=== PATIENT | male | born 1975 | race Two or more races ===

== ENCOUNTER 2021-02-23 17:00 | Inpatient (IN) | payer OTHER ==
[~2021-02-23] VITALS: Ht 342.9 cm; Wt 92.1 kg
[2021-02-23] MEDS ORDERED: SODIUM CHLORIDE 0.9% 1,000 ML IV ONE ×2 (17:30)
[2021-02-23] MEDS ORDERED: levoFLOXacin 500MG 100 ML IV ONE (17:45)
[2021-02-23] MEDS ORDERED: CLINDAMYCIN 600MG IV 50 ML IV ONE (17:45)
[2021-02-23 18:20] LABS: Basophils # (auto) 0.1 10 ^3/uL (0-0.2); Basophils % (auto) 0.6 % (0.0-2.0); Eosinophils # (auto) 0.1 10 ^3/uL (0-0.8); Eosinophils % (auto) 1.5 % (0.0-7.0); Hematocrit 38.4 % (41.0-53.0); Hemoglobin 13.9 g/dL (13.5-17.5); Lymphocytes # (auto) 1.9 10 ^3/uL (0.4-5.4); Lymphocytes % (auto) 19.3 % (10.0-50.0); Mean Corpuscular Hgb Conc. 36.1 g/dL (32.0-36.0); Monocytes # (auto) 0.7 10 ^3/uL (0-1.3); Monocytes % (auto) 7.4 % (0.0-12.0); Neutrophils % (auto) 71.2 % (37.0-80.0); Nucleated Red Blood Cells % 0.1 %; Red Blood Cells 4.47 10^6/uL (4.5-5.90); Red Cell Distribution Width 12.9 % (11.8-14.3); White Blood Cell 9.8 10^3/uL (4.4-10.8)
[2021-02-23 18:32] LABS: Albumin 3.5 g/dL (3.4-5.0); BUN/Creatinine Ratio 18.8; Calcium 8.7 mg/dL (8.5-10.1); Potassium 4.4 mmol/L (3.5-5.1)
[2021-02-23 18:35] LABS: Bilirubin, Total 0.6 mg/dL (0.2-1.0); Total Protein 7.5 g/dL (6.4-8.2)
[2021-02-23] MEDS ORDERED: ONDANSETRON HCL 4 MG/2 ML VIAL IV PRN (21:00)
[2021-02-23] MEDS ORDERED: ACETAMINOPHEN 325 MG TAB PO PRN (21:00)
[2021-02-23] MEDS ORDERED: DEXTROSE (50%) 50ML SYRG IV PRN (21:00)
[2021-02-23] MEDS ORDERED: TEMAZEPAM 15 MG CAP PO PRN (21:00)
[2021-02-23] MEDS: CLINDAMYCIN 600MG IV 50 ML IV SCH (22:00)
[2021-02-23] MEDS: ACCU-CHEK COMFORT CURVE STRIP VI SCH (23:26)
[2021-02-23] MEDS: InsuLIN REG 1unit/0.01ml Soln (100units/ml) SC SCH (23:36)
[2021-02-24] VITALS (8 sets, daily range): BP systolic 117–137; BP diastolic 74–88
[2021-02-24] MEDS: HYDROcodone-ACET 5/325MG TAB PO PRN ×3 (02:09→22:40)
[2021-02-24] MEDS ORDERED: ACET-1156 PO (05:15)
[2021-02-24] MEDS ORDERED: IBUP200C3 PO (05:15)
[2021-02-24] MEDS: CLINDAMYCIN 600MG IV 50 ML IV SCH ×3 (05:45→22:11)
[2021-02-24 06:37] LABS: Basophils # (auto) 0 10 ^3/uL (0-0.2); Hemoglobin 12.5 g/dL (13.5-17.5); Monocytes # (auto) 0.8 10 ^3/uL (0-1.3); Neutrophils # (auto) 6.5 10 ^3/uL (1.6-8.6)
[2021-02-24 06:40] LABS: Basophils % (auto) 0.5 % (0.0-2.0); Eosinophils # (auto) 0.1 10 ^3/uL (0-0.8); Eosinophils % (auto) 1.4 % (0.0-7.0); Hematocrit 33.9 % (41.0-53.0); Lymphocytes # (auto) 2.2 10 ^3/uL (0.4-5.4); Lymphocytes % (auto) 22.8 % (10.0-50.0); Mean Corpuscular Hemoglobin 31.2 pg (28.0-32.0); Mean Corpuscular Volume 84.8 fL (80.0-100.0); Monocytes % (auto) 8.4 % (0.0-12.0); Neutrophils % (auto) 66.9 % (37.0-80.0); Red Cell Distribution Width 12.7 % (11.8-14.3); White Blood Cell 9.7 10^3/uL (4.4-10.8)
[2021-02-24 07:06] LABS: Potassium 4.1 mmol/L (3.5-5.1)
[2021-02-24 07:09] LABS: BUN/Creatinine Ratio 22.6
[2021-02-24 07:13] LABS: Mean Corpuscular Hgb Conc. 36.8 g/dL (32.0-36.0)
[2021-02-24] MEDS: ACCU-CHEK COMFORT CURVE STRIP VI SCH ×4 (07:16→22:11)
[2021-02-24] MEDS: InsuLIN REG 1unit/0.01ml Soln (100units/ml) SC SCH ×4 (07:16→22:39)
[2021-02-24] MEDS: cefTRIAXone 1GM/50ML D5W 50 ML IV SCH (08:41)
[2021-02-24] MEDS ORDERED: PANTOPRAZOLE 40 MG TAB PO SCH (10:00)
[2021-02-25 05:00] VITALS: BP 115/77
[2021-02-25] MEDS: CLINDAMYCIN 600MG IV 50 ML IV SCH ×2 (06:00→13:52)
[2021-02-25] MEDS: ACCU-CHEK COMFORT CURVE STRIP VI SCH ×2 (06:00→12:35)
[2021-02-25] MEDS: InsuLIN REG 1unit/0.01ml Soln (100units/ml) SC SCH ×2 (06:03→12:36)
[2021-02-25] MEDS: cefTRIAXone 1GM/50ML D5W 50 ML IV SCH (08:27)
[2021-02-25] MEDS: HYDROcodone-ACET 5/325MG TAB PO PRN ×2 (08:27→15:26)
[2021-02-25 09:00] VITALS: BP 117/78
[2021-02-25 12:34] VITALS: BP 122/82
[2021-02-25] MEDS ORDERED: CLIN300C8 PO (12:36)
[2021-02-25] MEDS ORDERED: AMOX500T86 PO (12:38)
[2021-02-25] MEDS ORDERED: METF-372 PO (12:40)
[2021-02-25] MEDS ORDERED: GLIP10TA16 PO (12:40)
[2021-02-25 15:35] VITALS: BP 122/82
[2021-02-25 16:57] VITALS: BP 137/83
== END 2021-02-25 16:45 | disposition home or self-care (01) | DRG 603 ==
LOC: ER 17:00 → OVERFLOW 20:50 → WEST WING 02-24 01:25
PROVIDERS: ADMIT Nurse Practitioner; ATTEND Internal Medicine Nephrology
DX: L03.116 Cellulitis of left lower limb (principal); R65.10 Systemic inflammatory response syndrome (SIRS) of non-infectious origin without acute organ dysfunction; E11.65 Type 2 diabetes mellitus with hyperglycemia; Z20.822 Contact with and (suspected) exposure to COVID-19; Z91.19 Patient's noncompliance with other medical treatment and regimen
CPT/HCPCS: 36415; 71045; 73700; 80048; 80053; 82962; 83036; 85025; 87040; 87426; 96361; 96365; 96367; G0378; J0696; J1815; J1956; J3490

== ENCOUNTER 2022-01-25 14:36 | Emergency (ER) | payer MEDICAID, OTHER ==
[~2022-01-25] VITALS: Ht 177.8 cm; Wt 77.1 kg
[~2022-01-25 14:36] MED LIST: ACET-1156 PO; AMOX500T86 PO; CLIN300C8 PO; GLIP10TA16 PO; IBUP200C3 PO; METF-372 PO
[2022-01-25] MEDS ORDERED: LORazepam 2MG/ML-1ML VIAL IV ONE ×3 (16:15→18:45)
[2022-01-25] MEDS ORDERED: fentaNYL CITRATE 100 MCG/2 ML VL IV ONE ×2 (17:00→18:45)
[2022-01-25] MEDS ORDERED: PROPOFOL 10 MG/ML 20 ML IV ONE (19:00)
[2022-01-25] MEDS ORDERED: KETAMINE 50mg/ML 10ml Vial (500mg/10ml) IV ONE (19:00)
[2022-01-25 22:00] VITALS: BP 130/80
== END 2022-01-25 22:00 | disposition home or self-care (01) ==
LOC: ER 14:36
DX: S03.01XA Dislocation of jaw, right side, initial encounter (principal); E11.9 Type 2 diabetes mellitus without complications; X58.XXXA Exposure to other specified factors, initial encounter; Y93.89 Activity, other specified; Y92.89 Other specified places as the place of occurrence of the external cause; Y99.8 Other external cause status
CPT/HCPCS: 21480; 70486; 96374; 96375; 96376; 99152; 99153; 99285; J2060; J2704; J3010; J7030

== ENCOUNTER 2022-05-23 15:12 | Emergency (ER) | payer MEDICAID ==
[~2022-05-23] VITALS: Ht 175.3 cm; Wt 99.5 kg
[2022-05-23 15:35] VITALS: BP 127/80
[2022-05-23 16:39] LABS: Albumin 3.3 g/dL (3.4-5.0); Calcium 8.7 mg/dL (8.5-10.1); Potassium 4.8 mmol/L (3.5-5.1)
[2022-05-23 16:44] LABS: BUN/Creatinine Ratio 16.4; Bilirubin, Total 0.4 mg/dL (0.2-1.0); Total Protein 7.5 g/dL (6.4-8.2)
[2022-05-23 17:11] LABS: Basophils # (auto) 0.1 10 ^3/uL (0-0.2); Basophils % (auto) 0.9 % (0.0-2.0); Eosinophils # (auto) 0.2 10 ^3/uL (0-0.8); Eosinophils % (auto) 3.6 % (0.0-7.0); Hematocrit 39.4 % (41.0-53.0); Lymphocytes # (auto) 1.9 10 ^3/uL (0.4-5.4); Lymphocytes % (auto) 31.2 % (10.0-50.0); Mean Corpuscular Hgb Conc. 35.5 g/dL (32.0-36.0); Mean Corpuscular Volume 87.3 fL (80.0-100.0); Monocytes # (auto) 0.4 10 ^3/uL (0-1.3); Monocytes % (auto) 6.8 % (0.0-12.0); Neutrophils # (auto) 3.5 10 ^3/uL (1.6-8.6); Neutrophils % (auto) 57.5 % (37.0-80.0); Nucleated Red Blood Cells % 0.1 %; Red Blood Cells 4.52 10^6/uL (4.5-5.90); Red Cell Distribution Width 12.7 % (11.8-14.3); White Blood Cell 6.1 10^3/uL (4.4-10.8)
[2022-05-23] MEDS ORDERED: CEPH-322 PO (19:11)
== END 2022-05-23 19:39 | disposition home or self-care (01) ==
LOC: ER 15:12
DX: L03.115 Cellulitis of right lower limb (principal); E11.65 Type 2 diabetes mellitus with hyperglycemia; Z79.1 Long term (current) use of non-steroidal anti-inflammatories (NSAID); Z79.899 Other long term (current) drug therapy
CPT/HCPCS: 36415; 73700; 80053; 85025; 85652

== ENCOUNTER 2022-07-25 21:50 | Inpatient (IN) | payer MEDICAID ==
[~2022-07-25] VITALS: Ht 175.3 cm; Wt 97.0 kg
[~2022-07-25 21:50] MED LIST changes: +CEPH-322 PO
[2022-07-26] MEDS ORDERED: PIPERACILLIN-TAZOB 3.375GM 100 ML IV ONE (01:00)
[2022-07-26] MEDS ORDERED: VANCOMYCIN 1GM/250ML 250 ML IV ONE ×2 (01:00→04:45)
[2022-07-26 01:46] LABS: Albumin 2.9 g/dL (3.4-5.0); Calcium 8.9 mg/dL (8.5-10.1)
[2022-07-26 01:50] LABS: Bilirubin, Total 0.6 mg/dL (0.2-1.0); Total Protein 7.3 g/dL (6.4-8.2)
[2022-07-26 01:57] LABS: Partial Thromboplastin Time 27.6 sec (24.6-33.4)
[2022-07-26 02:02] LABS: Basophils # (auto) 0 10 ^3/uL (0-0.2); Basophils % (auto) 0.6 % (0.0-2.0); Eosinophils # (auto) 0.2 10 ^3/uL (0-0.8); Hematocrit 38.5 % (41.0-53.0); Hemoglobin 13.6 g/dL (13.5-17.5); Lymphocytes # (auto) 1.8 10 ^3/uL (0.4-5.4); Lymphocytes % (auto) 23.9 % (10.0-50.0); Mean Corpuscular Hgb Conc. 35.3 g/dL (32.0-36.0); Mean Corpuscular Volume 87.7 fL (80.0-100.0); Monocytes # (auto) 0.5 10 ^3/uL (0-1.3); Monocytes % (auto) 6.7 % (0.0-12.0); Neutrophils # (auto) 5.1 10 ^3/uL (1.6-8.6); Neutrophils % (auto) 65.8 % (37.0-80.0); Red Blood Cells 4.39 10^6/uL (4.5-5.90); Red Cell Distribution Width 12.4 % (11.8-14.3); White Blood Cell 7.7 10^3/uL (4.4-10.8)
[2022-07-26] MEDS ORDERED: SODIUM CHLORIDE 0.9% 1,000 ML IV ONE (04:00)
[2022-07-26] MEDS ORDERED: InsuLIN REG 1unit/0.01ml Soln (100units/ml) IV ONE (04:00)
[2022-07-26] MEDS ORDERED: VANCOMYCIN PER PHARMACY 0 MG IV SCH (04:30)
[2022-07-26] MEDS ORDERED: DEXTROSE (50%) 50ML SYRG IV PRN (04:30)
[2022-07-26] MEDS ORDERED: LORazepam 0.5 MG TAB PO PRN (04:30)
[2022-07-26] MEDS ORDERED: ACETAMINOPHEN 325 MG TAB PO PRN (04:30)
[2022-07-26] MEDS ORDERED: TEMAZEPAM 15 MG CAP PO PRN (04:30)
[2022-07-26] MEDS ORDERED: DOCUSATE SOD 100 MG CAP PO PRN (04:30)
[2022-07-26] MEDS: SODIUM CHLORIDE 0.9% 1,000 ML IV SCH ×2 (04:30→21:10)
[2022-07-26] MEDS ORDERED: HYDROcodone-ACET 5/325MG TAB PO PRN (04:30)
[2022-07-26] MEDS ORDERED: MAALOX PLUS or MAALOX 30 ML PO PRN (04:30)
[2022-07-26] MEDS ORDERED: ONDANSETRON HCL 4 MG/2 ML VIAL IV PRN (04:30)
[2022-07-26] MEDS ORDERED: MORPHINE SULFATE INJ 2 MG/ml SYRG IV PRN (04:30)
[2022-07-26 06:33] LABS: BUN/Creatinine Ratio 19.5; Calcium 9.1 mg/dL (8.5-10.1); Potassium 4.3 mmol/L (3.5-5.1)
[2022-07-26 06:38] LABS: Basophils # (auto) 0.1 10 ^3/uL (0-0.2); Basophils % (auto) 0.7 % (0.0-2.0); Eosinophils # (auto) 0.2 10 ^3/uL (0-0.8); Eosinophils % (auto) 2.8 % (0.0-7.0); Hematocrit 38.6 % (41.0-53.0); Hemoglobin 13.8 g/dL (13.5-17.5); Lymphocytes # (auto) 1.8 10 ^3/uL (0.4-5.4); Lymphocytes % (auto) 23.3 % (10.0-50.0); Mean Corpuscular Hemoglobin 31.4 pg (28.0-32.0); Mean Corpuscular Hgb Conc. 35.6 g/dL (32.0-36.0); Mean Corpuscular Volume 88.2 fL (80.0-100.0); Monocytes # (auto) 0.5 10 ^3/uL (0-1.3); Monocytes % (auto) 6.7 % (0.0-12.0); Neutrophils % (auto) 66.5 % (37.0-80.0); Red Blood Cells 4.38 10^6/uL (4.5-5.90); Red Cell Distribution Width 12.3 % (11.8-14.3); White Blood Cell 7.6 10^3/uL (4.4-10.8)
[2022-07-26] MEDS: PIPERACILLIN-TAZOB 3.375GM 100 ML IV SCH ×3 (09:30→16:39)
[2022-07-26] MEDS: ACCU-CHEK COMFORT CURVE STRIP VI SCH ×4 (09:40→23:04)
[2022-07-26] MEDS: InsuLIN REG 1unit/0.01ml Soln (100units/ml) SC SCH ×4 (09:43→23:09)
[2022-07-26] MEDS: VANCOMYCIN 1GM/250ML 250 ML IV SCH ×2 (10:39→18:15)
[2022-07-26 11:33] LABS: BUN/Creatinine Ratio 18.4
[2022-07-26 12:12] LABS: Urine Bacteria NONE SEEN /hpf (None Seen); Urine Blood 1+ /uL (Negative); Urine WBC <1 /hpf (0 - 3)
[2022-07-26 12:41] LABS: Alcohol, Urine < 3.0 mg/dL (0-10); Amphetamine Screen, Urine NEGATIVE (NEGATIVE); Barbiturate Scree,Urine NEGATIVE (NEGATIVE); Benzodiazephine Screen, Urine NEGATIVE (NEGATIVE); Cannabinoid Screen, Urine NEGATIVE (NEGATIVE); Cocaine Screen, Urine NEGATIVE (NEGATIVE); Opiate Scree,Urine NEGATIVE (NEGATIVE); Phencyclidine Screen, Urine NEGATIVE (NEGATIVE)
[2022-07-26] MEDS ORDERED: LOSARTAN POTASSIUM 25 MG TAB PO ONE (13:15)
[2022-07-26] MEDS: metFORMIN HYDROCHLORIDE 500 MG TAB PO SCH (18:18)
[2022-07-26] MEDS ORDERED: INSULIN LANTUS (GLARGINE) 1 /0.01ml (100units/ml) SC SCH (22:00)
[2022-07-26 22:20] VITALS: BP 144/92
[2022-07-26 22:56] LABS: CRP High Sensitivity 4.54 mg/dL (< 0.3)
[2022-07-27 00:41] VITALS: BP_SYST 144; BP_DIAS 92; BP_DIAS 93
[2022-07-27] MEDS ORDERED: METF-370 PO (01:22)
[2022-07-27] MEDS ORDERED: AMOX500T86 PO (01:22)
[2022-07-27] MEDS: VANCOMYCIN 1GM/250ML 250 ML IV SCH ×3 (03:10→23:53)
[2022-07-27 05:00] VITALS: BP 121/68
[2022-07-27] MEDS: ACCU-CHEK COMFORT CURVE STRIP VI SCH ×4 (06:16→22:31)
[2022-07-27] MEDS: PIPERACILLIN-TAZOB 3.375GM 100 ML IV SCH ×3 (06:16→21:38)
[2022-07-27] MEDS: InsuLIN REG 1unit/0.01ml Soln (100units/ml) SC SCH ×4 (06:18→23:26)
[2022-07-27 06:34] LABS: Basophils # (auto) 0 10 ^3/uL (0-0.2); Basophils % (auto) 0.6 % (0.0-2.0); Eosinophils # (auto) 0.2 10 ^3/uL (0-0.8); Eosinophils % (auto) 2.7 % (0.0-7.0); Hematocrit 35.2 % (41.0-53.0); Hemoglobin 12.5 g/dL (13.5-17.5); Lymphocytes # (auto) 1.8 10 ^3/uL (0.4-5.4); Mean Corpuscular Hgb Conc. 35.4 g/dL (32.0-36.0); Mean Corpuscular Volume 87.5 fL (80.0-100.0); Monocytes # (auto) 0.5 10 ^3/uL (0-1.3); Monocytes % (auto) 7.7 % (0.0-12.0); Neutrophils # (auto) 4.5 10 ^3/uL (1.6-8.6); Red Blood Cells 4.02 10^6/uL (4.5-5.90); Red Cell Distribution Width 12.4 % (11.8-14.3); White Blood Cell 7.1 10^3/uL (4.4-10.8)
[2022-07-27 06:52] LABS: Albumin 2.3 g/dL (3.4-5.0); Calcium 8.5 mg/dL (8.5-10.1); Potassium 4.7 mmol/L (3.5-5.1)
[2022-07-27 06:54] LABS: BUN/Creatinine Ratio 17.2
[2022-07-27 06:56] LABS: Bilirubin, Total 0.6 mg/dL (0.2-1.0); Total Protein 5.5 g/dL (6.4-8.2)
[2022-07-27] MEDS: metFORMIN HYDROCHLORIDE 500 MG TAB PO SCH ×2 (08:12→17:20)
[2022-07-27] MEDS: LOSARTAN POTASSIUM 25 MG TAB PO SCH (08:13)
[2022-07-27 09:00] VITALS: BP 146/89
[2022-07-27] MEDS: INSULIN LANTUS (GLARGINE) 1 /0.01ml (100units/ml) SC SCH ×2 (11:27→23:23)
[2022-07-27 13:00] VITALS: BP 151/78
[2022-07-27] MEDS: SODIUM CHLORIDE 0.9% 1,000 ML IV SCH (13:50)
[2022-07-27 17:00] VITALS: BP 145/91
[2022-07-27 22:00] VITALS: BP 155/83
[2022-07-28 05:00] VITALS: BP 123/73
[2022-07-28] MEDS: PIPERACILLIN-TAZOB 3.375GM 100 ML IV SCH ×3 (05:45→21:46)
[2022-07-28 06:02] LABS: Basophils # (auto) 0.1 10 ^3/uL (0-0.2); Basophils % (auto) 1.1 % (0.0-2.0); Eosinophils # (auto) 0.2 10 ^3/uL (0-0.8); Eosinophils % (auto) 3.7 % (0.0-7.0); Hematocrit 34.8 % (41.0-53.0); Hemoglobin 12.6 g/dL (13.5-17.5); Lymphocytes # (auto) 1.8 10 ^3/uL (0.4-5.4); Lymphocytes % (auto) 29.6 % (10.0-50.0); Mean Corpuscular Hemoglobin 31.6 pg (28.0-32.0); Mean Corpuscular Hgb Conc. 36.3 g/dL (32.0-36.0); Monocytes # (auto) 0.5 10 ^3/uL (0-1.3); Monocytes % (auto) 8.4 % (0.0-12.0); Neutrophils # (auto) 3.5 10 ^3/uL (1.6-8.6); Neutrophils % (auto) 57.2 % (37.0-80.0); Red Cell Distribution Width 12.4 % (11.8-14.3); White Blood Cell 6.1 10^3/uL (4.4-10.8)
[2022-07-28] MEDS: ACCU-CHEK COMFORT CURVE STRIP VI SCH ×4 (06:06→21:41)
[2022-07-28] MEDS: InsuLIN REG 1unit/0.01ml Soln (100units/ml) SC SCH ×4 (06:10→21:39)
[2022-07-28 06:19] LABS: Albumin 2.4 g/dL (3.4-5.0); Calcium 8.2 mg/dL (8.5-10.1); Potassium 4.3 mmol/L (3.5-5.1)
[2022-07-28 06:25] LABS: BUN/Creatinine Ratio 13.5; Bilirubin, Total 0.5 mg/dL (0.2-1.0); Total Protein 5.6 g/dL (6.4-8.2)
[2022-07-28 09:00] VITALS: BP 111/68
[2022-07-28] MEDS: LOSARTAN POTASSIUM 25 MG TAB PO SCH (09:29)
[2022-07-28] MEDS: metFORMIN HYDROCHLORIDE 500 MG TAB PO SCH ×2 (09:29→17:23)
[2022-07-28] MEDS: VANCOMYCIN 1GM/250ML 250 ML IV SCH ×2 (09:30→09:33)
[2022-07-28] MEDS: SODIUM CHLORIDE 0.9% 1,000 ML IV SCH ×2 (09:33→23:10)
[2022-07-28 12:59] VITALS: BP 136/80
[2022-07-28 15:12] LABS: Hepatitis C Antibody Negative (Negative)
[2022-07-28 17:00] VITALS: BP 124/71
[2022-07-28] MEDS: INSULIN LANTUS (GLARGINE) 1 /0.01ml (100units/ml) SC SCH (21:40)
[2022-07-28 22:00] VITALS: BP 145/88
[2022-07-29 05:00] VITALS: BP 130/88
[2022-07-29] MEDS: VANCOMYCIN 1GM/250ML 250 ML IV SCH ×2 (05:04→15:00)
[2022-07-29 06:18] LABS: Basophils # (auto) 0.1 10 ^3/uL (0-0.2); Basophils % (auto) 0.7 % (0.0-2.0); Eosinophils # (auto) 0.2 10 ^3/uL (0-0.8); Eosinophils % (auto) 3.4 % (0.0-7.0); Hematocrit 36.6 % (41.0-53.0); Lymphocytes # (auto) 1.8 10 ^3/uL (0.4-5.4); Lymphocytes % (auto) 25.5 % (10.0-50.0); Mean Corpuscular Hgb Conc. 35.4 g/dL (32.0-36.0); Mean Corpuscular Volume 87.6 fL (80.0-100.0); Monocytes # (auto) 0.5 10 ^3/uL (0-1.3); Monocytes % (auto) 7.1 % (0.0-12.0); Neutrophils # (auto) 4.5 10 ^3/uL (1.6-8.6); Neutrophils % (auto) 63.3 % (37.0-80.0); Red Blood Cells 4.18 10^6/uL (4.5-5.90); Red Cell Distribution Width 12.5 % (11.8-14.3); White Blood Cell 7.1 10^3/uL (4.4-10.8)
[2022-07-29] MEDS: InsuLIN REG 1unit/0.01ml Soln (100units/ml) SC SCH ×4 (06:37→21:36)
[2022-07-29] MEDS: ACCU-CHEK COMFORT CURVE STRIP VI SCH ×4 (06:38→21:37)
[2022-07-29 06:45] LABS: Albumin 2.5 g/dL (3.4-5.0); Calcium 8.7 mg/dL (8.5-10.1)
[2022-07-29 06:51] LABS: Bilirubin, Total 0.4 mg/dL (0.2-1.0)
[2022-07-29] MEDS: PIPERACILLIN-TAZOB 3.375GM 100 ML IV SCH ×3 (07:21→21:14)
[2022-07-29] MEDS: metFORMIN HYDROCHLORIDE 500 MG TAB PO SCH ×2 (08:58→17:51)
[2022-07-29] MEDS: LOSARTAN POTASSIUM 25 MG TAB PO SCH (08:59)
[2022-07-29 09:00] VITALS: BP 144/78
[2022-07-29] MEDS ORDERED: fentaNYL CITRATE 100 MCG/2 ML VL ONE (11:25)
[2022-07-29] MEDS ORDERED: PROPOFOL 10 MG/ML 20 ML IV ONE (11:26)
[2022-07-29] MEDS ORDERED: MIDAZOLAM HCL 2MG/2ML 2ml VIAL (1mg/ml) ONE (11:26)
[2022-07-29] MEDS ORDERED: METOCLOPRAMIDE HCL 5MG/ml INJ 2ml VIAL IV PRN (11:45)
[2022-07-29] MEDS ORDERED: ONDANSETRON HCL 4 MG/2 ML VIAL IV PRN (11:45)
[2022-07-29] MEDS ORDERED: ePHEDrine SULFATE 50 MG/ML AMP IV PRN (11:45)
[2022-07-29] MEDS ORDERED: LABETALOL HCL 5 MG/ML 4ML SYRINGE IV PRN (11:45)
[2022-07-29] MEDS ORDERED: DAKINS HALF STR 0.25% (NaHypochlorite) 473 ML TOPICAL SOL TOP ONE (11:45)
[2022-07-29] MEDS ORDERED: BUPIVACAINE 0.5% P/F INJ 10 ML VIAL ONE (11:45)
[2022-07-29] MEDS ORDERED: LIDOCAINE 1%HCL (LOCAL ANESTH) 10 ML MDV ONE (11:45)
[2022-07-29] MEDS ORDERED: MIDAZOLAM HCL 2MG/2ML 2ml VIAL (1mg/ml) IV PRN (11:45)
[2022-07-29] MEDS ORDERED: HYDROmorphone HCL 2 MG/ML VL/or syr IV PRN (11:45)
[2022-07-29] MEDS ORDERED: MORPHINE SULFATE 4 MG/ML SYR/VIAL IV PRN (11:45)
[2022-07-29] MEDS ORDERED: ACCU-CHEK COMFORT CURVE STRIP VI ONE (11:45)
[2022-07-29] MEDS: SODIUM CHLORIDE 0.9% 1,000 ML IV SCH (16:14)
[2022-07-29 17:41] VITALS: BP 139/79
[2022-07-29] MEDS: INSULIN LANTUS (GLARGINE) 1 /0.01ml (100units/ml) SC SCH (21:37)
[2022-07-29 22:00] VITALS: BP 151/93
[2022-07-30] MEDS: VANCOMYCIN 1GM/250ML 250 ML IV SCH ×3 (00:54→22:01)
[2022-07-30 05:00] VITALS: BP 138/96
[2022-07-30] MEDS: PIPERACILLIN-TAZOB 3.375GM 100 ML IV SCH ×3 (05:16→22:00)
[2022-07-30 06:03] LABS: Basophils # (auto) 0.1 10 ^3/uL (0-0.2); Basophils % (auto) 0.9 % (0.0-2.0); Eosinophils # (auto) 0.1 10 ^3/uL (0-0.8); Eosinophils % (auto) 2.2 % (0.0-7.0); Hematocrit 34.7 % (41.0-53.0); Hemoglobin 12.2 g/dL (13.5-17.5); Lymphocytes # (auto) 0.9 10 ^3/uL (0.4-5.4); Lymphocytes % (auto) 14.9 % (10.0-50.0); Mean Corpuscular Hemoglobin 30.9 pg (28.0-32.0); Mean Corpuscular Hgb Conc. 35.3 g/dL (32.0-36.0); Mean Corpuscular Volume 87.4 fL (80.0-100.0); Monocytes # (auto) 0.4 10 ^3/uL (0-1.3); Neutrophils # (auto) 4.5 10 ^3/uL (1.6-8.6); Red Blood Cells 3.97 10^6/uL (4.5-5.90); Red Cell Distribution Width 12.6 % (11.8-14.3)
[2022-07-30 06:36] LABS: Albumin 2.3 g/dL (3.4-5.0); Calcium 8.5 mg/dL (8.5-10.1); Potassium 4.3 mmol/L (3.5-5.1)
[2022-07-30 06:39] LABS: Bilirubin, Total 0.4 mg/dL (0.2-1.0); Total Protein 6.3 g/dL (6.4-8.2)
[2022-07-30] MEDS: ACCU-CHEK COMFORT CURVE STRIP VI SCH ×4 (06:40→22:01)
[2022-07-30] MEDS: InsuLIN REG 1unit/0.01ml Soln (100units/ml) SC SCH ×4 (06:42→22:00)
[2022-07-30] MEDS: SODIUM CHLORIDE 0.9% 1,000 ML IV SCH (08:30)
[2022-07-30] MEDS: metFORMIN HYDROCHLORIDE 500 MG TAB PO SCH ×2 (08:45→17:58)
[2022-07-30 09:00] VITALS: BP 150/89
[2022-07-30] MEDS: LOSARTAN POTASSIUM 25 MG TAB PO SCH (11:06)
[2022-07-30 13:00] VITALS: BP 149/86
[2022-07-30] MEDS ORDERED: glipiZIDE 5 MG TAB PO ONE (14:15)
[2022-07-30 17:00] VITALS: BP 149/83
[2022-07-30 22:00] VITALS: BP 137/89
[2022-07-31] MEDS: SODIUM CHLORIDE 0.9% 1,000 ML IV SCH ×3 (01:10→17:57)
[2022-07-31 05:00] VITALS: BP 116/71
[2022-07-31] MEDS: PIPERACILLIN-TAZOB 3.375GM 100 ML IV SCH ×3 (05:37→22:38)
[2022-07-31 06:06] LABS: Basophils # (auto) 0 10 ^3/uL (0-0.2); Basophils % (auto) 0.9 % (0.0-2.0); Eosinophils # (auto) 0.2 10 ^3/uL (0-0.8); Eosinophils % (auto) 3.5 % (0.0-7.0); Hematocrit 36.9 % (41.0-53.0); Hemoglobin 13.1 g/dL (13.5-17.5); Lymphocytes # (auto) 1.8 10 ^3/uL (0.4-5.4); Lymphocytes % (auto) 34.4 % (10.0-50.0); Mean Corpuscular Hemoglobin 31.2 pg (28.0-32.0); Mean Corpuscular Hgb Conc. 35.5 g/dL (32.0-36.0); Mean Corpuscular Volume 87.8 fL (80.0-100.0); Monocytes # (auto) 0.6 10 ^3/uL (0-1.3); Monocytes % (auto) 10.3 % (0.0-12.0); Neutrophils # (auto) 2.7 10 ^3/uL (1.6-8.6); Neutrophils % (auto) 50.9 % (37.0-80.0); Red Cell Distribution Width 12.5 % (11.8-14.3); White Blood Cell 5.4 10^3/uL (4.4-10.8)
[2022-07-31 06:23] LABS: Albumin 2.4 g/dL (3.4-5.0); BUN/Creatinine Ratio 16.4; Calcium 8.8 mg/dL (8.5-10.1); Potassium 3.9 mmol/L (3.5-5.1)
[2022-07-31 06:25] LABS: Bilirubin, Total 0.4 mg/dL (0.2-1.0)
[2022-07-31] MEDS: InsuLIN REG 1unit/0.01ml Soln (100units/ml) SC SCH ×4 (07:00→22:38)
[2022-07-31] MEDS: ACCU-CHEK COMFORT CURVE STRIP VI SCH ×4 (07:03→22:38)
[2022-07-31] MEDS: VANCOMYCIN 1GM/250ML 250 ML IV SCH ×2 (07:08→18:54)
[2022-07-31] MEDS: glipiZIDE 5 MG TAB PO SCH (07:58)
[2022-07-31] MEDS: metFORMIN HYDROCHLORIDE 500 MG TAB PO SCH ×2 (08:20→17:39)
[2022-07-31 09:00] VITALS: BP 128/78
[2022-07-31] MEDS: LOSARTAN POTASSIUM 25 MG TAB PO SCH (09:25)
[2022-07-31] MEDS: DAKINS QUARTER STR 0.125% (NaHypochlorite) 473 ML TOPICAL SOL TOP SCH ×2 (10:44→10:45)
[2022-07-31 13:00] VITALS: BP 160/86
[2022-07-31 17:00] VITALS: BP 138/90
[2022-07-31 21:53] VITALS: BP 156/95
[2022-08-01 05:00] VITALS: BP 139/83
[2022-08-01] MEDS: PIPERACILLIN-TAZOB 3.375GM 100 ML IV SCH ×2 (06:31→13:15)
[2022-08-01] MEDS: VANCOMYCIN 1GM/250ML 250 ML IV SCH (06:31)
[2022-08-01] MEDS: ACCU-CHEK COMFORT CURVE STRIP VI SCH ×2 (06:31→11:19)
[2022-08-01 06:45] LABS: Basophils # (auto) 0.1 10 ^3/uL (0-0.2); Basophils % (auto) 0.9 % (0.0-2.0); Eosinophils # (auto) 0.2 10 ^3/uL (0-0.8); Eosinophils % (auto) 3.3 % (0.0-7.0); Hematocrit 35.9 % (41.0-53.0); Hemoglobin 12.7 g/dL (13.5-17.5); Lymphocytes # (auto) 1.6 10 ^3/uL (0.4-5.4); Lymphocytes % (auto) 22.5 % (10.0-50.0); Mean Corpuscular Hemoglobin 31.5 pg (28.0-32.0); Mean Corpuscular Hgb Conc. 35.5 g/dL (32.0-36.0); Mean Corpuscular Volume 88.6 fL (80.0-100.0); Monocytes # (auto) 0.7 10 ^3/uL (0-1.3); Monocytes % (auto) 8.9 % (0.0-12.0); Neutrophils # (auto) 4.7 10 ^3/uL (1.6-8.6); Neutrophils % (auto) 64.4 % (37.0-80.0); Nucleated Red Blood Cells % 0.1 %; Red Blood Cells 4.05 10^6/uL (4.5-5.90); Red Cell Distribution Width 12.4 % (11.8-14.3); White Blood Cell 7.3 10^3/uL (4.4-10.8)
[2022-08-01] MEDS: glipiZIDE 5 MG TAB PO SCH (06:48)
[2022-08-01] MEDS: InsuLIN REG 1unit/0.01ml Soln (100units/ml) SC SCH ×2 (06:48→11:19)
[2022-08-01 07:04] LABS: Albumin 2.4 g/dL (3.4-5.0); Calcium 8.7 mg/dL (8.5-10.1); Potassium 4.4 mmol/L (3.5-5.1)
[2022-08-01 07:08] LABS: BUN/Creatinine Ratio 18.6; Bilirubin, Total 0.3 mg/dL (0.2-1.0); Total Protein 6.6 g/dL (6.4-8.2)
[2022-08-01 08:00] VITALS: BP 144/102
[2022-08-01] MEDS: LOSARTAN POTASSIUM 25 MG TAB PO SCH (08:59)
[2022-08-01] MEDS: metFORMIN HYDROCHLORIDE 500 MG TAB PO SCH (08:59)
[2022-08-01] MEDS: DAKINS QUARTER STR 0.125% (NaHypochlorite) 473 ML TOPICAL SOL TOP SCH (10:00)
[2022-08-01 12:00] VITALS: BP 158/94
[2022-08-01] MEDS ORDERED: GLIP5TAB12 PO (14:57)
[2022-08-01] MEDS ORDERED: LOS25T PO (14:57)
[2022-08-01] MEDS ORDERED: METF-370 PO (14:57)
[2022-08-01] MEDS ORDERED: SITA50TA PO (14:57)
[2022-08-01] MEDS ORDERED: CEPH500C PO (14:57)
[2022-08-01 16:00] VITALS: BP 151/92
== END 2022-08-01 17:33 | disposition home or self-care (01) | DRG 344 ==
LOC: ER 21:51 → OVERFLOW 07-26 04:22 → CENTRAL 07-26 21:38
PROVIDERS: ADMIT Hospitalist; ATTEND Student in an Organized Health Care Education/Training Program
PROC: 0JBQ0ZZ Excision of Right Foot Subcutaneous Tissue and Fascia, Open Approach (ICD-10-PCS; principal; 2022-07-29 11:48)
DX: E11.621 Type 2 diabetes mellitus with foot ulcer (principal); M86.8X7 Other osteomyelitis, ankle and foot; E87.1 Hypo-osmolality and hyponatremia; E11.40 Type 2 diabetes mellitus with diabetic neuropathy, unspecified; E11.21 Type 2 diabetes mellitus with diabetic nephropathy; L97.415 Non-pressure chronic ulcer of right heel and midfoot with muscle involvement without evidence of necrosis; E11.65 Type 2 diabetes mellitus with hyperglycemia; Z20.822 Contact with and (suspected) exposure to COVID-19; E86.0 Dehydration; R79.89 Other specified abnormal findings of blood chemistry; E66.9 Obesity, unspecified; E11.628 Type 2 diabetes mellitus with other skin complications; E11.69 Type 2 diabetes mellitus with other specified complication; L08.9 Local infection of the skin and subcutaneous tissue, unspecified; L97.519 Non-pressure chronic ulcer of other part of right foot with unspecified severity; Z79.84 Long term (current) use of oral hypoglycemic drugs; Z68.32 Body mass index [BMI] 32.0-32.9, adult; Z83.3 Family history of diabetes mellitus
CPT/HCPCS: 36415; 73630; 78315; 80048; 80053; 80202; 80307; 81001; 82010; 82553; 82962; 83036; 83605; 83690; 83930; 84484; 85025; 85610; 85652; 85730; 86141; 86803; 87040; 87070; 87075; 87077; 87205; 87340; 87426; 93971; 96361; 96372; 96374; 99291; G0378; J1815; J2001; J2250; J2543; J2704; J3490

== ENCOUNTER 2023-01-16 13:30 | Inpatient (IN) | payer MEDICAID ==
[~2023-01-16] VITALS: Ht 175.3 cm; Wt 98.9 kg
[~2023-01-16 13:30] MED LIST changes: -ACET-1156 PO; +ACET-1881 PO; -CEPH-322 PO; +CEPH250C PO; +CEPH500C PO; +CLIN300C70 PO; -CLIN300C8 PO; -GLIP10TA16 PO; +GLIP10TA21 PO; +GLIP5TAB12 PO; +LOS25T PO; +METF-370 PO; +SITA50TA PO
[2023-01-16 15:02] LABS: Basophils # (auto) 0.1 10 ^3/uL (0-0.2); Basophils % (auto) 1.2 % (0.0-2.0); Eosinophils # (auto) 0.1 10 ^3/uL (0-0.8); Eosinophils % (auto) 2.6 % (0.0-7.0); Hematocrit 41.4 % (41.0-53.0); Hemoglobin 14.4 g/dL (13.5-17.5); Lymphocytes # (auto) 1.5 10 ^3/uL (0.4-5.4); Lymphocytes % (auto) 28.1 % (10.0-50.0); Mean Corpuscular Hemoglobin 30.7 pg (28.0-32.0); Mean Corpuscular Hgb Conc. 34.8 g/dL (32.0-36.0); Mean Corpuscular Volume 88.1 fL (80.0-100.0); Monocytes # (auto) 0.6 10 ^3/uL (0-1.3); Monocytes % (auto) 10.8 % (0.0-12.0); Neutrophils # (auto) 3.1 10 ^3/uL (1.6-8.6); Neutrophils % (auto) 57.3 % (37.0-80.0); Nucleated Red Blood Cells % 0.1 %; Red Cell Distribution Width 12.4 % (11.8-14.3); White Blood Cell 5.5 10^3/uL (4.4-10.8)
[2023-01-16 15:47] LABS: Albumin 2.6 g/dL (3.4-5.0); Anion Gap 7 (5-15); BUN/Creatinine Ratio 10.9 (10.0-20.0); Blood Urea Nitrogen 19 mg/dL (7-18); Calcium 8.4 mg/dL (8.5-10.1); Carbon Dioxide 24 mmol/L (21-32); Chloride 100 mmol/L (98-107); GFR African American 55 mL/min; GFR Non-African American 45 mL/min; Potassium 4.5 mmol/L (3.5-5.1); Sodium 131 mmol/L (136-145)
[2023-01-16 15:58] LABS: Alanine Aminotransferase 20 U/L (16-61); Alkaline Phosphatase 97 U/L (45-117); Aspartate Aminotransferase 17 U/L (15-37); Bilirubin, Total 0.4 mg/dL (0.2-1.0)
[2023-01-16 16:05] LABS: Glucose 427 mg/dL (74-106)
[2023-01-16] MEDS ORDERED: CLINDAMYCIN 600MG IV 50 ML IV ONE (16:15)
[2023-01-16] MEDS ORDERED: DEXTROSE (50%) 50ML SYRG IV PRN (16:15)
[2023-01-16] MEDS ORDERED: SODIUM CHLORIDE 0.9% 1,000 ML IV ONE (16:30)
[2023-01-16 17:22] LABS: INR 1.03 (0.9-1.15); Partial Thromboplastin Time 29.1 sec (24.6-33.4)
[2023-01-16] MEDS: ACCU-CHEK COMFORT CURVE STRIP VI SCH ×2 (21:26→21:27)
[2023-01-16] MEDS: InsuLIN REG 1unit/0.01ml Soln (100units/ml) SC SCH ×2 (21:26→21:49)
[2023-01-17] MEDS: CLINDAMYCIN 600MG IV 50 ML IV SCH ×2 (01:00→09:00)
[2023-01-17] MEDS: ACCU-CHEK COMFORT CURVE STRIP VI SCH ×4 (06:17→22:21)
[2023-01-17] MEDS: InsuLIN REG 1unit/0.01ml Soln (100units/ml) SC SCH ×4 (06:20→22:20)
[2023-01-17 06:56] LABS: Basophils # (auto) 0.1 10 ^3/uL (0-0.2); Basophils % (auto) 1.3 % (0.0-2.0); Eosinophils # (auto) 0.3 10 ^3/uL (0-0.8); Eosinophils % (auto) 5.1 % (0.0-7.0); Hematocrit 40.3 % (41.0-53.0); Hemoglobin 14.2 g/dL (13.5-17.5); Lymphocytes # (auto) 2.3 10 ^3/uL (0.4-5.4); Lymphocytes % (auto) 42.8 % (10.0-50.0); Mean Corpuscular Hemoglobin 30.7 pg (28.0-32.0); Mean Corpuscular Hgb Conc. 35.1 g/dL (32.0-36.0); Mean Corpuscular Volume 87.3 fL (80.0-100.0); Monocytes # (auto) 0.5 10 ^3/uL (0-1.3); Monocytes % (auto) 9.8 % (0.0-12.0); Neutrophils # (auto) 2.2 10 ^3/uL (1.6-8.6); Red Blood Cells 4.62 10^6/uL (4.5-5.90); Red Cell Distribution Width 12.4 % (11.8-14.3); White Blood Cell 5.4 10^3/uL (4.4-10.8)
[2023-01-17 07:10] LABS: Albumin 2.9 g/dL (3.4-5.0); Calcium 8.9 mg/dL (8.5-10.1); Potassium 4.2 mmol/L (3.5-5.1)
[2023-01-17 07:17] LABS: BUN/Creatinine Ratio 20.3 (10.0-20.0); Bilirubin, Total 0.5 mg/dL (0.2-1.0); Total Protein 7.3 g/dL (6.4-8.2)
[2023-01-17] MEDS ORDERED: CEFEPIME 1GM/ 50ML 50 ML IV SCH ×3 (08:00→21:00)
[2023-01-17] MEDS ORDERED: GADOTERATE MEG 10 MMOL/20ml INJ (0.5MMOL/ml) IV ONE (12:55)
[2023-01-17] MEDS ORDERED: INSULIN LANTUS (GLARGINE) 1 /0.01ml (100units/ml) SC ONE ×2 (14:30→20:00)
[2023-01-17 14:48] VITALS: BP 144/93
[2023-01-17 17:41] VITALS: BP 145/94
[2023-01-17 20:00] VITALS: BP 115/59
[2023-01-17] MEDS ORDERED: LINEZOLID 600MG/300ML 300 ML IV SCH (20:00)
[2023-01-17] MEDS ORDERED: CEFEPIME 1GM/ 50ML 50 ML IV ONE (20:00)
[2023-01-17] MEDS: DAKINS HALF STR 0.25% (NaHypochlorite) 473 ML TOPICAL SOL TOP SCH (21:18)
[2023-01-17] MEDS ORDERED: INSULIN LANTUS (GLARGINE) 1 /0.01ml (100units/ml) SC SCH (22:00)
[2023-01-17] MEDS ORDERED: DAKINS QUARTER STR 0.125% (NaHypochlorite) 473 ML TOPICAL SOL TOP SCH (22:00)
[2023-01-17] MEDS: LINEZOLID 600MG/300ML 300 ML IV SCH (22:08)
[2023-01-17 23:25] VITALS: BP 136/89
[2023-01-18 05:10] VITALS: BP 122/82
[2023-01-18 06:04] LABS: Basophils # (auto) 0.1 10 ^3/uL (0-0.2); Eosinophils # (auto) 0.3 10 ^3/uL (0-0.8); Eosinophils % (auto) 5.1 % (0.0-7.0); Hematocrit 37.1 % (41.0-53.0); Hemoglobin 13.3 g/dL (13.5-17.5); Lymphocytes # (auto) 2.2 10 ^3/uL (0.4-5.4); Lymphocytes % (auto) 38.4 % (10.0-50.0); Mean Corpuscular Hgb Conc. 35.7 g/dL (32.0-36.0); Mean Corpuscular Volume 86.7 fL (80.0-100.0); Monocytes # (auto) 0.5 10 ^3/uL (0-1.3); Monocytes % (auto) 8.6 % (0.0-12.0); Neutrophils # (auto) 2.7 10 ^3/uL (1.6-8.6); Neutrophils % (auto) 46.9 % (37.0-80.0); Nucleated Red Blood Cells % 0.2 %; Red Blood Cells 4.28 10^6/uL (4.5-5.90); Red Cell Distribution Width 12.2 % (11.8-14.3); White Blood Cell 5.7 10^3/uL (4.4-10.8)
[2023-01-18 06:16] LABS: Calcium 8.3 mg/dL (8.5-10.1)
[2023-01-18 06:18] LABS: BUN/Creatinine Ratio 20.8 (10.0-20.0)
[2023-01-18] MEDS: CEFEPIME 1GM/ 50ML 50 ML IV SCH ×2 (06:23→14:22)
[2023-01-18] MEDS: InsuLIN REG 1unit/0.01ml Soln (100units/ml) SC SCH ×2 (06:25→14:23)
[2023-01-18] MEDS: ACCU-CHEK COMFORT CURVE STRIP VI SCH ×2 (06:25→14:23)
[2023-01-18] MEDS ORDERED: INSULIN LANTUS (GLARGINE) 1 /0.01ml (100units/ml) SC SCH (07:00)
[2023-01-18 08:00] VITALS: BP 115/59
[2023-01-18 08:59] VITALS: BP 134/89
[2023-01-18] MEDS ORDERED: GLIP10TA21 PO (10:00)
[2023-01-18] MEDS ORDERED: METF-929 PO (10:00)
[2023-01-18] MEDS ORDERED: LOSA25TA15 PO (10:00)
[2023-01-18] MEDS ORDERED: DOXY1CAP57 PO (10:00)
[2023-01-18] MEDS ORDERED: SITA50TA PO (10:00)
[2023-01-18] MEDS ORDERED: DAKINS QUARTER STR 0.125% (NaHypochlorite) 473 ML TOPICAL SOL TOP ONE (10:15)
[2023-01-18] MEDS: LINEZOLID 600MG/300ML 300 ML IV SCH (10:42)
[2023-01-18] MEDS: DAKINS HALF STR 0.25% (NaHypochlorite) 473 ML TOPICAL SOL TOP SCH ×2 (11:26→11:27)
[2023-01-18 13:00] VITALS: BP 158/94
[2023-01-18 16:58] VITALS: BP 155/90
== END 2023-01-18 17:00 | disposition home or self-care (01) | DRG 380 ==
LOC: ER 13:30 → OVERFLOW 16:06 → CENTRAL 01-17 14:44
PROVIDERS: ADMIT Nurse Practitioner Family; ATTEND Internal Medicine Geriatric Medicine
DX: E11.69 Type 2 diabetes mellitus with other specified complication (principal); L97.519 Non-pressure chronic ulcer of other part of right foot with unspecified severity; N17.9 Acute kidney failure, unspecified; E44.0 Moderate protein-calorie malnutrition; E11.621 Type 2 diabetes mellitus with foot ulcer; E86.0 Dehydration; N18.9 Chronic kidney disease, unspecified; E11.65 Type 2 diabetes mellitus with hyperglycemia; E66.9 Obesity, unspecified; Z91.199 Patient's noncompliance with other medical treatment and regimen due to unspecified reason; Z68.32 Body mass index [BMI] 32.0-32.9, adult
CPT/HCPCS: 36415; 73700; 73720; 80048; 80053; 80061; 82962; 83036; 85025; 85610; 85652; 85730; 87077; 87186; 87205; G0378; J1815; J3490

== ENCOUNTER 2023-05-01 21:02 | Emergency (ER) | payer MEDICAID ==
[~2023-05-01] VITALS: Ht 175.3 cm; Wt 95.0 kg
[~2023-05-01 21:02] MED LIST changes: -AMOX500T86 PO; -CEPH250C PO; -CEPH500C PO; -CLIN300C70 PO; +DOXY1CAP57 PO; -GLIP5TAB12 PO; -IBUP200C3 PO; +LOSA25TA15 PO; -METF-370 PO; +METF-929 PO
[2023-05-01 22:47] LABS: Basophils # (auto) 0.1 10 ^3/uL (0-0.2); Eosinophils # (auto) 0.3 10 ^3/uL (0-0.8); Eosinophils % (auto) 3.4 % (0.0-7.0); Hematocrit 39.9 % (41.0-53.0); Lymphocytes # (auto) 2.2 10 ^3/uL (0.4-5.4); Lymphocytes % (auto) 28.9 % (10.0-50.0); Mean Corpuscular Hemoglobin 30.5 pg (28.0-32.0); Mean Corpuscular Hgb Conc. 35.1 g/dL (32.0-36.0); Mean Corpuscular Volume 86.8 fL (80.0-100.0); Monocytes # (auto) 0.4 10 ^3/uL (0-1.3); Monocytes % (auto) 5.6 % (0.0-12.0); Neutrophils # (auto) 4.7 10 ^3/uL (1.6-8.6); Neutrophils % (auto) 61.1 % (37.0-80.0); Red Cell Distribution Width 12.7 % (11.8-14.3); White Blood Cell 7.6 10^3/uL (4.4-10.8)
[2023-05-01 23:00] LABS: Alanine Aminotransferase 16 U/L (7-40); Albumin 3.6 g/dL (3.2-4.8); Alkaline Phosphatase 96 U/L (46-116); Anion Gap 5 (5-15); Aspartate Aminotransferase 14 U/L (13-40); BUN/Creatinine Ratio 14.5 (10.0-20.0); Bilirubin, Total 0.5 mg/dL (0.2-1.0); Blood Urea Nitrogen 22 mg/dL (9-23); CRP High Sensitivity 0.54 mg/dL (<1.0); Calcium 9.2 mg/dL (8.5-10.1); Carbon Dioxide 27 mmol/L (20-30); Chloride 99 mmol/L (98-107); Potassium 4.5 mmol/L (3.5-5.1); Sodium 131 mmol/L (136-145); Total Protein 6.8 g/dL (5.7-8.2)
[2023-05-01 23:18] LABS: Erythrocyte Sedimentation Rate 49 mm/hr (0-20); Glucose 442 mg/dL (74-106)
[2023-05-01] MEDS ORDERED: DOXY1CAP57 PO (23:43)
[2023-05-02] MEDS ORDERED: METF-929 PO ×2 (00:02→00:04)
[2023-05-02] MEDS ORDERED: LOS25T PO (00:02)
[2023-05-02 00:59] VITALS: BP 111/75; PULSE 81; RESP 16; TEMP 98.9; O2SAT 99
== END 2023-05-02 01:09 | disposition home or self-care (01) ==
LOC: ER 21:02
DX: E08.621 Diabetes mellitus due to underlying condition with foot ulcer (principal); I10 Essential (primary) hypertension; Z79.1 Long term (current) use of non-steroidal anti-inflammatories (NSAID); Z79.84 Long term (current) use of oral hypoglycemic drugs; Z79.899 Other long term (current) drug therapy
CPT/HCPCS: 36415; 73700; 80053; 82962; 85025; 85652; 86141

== ENCOUNTER 2025-06-01 00:16 | Inpatient (IN) | payer MEDICAID, OTHER ==
[~2025-06-01] VITALS: Ht 175.3 cm; Wt 120.7 kg
[~2025-06-01 00:16] MED LIST changes: +LOSA-533 PO; -LOSA25TA15 PO
[2025-06-01 00:40] VITALS: RESP 14; O2SAT 96
--- NOTE | 2025-06-01 00:42 | ED.PDOC ---
SOB-HPI HPI Comments 49-year-old male who came to ER for shortness of breath. Patient has history of hypertension and diabetes. States he has been off his hydrochlorothiazide for the past 2 weeks. Denies ever being diagnosed with congestive heart failure. In the past few days, patient has been having shortness of breath progressive w orsening, with orthopnea, worsening bipedal edema. Patient is saturating 98% on room air, but in respiratory distress, a pressure 213/139 mm Hg Chief Complaint: Shortness of Breath Time Seen by MD: 00:41 Primary Care Provider: XUAN Reviewed notes: Nurses Notes Information Source: Patient Mode of Arrival: Ambulatory Severity: Moderate Timing: Days Past Medical History PAST MEDICAL HISTORY: DM, HTN Surgical History: Denies all surgeries Family History Family History: Family hx of DM Social History Smoker: Non-Smoker Alcohol: Rarely Drugs: Denies Drug Use Lives In: Home Constitutional: denies: chills, diaphoresis, fatigue, fever, malaise, sweats, weakness, others EENTM: denies: blurred vision, double vision, ear bleeding, ear discharge, ear drainage, ear pain, ear ringing, eye pain, eye redness, hearing loss, mouth pain, mouth swelling, nasal discharge, nose bleeding, nose congestion, nose pain, photophobia, tearing, throat pain, throat swelling, voice changes, others Respiratory: reports: SOB at rest, shortness of breath, SOB with excertion; denies: cough, hemoptysis, orthopnea, stridor, wheezing, others Cardiovascular: reports: edema; denies: chest pain, dizzy spells, diaphoresis, Dyspnea on exertion, irregular heart beat, left arm pain, lightheadedness, palpitations, PND, syncope, others Gastrointestinal: denies: abdomen distended, abdominal pain, blood streaked bowels, constipated, diarrhea, dysphagia, difficulty swallowing, hematemesis, melena, nausea, poor appetite, poor fluid intake, rectal bleeding, rectal pain, vomiting, others Genitourinary: denies: burning, dysuria, flank pain, frequency, hematuria, incontinence, penile discharge, penile sore, pain, testicle pain, testicle swelling, urgency, others Neurological: denies: dizziness, fainting, headache, left sided numbness, left sided weakness, numbness, paresthesia, pre-existing deficit, right sided numbness, right sided weakness, seizure, speech problems, tingling, tremors, weakness, others Musculoskeletal: denies: back pain, gout, joint pain, joint swelling, muscle pain, muscle stiffness, neck pain, others Integumetry: denies: bruises, change in color, change in hair/nails, dryness, laceration, lesions, lumps, rash, wounds, others Allergic/Immunocompromised: denies: Difficulty Healing, Frequent Infections, Hives, Itching, others Hematologic/Lymphatic: denies: anemia, blood clots, easy bleeding, easy bruising, swollen glands, others Endocrine: denies: excessive hunger, excessive sweating, excessive thirst, excessive urination, flushing, intolerance to cold, intolerance to heat, unexplained weight gain, unexplained weight loss, others Psychiatric: denies: anxiety, bipolar disorder, depression, hopeless, panic di sorder, schizophrenia, sleepless, suicidal, others Physical Exam General Appearance: Moderate Distress, Normal HEENT: Normal ENT Inspection, Pharynx Normal, TMs Normal Neck: Full Range of Motion, Non-Tender, Normal, Normal Inspection Respiratory: Chest Non-Tender, Lungs Clear, No Accessory Muscle Use, No Respiratory Distress, Normal Breath Sounds Cardiovascular: No Edema, No JVD, No Murmur, No Gallop, Normal Peripheral Pulses, Regular Rate/Rhythm Breast Exam: Deferred Gastrointestinal: No Organomegaly, Non Tender, No Pulsatile Mass, Normal Bowel Sounds, Soft Genitalia: Deferred Pelvic: Deferred Rectal: Deferred Extremities: No calf tenderness, Normal capillary refill, Normal inspection, Normal range of motion, Non-tender, No pedal edema Musculoskeletal : Apperance: Normal Neurologic: Alert, thread marker II-XII nml as Tested, No Motor Deficits, Normal Affect, Normal Mood, No Sensory Deficits Cerebellar Function: Normal Reflexes: Normal Skin: Dry, Normal Color, Warm Lymphatic: No Adenopathy Was a procedure done? Was a procedure done?: No Differential Dx Differential Diagnosis: Bronchitis, CHF, COPD, Myocardial infarction, Panic Attack, Pneumonia, Respiratory Distress X-Ray, Labs, Meds, VS Vital Signs Date Time Temp Pulse Resp B/P (MAP) Pulse Ox O2 Delivery O2 Flow Rate FiO2 06/01/25 01:49 202/117 06/01/25 01:07 98.2 112 14 201/120 (147) 96 98.2 06/01/25 00:40 14 96 Room Air* 0 21 06/01/25 00:17 98.4 123 16 213/139 98 98.4 Lab Test 06/01/25 00:53 Range/Units White Blood Count 6.6 4.4-10.8 10^3/uL Red Blood Count 2.90 L 4.5-5.90 10^6/uL Hemoglobin 8.8 L 13.5-17.5 g/dL Hematocrit 26.0 L 41.0-53.0 % Mean Corpuscular Volume 89.9 80.0-100.0 fL Mean Corpuscular Hemoglobin 30.2 28.0-32.0 pg Mean Corpuscular Hemoglobin Concent 33.6 32.0-36.0 g/dL Red Cell Distribution Width 15.0 H 11.8-14.3 % Platelet Count 269 140-450 10^3/uL Mean Platelet Volume 7.1 6.9-10.8 fL Neutrophils (%) (Auto) 70.4 37.0-80.0 % Lymphocytes (%) (Auto) 19.0 10.0-50.0 % Monocytes (%) (Auto) 6.6 0.0-12.0 % Eosinophils (%) (Auto) 3.2 0.0-7.0 % Basophils (%) (Auto) 0.8 0.0-2.0 % Neutrophils # (Auto) 4.6 1.6-8.6 10 ^3/uL Lymphocytes # (Auto) 1.2 0.4-5.4 10 ^3/uL Monocytes # (Auto) 0.4 0-1.3 10 ^3/uL Eosinophils # (Auto) 0.2 0-0.8 10 ^3/uL Basophils # (Auto) 0.1 0-0.2 10 ^3/uL Nucleated Red Blood Cells 0.0 % Prothrombin Time 11.4 9.3-11.8 sec Prothrombin Time INR 1.08 0.9-1.15 Activated Partial Thromboplast Time 28.2 24.5-34.5 SEC Sodium Level 141 136-145 mmol/L Potassium Level 5.5 H 3.5-5.1 mmol/L Chloride Level 110 H 98-107 mmol/L Carbon Dioxide Level 20 20-31 mmol/L Anion Gap 11 5-15 Blood Urea Nitrogen 57 H 9-23 mg/dL Creatinine 8.58 H 0.700-1.30 mg/dL Glomerular Filtration Rate Calc 7 >90 mL/min BUN/Creatinine Ratio 6.6 L 10.0-20.0 Serum Glucose 99 74-106 mg/dL Calcium Level 8.0 L 8.7-10.4 mg/dL Total Bilirubin 0.2 0.2-1.0 mg/dL Aspartate Amino Transferase (AST) 49 H 13-40 U/L Alanine Aminotransferase (ALT) 38 7-40 U/L Alkaline Phosphatase 126 H 46-116 U/L Troponin I High Sensitivity 34 </=54 ng/L B-Type Natriuretic Peptide 894.83 0-100 pg/mL Total Protein 5.5 L 5.7-8.2 g/dL Albumin 2.7 L 3.2-4.8 g/dL Current Medications Medications (Trade) Dose Ordered Sig/Ronel Route Start Time Stop Time Status Last Admin Hydralazine HCl (Apresoline Injection) 10 mg ONCE ONCE IV 06/01/25 01:45 06/01/25 01:46 DC 06/01/25 01:49 CHEST RADIOGRAPH Indication: SOB Technique: Single frontal view of the chest was obtained COMPARISON: None FINDINGS: Lines and Tubes: None Lungs: Mild pulmonary vascular congestion. Bibasilar atelectasis/consolidation. Pleura: No significant pleural effusion. No pneumothorax. Cardiomediastinal contours: Within normal limits. IMPRESSION: Mild pulmonary vascular congestion. Bibasilar atelectasis/consolidation. Time of 1ST Reevaluation: 00:33 Reevaluation 1ST: Unchanged Patient Education/Counseling: Diagnosis, Treatment Family Education/Counseling: No Family Present SEPSIS Sepsis Screen Date sepsis recognized/suspect: Jun 01, 2025 Time Sepsis recognized/suspect: 0021 Recent Procedure: No On Antibiotic Therapy: No Respiratory Rate >20: No Heart Rate >90: No Temp<36 C (96.8 F) or >38.3 C: No SBP <90 or MAP <65 mmHG: No New Acute Mental Status Change: No Is the patient on CPAP, BIPAP,: No Physician Orders Chest Portable (06/01/25 00:30) Electrocardigram (06/01/25 00:30) Troponin-I Hs (06/01/25 01:30) Troponin-I Hs (06/01/25 03:30) Drug Screen (06/01/25 00:31) D-Dimer (06/01/25 00:31) Furosemide Injection (Lasix Injection) (06/01/25 01:15) Vital Signs Date Time Temp Pulse Resp B/P (MAP) Pulse Ox O2 Delivery O2 Flow Rate FiO2 06/01/25 01:49 202/117 06/01/25 01:07 98.2 112 14 201/120 (147) 96 98.2 06/01/25 00:40 14 96 Room Air* 0 21 06/01/25 00:17 98.4 123 16 213/139 98 98.4 Laboratory Tests Test 06/01/25 00:53 White Blood Count 6.6 10^3/uL (4.4-10.8) Medications Medications Dose Ordered Sig/Ronel Route Start Time Stop Time Status Last Admin Dose Admin Hydralazine HCl 10 mg ONCE ONCE IV 06/01/25 01:45 06/01/25 01:46 DC 06/01/25 01:49 Departure 1 Departure Time of Disposition: 01:10 Impression: Primary Impression: Acute renal injury Additional Impressions: Hypertensive urgency CHF (congestive heart failure) Disposition: ADMITTED INPATIENT Admit to: Tele Condition: Guarded Discharged With: Self Comments 49 year old male with h/o poorly controlled HTN and DM now with acute renal injury, anemia and CHF. Patient was given hydralazine and lasix. patient will need admission for supportive care and further workup Critical Care Note Critical Care Time?: Yes (35 min-critical care time only) Critical care comment: Shortness of breath Total critical care time: Approximately 36 minutes Due to a high probability of clinically significant, life threatening deterioration, the patient required my highest level of preparedness to interven e emergently and I personally spent this critical care time directly and personally managing the patient. This critical care time included obtaining a history; examining the patient; pulse oximetry; ordering and review of studies; arranging urgent treatment with development of a management plan; evaluation of patient's response to treatment; frequent reassessment; and, discussions with other providers. This critical care time was performed to assess and manage the high probability of imminent, life-threatening deterioration that could result in multi-organ failure. It was exclusive of separately billable procedures and treating other patients. Stability Stability form required: No Heart Score Heart Score: Heart Score Response (Comments) Value History Moderate Suspicious 1 EKG Repolarization Disturb 1 Age 45-64 1 Risk Factors 1 or 2 risk factors 1 Troponin Normal limit 0 Total 4 I personally scribed for FRANKY JEWELL MD ([email or web address]) on 06/01/25 at 00:42. Electronically submitted by Amrit Trinh ([facility]). I personally scribed for FRANKY JEWELL MD ([email or web address]) on 06/01/25 at 01:40. Electronically submitted by Amrit Trinh ([email or web address]). FRANKY JEWELL MD Jun 01, 2025 00:42
--- NOTE | 2025-06-01 01:09 | DVH ---
CHEST RADIOGRAPH Indication: SOB Technique: Single frontal view of the chest was obtained COMPARISON: None FINDINGS: Lines and Tubes: None Lungs: Mild pulmonary vascular congestion. Bibasilar atelectasis/consolidation. Pleura: No significant pleural effusion. No pneumothorax. Cardiomediastinal contours: Within normal limits. IMPRESSION: Mild pulmonary vascular congestion. Bibasilar atelectasis/consolidation.
[2025-06-01 01:25] LABS: Hematocrit 26.0 % (41.0-53.0); Hemoglobin 8.8 g/dL (13.5-17.5); Mean Corpuscular Hemoglobin 30.2 pg (28.0-32.0); Mean Corpuscular Volume 89.9 fL (80.0-100.0); Nucleated Red Blood Cells % 0.0 %
[2025-06-01 01:37] LABS: Alanine Aminotransferase 38 U/L (7-40); Anion Gap 11 (5-15); BUN/Creatinine Ratio 6.6 (10.0-20.0); Glucose 99 mg/dL (74-106); Sodium 141 mmol/L (136-145)
[2025-06-01] MEDS: FUROSEMIDE 20 MG/2 ML VIAL IV ONE ×2 (01:37→05:56)
[2025-06-01 01:39] LABS: INR 1.08 (0.9-1.15); Partial Thromboplastin Time 28.2 SEC (24.5-34.5); Prothrombin Time 11.4 sec (9.3-11.8)
[2025-06-01 01:42] LABS: Albumin 2.7 g/dL (3.2-4.8); Alkaline Phosphatase 126 U/L (46-116); Bilirubin, Total 0.2 mg/dL (0.2-1.0); Blood Urea Nitrogen 57 mg/dL (9-23); Calcium 8.0 mg/dL (8.7-10.4); Carbon Dioxide 20 mmol/L (20-31); Chloride 110 mmol/L (98-107); Potassium 5.5 mmol/L (3.5-5.1); Total Protein 5.5 g/dL (5.7-8.2)
[2025-06-01] MEDS: hydrALAZINE HCL 20 MG/ML VL IV ONE ×2 (01:49)
[2025-06-01] MEDS ORDERED: NITROGLYCERIN 50MG/250ML 250 ML IV SCH (02:30)
--- NOTE | 2025-06-01 02:38 | DVHHPRES ---
History of Present Illness Resident Creating Document: JOSHUA MANN History of Present Illness Elian Smith is a 49-year-old male patient who presents to the ED with chief complaint of dyspnea in Functional Class IV and lower leg swelling associated with decreased urine output for the past week before his admission. Patient has not been taking his hydrochlorothiazide for the past two weeks, rest of medication he is compliant with. Denies any other associated symptoms including fever, chills, nausea, vomiting, diarrhea, dysuria in any other associated symptoms. Past medical history: Hypertension, dyslipidemia, diabetes, chronic kidney disease 3a (GFR 58), questionable hypothyroidism, diabetic foot status post debridement Surgical history: Bilateral debridement of feet in 2023 Family history: Father had heart disease Social history: Lives in [place] with family (next of kin son). Denies current tobacco, alcohol and other drug abuse Allergies: Denies Home medication: Hydrochlorothiazide 25 mg p.o. daily, off for the past two weeks), valsartan 80 mg p.o. daily, ezetimibe 10 mg p.o. daily, pioglitazone 30 mg p.o. daily, metformin a 1000 mg p.o. b.i.d., Lantus 20 units daily, regular insulin sliding scale. Patient seen and examined at bedside. Currently with abdominal pain and difficulty urinating associated with hypertension. Place Wood catheter with no relief of symptoms. Past Medical History Per HPI Past Surgical History Per HPI Family History Per HPI Past Social History Per HPI Review of Systems Review of Systems Per HPI Allergies: Coded Allergies: NO KNOWN ALLERGIES (Unverified , 02/23/21) Medications Current Medications Medications Dose Ordered Sig/Ronel Route Start Time Stop Time Status Last Admin Dose Admin Acetaminophen 325 mg Q4HP PRN PO 06/01/25 02:30 UNV Ondansetron HCl 4 mg Q4HP PRN IV 06/01/25 02:30 UNV Morphine Sulfate 2 mg Q4HPRN PRN IV 06/01/25 02:30 UNV Nitroglycerin 250 ml @ 1.5 mls/hr Q24H IV 06/01/25 02:30 UNV Furosemide 40 mg BIDD IV 06/01/25 06:00 UNV Exam Vital Signs Vital Signs Date Time Temp Pulse Resp B/P (MAP) Pulse Ox O2 Delivery O2 Flow Rate FiO2 06/01/25 01:49 202/117 06/01/25 01:45 113 20 98 06/01/25 01:07 98.2 98.2 06/01/25 00:40 Room Air* 0 21 Exam Patient lying in bed, in no acute distress General: Lucid, afebrile, mucosae are moist Cardiovascular: Normal S1 and S2. No murmurs, gallops or rubs Respiratory: Normal ventilation mechanics. Bilateral crackles in bases, rest of lung auscultation is clear. Abdomen: Soft, suprapubic tenderness, rest of abdomen nontender, no organomegaly, normal bowel sounds MSK/skin: Mobilizes 4 limbs. Skin is dry and warm. Bilateral suprapatellar pitting edema. Neurological: Oriented in 3 spheres. No motor no sensitive deficits. Pupils are isocoric and reactive Labs/Xrays Labs Test 06/01/25 01:48 06/01/25 00:53 Range/Units D-Dimer, Quantitative 2.93 H 0.0-0.49 mg/L FEU Troponin I High Sensitivity 33 </=54 ng/L White Blood Count 6.6 4.4-10.8 10^3/uL Red Blood Count 2.90 L 4.5-5.90 10^6/uL Hemoglobin 8.8 L 13.5-17.5 g/dL Hematocrit 26.0 L 41.0-53.0 % Mean Corpuscular Volume 89.9 80.0-100.0 fL Mean Corpuscular Hemoglobin 30.2 28.0-32.0 pg Mean Corpuscular Hemoglobin Concent 33.6 32.0-36.0 g/dL Red Cell Distribution Width 15.0 H 11.8-14.3 % Platelet Count 269 140-450 10^3/uL Mean Platelet Volume 7.1 6.9-10.8 fL Neutrophils (%) (Auto) 70.4 37.0-80.0 % Lymphocytes (%) (Auto) 19.0 10.0-50.0 % Monocytes (%) (Auto) 6.6 0.0-12.0 % Eosinophils (%) (Auto) 3.2 0.0-7.0 % Basophils (%) (Auto) 0.8 0.0-2.0 % Neutrophils # (Auto) 4.6 1.6-8.6 10 ^3/uL Lymphocytes # (Auto) 1.2 0.4-5.4 10 ^3/uL Monocytes # (Auto) 0.4 0-1.3 10 ^3/uL Eosinophils # (Auto) 0.2 0-0.8 10 ^3/uL Basophils # (Auto) 0.1 0-0.2 10 ^3/uL Nucleated Red Blood Cells 0.0 % Prothrombin Time 11.4 9.3-11.8 sec Prothrombin Time INR 1.08 0.9-1.15 Activated Partial Thromboplast Time 28.2 24.5-34.5 SEC Sodium Level 141 136-145 mmol/L Potassium Level 5.5 H 3.5-5.1 mmol/L Chloride Level 110 H 98-107 mmol/L Carbon Dioxide Level 20 20-31 mmol/L Anion Gap 11 5-15 Blood Urea Nitrogen 57 H 9-23 mg/dL Creatinine 8.58 H 0.700-1.30 mg/dL Glomerular Filtration Rate Calc 7 >90 mL/min BUN/Creatinine Ratio 6.6 L 10.0-20.0 Serum Glucose 99 74-106 mg/dL Calcium Level 8.0 L 8.7-10.4 mg/dL Total Bilirubin 0.2 0.2-1.0 mg/dL Aspartate Amino Transferase (AST) 49 H 13-40 U/L Alanine Aminotransferase (ALT) 38 7-40 U/L Alkaline Phosphatase 126 H 46-116 U/L B-Type Natriuretic Peptide 894.83 0-100 pg/mL Total Protein 5.5 L 5.7-8.2 g/dL Albumin 2.7 L 3.2-4.8 g/dL SEPSIS Sepsis Screen Date sepsis recognized/suspect: Jun 01, 2025 Time Sepsis recognized/suspect: 39 Recent Procedure: No On Antibiotic Therapy: No Respiratory Rate >20: No Heart Rate >90: Yes Temp<36 C (96.8 F) or >38.3 C: No SBP <90 or MAP <65 mmHG: No New Acute Mental Status Change: No Is the patient on CPAP, BIPAP,: No Physician Orders Chest Portable (06/01/25 00:30) Electrocardigram (06/01/25 00:30) Drug Screen (06/01/25 00:31) Admit (06/01/25 02:30) Code Status (06/01/25 02:30) Acetaminophen Tablet (Tylenol Tablet) (06/01/25 02:30) Ondansetron Hcl (Zofran) (06/01/25 02:30) Complete Blood Count (06/01/25 04:00) Comprehensive Metabolic Panel (06/01/25 04:00) Npo (Nothing By Mouth) Diet (06/01/25 Breakfast) Echo 2d Mode Cardiac Dop (06/01/25 02:30) Morphine Sulfate Injection (06/01/25 02:30) Oxygen By Nasal Cannula (06/01/25 02:30) Stat Ekg For Chest Pain (06/01/25 02:30) Notify Md Of Changes From Base (06/01/25 02:30) Lost Charge Card Clerk For 24 Hours (06/01/25 02:30) Emergency Dysrhythmia Protocol (06/01/25 02:30) Rhythm Strips Once Every Shift (06/01/25 02:30) Nitroglycerin 50mg/250ml (Tridil) (06/01/25 02:30) Nitroglycerin 50mg/250ml (Tridil) (06/01/25 02:30) Furosemide Injection (Lasix Injection) (06/01/25 06:00) Vitamin D, 25-Hydroxy (06/01/25 02:30) Vitamin B12 (06/01/25 02:30) Urinalysis (06/01/25 02:30) Thyroid Stimulating Hormone (06/01/25 02:30) PTPTT (06/01/25 02:30) Phosphorus (06/01/25 02:30) Magnesium (06/01/25 02:30) Lipid Panel (06/01/25 02:30) Lactic Acid W/ Reflex Order (06/01/25 02:30) Hemoglobin A1c (06/01/25 02:30) Drug Screen (06/01/25 02:30) Urine Sodium (06/01/25 02:30) Urine Protein/Creatinine Ratio (06/01/25 ) Urine Protein (06/01/25 02:30) Urine Creatinine (06/01/25 02:30) Osmolality Urine (06/01/25 02:30) Abg W/ Co-Ox (06/01/25 02:35) Nm Vq Scan (06/01/25 02:36) Bilat Lower Dvt (06/01/25 02:36) Kidney (06/01/25 02:36) Vital Signs Date Time Temp Pulse Resp B/P (MAP) Pulse Ox O2 Delivery O2 Flow Rate FiO2 06/01/25 01:49 202/117 06/01/25 01:45 113 20 181/109 (133) 98 06/01/25 01:37 183/108 06/01/25 01:07 98.2 112 14 201/120 (147) 96 98.2 06/01/25 00:40 14 96 Room Air* 0 21 06/01/25 00:17 98.4 123 16 213/139 98 98.4 Laboratory Tests Test 06/01/25 00:53 White Blood Count 6.6 10^3/uL (4.4-10.8) Medications Medications Dose Ordered Sig/Ronel Route Start Time Stop Time Status Last Admin Dose Admin Furosemide 20 mg ONCE ONCE IV 06/01/25 01:15 06/01/25 01:16 DC 06/01/25 01:37 20 MG Hydralazine HCl 10 mg ONCE ONCE IV 06/01/25 01:45 06/01/25 01:46 DC 06/01/25 01:49 10 MG Assessment/Plan Assessment/Plan ASSESSMENT Hypertensive emergency LORE hemodynamically mediated (VMN) on CKD (baseline GFR 58) Oliguria/anuria Rule out glomerular disease (likely secondary to diabetes/hypertension) Cardiorenal syndrome type 3 Acute congestive heart failure (LVEF pending) Hyperkalemia Normocytic anemia Rule out PE Rule out DVT Hypoalbuminemia Morbid obesity Hypertension Dyslipidemia Diabetes insulin dependent-pending hemoglobin A1c PLAN Patient admitted to [facility]/ICU due to requirement of IV nitroglycerin drip Probable cause of LORE on CKD due to hypertensive emergency versus diabetes Indicated IV furosemide, if still refractory and anuric consider IV furosemide drip. Consulted nephrology Place Wood catheter, difficult placement due to penile swelling. Consider urology if Wood can not be placed. Strict I&Os On insulin sliding scale Indicated hyperkalemia protocol Ordered urine workup Consider IV antibiotics if deemed necessary Goals of care discussed with patient for over 18 minutes: Full code status Discussed plan with Dr. Kearns, patient and nurses: Patient upgraded to ICU. Currently requiring IV nitroglycerin drip. Refractory to IV bolus furosemide, consider furosemide drip and eventual hemodialysis session. Nephrology on board. Patient has poor prognosis. Plan discussed with: Patient, Other (Nurses) My Orders Orders - JOSHUA MANN RESIDENT Procedure Category Date Status Time Admit ADMIT 06/01/25 Transmitted 02:30 Code Status CODE 06/01/25 Transmitted 02:30 Acetaminophen Tablet PHA 06/01/25 Logged (Tylenol Tablet) 02:30 Ondansetron Hcl PHA 06/01/25 Logged (Zofran) 02:30 Complete Blood Count LAB 06/01/25 Logged 04:00 Comprehensive LAB 06/01/25 Logged Metabolic Panel 04:00 Npo (Nothing By DIET 06/01/25 Transmitted Mouth) Diet Breakfast Echo 2d Mode Cardiac US 06/01/25 Logged DOP 02:30 Morphine Sulfate PHA 06/01/25 Logged Injection 02:30 Oxygen By Nasal RT 06/01/25 Transmitted Cannula 02:30 Stat Ekg For Chest [facility] 06/01/25 In Process Pain 02:30 Notify Md Of Changes [facility] 06/01/25 In Process From Base 02:30 Lost Charge Card Clerk For [facility] 06/01/25 In Process 24 Hours 02:30 Emergency Dysrhythmia [facility] 06/01/25 In Process Protocol 02:30 Rhythm Strips Once [facility] 06/01/25 In Process Every Shift 02:30 Nitroglycerin PHA 06/01/25 Logged 50mg/250ml (Tridil) 02:30 Nitroglycerin PHA 06/01/25 Logged 50mg/250ml (Tridil) 02:30 Furosemide Injection PHA 06/01/25 Logged (Lasix Injection) 06:00 Vitamin D, 25-Hydroxy LAB 06/01/25 Logged 02:30 Vitamin B12 LAB 06/01/25 Logged 02:30 Urinalysis LAB 06/01/25 Logged 02:30 Thyroid Stimulating LAB 06/01/25 Logged Hormone 02:30 PTPTT LAB 06/01/25 Logged 02:30 Phosphorus LAB 06/01/25 Logged 02:30 Magnesium LAB 06/01/25 Logged 02:30 Lipid Panel LAB 06/01/25 Logged 02:30 Lactic Acid W/ Reflex LAB 06/01/25 Logged Order 02:30 Hemoglobin A1c LAB 06/01/25 Logged 02:30 Drug Screen LAB 06/01/25 Logged 02:30 Urine Sodium LAB 06/01/25 Logged 02:30 Urine LAB 06/01/25 Logged Protein/Creatinine Urine Protein LAB 06/01/25 Logged 02:30 Urine Creatinine LAB 06/01/25 Logged 02:30 Osmolality Urine LAB 06/01/25 Logged 02:30 Abg W/ Co-Ox RT 06/01/25 Logged 02:35 Nm Vq Scan NM 06/01/25 Verified 02:36 Bilat Lower Dvt US 06/01/25 Verified 02:36 Kidney US 06/01/25 Verified 02:36 Date of Service: Jun 01, 2025 Billing Provider: CATA KEARNS MD Common Visit Codes: 02076-AVSCIHD INP/OBS CARE (HIGH) Secondary Visit Codes: 33849-[id number] CARE PLAN 30 MINUTES JOSHUA MANN RESIDENT Jun 01, 2025 02:37
[2025-06-01 03:03] LABS: Base Excess -6.5 mmol/L (-2.0-3.0)
[2025-06-01] MEDS: LIDOCAINE 2% JELLY 11ml (GLYDO) UR ONE (03:30)
[2025-06-01] MEDS: NITROGLYCERIN 50MG/250ML 250 ML IV ONE ×2 (03:45→22:14)
[2025-06-01 04:18] LABS: Magnesium 1.8 mg/dL (1.6-2.6); Triglycerides 113.0 mg/dL (< 150)
[2025-06-01 04:20] LABS: Cholesterol 168.0 mg/dL (< 200)
[2025-06-01 04:29] LABS: HDL Cholesterol 71.0 mg/dL (40-59)
[2025-06-01 04:44] LABS: Hematocrit 25.3 % (41.0-53.0); Hemoglobin 8.6 g/dL (13.5-17.5); Mean Corpuscular Hemoglobin 30.7 pg (28.0-32.0); Mean Corpuscular Volume 90.6 fL (80.0-100.0); Nucleated Red Blood Cells % 0.1 %
[2025-06-01 05:00] LABS: INR 1.08 (0.9-1.15); Partial Thromboplastin Time 24.7 SEC (24.5-34.5); Prothrombin Time 11.4 sec (9.3-11.8)
[2025-06-01 05:09] LABS: Alanine Aminotransferase 37 U/L (7-40); Anion Gap 10 (5-15); BUN/Creatinine Ratio 6.3 (10.0-20.0); Sodium 140 mmol/L (136-145)
[2025-06-01] MEDS: MORPHINE SULFATE INJ 2 MG/ml SYRG IV PRN (05:17)
[2025-06-01] MEDS: ONDANSETRON HCL 4 MG/2 ML VIAL IV PRN (05:17)
[2025-06-01 05:23] LABS: Albumin 2.5 g/dL (3.2-4.8); Alkaline Phosphatase 120 U/L (46-116); Bilirubin, Total < 0.2 mg/dL (0.2-1.0); Blood Urea Nitrogen 54 mg/dL (9-23); Calcium 7.8 mg/dL (8.7-10.4); Carbon Dioxide 19 mmol/L (20-31); Chloride 111 mmol/L (98-107); Glucose 114 mg/dL (74-106); Total Protein 5.1 g/dL (5.7-8.2)
[2025-06-01 05:25] LABS: Potassium 5.7 mmol/L (3.5-5.1)
[2025-06-01] MEDS: FUROSEMIDE 40 MG/4 ML VIAL IV SCH (05:56)
[2025-06-01] MEDS: SODIUM BICARB 8.4% 50Meq/50ml SYR Vial IV ONE ×3 (05:58→11:44)
[2025-06-01] MEDS: CALCIUM GLUC 1,000mg/50ml-NS 50 ML IV SCH (06:00)
[2025-06-01] MEDS: ALBUTEROL SULF 2.5 MG/0.5ML(0.5%) NEB SOLN NEB ONE ×2 (06:10→14:45)
[2025-06-01 07:00] LABS: Amphetamine Screen, Urine Neg (NEGATIVE); Barbiturate Scree,Urine Neg (NEGATIVE); Benzodiazephine Screen, Urine Neg (NEGATIVE); Cannabinoid Screen, Urine Neg (NEGATIVE); Cocaine Screen, Urine Neg (NEGATIVE); Opiate Scree,Urine Neg (NEGATIVE); Phencyclidine Screen, Urine Neg (NEGATIVE); Protein, Urine 911.5 mg/dL (1-14)
[2025-06-01 07:23] LABS: Urine Protein, UAD 2+ (Negative)
--- NOTE | 2025-06-01 07:51 | DVH ---
Bilateral lower extremity venous duplex Clinical History: Bilateral lower limb swelling Comparison: RT LOWER DVT on DOS: 07/27/22, RLDVT on DOS: 07/27/22 Findings: Duplex Doppler evaluation of the deep venous systems of both lower extremities from the common femora l veins to the popliteal veins including color Doppler and spectral/pulsed waveform analysis was perf ormed. RIGHT SIDE: The common femoral vein demonstrates appropriate compressibility and waveform variability. There is compressibility/patency of the great saphenous vein at the proximal thigh. The femoral vein demonstrates appropriate compressibility and waveform variability. The deep femoral vein demonstrates appropriate compressibility and waveform variability. The popliteal vein demonstrates appropriate compressibility and waveform variability. There is normal compressibility at the tibioperoneal trunk. There is interstitial soft tissue edema. LEFT SIDE: The common femoral vein demonstrates appropriate compressibility and waveform variability. There is compressibility/patency of the great saphenous vein at the proximal thigh. The femoral vein demonstrates appropriate compressibility and waveform variability. The deep femoral vein demonstrates appropriate compressibility and waveform variability. The popliteal vein demonstrates appropriate compressibility and waveform variability. There is normal compressibility at the tibioperoneal trunk. There is interstitial soft tissue edema. Impression: 1. No right or left femoropopliteal venous thrombosis. 2. Interstitial soft tissue edema in the lower extremities.
--- NOTE | 2025-06-01 07:56 | DVH ---
INDICATION: LORE on CKD. TECHNIQUE: Multiple real-time sonographic images of the kidneys and bladder were obtained. COMPARISON: None. FINDINGS: The right kidney measures 10.2 cm in length, which is normal in size. There is normal echog enicity of the right kidney. No hydronephrosis. The left kidney measures 9.3 cm in length, which is normal in size. There is normal echogenicity of t he left kidney. No hydronephrosis. There is a Wood catheter in the urinary bladder. Small bilateral pleural effusions. IMPRESSION: 1. Normal sonographic appearance of the kidneys. 2. No hydronephrosis. 3. Small bilateral pleural effusions.
--- NOTE | 2025-06-01 08:34 | DVHINCON2 ---
Date of service: Jun 01, 2025 Referring Physician Hospitalist Reason for Consultation Acute kidney injury History of Present Illness 41-year-old male past medical history of hypertension diabetes and peripheral vascular disease patient does not have routine medical follow up reports that it has been several months since he has last seen a medical doctor he presents to the hospital complaining of weakness. His ER presentation is notable for hypertensive emergency fluid overload and shortness of breath he was placed on a nitro drip. He is noted to be fluid overloaded he has a GFR currently of 8% creatinine greater than six potassium 5.7 Nephrology is consulted for acute management In 2022 his renal function was normal Allergies: Coded Allergies: NO KNOWN ALLERGIES (Unverified , 02/23/21) Home Meds Active Scripts Metformin HCl (Metformin Hydrochloride) 1,000 Mg Tab, 1000 MG PO BID, #60 TAB Prov:BERNICE SORIA MD 05/02/23 Losartan Potassium (Losartan Potassium) 25 Mg Tab, 12.5 MG PO DAILY for 30 Days, #15 TAB Prov:BERNIEC SORIA MD 05/02/23 Doxycycline Monohydrate (Doxycycline Monohydrate) 100 Mg Cap, 1 CAP PO BID, #20 CAP Prov:BERNICE SORIA MD 05/01/23 Losartan Potassium (Losartan Potassium) 25 Mg Tab, 0.5 TAB PO DAILY, #15 TAB 5 Refills Prov:KERMIT MARTINEZ MD 01/18/23 Sitagliptin Phosphate (Januvia) 50 Mg Tab, 1 TAB PO DAILY, #30 TAB 5 Refills Prov:KERMIT MARTINEZ MD 01/18/23 Glipizide (Glipizide Er) 10 Mg Tab, 1 TAB PO DAILY, #30 TAB 5 Refills Prov:KERMIT MARTINEZ MD 01/18/23 Doxycycline Monohydrate (Doxycycline Monohydrate) 100 Mg Cap, 100 MG PO BID for 15 Days, #30 CAP Prov:KERMIT MARTINEZ MD 01/18/23 Sitagliptin Phosphate (Januvia) 50 Mg Tab, 50 MG PO DAILY for 30 Days, #30 TAB Prov:GLENN REED MD 08/01/22 Glipizide (Glipizide Er) 10 Mg Tab, 1 TAB PO DAILY for 30 Days, #30 TAB 1 Refill Prov:GUILLE HERNANDEZ MD 02/25/21 Metformin Hydrochloride (Metformin Hcl) 1,000 Mg Tab, 1 TAB PO BID for 30 Days, #60 TAB 1 Refill Prov:GUILLE HERNANDEZ MD 02/25/21 Reported Medications Acetaminophen (Acetaminophen) 325 Mg Tab, 500 MG PO DAILY PRN for MILD PAIN for 30 Days, MG 0 Refills 02/24/21 Current Medications Current Medications Medications (Trade) Dose Ordered Sig/Ronel Route PRN Reason Start Time Stop Time Status Last Admin Acetaminophen (Tylenol Tablet) 325 mg Q4HP PRN PO MILD PAIN (1-3 PAIN SCALE) 06/01/25 02:30 Ondansetron HCl (Zofran) 4 mg Q4HP PRN IV NAUSEA / VOMITING 06/01/25 02:30 06/01/25 05:17 Morphine Sulfate 2 mg Q4HPRN PRN IV SEVERE PAIN (7-10 PAIN SCALE) 06/01/25 02:30 06/01/25 05:17 Nitroglycerin 250 ml @ 1.5 mls/hr Q24H IV 06/01/25 02:30 UNV Furosemide (Lasix Injection) 40 mg BIDD IV 06/01/25 06:00 06/01/25 08:18 DC 06/01/25 05:56 Calcium Gluconate/ Sodium Chloride 50 ml @ 100 mls/hr Q30M IV 06/01/25 05:45 06/01/25 06:23 DC 06/01/25 06:15 Furosemide 100 mg/ Sodium Chloride 110 ml @ 22 mls/hr Q5H IV 06/01/25 08:15 UNV Epoetin Rico-epbx (Retacrit) 10,000 unit [facility] [place] 06/02/25 10:00 UNV Family History: Diabetes mellitus G8 FATHER Review of Systems Shortness of breath and swelling H&P Exam Vital Signs/I&O Vital Sign Date Time Temp Pulse Resp B/P (MAP) Pulse Ox O2 Delivery O2 Flow Rate FiO2 06/01/25 07:30 97.5 111 30 139/65 (89) 98 97.5 06/01/25 06:10 Nasal Cannula* 4 36 Intake and Output 05/31/25 06/01/25 19:00 07:00 Intake Total 50 ml Balance 50 ml Intake IV Total 50 ml Physical Exam Middle-aged male appears in distress due to shortness of breath patient is jittery and tremulous reports shortness of breath and tachycardia bilateral crackles abdomen is soft insulin one to 2+ bilateral ankle edema Wood catheter Labs/Diagnostic Data Labs/Diagnostic Data Laboratory Tests Test 06/01/25 05:28 06/01/25 04:12 06/01/25 02:58 06/01/25 01:48 Range/Units Urine Color Light-yellow Yellow Urine Clarity Clear Clear Urine pH 6.5 5.0-9.0 Urine Specific Yoder 1.014 1.001-1.035 Urine Protein 2+ H Negative Urine Ketones Negative Negative Urine Blood 2+ H Negative /uL Urine Nitrite Negative Negative Urine Bilirubin Negative Negative Urine Urobilinogen Normal Negative mg/dL Urine Leukocyte Esterase Negative Negative /uL Urine RBC 30 0 - 3 /hpf Urine Microscopic WBC 3 0-3 /HPF Urine Squamous Epithelial Cells Few <5 /hpf Urine Bacteria Few H None Seen /hpf Urine Creatinine 49.98 30.0-125.0 mg/dL Urine Protein/Creatinine Ratio 18.24 Urine Sodium 82 40-220 mmol/L Urine Glucose 1+ H Normal mg/dL Urine Total Protein 911.5 H 1-14 mg/dL Urine Opiates Screen Neg NEGATIVE Urine Fentanyl Screen Neg NEGATIVE Urine Barbiturates Screen Neg NEGATIVE Urine Phencyclidine Screen Neg NEGATIVE Urine Amphetamines Screen Neg NEGATIVE Urine Benzodiazepines Screen Neg NEGATIVE Urine Cocaine Screen Neg NEGATIVE Urine Cannabinoids Screen Neg NEGATIVE White Blood Count 6.2 4.4-10.8 10^3/uL Red Blood Count 2.80 L 4.5-5.90 10^6/uL Hemoglobin 8.6 L 13.5-17.5 g/dL Hematocrit 25.3 L 41.0-53.0 % Mean Corpuscular Volume 90.6 80.0-100.0 fL Mean Corpuscular Hemoglobin 30.7 28.0-32.0 pg Mean Corpuscular Hemoglobin Concent 33.9 32.0-36.0 g/dL Red Cell Distribution Width 15.1 H 11.8-14.3 % Platelet Count 273 140-450 10^3/uL Mean Platelet Volume 7.3 6.9-10.8 fL Neutrophils (%) (Auto) 71.3 37.0-80.0 % Lymphocytes (%) (Auto) 19.3 10.0-50.0 % Monocytes (%) (Auto) 5.3 0.0-12.0 % Eosinophils (%) (Auto) 3.2 0.0-7.0 % Basophils (%) (Auto) 0.9 0.0-2.0 % Neutrophils # (Auto) 4.4 1.6-8.6 10 ^3/uL Lymphocytes # (Auto) 1.2 0.4-5.4 10 ^3/uL Monocytes # (Auto) 0.3 0-1.3 10 ^3/uL Eosinophils # (Auto) 0.2 0-0.8 10 ^3/uL Basophils # (Auto) 0.1 0-0.2 10 ^3/uL Nucleated Red Blood Cells 0.1 % Prothrombin Time 11.4 9.3-11.8 sec Prothrombin Time INR 1.08 0.9-1.15 Activated Partial Thromboplast Time 24.7 24.5-34.5 SEC Sodium Level 140 136-145 mmol/L Potassium Level 5.7 *H 3.5-5.1 mmol/L Chloride Level 111 H 98-107 mmol/L Carbon Dioxide Level 19 L 20-31 mmol/L Anion Gap 10 5-15 Blood Urea Nitrogen 54 H 9-23 mg/dL Creatinine 8.52 H 0.700-1.30 mg/dL Glomerular Filtration Rate Calc 7 >90 mL/min BUN/Creatinine Ratio 6.3 L 10.0-20.0 Serum Glucose 114 H 74-106 mg/dL Lactic Acid Level 0.8 0.4-2.0 mmol/L Calcium Level 7.8 L 8.7-10.4 mg/dL Total Bilirubin < 0.2 L 0.2-1.0 mg/dL Aspartate Amino Transferase (AST) 46 H 13-40 U/L Alanine Aminotransferase (ALT) 37 7-40 U/L Alkaline Phosphatase 120 H 46-116 U/L Total Protein 5.1 L 5.7-8.2 g/dL Albumin 2.5 L 3.2-4.8 g/dL Blood Gas Specimen Type Arterial Blood Gas Sample Site Right radial Blood Gas Patient Temperature 37.0 Arterial Blood Date Drawn [id number] Arterial Blood pH 7.373 7.350-7.450 Arterial Blood Partial Pressure CO2 31.5 L 35.0-48.0 mmHg Arterial Blood Partial Pressure O2 73.0 L 83.0-108.0 mmHg Arterial Blood HCO3 17.9 L 21.0-28.0 mmol/L Arterial Blood Oxygen Saturation 93.8 L 94.0-98.0 % Arterial Blood Base Excess -6.5 L -2.0-3.0 mmol/L Arterial Blood Oxyhemoglobin 93.0 L 94.0-98.0 % Arterial Blood Carboxyhemoglobin 0.3 L 0.5-1.5 % Arterial Blood Methemoglobin 0.5 0.0-1.5 % Morgan Test Yes Blood Gas Total Hemoglobin 9.20 L 13.5-17.5 g/dL Blood Gas Modality Room air FiO2 % 21.0 Specimen Drawn By Blood Gas Comments D-Dimer, Quantitative 2.93 H 0.0-0.49 mg/L FEU Phosphorus Level 4.3 2.4-5.1 mg/dL Magnesium Level 1.8 1.6-2.6 mg/dL Troponin I High Sensitivity 33 </=54 ng/L Triglycerides Level 113 < 150 mg/dL Cholesterol Level 168 < 200 mg/dL LDL Cholesterol 78 < 100 mg/dL HDL Cholesterol 71 H 40-59 mg/dL Thyroid Stimulating Hormone (TSH) 2.24 0.55-4.78 uIU/mL Test 06/01/25 00:53 Range/Units White Blood Count 6.6 4.4-10.8 10^3/uL Red Blood Count 2.90 L 4.5-5.90 10^6/uL Hemoglobin 8.8 L 13.5-17.5 g/dL Hematocrit 26.0 L 41.0-53.0 % Mean Corpuscular Volume 89.9 80.0-100.0 fL Mean Corpuscular Hemoglobin 30.2 28.0-32.0 pg Mean Corpuscular Hemoglobin Concent 33.6 32.0-36.0 g/dL Red Cell Distribution Width 15.0 H 11.8-14.3 % Platelet Count 269 140-450 10^3/uL Mean Platelet Volume 7.1 6.9-10.8 fL Neutrophils (%) (Auto) 70.4 37.0-80.0 % Lymphocytes (%) (Auto) 19.0 10.0-50.0 % Monocytes (%) (Auto) 6.6 0.0-12.0 % Eosinophils (%) (Auto) 3.2 0.0-7.0 % Basophils (%) (Auto) 0.8 0.0-2.0 % Neutrophils # (Auto) 4.6 1.6-8.6 10 ^3/uL Lymphocytes # (Auto) 1.2 0.4-5.4 10 ^3/uL Monocytes # (Auto) 0.4 0-1.3 10 ^3/uL Eosinophils # (Auto) 0.2 0-0.8 10 ^3/uL Basophils # (Auto) 0.1 0-0.2 10 ^3/uL Nucleated Red Blood Cells 0.0 % Prothrombin Time 11.4 9.3-11.8 sec Prothrombin Time INR 1.08 0.9-1.15 Activated Partial Thromboplast Time 28.2 24.5-34.5 SEC Sodium Level 141 136-145 mmol/L Potassium Level 5.5 H 3.5-5.1 mmol/L Chloride Level 110 H 98-107 mmol/L Carbon Dioxide Level 20 20-31 mmol/L Anion Gap 11 5-15 Blood Urea Nitrogen 57 H 9-23 mg/dL Creatinine 8.58 H 0.700-1.30 mg/dL Glomerular Filtration Rate Calc 7 >90 mL/min BUN/Creatinine Ratio 6.6 L 10.0-20.0 Serum Glucose 99 74-106 mg/dL Calcium Level 8.0 L 8.7-10.4 mg/dL Total Bilirubin 0.2 0.2-1.0 mg/dL Aspartate Amino Transferase (AST) 49 H 13-40 U/L Alanine Aminotransferase (ALT) 38 7-40 U/L Alkaline Phosphatase 126 H 46-116 U/L Troponin I High Sensitivity 34 </=54 ng/L B-Type Natriuretic Peptide 894.83 0-100 pg/mL Total Protein 5.5 L 5.7-8.2 g/dL Albumin 2.7 L 3.2-4.8 g/dL Assessment Acute kidney injury hemodynamically mediated in the setting of fluid overload hypertensive emergency -medical treatment for elevated potassium, start Lasix drip, IV sodium bicarbonate, Wood catheter and monitoring urinary output Nephrotic range proteinuria -explained to patient very low threshold to start dialysis Chronic kidney disease unspecified baseline is unknown last renal function in 2022 was normal -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 medications when able with calcium channel ziyad and beta-ziyad as first-line Echocardiogram Guarded prognosis high-risk for requiring dialysis we will require daily assessment Plan discussed with: Patient GERMAN VELAZQUEZ MD Jun 01, 2025 08:34
[2025-06-01] MEDS: FUROSEMIDE INJECTION 100 MG in SODIUM CHL 0.9% 100 ML IV SCH (08:59)
[2025-06-01 10:00] LABS: Iron 53.0 ug/dL (65-175)
[2025-06-01 10:03] LABS: Total Iron Binding Capacity 173.0 ug/dL (250-425)
--- NOTE | 2025-06-01 11:15 | DVHPNRES ---
Progress Note Date Seen: Jun 01, 2025 Resident Creating Document: STANLEY CACERES RESIDENT Medical Necessity Reason Pt with a Central, PICC or Fol: Yes Subjective Review of Systems Elian Smith is a 49-year-old male patient past medical history of hypertension, hyperlipidemia, type 2 diabetes mellitus, questionable hypothyroidism, diabetic foot status post debridement presented to the ED with chief complaint of shortness of breath and lower leg swelling associated with decreased urine output for the past week before his admission. Patient has not been taking his hydrochlorothiazide for the past two weeks, rest of medication he is compliant with. Denies any other associated symptoms including fever, chills, nausea, vomiting, diarrhea, dysuria in any other associated symptoms. BP was 213/139 in the ER and started nicardipine drip for hypertensive emergency. BUN, creatinine was elevated, kidney ultrasound demonstrated normal bilateral kidney with small bilateral pleural effusion. Hyperkalemia protocol was initiated for hyperkalemia management. Nephrology was consulted and recommended IV Lasix drip, IV sodium bicarb for metabolic acidosis secondary to LORE and monitor BMP Patient seen and examined at bedside. He is alert oriented x3 and currently on 2 L oxygen through nasal cannula, saturating 95%. The patient is currently on low-dose nicardipine drip, bridged with oral carvedilol 6.25 mg p.o. b.i.d., amlodipine 10 mg daily . Complaint of shortness of breath, back pain and no other active complaint. Constitutional: No: Fever, Chills, Sweats, Weakness, Malaise, Other Eyes: No: Pain, Vision change, Conjunctivae inflammation, Eyelid inflammation, Other, Redness ENT: No: Ear pain, Ear discharge, Nose pain, Nose discharge, Nose congestion, Mouth pain, Mouth swelling, Throat pain, Throat swelling, Other Respiratory: Shortness of breath, No: Cough, Dry,Wheezing, Hemoptysis, Pleuritic Pain, Sputum, Wheezing, Other Cardiovascular: Edema No: Chest Pain, Palpitations, Orthopnea, Paroxysmal Noc. Dyspnea, Lt Headedness, Other Gastrointestinal: No: Nausea, Vomiting, Abdominal Pain, Diarrhea, Constipation, Melena, Hematochezia, Other Musculoskeletal: No: other, neck pain, shoulder pain, arm pain, back pain, hand pain, leg pain, foot pain Neurological:; No: Weakness, Numbness, Incoordination, Change in speech, Confusion, Seizures Objective vital signs Vital Sign Date Time Temp Pulse Resp B/P (MAP) Pulse Ox O2 Delivery O2 Flow Rate FiO2 06/01/25 10:30 107 21 150/90 (110) 99 06/01/25 10:06 98.5 98.5 06/01/25 06:10 Nasal Cannula* 4 36 Total Intake and Output 05/31/25 05/31/25 06/01/25 15:00 23:00 07:00 Intake Total 50 ml Balance 50 ml medications Current Medications Medications Dose Ordered Sig/Ronel Route Start Time Stop Time Status Last Admin Dose Admin Acetaminophen 325 mg Q4HP PRN PO 06/01/25 02:30 Ondansetron HCl 4 mg Q4HP PRN IV 06/01/25 02:30 06/01/25 05:17 4 MG Morphine Sulfate 2 mg Q4HPRN PRN IV 06/01/25 02:30 06/01/25 05:17 2 MG Nitroglycerin 250 ml @ 1.5 mls/hr Q24H IV 06/01/25 02:30 UNV Furosemide 100 mg/ Sodium Chloride 110 ml @ 22 mls/hr Q5H IV 06/01/25 08:15 06/01/25 08:59 22 MLS/HR Epoetin Rico-epbx 10,000 unit MWF@2100 [place] 06/02/25 21:00 Diagnostic Test (Pha) 1 strip Q6HR 06/01/25 12:00 Insulin Human Regular Q6HR SC 06/01/25 12:00 Dextrose 50 ml UD PRN IV 06/01/25 08:30 Amlodipine Besylate 10 mg DAILY PO 06/01/25 10:45 Carvedilol 6.25 mg Q12HR PO 06/01/25 10:45 Examination Physical examination: General Appearance: Alert, Oriented X3, Cooperative, mild respiratory distress and on nasal cannula 2 L HEENT: Atraumatic, PERRLA, EOMI, Mucous membrane moist/pink Respiratory: Bilateral crackles . Cardiovascular: Regular rate, Normal S1, Normal S2, No murmurs, no chest wall tenderness Abdominal: Normal bowel sounds, Soft, No tenderness, No hepatospenomegaly, No masses Extremities: Edema 2+ No clubbing, No cyanosis, Normal pulses, No tenderness/swelling Skin: No rashes, No breakdown, No significant lesion Neuro: Normal speech, Strength at 5/5 X4 ext, Normal tone, Sensation intact, Cranial nerves 3-12 NL, Reflexes 2+ Psych/Mental Status: Mental status NL, Mood NL laboratory and microbiology Laboratory Tests 06/01/25 08:40 06/01/25 04:12 Test 06/01/25 04:12 Range/Units Serum Glucose 114 H 74-106 mg/dL Labs and/or images reviewed: Labs reviewed by me, Image(s) reviewed by me Problem List/Assessment/Plan Problem List/Assessment/Plan Assessment and Plan: # Acute hypoxic respiratory failure # Hypertensive emergency # Possible acute on chronic decompensated systolic/ diastolic heart failure # pulmonary edema due to above # Rule out pulmonary embolism - chest x-ray revealed bilateral pulmonary vascular congestion. Bibasilar atelectasis/consolidation - BNP is elevated - pending echo - IV nicardipine drip as per protocol - Carvedilol 6.25 mg p.o. b.i.d. and amlodipine 10 mg daily - IV Lasix drip - pending V/Q scan - cardiology on board # Acute kidney injury hemodynamically mediated in the setting of fluid overload hypertensive emergency # Nephrotic range proteinuria # Chronic kidney disease unspecified baseline is unknown # Possible diabetic nephropathy # Hyperkalemia and metabolic acidosis due to above # Chronic microcytic anemia due to CKD # diabetes mellitus, status post debridement of diabetic foot - Ultrasound demonstrated normal-appearing kidneys bilaterally, with bilateral pleural effusion - Nephrology on board - renal diet - IV Lasix drip - IV sodium bicarb 100 mEq once - Hyperkalemia protocol management - Epogen 1000 units 3 times a week - pending Iron panel - strict I&O - Monitor BMP # Mild transaminitis likely secondary to hepatic congestion from CHF # Moderate protein calorie malnutrition, albumin 2.5 # Morbid obesity, BMI 40.6 kg/m2 - counseled patient regarding healthy diet, weight loss, lifestyle modification and physical exercise # PUD prophylaxis - Pepcid 20 mg p.o. daily # DVT prophylaxis - Heparin 5000 units b.i.d. Goal of care discussed with the patient for more than 20 minutes full code Plan discussed with Dr. Lang Plan discussed with: Patient, Other (RN) My Orders My Orders Orders - STANLEY CACERES RESIDENT Procedure Category Date Status Time Parathyroid Hormone LAB 06/01/25 In Process Intact 08:21 Date of Service: Jun 01, 2025 Billing Provider: CAITLIN LANG MD Common Visit Codes: [id number] INP/OBS CARE(HIGH) STANLEY CACERES RESIDENT Jun 01, 2025 11:15 CAITLIN LANG MD Jun 01, 2025 22:29
[2025-06-01] MEDS: CARVEDILOL 3.125 MG TAB PO SCH (11:43)
[2025-06-01] MEDS: InsuLIN REG 1unit/0.01ml Soln (100units/ml) SC SCH (12:00)
[2025-06-01] MEDS: ACCU-CHEK COMFORT CURVE STRIP VI SCH (12:12)
--- NOTE | 2025-06-01 13:51 | DVHSR ---
APPROVED REPORT EXAM: Two-dimensional and M-mode echocardiogram with Doppler and color Doppler. Blood Pressure: 139/65 mmHg INDICATION Hypertensive Crisis RISK FACTORS Obesity: Height: 5' 9", Weight: 274 DIMENSIONS LVDd4.5 (3.8-5.7cm)LA (2D)4.2 (1.9-4.0cm)Aortic Root3.4 (2.0-3.7cm) LVDs3.6 (2.5-4.0cm)LA (MM) (1.9-4.0cm)Aortic Cusp Exc1.8 (1.5-2.0cm) EF (%) 45.0 (55-70%)Rt. Atrium (1.9-4.0cm)Asc. Aorta cm IVSd1.5 (0.7-1.1cm)RV (D) (1.8-2.4cm) PWd1.5 (0.7-1.1cm) Mitral Valve MitralMitral Stenosis E/A ratio0.02D MVAcm2 Aortic Valve Aortic ValveAortic Stenosis V10.90m/Eryn Mean GR.3mmHg V21.20m/Eryn Peak GR.6mmHg LVOT Diameter2.3 (1.8-2.4cm)Doppler AVA3.11cm2 Pulmonic Valve V21.00m/s Other Information Quality : Technically LimitedRhythm : Technically limited study due to body habitus. Conclusion MILD LV GLOBAL HYPOKINESIS DYSKINESIS OF IVS LV EF IS IN RANGE OF 45% SLIGHTLY DILATED RV NORMAL VALVES MILD POSTERIOR PERICARDIAL EFFUSION
[2025-06-01 14:21] LABS: Anion Gap 11 (5-15); Carbon Dioxide 20 mmol/L (20-31)
[2025-06-01 14:26] LABS: BUN/Creatinine Ratio 7.8 (10.0-20.0); Glucose 91 mg/dL (74-106)
[2025-06-01 14:28] LABS: Blood Urea Nitrogen 67 mg/dL (9-23); Calcium 7.3 mg/dL (8.7-10.4); Chloride 114 mmol/L (98-107); Potassium 5.9 mmol/L (3.5-5.1); Sodium 145 mmol/L (136-145)
[2025-06-01] MEDS: FAMOTIDINE 20 MG TAB PO ONE (14:45)
[2025-06-01] MEDS: SODIUM ZIRCONIUM CYCL 10 GM PAK PO ONE (14:45)
--- NOTE | 2025-06-01 15:12 | DVHNC2 ---
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 Indication: Hypotension, CVP monitoring Room prepared for procedure: Yes Bakery Supervisor performed hand hygien: Yes Maximal sterile barrier precau: Mask/Eye shield, Sterile gown Skin Preparation: Chlorhexidine gluconate, Providine iodine Skin preparation completely dr: Yes Insertion site: Right, Internal jugular Central line catheter type: Dialysis non-tunneled Number of lumens: 2 Antiseptic ointment applied to: Yes Post Assessment: Chest X-Ray Date of Service: Jun 01, 2025 Billing Provider: EMMETT RICHTER MD Common Visit Codes: [id number] INP/OBS CARE (HIGH) Secondary Visit Codes: [id number] STANDBY SERVICE Consultation Codes: [id number] CONSULT <45MIN Procedure Codes: [id number] NON-TUNNEL CV CATH EMMETT RICHTER MD Jun 01, 2025 15:12
[2025-06-01] MEDS: ALBUTEROL SULF 2.5 MG/0.5ML(0.5%) NEB SOLN ONE (15:14)
[2025-06-01] MEDS: HEPARIN SODIUM (PORCINE) 5000 UNITS/ML 1ML VIAL IV ONE (15:15)
[2025-06-01] MEDS: DEXTROSE (50%) 50ML SYRG IV ONE (15:42)
[2025-06-01] MEDS: InsuLIN REG 1unit/0.01ml Soln (100units/ml) IV ONE (15:44)
--- NOTE | 2025-06-01 15:45 | DVH ---
CHEST RADIOGRAPH Indication: sob Technique: Single frontal view of the chest was obtained Comparison: XY CHEST PORTABLE on DOS: 05/31/25 FINDINGS: Lines and Tubes: There is a central line in place from the right with the tip just below the medial p ortion of the right clavicle in the superior vena cava. Lungs: Bibasilar airspace disease prominent bronchovascular markings bilaterally. Findings may repres ent congestive failure. Pleura: Small right pleural effusion. No pneumothorax. Cardiomediastinal contours: Cardiomegaly Bones: No acute osseous abnormality. IMPRESSION: 1. Internal jugular catheter from the right in the superior vena cava just inferior to the right cla vicle. 2. Findings of cardiomegaly with prominent pulmonary vascular congestion bilaterally. Findings may re present congestive failure however can not entirely exclude superimposed infection. Correlate with cl inical setting.
[2025-06-01 19:10] VITALS: O2SAT 98
[2025-06-01] MEDS: DEXTROSE (50%) 50ML SYRG IV PRN (19:14)
[2025-06-01] MEDS: SODIUM CHL 0.9% 1000 ML BAG XX ONE (19:30)
[2025-06-01] MEDS: ALBUMIN 25% 100 ML IV ONE (20:37)
[2025-06-01] MEDS: NITROGLYCERIN 50MG/250ML 250 ML IV SCH (22:00)
[2025-06-01] MEDS: HEPARIN SODIUM (PORCINE) 5000 UNITS/ML 1ML VIAL SC SCH (22:32)
[2025-06-01] MEDS: SODIUM ZIRCONIUM CYCL 10 GM PAK PO SCH (22:33)
[2025-06-01] MEDS: FUROSEMIDE INJECTION 10 ML ONE (23:17)
[2025-06-02] VITALS (51 sets, daily range): BP systolic 132–195; BP diastolic 72–133; PULSE 84–99; RESP 12–28; TEMP 97.7–98.8; O2SAT 63–100
[2025-06-02 04:20] LABS: Hematocrit 20.1 % (41.0-53.0); Mean Corpuscular Hemoglobin 30.0 pg (28.0-32.0); Mean Corpuscular Volume 90.0 fL (80.0-100.0); Nucleated Red Blood Cells % 0.0 %
[2025-06-02 04:24] LABS: Hemoglobin 6.7 g/dL (13.5-17.5)
[2025-06-02 04:28] LABS: Sodium 144 mmol/L (136-145)
[2025-06-02 04:29] LABS: Anion Gap 8 (5-15); Carbon Dioxide 25 mmol/L (20-31)
[2025-06-02 04:34] LABS: Calcium 8.0 mg/dL (8.7-10.4); Chloride 111 mmol/L (98-107); Glucose 84 mg/dL (74-106); Potassium 5.3 mmol/L (3.5-5.1)
[2025-06-02 04:35] LABS: BUN/Creatinine Ratio 7.1 (10.0-20.0); Blood Urea Nitrogen 49 mg/dL (9-23)
[2025-06-02] MEDS: FUROSEMIDE INJECTION 10 ML ONE (04:47)
[2025-06-02] MEDS: SODIUM CHL 0.9% 1000 ML BAG XX ONE (07:00)
[2025-06-02 08:07] LABS: Prostate Specific Antigen 0.6 ng/mL (0.0-4.0)
[2025-06-02 10:47] LABS: Hepatitis B Surface Antigen Negative (Negative)
--- NOTE | 2025-06-02 10:53 | DVHCONRES ---
Date Seen: Jun 02, 2025 Resident Creating Document: CORRY SMITH RESDIENT History of Present Illness Elian Smith is a 49-year-old male patient past medical history of hypertension, hyperlipidemia, type 2 diabetes mellitus, questionable hypothyroidism, diabetic foot status post debridement presented to the ED with chief complaint of shortness of breath and lower leg swelling associated with decreased urine output for the past week before his admission. Patient has not been taking his hydrochlorothiazide for the past two weeks, rest of medication he is compliant with. Denies any other associated symptoms including fever, chills, nausea, vomiting, diarrhea, dysuria in any other associated symptoms. BP was 213/139 in the ER and started nicardipine drip for hypertensive emergency. BUN, creatinine was elevated, kidney ultrasound demonstrated normal bilateral kidney with small bilateral pleural effusion. Hyperkalemia protocol was initiated for hyperkalemia management. Nephrology was consulted and recommended IV Lasix drip, IV sodium bicarb for metabolic acidosis secondary to LORE and monitor BMP Family History: Diabetes mellitus G8 FATHER Allergies: Coded Allergies: NO KNOWN ALLERGIES (Unverified , 02/23/21) Home Meds Active Scripts Metformin HCl (Metformin Hydrochloride) 1,000 Mg Tab, 1000 MG PO BID, #60 TAB Prov:BERNICE SORIA MD 05/02/23 Losartan Potassium (Losartan Potassium) 25 Mg Tab, 12.5 MG PO DAILY for 30 Days, #15 TAB Prov:BERNICE SORIA MD 05/02/23 Doxycycline Monohydrate (Doxycycline Monohydrate) 100 Mg Cap, 1 CAP PO BID, #20 CAP Prov:BERNICE SORIA MD 05/01/23 Losartan Potassium (Losartan Potassium) 25 Mg Tab, 0.5 TAB PO DAILY, #15 TAB 5 Refills Prov:KERMIT MARTINEZ MD 01/18/23 Sitagliptin Phosphate (Januvia) 50 Mg Tab, 1 TAB PO DAILY, #30 TAB 5 Refills Prov:KERMIT MARTINEZ MD 01/18/23 Glipizide (Glipizide Er) 10 Mg Tab, 1 TAB PO DAILY, #30 TAB 5 Refills Prov:KERMIT MARTINEZ MD 01/18/23 Doxycycline Monohydrate (Doxycycline Monohydrate) 100 Mg Cap, 100 MG PO BID for 15 Days, #30 CAP Prov:KERMIT MARTINEZ MD 01/18/23 Sitagliptin Phosphate (Januvia) 50 Mg Tab, 50 MG PO DAILY for 30 Days, #30 TAB Prov:GLENN REED MD 08/01/22 Glipizide (Glipizide Er) 10 Mg Tab, 1 TAB PO DAILY for 30 Days, #30 TAB 1 Refill Prov:GUILLE HERNANDEZ MD 02/25/21 Metformin Hydrochloride (Metformin Hcl) 1,000 Mg Tab, 1 TAB PO BID for 30 Days, #60 TAB 1 Refill Prov:GUILLE HERNANDEZ MD 02/25/21 Reported Medications Acetaminophen (Acetaminophen) 325 Mg Tab, 500 MG PO DAILY PRN for MILD PAIN for 30 Days, MG 0 Refills 02/24/21 Current Medications Current Medications Medications (Trade) Dose Ordered Sig/Ronel Route PRN Reason Start Time Stop Time Status Last Admin Epoetin Rico-epbx (Retacrit) 10,000 unit MWF@2100 SC 06/02/25 21:00 Diagnostic Test (Pha) (Accu-Chek Comfort Curve T) 1 strip Q6HR 06/01/25 12:00 06/02/25 05:44 Insulin Human Regular (InsuLIN R) Q6HR SC 06/01/25 12:00 Amlodipine Besylate (Norvasc Tablet) 10 mg DAILY PO 06/01/25 10:45 06/01/25 11:44 Carvedilol (Coreg Tablet) 6.25 mg Q12HR PO 06/01/25 10:45 06/01/25 22:30 Zirconium Oxide (Lokelma) 10 gm TID PO 06/01/25 22:00 06/03/25 14:01 06/02/25 06:06 Famotidine (Pepcid Tablet) 20 mg EOD PO 06/02/25 10:00 Heparin Sodium (Porcine) 5,000 units Q12HR SC 06/01/25 22:00 06/01/25 22:32 Nitroglycerin 250 ml @ 1.5 mls/hr Q24H IV 06/01/25 22:00 06/01/25 22:00 Review of Systems Patient seen and examined at the bedside, patient is complaining of shortness of breathe and generalized weakness. Vital Signs Vital Signs Date Time Temp Pulse Resp B/P (MAP) Pulse Ox O2 Delivery O2 Flow Rate FiO2 06/02/25 10:14 98.7 89 13 151/76 98.7 06/02/25 07:00 100 06/01/25 19:10 Room Air* 0 21 Physical Exam Patient examined on HD, BP stable General Appearance: Alert, Oriented X3, Cooperative, in moderate respiratory distress HEENT: Atraumatic, PERRLA, EOMI, Mucous membrane moist/pink Respiratory: Bilateral crackles Cardiovascular: Regular rate, Normal S1, Normal S2, No murmurs, no chest wall tenderness Abdominal: Normal bowel sounds, Soft, No tenderness, No hepatospenomegaly, No masses Extremities: Bilateral grade 3-4 pedal edema Skin: No rashes, No breakdown, No significant lesion Neuro: Normal gait, Normal speech, Strength at 5/5 X4 ext, Normal tone, Sensation intact, Cranial nerves 3-12 NL, Reflexes 2+ Psych/Mental Status: Mental status NL, Mood NL Labs/Diagnostic Data Labs Test 06/02/25 05:40 06/02/25 03:55 06/01/25 15:30 06/01/25 05:28 Range/Units POC Glucose 77 70-106 mg/dl White Blood Count 4.5 # 4.4-10.8 10^3/uL Red Blood Count 2.23 L 4.5-5.90 10^6/uL Hemoglobin 6.7 #*L 13.5-17.5 g/dL Hematocrit 20.1 #L 41.0-53.0 % Mean Corpuscular Volume 90.0 80.0-100.0 fL Mean Corpuscular Hemoglobin 30.0 28.0-32.0 pg Mean Corpuscular Hemoglobin Concent 33.3 32.0-36.0 g/dL Red Cell Distribution Width 15.1 H 11.8-14.3 % Platelet Count 210 140-450 10^3/uL Mean Platelet Volume 7.2 6.9-10.8 fL Neutrophils (%) (Auto) 59.0 37.0-80.0 % Lymphocytes (%) (Auto) 27.6 10.0-50.0 % Monocytes (%) (Auto) 7.5 0.0-12.0 % Eosinophils (%) (Auto) 4.8 0.0-7.0 % Basophils (%) (Auto) 1.1 0.0-2.0 % Neutrophils # (Auto) 2.7 1.6-8.6 10 ^3/uL Lymphocytes # (Auto) 1.2 0.4-5.4 10 ^3/uL Monocytes # (Auto) 0.3 0-1.3 10 ^3/uL Eosinophils # (Auto) 0.2 0-0.8 10 ^3/uL Basophils # (Auto) 0 0-0.2 10 ^3/uL Nucleated Red Blood Cells 0.0 % Sodium Level 144 136-145 mmol/L Potassium Level 5.3 H 3.5-5.1 mmol/L Chloride Level 111 H 98-107 mmol/L Carbon Dioxide Level 25 20-31 mmol/L Anion Gap 8 5-15 Blood Urea Nitrogen 49 #H 9-23 mg/dL Creatinine 6.94 H 0.700-1.30 mg/dL Glomerular Filtration Rate Calc 9 >90 mL/min BUN/Creatinine Ratio 7.1 L 10.0-20.0 Serum Glucose 84 74-106 mg/dL Calcium Level 8.0 L 8.7-10.4 mg/dL Free Prostate Specific Antigen 0.24 N/A ng/mL Percent Free Prostate Specific Ag 40.0 . % Prostate Specific Antigen Total 0.6 0.0-4.0 ng/mL Urine Color Light-yellow Yellow Urine Clarity Clear Clear Urine pH 6.5 5.0-9.0 Urine Specific Ford 1.014 1.001-1.035 Urine Protein 2+ H Negative Urine Ketones Negative Negative Urine Blood 2+ H Negative /uL Urine Nitrite Negative Negative Urine Bilirubin Negative Negative Urine Urobilinogen Normal Negative mg/dL Urine Leukocyte Esterase Negative Negative /uL Urine RBC 30 0 - 3 /hpf Urine Microscopic WBC 3 0-3 /HPF Urine Squamous Epithelial Cells Few <5 /hpf Urine Bacteria Few H None Seen /hpf Urine Osmolality 314 mOsm/kg Urine Creatinine 49.98 30.0-125.0 mg/dL Urine Protein/Creatinine Ratio 18.24 Urine Sodium 82 40-220 mmol/L Urine Glucose 1+ H Normal mg/dL Urine Total Protein 911.5 H 1-14 mg/dL Urine Opiates Screen Neg NEGATIVE Urine Fentanyl Screen Neg NEGATIVE Urine Barbiturates Screen Neg NEGATIVE Urine Phencyclidine Screen Neg NEGATIVE Urine Amphetamines Screen Neg NEGATIVE Urine Benzodiazepines Screen Neg NEGATIVE Urine Cocaine Screen Neg NEGATIVE Urine Cannabinoids Screen Neg NEGATIVE Test 06/01/25 04:12 06/01/25 02:58 06/01/25 01:48 06/01/25 00:53 Range/Units Prothrombin Time 11.4 9.3-11.8 sec Prothrombin Time INR 1.08 0.9-1.15 Activated Partial Thromboplast Time 24.7 24.5-34.5 SEC Hemoglobin A1c < 3.8 <5.7 % A1C Lactic Acid Level 0.8 0.4-2.0 mmol/L Total Bilirubin < 0.2 L 0.2-1.0 mg/dL Aspartate Amino Transferase (AST) 46 H 13-40 U/L Alanine Aminotransferase (ALT) 37 7-40 U/L Alkaline Phosphatase 120 H 46-116 U/L Total Protein 5.1 L 5.7-8.2 g/dL Albumin 2.5 L 3.2-4.8 g/dL Blood Gas Specimen Type Arterial Blood Gas Sample Site Right radial Blood Gas Patient Temperature 37.0 Arterial Blood Date Drawn [id number] Arterial Blood pH 7.373 7.350-7.450 Arterial Blood Partial Pressure CO2 31.5 L 35.0-48.0 mmHg Arterial Blood Partial Pressure O2 73.0 L 83.0-108.0 mmHg Arterial Blood HCO3 17.9 L 21.0-28.0 mmol/L Arterial Blood Oxygen Saturation 93.8 L 94.0-98.0 % Arterial Blood Base Excess -6.5 L -2.0-3.0 mmol/L Arterial Blood Oxyhemoglobin 93.0 L 94.0-98.0 % Arterial Blood Carboxyhemoglobin 0.3 L 0.5-1.5 % Arterial Blood Methemoglobin 0.5 0.0-1.5 % Morgan Test Yes Blood Gas Total Hemoglobin 9.20 L 13.5-17.5 g/dL Blood Gas Modality Room air FiO2 % 21.0 Specimen Drawn By Blood Gas Comments D-Dimer, Quantitative 2.93 H 0.0-0.49 mg/L FEU Phosphorus Level 4.3 2.4-5.1 mg/dL Magnesium Level 1.8 1.6-2.6 mg/dL Troponin I High Sensitivity 33 </=54 ng/L Triglycerides Level 113 < 150 mg/dL Cholesterol Level 168 < 200 mg/dL LDL Cholesterol 78 < 100 mg/dL HDL Cholesterol 71 H 40-59 mg/dL Thyroid Stimulating Hormone (TSH) 2.24 0.55-4.78 uIU/mL Iron Level 53 L 65-175 ug/dL Total Iron Binding Capacity 173 L 250-425 ug/dL Percent Iron Saturation 30.6 20-55 % B-Type Natriuretic Peptide 894.83 0-100 pg/mL Assessment This is a 49-year-old gentleman with past medical history of diabetes type 2, hypertension, dyslipidemia, came to the hospital due to generalized swelling and shortness of breaths. Possible LORE on CKD (baseline records not available), VMN Hypertensive emergency Volume overload, due to above Diabetes type 2 Nephrotic range proteinuria, due to above Dyslipidemia Morbid obesity Severe anemia Hyperkalemia Poorly functioning right IJ Musa catheter Plan/recommendation: (Dr. Campbell) * Continue with UF 3L as tolerated * Epogen 10,000 SQ 3 x weekly * Lasix drip at 20 mg/hr, Sevelamer 800 mg t.i.d., nifedipine 90 mg daily, Cardilol 6.25 BID * Consulted IR for tunneled catheter placement * Blood transfusion (1 PRBC) * Renal diet * BP control * Social consult for outpatient HD chair time at [facility] * We Follow up with the patient Thank you for giving us the opportunity to take care of your patient. Please call back if you have any questions/concerns. Plan discussed with: Patient, Other (RN) CORRY SMITH Jun 02, 2025 10:53 MARV CAMPBELL MD Jun 02, 2025 15:35
[2025-06-02 11:00] LABS: Hepatitis C Antibody Negative (Negative)
[2025-06-02 13:06] LABS: Hematocrit 24.8 % (41.0-53.0); Hemoglobin 8.5 g/dL (13.5-17.5)
[2025-06-02] MEDS: CARVEDILOL 3.125 MG TAB PO ONE (15:10)
[2025-06-02] MEDS: FAMOTIDINE 20 MG TAB PO SCH (15:11)
[2025-06-02] MEDS: SEVELAMER 800 MG TAB PO SCH (15:11)
[2025-06-02 16:30] LABS: Potassium 4.6 mmol/L (3.5-5.1); Sodium 143 mmol/L (136-145)
[2025-06-02 16:31] LABS: Anion Gap 9 (5-15); Carbon Dioxide 26 mmol/L (20-31)
[2025-06-02 16:32] LABS: Calcium 7.8 mg/dL (8.7-10.4); Chloride 108 mmol/L (98-107)
[2025-06-02 16:37] LABS: BUN/Creatinine Ratio 5.2 (10.0-20.0)
[2025-06-02 16:38] LABS: Blood Urea Nitrogen 31 mg/dL (9-23); Glucose 109 mg/dL (74-106)
--- NOTE | 2025-06-02 17:03 | DVHPNRES ---
Progress Note Date Seen: Jun 02, 2025 Resident Creating Document: CRISTÓBAL BRYAN RESIDENT Medical Necessity Reason Pt with a Central, PICC or Fol: Yes Subjective Review of Systems Elian Smith is a 49-year-old male patient past medical history of hypertension, hyperlipidemia, type 2 diabetes mellitus, questionable hypothyroidism, diabetic foot status post debridement presented to the ED with chief complaint of shortness of breath and lower leg swelling associated with decreased urine output for the past week before his admission. Patient has not been taking his hydrochlorothiazide for the past two weeks, rest of medication he is compliant with. Denies any other associated symptoms including fever, chills, nausea, vomiting, diarrhea, dysuria in any other associated symptoms. BP was 213/139 in the ER . BUN, creatinine was elevated, kidney ultrasound demonstrated normal bilateral kidney with small bilateral pleural effusion. Hyperkalemia protocol was initiated for hyperkalemia management. Nephrology was consulted and recommended IV Lasix drip, IV sodium bicarb for metabolic acidosis secondary to LORE and monitor BMP. Patient seen and examined at bedside. He is alert oriented x3 and currently on 2 L oxygen through nasal cannula, saturating 95%. The patient is currently on low-dose nicardipine drip, bridged with oral carvedilol 6.25 mg p.o. b.i.d., amlodipine 10 mg daily . Complaint of shortness of breath, back pain and no other active complaint. Constitutional: No: Fever, Chills, Sweats, Weakness, Malaise, Other Eyes: No: Pain, Vision change, Conjunctivae inflammation, Eyelid inflammation, Other, Redness ENT: No: Ear pain, Ear discharge, Nose pain, Nose discharge, Nose congestion, Mouth pain, Mouth swelling, Throat pain, Throat swelling, Other Respiratory: Shortness of breath, No: Cough, Dry,Wheezing, Hemoptysis, Pleuritic Pain, Sputum, Wheezing, Other Cardiovascular: Edema No: Chest Pain, Palpitations, Orthopnea, Paroxysmal Noc. Dyspnea, Lt Headedness, Other Gastrointestinal: No: Nausea, Vomiting, Abdominal Pain, Diarrhea, Constipation, Melena, Hematochezia, Other Musculoskeletal: No: other, neck pain, shoulder pain, arm pain, back pain, hand pain, leg pain, foot pain Neurological:; No: Weakness, Numbness, Incoordination, Change in speech, Confusion, Seizures 06/02/25- The patient was seen at bedside today. Patient got hemodialysis today morning. His hemoglobin this morning was 6.7, 1 unit of PRBC was given. Nephrology continued with the lasix drip, added sevelamer 800mg tid po and added nifedipine 90 mg po daily. Dose of cervedilol was increased to 12.5 mg po bid. IR will place tunnel catheter tomorrow. Objective vital signs Vital Sign Date Time Temp Pulse Resp B/P (MAP) Pulse Ox O2 Delivery O2 Flow Rate FiO2 06/02/25 16:15 97 17 173/83 (113) 98 06/02/25 16:00 Nasal Cannula* 3 32 06/02/25 16:00 98.8 98.8 Total Intake and Output 06/01/25 06/01/25 06/02/25 15:00 23:00 07:00 Intake Total 80.5 ml 188 ml 434.666 ml Output Total 300 ml Balance -219.5 ml 188 ml 434.666 ml medications Current Medications Medications Dose Ordered Sig/Ronel Route Start Time Stop Time Status Last Admin Dose Admin Acetaminophen 325 mg Q4HP PRN PO 06/01/25 02:30 Ondansetron HCl 4 mg Q4HP PRN IV 06/01/25 02:30 06/01/25 05:17 4 MG Morphine Sulfate 2 mg Q4HPRN PRN IV 06/01/25 02:30 06/01/25 05:17 2 MG Nitroglycerin 250 ml @ 1.5 mls/hr Q24H IV 06/01/25 02:30 UNV Furosemide 100 mg/ Sodium Chloride 110 ml @ 22 mls/hr Q5H IV 06/01/25 08:15 06/02/25 14:15 22 MLS/HR Epoetin Rico-epbx 10,000 unit MWF@2100 SC 06/02/25 21:00 Diagnostic Test (Pha) 1 strip Q6HR 06/01/25 12:00 06/02/25 12:00 1 STRIP Insulin Human Regular Q6HR SC 06/01/25 12:00 Dextrose 50 ml UD PRN IV 06/01/25 08:30 06/01/25 19:14 50 ML Zirconium Oxide 10 gm TID PO 06/01/25 22:00 06/03/25 14:01 06/02/25 15:09 10 GM Famotidine 20 mg EOD PO 06/02/25 10:00 06/02/25 15:11 20 MG Heparin Sodium (Porcine) 5,000 units Q12HR SC 06/01/25 22:00 06/02/25 15:12 5,000 UNITS Nifedipine 90 mg DAILY PO 06/03/25 10:00 Sevelamer HCl 800 mg TIDWM PO 06/02/25 12:00 06/02/25 15:11 800 MG Carvedilol 12.5 mg Q12HR PO 06/02/25 22:00 Hydralazine HCl 25 mg Q8HR PO 06/02/25 22:00 Examination General Appearance: Alert, Oriented X3, Cooperative, mild respiratory distress and on nasal cannula 2 L HEENT: Atraumatic, PERRLA, EOMI, Mucous membrane moist/pink Respiratory: Bilateral crackles . Cardiovascular: Regular rate, Normal S1, Normal S2, No murmurs, no chest wall tenderness Abdominal: Normal bowel sounds, Soft, No tenderness, No hepatospenomegaly, No masses Extremities: Edema 2+ No clubbing, No cyanosis, Normal pulses, No tenderness/swelling Skin: No rashes, No breakdown, No significant lesion Neuro: Normal speech, Strength at 5/5 X4 ext, Normal tone, Sensation intact, Cranial nerves 3-12 NL, Reflexes 2+ Psych/Mental Status: Mental status NL, Mood NL laboratory and microbiology Laboratory Tests 06/02/25 16:09 06/02/25 12:24 06/02/25 03:55 Test 06/02/25 16:09 Range/Units Serum Glucose 109 H 74-106 mg/dL Labs and/or images reviewed: Labs reviewed by me, Image(s) reviewed by me Problem List/Assessment/Plan Problem List/Assessment/Plan # Acute hypoxic respiratory failure # Hypertensive emergency # Possible acute on chronic decompensated systolic/ diastolic heart failure # pulmonary edema due to above # Rule out pulmonary embolism - chest x-ray revealed bilateral pulmonary vascular congestion. Bibasilar atelectasis/consolidation - BNP is elevated - echo MILD LV GLOBAL HYPOKINESIS DYSKINESIS OF IVS LV EF IS IN RANGE OF 45% SLIGHTLY DILATED RV NORMAL VALVES MILD POSTERIOR PERICARDIAL EFFUSION - Carvedilol 12.5 mg p.o. b.i.d. - added Nifedipine 90mg daily - IV Lasix drip at 20mg/hr - V/Q scan done today, pending report - cardiology on board # Acute kidney injury hemodynamically mediated in the setting of fluid overload hypertensive emergency # Nephrotic range proteinuria # Chronic kidney disease unspecified baseline is unknown # Possible diabetic nephropathy # Hyperkalemia and metabolic acidosis due to above # Chronic microcytic anemia due to CKD # diabetes mellitus, status post debridement of diabetic foot #Secondary hyperparathyroidism - Ultrasound demonstrated normal-appearing kidneys bilaterally, with bilateral pleural effusion - Nephrology on board - renal diet - IV Lasix drip at 20mg/hr - IV sodium bicarb 100 mEq once - Hyperkalemia protocol management - Epogen 1000 units 3 times a week - strict I&O - Monitor BMP -hemodialysis done today -Sevelamer 800mg po tid started -Blood transfusion with 1 PRBC today -placement of tunneled dialysis catheter tomorrow # Mild transaminitis likely secondary to hepatic congestion from CHF # Moderate protein calorie malnutrition, albumin 2.5 # Morbid obesity, BMI 40.6 kg/m2 - counseled patient regarding healthy diet, weight loss, lifestyle modification and physical exercise # PUD prophylaxis - Pepcid 20 mg p.o. daily # DVT prophylaxis - Heparin 5000 units b.i.d. Goal of care discussed with the patient for more than 20 minutes full code Plan discussed with Dr Mora Plan discussed with: Patient Date of Service: Jun 02, 2025 Billing Provider: LEIGHANN CLAROS MD Common Visit Codes: [id number] INP/OBS CARE(HIGH) CRISTÓBAL BRYAN RESIDENT Jun 02, 2025 17:03
[2025-06-03] VITALS (14 sets, daily range): BP systolic 113–143; BP diastolic 63–87; PULSE 69–85; RESP 16–20; TEMP 97.8–98.6; O2SAT 91–96
[2025-06-03] MEDS: DOXAZOSIN MESYL 2 MG TAB PO SCH (00:10)
[2025-06-03] MEDS: CARVEDILOL 12.5 MG TAB PO SCH (00:11)
[2025-06-03] MEDS: EPOETIN ALFA-EPBX 10,000 UNIT/1ML VIAL SC SCH (00:14)
[2025-06-03] MEDS: ACETAMINOPHEN 325 MG TAB PO PRN (00:57)
[2025-06-03 07:24] LABS: Hematocrit 26.2 % (41.0-53.0); Hemoglobin 9.1 g/dL (13.5-17.5); Mean Corpuscular Hemoglobin 31.1 pg (28.0-32.0); Mean Corpuscular Volume 89.4 fL (80.0-100.0); Nucleated Red Blood Cells % 0.1 %
[2025-06-03 07:45] LABS: Potassium 4.7 mmol/L (3.5-5.1); Sodium 142 mmol/L (136-145)
[2025-06-03 07:46] LABS: Anion Gap 10 (5-15); Calcium 7.9 mg/dL (8.7-10.4); Carbon Dioxide 25 mmol/L (20-31); Chloride 107 mmol/L (98-107)
[2025-06-03 07:51] LABS: BUN/Creatinine Ratio 5.1 (10.0-20.0); Blood Urea Nitrogen 32 mg/dL (9-23); Glucose 98 mg/dL (74-106)
[2025-06-03] MEDS: LIDOCAINE 2%HCL (LOCAL ANESTH.) INJ 20ML MDV ONE (09:47)
--- NOTE | 2025-06-03 09:50 | DVH ---
NUCLEAR MEDICINE VENTILATION/PERFUSION LUNG SCAN. INDICATION: sob TECHNIQUE: Following intravenous demonstration of 7.2 millicuries of technetium 99m MAA, and inhalation of 5.5 Tc 99m DTPA X3 133 scintigrams were obtained in multiple projections of the lungs. FINDINGS: There is normal uptake of radionuclide on both the ventilation and perfusion portions of the examination. No mismatched perfusion defects are demonstrated. Uptake is normally homogeneous. IMPRESSION: Low probability for PE.
--- NOTE | 2025-06-03 09:55 | DI ---
[facility] VENTILATION/PERFUSION LUNG SCAN. INDICATION: sob TECHNIQUE: Following intravenous demonstration of 7.2 millicuries of technetium 99m MAA, and inhalation of 5.5 Tc 99m DTPA X3 133 scintigrams were obtained in multiple projections of the lungs. FINDINGS: There is normal uptake of radionuclide on both the ventilation and perfusion portions of the examination. No mismatched perfusion defects are demonstrated. Uptake is normally homogeneous. IMPRESSION: Low probability for PE. AN GALLEGOS
--- NOTE | 2025-06-03 10:38 | DVHPN2 ---
Progress Note Date Seen: Jun 03, 2025 Resident Creating Document: CORRY SMITH RESDIENT Medical Necessity Reason Pt with a Central, PICC or Fol: Yes Subjective Review of Systems Patient seen and examined at the bedside. Patient is feeling better since admission. Other Systems: Patient seen and examined by myself today on rounds with the medicine resident I agree with his assessment and plan Patient examined hemodialysis, blood pressure stable Objective vital signs Vital Sign Date Time Temp Pulse Resp B/P (MAP) Pulse Ox O2 Delivery O2 Flow Rate FiO2 06/03/25 09:00 97.8 81 19 137/80 (99) 93 97.8 06/03/25 06:00 Nasal Cannula* 2 28 Total Intake and Output 06/02/25 06/02/25 06/03/25 15:00 23:00 07:00 Intake Total 675.5 ml 265.5 ml 0 ml Output Total 525 ml 100 ml Balance 675.5 ml -259.5 ml -100 ml medications Current Medications Medications Dose Ordered Sig/Ronel Route Start Time Stop Time Status Last Admin Dose Admin Acetaminophen 325 mg Q4HP PRN PO 06/01/25 02:30 06/03/25 00:57 325 MG Ondansetron HCl 4 mg Q4HP PRN IV 06/01/25 02:30 06/01/25 05:17 4 MG Morphine Sulfate 2 mg Q4HPRN PRN IV 06/01/25 02:30 06/03/25 02:42 2 MG Nitroglycerin 250 ml @ 1.5 mls/hr Q24H IV 06/01/25 02:30 UNV Furosemide 100 mg/ Sodium Chloride 110 ml @ 22 mls/hr Q5H IV 06/01/25 08:15 06/03/25 06:14 22 MLS/HR Epoetin Rico-epbx 10,000 unit MWF@2100 SC 06/02/25 21:00 06/03/25 00:14 10,000 UNIT Diagnostic Test (Pha) 1 strip Q6HR 06/01/25 12:00 06/03/25 05:46 1 STRIP Insulin Human Regular Q6HR SC 06/01/25 12:00 06/03/25 00:33 3 UNITS Dextrose 50 ml UD PRN IV 06/01/25 08:30 06/01/25 19:14 50 ML Zirconium Oxide 10 gm TID PO 06/01/25 22:00 06/03/25 14:01 06/03/25 00:56 10 GM Famotidine 20 mg EOD PO 06/02/25 10:00 06/02/25 15:11 20 MG Heparin Sodium (Porcine) 5,000 units Q12HR SC 06/01/25 22:00 06/03/25 01:06 5,000 UNITS Nifedipine 90 mg DAILY PO 06/03/25 10:00 Sevelamer HCl 800 mg TIDWM PO 06/02/25 12:00 06/02/25 18:00 800 MG Carvedilol 12.5 mg Q12HR PO 06/02/25 22:00 06/03/25 00:11 12.5 MG Doxazosin Mesylate 2 mg HS PO 06/02/25 22:00 06/03/25 00:10 2 MG Calcitriol 0.25 mcg DAILY PO 06/03/25 10:00 Examination General Appearance: Alert, Oriented X3, Cooperative, in moderate respiratory distress HEENT: Atraumatic, PERRLA, EOMI, Mucous membrane moist/pink Respiratory: Bilateral crackles Cardiovascular: Regular rate, Normal S1, Normal S2, No murmurs, no chest wall tenderness Abdominal: Normal bowel sounds, Soft, No tenderness, No hepatospenomegaly, No masses Extremities: Bilateral grade 3-4 pedal edema Skin: No rashes, No breakdown, No significant lesion Neuro: Normal gait, Normal speech, Strength at 5/5 X4 ext, Normal tone, Sensation intact, Cranial nerves 3-12 NL, Reflexes 2+ Psych/Mental Status: Mental status NL, Mood NL laboratory and microbiology Laboratory Tests 06/03/25 06:03 Test 06/03/25 06:03 Range/Units Serum Glucose 98 74-106 mg/dL Problem List/Assessment/Plan Problem List/Assessment/Plan This is a 49-year-old gentleman with past medical history of diabetes type 2, hypertension, dyslipidemia, came to the hospital due to generalized swelling and shortness of breaths. Possible LORE on CKD (baseline records not available), VMN Hypertensive emergency Volume overload, due to above Diabetes type 2 Nephrotic range proteinuria, due to above Dyslipidemia Morbid obesity Severe anemia Hyperkalemia Poorly functioning right IJ Musa catheter Plan/recommendation: (Dr. Grossman) * Continue with UF 3-4 L as tolerated * Epogen 10,000 SQ 3 x weekly * Lasix drip at 20 mg/hr, Sevelamer 800 mg t.i.d., nifedipine 90 mg daily, Cardilol 6.25 BID * Consulted IR for tunneled catheter placement * Blood transfusion (1 PRBC) * Renal diet * BP control * Social consult for outpatient HD chair time at [facility] * We Follow up with the patient Thank you for giving us the opportunity to take care of your patient. Please call back if you have any questions/concerns. Plan discussed with: Patient, Other (RN) My Orders My Orders Orders - CORRY SMITH Procedure Category Date Status Time Nifedipine Er PHA 06/03/25 In Process (Procardia Xl 10:00 * Radiologist Consult CONS 06/02/25 Transmitted 10:44 Sevelamer (Renagel) PHA 06/02/25 In Process 12:00 Calcitriol Capsule PHA 06/03/25 In Process (Rocaltrol Capsule) 10:00 CORRY SMITH Jun 03, 2025 10:38 MARV GROSSMAN MD Jun 03, 2025 11:03
--- NOTE | 2025-06-03 11:58 | DVH ---
XY Insertion of Venous Cath HISTORY: HD CATH PL for ESRD. PROCEDURE: Informed consent was obtained. The patient was placed supine on the interventional table. 1 gram of Ancef was given IV. A limited localization ultrasound of the right neck base was obtained. The right neck base and upper chest were prepped with chlorhexidine which was allowed to dry and draped in the usual sterile fashion. Time out was performed. IV sedation was administered. The skin and the soft tissues were infiltrated with 1% Lidocaine. With real-time ultrasound guidance, the internal jugular vein was accessed with a micropuncture kit, and an image documenting patency was recorded to PACS. A subcutaneous tunneled tract was created from the right upper chest to the venotomy site. A 14 .5 [place] Path, 23 cm long hemodialysis catheter was advanced through the tunneled tract. Fluoroscopy was used to advance a guidewire through the internal jugular vein into the inferior vena cava. Following serial dilatation, a 15 Mongolian peel-away sheath was introduced, though which was advanced the catheter into the right atrium. The catheter tip position was confirmed with fluoroscopy. There was satisfactory flow in both lumens. The catheter lumens were flushed with saline and heparin was left indwelling in the catheter. A post-procedure image of the chest was obtained. The neck incision site was closed with a Vicryl suture and dressed sterilely. The catheter was sutured at the skin surface and exit site also dressed sterilely. No immediate complication was identified. The old nontunneled hemodialysis catheter was removed. Air Kerma 8 mGy FLUOROSCOPY TIME: 1.2 minutes. SEDATION: Dr. Mirza Trinh was personally responsible for the administration of moderate sedation during the procedure performed, including the use of an independent trained observer who had no other duties during the procedure. The drugs utilized were IV fentanyl and versed (see nursing log for details). The total time of supervision by the attending physician was approximately 30 minutes. FINDINGS: Widely patent right IJV. Post procedure image demonstrates smooth course of the hemodialysis catheter with the tip in the right atrium. IMPRESSION: Successful placement of 14.5 tamazight [place] Path, 23 cm long hemodialysis catheter through right internal jugular vein. Plan: Please contact IR for removal when no longer needed.
[2025-06-03] MEDS: fentaNYL CITRATE 100 MCG/2 ML VL ONE (13:10)
[2025-06-03] MEDS: ceFAZolin 1GM/50ML 50 ML IV ONE (13:11)
[2025-06-03] MEDS: MIDAZOLAM HCL 2MG/2ML 2ml VIAL (1mg/ml) ONE (13:11)
[2025-06-03] MEDS: CALCITRIOL 0.25 MCG CAP PO SCH (13:24)
[2025-06-03] MEDS: HEPARIN SODIUM (PORCINE) 5000 UNITS/ML 1ML VIAL ONE (18:22)
--- NOTE | 2025-06-03 18:28 | DVHPNRES ---
Progress Note Date Seen: Jun 03, 2025 Resident Creating Document: CRISTÓBAL BRYAN RESIDENT Medical Necessity Reason Pt with a Central, PICC or Fol: Yes Subjective Review of Systems Elian Smith is a 49-year-old male patient past medical history of hypertension, hyperlipidemia, type 2 diabetes mellitus, diabetic foot status post debridement who presented to the ED with chief complaint of shortness of breath and lower leg swelling associated with decreased urine output for the past week before his admission. Patient has not been taking his hydrochlorothiazide for the past two weeks, rest of medication he is compliant with. Denies any other associated symptoms including fever, chills, nausea, vomiting, diarrhea, dysuria in any other associated symptoms. BP was 213/139 in the ER . BUN, creatinine was elevated, kidney ultrasound demonstrated normal bilateral kidney with small bilateral pleural effusion. Hyperkalemia protocol was initiated for hyperkalemia management. Nephrology was consulted and recommended IV Lasix drip, IV sodium bicarb for metabolic acidosis secondary to LORE and monitor BMP. Patient seen and examined at bedside. He is alert oriented x3 and currently on 2 L oxygen through nasal cannula, saturating 95%. The patient is currently on low-dose nicardipine drip, bridged with oral carvedilol 6.25 mg p.o. b.i.d., amlodipine 10 mg daily . Complaint of shortness of breath, back pain and no other active complaint. Constitutional: No: Fever, Chills, Sweats, Weakness, Malaise, Other Eyes: No: Pain, Vision change, Conjunctivae inflammation, Eyelid inflammation, Other, Redness ENT: No: Ear pain, Ear discharge, Nose pain, Nose discharge, Nose congestion, Mouth pain, Mouth swelling, Throat pain, Throat swelling, Other Respiratory: Shortness of breath, No: Cough, Dry,Wheezing, Hemoptysis, Pleuritic Pain, Sputum, Wheezing, Other Cardiovascular: Edema No: Chest Pain, Palpitations, Orthopnea, Paroxysmal Noc. Dyspnea, Lt Headedness, Other Gastrointestinal: No: Nausea, Vomiting, Abdominal Pain, Diarrhea, Constipation, Melena, Hematochezia, Other Musculoskeletal: No: other, neck pain, shoulder pain, arm pain, back pain, hand pain, leg pain, foot pain Neurological:; No: Weakness, Numbness, Incoordination, Change in speech, Confusion, Seizures 06/02/25- The patient was seen at bedside today. Patient got hemodialysis today morning. His hemoglobin this morning was 6.7, 1 unit of PRBC was given. Nephrology continued with the lasix drip, added sevelamer 800mg tid po and added nifedipine 90 mg po daily. Dose of cervedilol was increased to 12.5 mg po bid. IR will place tunnel catheter tomorrow. 06/03/25- The patient was seen at bedside today. Hemoglobin today is 9.1 and creatinine is 6.27. Blood pressure is under control now. Patient got tunnel catheter placement by IR today. The patient will receive 1 dialysis today. hr shared services consultant consult for arranging chair time for hemodialysis has already been placed we are pending approval on that. Possible discharge tomorrow once check time is secured. Calcitriol 0.25mcg daily po was started today. Objective vital signs Vital Sign Date Time Temp Pulse Resp B/P (MAP) Pulse Ox O2 Delivery O2 Flow Rate FiO2 06/03/25 17:53 73 18 125/66 06/03/25 17:00 98.0 92 98.0 06/03/25 08:05 Nasal Cannula* 2 28 Total Intake and Output 06/02/25 06/02/25 06/03/25 14:59 22:59 06:59 Intake Total 686.0 ml 298.0 ml 0 ml Output Total 525 ml 100 ml Balance 686.0 ml -227.0 ml -100 ml medications Current Medications Medications Dose Ordered Sig/Ronel Route Start Time Stop Time Status Last Admin Dose Admin Acetaminophen 325 mg Q4HP PRN PO 06/01/25 02:30 06/03/25 00:57 325 MG Ondansetron HCl 4 mg Q4HP PRN IV 06/01/25 02:30 06/01/25 05:17 4 MG Morphine Sulfate 2 mg Q4HPRN PRN IV 06/01/25 02:30 06/03/25 17:11 2 MG Nitroglycerin 250 ml @ 1.5 mls/hr Q24H IV 06/01/25 02:30 UNV Furosemide 100 mg/ Sodium Chloride 110 ml @ 22 mls/hr Q5H IV 06/01/25 08:15 06/03/25 16:58 22 MLS/HR Epoetin Rico-epbx 10,000 unit MWF@2100 SC 06/02/25 21:00 06/03/25 00:14 10,000 UNIT Diagnostic Test (Pha) 1 strip Q6HR 06/01/25 12:00 06/03/25 17:54 1 STRIP Insulin Human Regular Q6HR SC 06/01/25 12:00 06/03/25 18:02 2 UNITS Dextrose 50 ml UD PRN IV 06/01/25 08:30 06/01/25 19:14 50 ML Famotidine 20 mg EOD PO 06/02/25 10:00 06/02/25 15:11 20 MG Heparin Sodium (Porcine) 5,000 units Q12HR SC 06/01/25 22:00 06/03/25 01:06 5,000 UNITS Nifedipine 90 mg DAILY PO 06/03/25 10:00 06/03/25 13:23 90 MG Sevelamer HCl 800 mg TIDWM PO 06/02/25 12:00 06/03/25 17:54 800 MG Carvedilol 12.5 mg Q12HR PO 06/02/25 22:00 06/03/25 13:24 12.5 MG Doxazosin Mesylate 2 mg HS PO 06/02/25 22:00 06/03/25 00:10 2 MG Calcitriol 0.25 mcg DAILY PO 06/03/25 10:00 06/03/25 13:24 0.25 MCG Examination General Appearance: Alert, Oriented X3, Cooperative, mild respiratory distress and on nasal cannula 2 L HEENT: Atraumatic, PERRLA, EOMI, Mucous membrane moist/pink Respiratory: Bilateral crackles . Cardiovascular: Regular rate, Normal S1, Normal S2, No murmurs, no chest wall tenderness Abdominal: Normal bowel sounds, Soft, No tenderness, No hepatospenomegaly, No masses Extremities: Edema 2+ No clubbing, No cyanosis, Normal pulses, No tenderness/swelling Skin: No rashes, No breakdown, No significant lesion Neuro: Normal speech, Strength at 5/5 X4 ext, Normal tone, Sensation intact, Cranial nerves 3-12 NL, Reflexes 2+ Psych/Mental Status: Mental status NL, Mood NL laboratory and microbiology Laboratory Tests 06/03/25 06:03 Test 06/03/25 06:03 Range/Units Serum Glucose 98 74-106 mg/dL Labs and/or images reviewed: Labs reviewed by me, Image(s) reviewed by me Problem List/Assessment/Plan Problem List/Assessment/Plan # Acute hypoxic respiratory failure # Hypertensive emergency # Possible acute on chronic decompensated systolic/ diastolic heart failure # pulmonary edema due to above # Ruled out pulmonary embolism - chest x-ray revealed bilateral pulmonary vascular congestion. Bibasilar atelectasis/consolidation - BNP is elevated - echo MILD LV GLOBAL HYPOKINESIS DYSKINESIS OF IVS LV EF IS IN RANGE OF 45% SLIGHTLY DILATED RV NORMAL VALVES MILD POSTERIOR PERICARDIAL EFFUSION - Carvedilol 12.5 mg p.o. b.i.d. - added Nifedipine 90mg daily - IV Lasix drip at 20mg/hr - V/Q scan done 0n 06/02/25- low probability for PE - cardiology on board # Acute kidney injury hemodynamically mediated in the setting of fluid overload hypertensive emergency # Nephrotic range proteinuria # Chronic kidney disease unspecified baseline is unknown # Possible diabetic nephropathy # Hyperkalemia and metabolic acidosis due to above # Chronic microcytic anemia due to CKD # diabetes mellitus, status post debridement of diabetic foot #Secondary hyperparathyroidism - Ultrasound demonstrated normal-appearing kidneys bilaterally, with bilateral pleural effusion - Nephrology on board - renal diet - IV Lasix drip at 20mg/hr - IV sodium bicarb 100 mEq once - Hyperkalemia protocol management - Epogen 1000 units 3 times a week - strict I&O - Monitor BMP -hemodialysis due today -Sevelamer 800mg po tid started -Blood transfusion with 1 PRBC today -placement of tunneled dialysis catheter done today -started Calcitriol 0.25 mcg daily po # Mild transaminitis likely secondary to hepatic congestion from CHF # Moderate protein calorie malnutrition, albumin 2.5 # Morbid obesity, BMI 40.6 kg/m2 - counseled patient regarding healthy diet, weight loss, lifestyle modification and physical exercise # PUD prophylaxis - Pepcid 20 mg p.o. daily # DVT prophylaxis - Heparin 5000 units b.i.d. Goal of care discussed with the patient for more than 20 minutes full code Plan discussed with Dr Mora Plan discussed with: Patient My Orders My Orders Orders - CRISTÓBAL BRYAN RESIDENT Procedure Category Date Status Time Insertion Of Venous XY 06/03/25 Resulted Cath 11:36 Date of Service: Jun 03, 2025 Billing Provider: ISAIAH AZIZ,FARIQ MD Common Visit Codes: [id number] INP/OBS CARE(HIGH) CRISTÓBAL BRYAN RESIDENT Jun 03, 2025 18:28
[2025-06-04] VITALS (9 sets, daily range): BP systolic 118–134; BP diastolic 71–80; PULSE 65–84; RESP 17–22; TEMP 97.6–98.3; O2SAT 92–98
[2025-06-04 06:11] LABS: Hematocrit 25.1 % (41.0-53.0); Hemoglobin 8.6 g/dL (13.5-17.5); Mean Corpuscular Hemoglobin 30.7 pg (28.0-32.0); Mean Corpuscular Volume 89.3 fL (80.0-100.0); Nucleated Red Blood Cells % 0.1 %
[2025-06-04 06:14] LABS: Anion Gap 8 (5-15); Carbon Dioxide 29 mmol/L (20-31); Chloride 105 mmol/L (98-107); Potassium 4.1 mmol/L (3.5-5.1); Sodium 142 mmol/L (136-145)
[2025-06-04 06:20] LABS: BUN/Creatinine Ratio 5.3 (10.0-20.0)
[2025-06-04 06:23] LABS: Blood Urea Nitrogen 28 mg/dL (9-23); Calcium 7.5 mg/dL (8.7-10.4); Glucose 117 mg/dL (74-106)
--- NOTE | 2025-06-04 10:57 | DVHPN2 ---
Progress Note Date Seen: Jun 04, 2025 Resident Creating Document: CORRY SMITH RESDIENT Medical Necessity Reason Pt with a Central, PICC or Fol: Yes Subjective Review of Systems Patient seen and examined at the bedside. Patient is feeling better since admission. Patient reports: No new complaints Other Systems: Patient seen and examined by myself today in follow-up Patient examined hemodialysis, blood pressure stable Objective vital signs Vital Sign Date Time Temp Pulse Resp B/P (MAP) Pulse Ox O2 Delivery O2 Flow Rate FiO2 06/04/25 09:00 97.8 72 18 123/74 (90) 96 97.8 06/03/25 20:00 Nasal Cannula* 2 28 Total Intake and Output 06/03/25 06/03/25 06/04/25 15:00 23:00 07:00 Intake Total 600 ml 981 ml Output Total 400 ml Balance 600 ml 581 ml medications Current Medications Medications Dose Ordered Sig/Ronel Route Start Time Stop Time Status Last Admin Dose Admin Acetaminophen 325 mg Q4HP PRN PO 06/01/25 02:30 06/03/25 00:57 325 MG Ondansetron HCl 4 mg Q4HP PRN IV 06/01/25 02:30 06/01/25 05:17 4 MG Morphine Sulfate 2 mg Q4HPRN PRN IV 06/01/25 02:30 06/03/25 22:08 2 MG Nitroglycerin 250 ml @ 1.5 mls/hr Q24H IV 06/01/25 02:30 UNV Epoetin Rico-epbx 10,000 unit MWF@2100 SC 06/02/25 21:00 06/03/25 00:14 10,000 UNIT Diagnostic Test (Pha) 1 strip Q6HR 06/01/25 12:00 06/04/25 05:41 1 STRIP Insulin Human Regular Q6HR SC 06/01/25 12:00 06/04/25 05:39 2 UNITS Dextrose 50 ml UD PRN IV 06/01/25 08:30 06/01/25 19:14 50 ML Famotidine 20 mg EOD PO 06/02/25 10:00 06/02/25 15:11 20 MG Heparin Sodium (Porcine) 5,000 units Q12HR SC 06/01/25 22:00 06/03/25 22:06 5,000 UNITS Nifedipine 90 mg DAILY PO 06/03/25 10:00 06/03/25 13:23 90 MG Carvedilol 12.5 mg Q12HR PO 06/02/25 22:00 06/03/25 22:04 12.5 MG Doxazosin Mesylate 2 mg HS PO 06/02/25 22:00 06/03/25 22:04 2 MG Calcitriol 0.25 mcg DAILY PO 06/03/25 10:00 06/03/25 13:24 0.25 MCG Calcium Acetate 667 mg TIDWMEALS PO 06/04/25 12:00 Ergocalciferol 50,000 unit Q7D PO 06/04/25 09:30 Albumin Human 100 ml @ 100 mls/hr Q12HR IV 06/04/25 10:30 06/05/25 22:59 Bumetanide 25 mg/ Miscellaneous 100 ml @ 4 mls/hr Q24H IV 06/04/25 10:30 Examination General Appearance: Alert, Oriented X3, Cooperative, in moderate respiratory distress HEENT: Atraumatic, PERRLA, EOMI, Mucous membrane moist/pink Respiratory: Bilateral crackles Cardiovascular: Regular rate, Normal S1, Normal S2, No murmurs, no chest wall tenderness Abdominal: Normal bowel sounds, Soft, No tenderness, No hepatospenomegaly, No masses Extremities: Bilateral grade 3-4 pedal edema Skin: No rashes, No breakdown, No significant lesion Neuro: Normal gait, Normal speech, Strength at 5/5 X4 ext, Normal tone, Sensation intact, Cranial nerves 3-12 NL, Reflexes 2+ Psych/Mental Status: Mental status NL, Mood NL Examination: LUNGS:Normal, CVS:Normal, MSK:Abnormal laboratory and microbiology Laboratory Tests 06/04/25 05:00 Test 06/04/25 05:00 Range/Units Serum Glucose 117 H 74-106 mg/dL Problem List/Assessment/Plan Problem List/Assessment/Plan This is a 49-year-old gentleman with past medical history of diabetes type 2, hypertension, dyslipidemia, came to the hospital due to generalized swelling and shortness of breaths. ESRD, requires HD Hypertensive emergency Volume overload, due to above Diabetes type 2 Nephrotic range proteinuria, due to above Dyslipidemia Morbid obesity Severe anemia Hyperkalemia Status post IJ tunneled hemodialysis catheter Plan/recommendation: (Dr. Grossman) * Continue with UF 3-4 L as tolerated * Epogen 10,000 SQ 3 x weekly * Sevelamer 800 mg t.i.d., nifedipine 90 mg daily, Cardilol 6.25 BID * Albumin 25% and Bumex drip for diuresis * Renal diet * BP control * Social [facility] * We Follow up with the patient Thank you for giving us the opportunity to take care of your patient. Please call back if you have any questions/concerns. Plan discussed with: Patient, Other (RN) CORRY SMITH Jun 04, 2025 10:57 MARV GROSSMAN MD Jun 04, 2025 11:31
[2025-06-04] MEDS: HEPARIN SODIUM (PORCINE) 5000 UNITS/ML 1ML VIAL XX ONE (11:52)
--- NOTE | 2025-06-04 12:41 | DVH ---
EXAM: CT HEAD WITHOUT CONTRAST INDICATION: R/O ACUTE STROKE TECHNIQUE: CT of the head without intravenous contrast. Radiation Dose Information: CT Dose: CTDI volume is 53.44 mGy. Dose-length product is 965.3 mGy*cm The dose indicators for CT are the volume Computed Tomography (CT) Dose Index (CTDIvol) and the Dose Length Product (DLP), and are measured in units of mGy and mGy-cm, respectively. These indicators are not patient dose, but values generated from the CT scanner acquisition factors. The report includes radiation exposure data for exposures received during this examination. COMPARISON: CT CT R FOOT WO CONTRAST on DOS: 05/01/23, MRI MRI R FOOT WO W CONTRAST on DOS: 01/17/23, CT CT R FOOT WO CONTRAST on DOS: 01/16/23, RFOOT on DOS: 07/26/22, RFTCT on DOS: 05/23/22 FINDINGS: There is no evidence of acute intracranial hemorrhage, extra-axial collection, mass effect, midline shift, herniation or hydrocephalus. The ventricles, sulci and cisterns are age appropriate. The chris-white differentiation is intact. Patchy periventricular and subcortical white matter hypoattenuation is nonspecific but may be related to small vessel ischemic disease. The visualized paranasal sinuses and mastoid air cells are clear. The surrounding soft tissues and osseous structures are unremarkable. IMPRESSION: No acute intracranial abnormality.
[2025-06-04] MEDS: ERGOCALCIFEROL 50,000 UNIT(1.25MG) CAP PO SCH (12:58)
[2025-06-04] MEDS: CALCIUM ACETATE 667 MG CAP PO SCH (12:59)
[2025-06-04] MEDS: IOHEXOL 350 MG/ML 100ML IJ ONE (14:09)
[2025-06-04] MEDS: BUMETANIDE INJECTION 25 MG in GIVE UN-DILUTED 0 ML IV SCH (14:25)
[2025-06-04] MEDS: ALBUMIN 25% 100 ML IV SCH (15:31)
--- NOTE | 2025-06-04 15:38 | DVHPNRES ---
Progress Note Date Seen: Jun 04, 2025 Resident Creating Document: CRISTÓBAL BRYAN RESIDENT Medical Necessity Reason Pt with a Central, PICC or Fol: Yes Subjective Review of Systems Elian Smith is a 49-year-old male patient past medical history of hypertension, hyperlipidemia, type 2 diabetes mellitus, diabetic foot status post debridement who presented to the ED with chief complaint of shortness of breath and lower leg swelling associated with decreased urine output for the past week before his admission. Patient has not been taking his hydrochlorothiazide for the past two weeks, rest of medication he is compliant with. Denies any other associated symptoms including fever, chills, nausea, vomiting, diarrhea, dysuria in any other associated symptoms. BP was 213/139 in the ER . BUN, creatinine was elevated, kidney ultrasound demonstrated normal bilateral kidney with small bilateral pleural effusion. Hyperkalemia protocol was initiated for hyperkalemia management. Nephrology was consulted and recommended IV Lasix drip, IV sodium bicarb for metabolic acidosis secondary to LORE and monitor BMP. Patient seen and examined at bedside. He is alert oriented x3 and currently on 2 L oxygen through nasal cannula, saturating 95%. The patient is currently on low-dose nicardipine drip, bridged with oral carvedilol 6.25 mg p.o. b.i.d., amlodipine 10 mg daily . Complaint of shortness of breath, back pain and no other active complaint. Constitutional: No: Fever, Chills, Sweats, Weakness, Malaise, Other Eyes: No: Pain, Vision change, Conjunctivae inflammation, Eyelid inflammation, Other, Redness ENT: No: Ear pain, Ear discharge, Nose pain, Nose discharge, Nose congestion, Mouth pain, Mouth swelling, Throat pain, Throat swelling, Other Respiratory: Shortness of breath, No: Cough, Dry,Wheezing, Hemoptysis, Pleuritic Pain, Sputum, Wheezing, Other Cardiovascular: Edema No: Chest Pain, Palpitations, Orthopnea, Paroxysmal Noc. Dyspnea, Lt Headedness, Other Gastrointestinal: No: Nausea, Vomiting, Abdominal Pain, Diarrhea, Constipation, Melena, Hematochezia, Other Musculoskeletal: No: other, neck pain, shoulder pain, arm pain, back pain, hand pain, leg pain, foot pain Neurological:; No: Weakness, Numbness, Incoordination, Change in speech, Confusion, Seizures 06/02/25- The patient was seen at bedside today. Patient got hemodialysis today morning. His hemoglobin this morning was 6.7, 1 unit of PRBC was given. Nephrology continued with the lasix drip, added sevelamer 800mg tid po and added nifedipine 90 mg po daily. Dose of cervedilol was increased to 12.5 mg po bid. IR will place tunnel catheter tomorrow. 06/03/25- The patient was seen at bedside today. Hemoglobin today is 9.1 and creatinine is 6.27. Blood pressure is under control now. Patient got tunnel catheter placement by IR today. The patient will receive 1 dialysis today. client services analyst consult for arranging chair time for hemodialysis has already been placed we are pending approval on that. Possible discharge tomorrow once check time is secured. Calcitriol 0.25mcg daily po was started today. 06/04/25- The patient was seen at bedside today. Creatinine today is 5.29. Patient got hemodialysis yesterday and 3 L was removed. Lasix drip was discontinued and patient was started on Bumex drip 1mg/hr and metolazone 10 mg p.o. daily. Albumin 25% at 12 hr protocol was started. Cardiology was consulted, pending evaluation. Patient complained of weakness in his lower limbs and right arm, head CT was ordered which showed no acute abnormality. CT angiography head and neck was ordered, pending report. Lumbosacral spine x-ray was also ordered pending report. Patient and his sons were explained extensively and updated with all evaluations and management. Objective vital signs Vital Sign Date Time Temp Pulse Resp B/P (MAP) Pulse Ox O2 Delivery O2 Flow Rate FiO2 06/04/25 14:25 148/79 06/04/25 12:58 75 06/04/25 09:00 97.8 18 96 97.8 06/03/25 20:00 Nasal Cannula* 2 28 Total Intake and Output 06/03/25 06/03/25 06/04/25 15:00 23:00 07:00 Intake Total 600 ml 981 ml Output Total 400 ml Balance 600 ml 581 ml medications Current Medications Medications Dose Ordered Sig/Ronel Route Start Time Stop Time Status Last Admin Dose Admin Acetaminophen 325 mg Q4HP PRN PO 06/01/25 02:30 06/03/25 00:57 325 MG Ondansetron HCl 4 mg Q4HP PRN IV 06/01/25 02:30 06/01/25 05:17 4 MG Morphine Sulfate 2 mg Q4HPRN PRN IV 06/01/25 02:30 06/03/25 22:08 2 MG Nitroglycerin 250 ml @ 1.5 mls/hr Q24H IV 06/01/25 02:30 UNV Epoetin Rico-epbx 10,000 unit MWF@2100 [place] 06/02/25 21:00 06/03/25 00:14 10,000 UNIT Diagnostic Test (Pha) 1 strip Q6HR 06/01/25 12:00 06/04/25 13:12 1 STRIP Insulin Human Regular Q6HR [place] 06/01/25 12:00 06/04/25 05:39 2 UNITS Dextrose 50 ml UD PRN IV 06/01/25 08:30 06/01/25 19:14 50 ML Famotidine 20 mg EOD PO 06/02/25 10:00 06/04/25 12:59 20 MG Heparin Sodium (Porcine) 5,000 units Q12HR [place] 06/01/25 22:00 06/03/25 22:06 5,000 UNITS Nifedipine 90 mg DAILY PO 06/03/25 10:00 06/04/25 12:58 90 MG Carvedilol 12.5 mg Q12HR PO 06/02/25 22:00 06/04/25 12:58 12.5 MG Doxazosin Mesylate 2 mg HS PO 06/02/25 22:00 06/03/25 22:04 2 MG Calcitriol 0.25 mcg DAILY PO 06/03/25 10:00 06/04/25 12:59 0.25 MCG Calcium Acetate 667 mg TIDWMEALS PO 06/04/25 12:00 06/04/25 12:59 667 MG Ergocalciferol 50,000 unit Q7D PO 06/04/25 09:30 06/04/25 12:58 50,000 UNIT Albumin Human 100 ml @ 100 mls/hr Q12HR IV 06/04/25 10:30 06/05/25 22:59 Bumetanide 25 mg/ Miscellaneous 100 ml @ 4 mls/hr Q24H IV 06/04/25 10:30 06/04/25 14:25 4 MLS/HR Metolazone 10 mg DAILY PO 06/05/25 10:00 UNV Examination General Appearance: Alert, Oriented X3, Cooperative, mild respiratory distress and on nasal cannula 2 L HEENT: Atraumatic, PERRLA, EOMI, Mucous membrane moist/pink Respiratory: Bilateral crackles Cardiovascular: Regular rate, Normal S1, Normal S2, No murmurs, no chest wall tenderness Abdominal: Normal bowel sounds, Soft, No tenderness, No hepatospenomegaly, No masses Extremities: Edema 3 bilateral,+ No clubbing, No cyanosis, Skin: No rashes, No breakdown, No significant lesion Neuro: Normal speech, Strength 3/5 in lower extremities, strength 4/5 in upper extremities, Normal tone, Sensation intact, Cranial nerves 3-12 NL Psych/Mental Status: Mental status NL, Mood NL laboratory and microbiology Laboratory Tests 06/04/25 05:00 Test 06/04/25 05:00 Range/Units Serum Glucose 117 H 74-106 mg/dL Labs and/or images reviewed: Labs reviewed by me, Image(s) reviewed by me Problem List/Assessment/Plan Problem List/Assessment/Plan # Hypertensive emergency # Acute hypoxic respiratory failure # Acute on chronic decompensated systolic/ diastolic heart failure # Acute pulmonary edema due to above # Ruled out pulmonary embolism - chest x-ray revealed bilateral pulmonary vascular congestion. Bibasilar atelectasis/consolidation - BNP is elevated - echo MILD LV GLOBAL HYPOKINESIS DYSKINESIS OF IVS LV EF IS IN RANGE OF 45% SLIGHTLY DILATED RV NORMAL VALVES MILD POSTERIOR PERICARDIAL EFFUSION - Carvedilol 12.5 mg p.o. b.i.d. - added Nifedipine 90mg daily - V/Q scan done 0n 06/02/25- low probability for PE - cardiology consulted- pending evaluation # Rule out acute stroke -CT head- No acute intracranial abnormality -CT angiography ,pending report # Acute kidney injury hemodynamically mediated in the setting of fluid overload hypertensive emergency # Nephrotic range proteinuria # Chronic kidney disease, unspecified, baseline is unknown s/p IJ tunneled hemodialysis catheter # Possible diabetic nephropathy # Hyperkalemia and metabolic acidosis due to above # Chronic microcytic anemia due to CKD # Diabetes mellitus, status post debridement of diabetic foot #Secondary hyperparathyroidism -Ultrasound demonstrated normal-appearing kidneys bilaterally, with bilateral pleural effusion -Nephrology on board -renal diet -IV sodium bicarb 100 mEq once -Hyperkalemia protocol management -Epogen 1000 units 3 times a week -strict I&O -Monitor BMP -hemodialysis on 06/04/25- 3L removed -Sevelamer 800mg po tid started -Blood transfusion with 1 PRBC today -placement of tunneled dialysis catheter done on 06/04/25 -Calcitriol 0.25 mcg daily po -metolazone 10mg po daily -bumex drip iv 1mg/hr # Mild transaminitis likely secondary to hepatic congestion from CHF # Moderate protein calorie malnutrition, albumin 2.5 # Morbid obesity, BMI 40.6 kg/m2 - counseled patient regarding healthy diet, weight loss, lifestyle modification and physical exercise -started on albumin 25% iv q12 hr protocol PUD prophylaxis-Pepcid 20 mg p.o. daily DVT prophylaxis-Heparin 5000 units b.i.d. Goal of care discussed with the patient for more than 20 minutes full code Plan discussed with Dr Bonilla Plan discussed with patient and sons Plan discussed with: Patient My Orders My Orders Orders - CRISTÓBAL BRYAN RESIDENT Procedure Category Date Status Time * Cardiology Consult CONS 06/04/25 Transmitted 11:02 Lumbar Spine 4+ View XY 06/04/25 Logged 15:07 Metolazone (Zaroxolyn) PHA 06/05/25 Logged 10:00 Date of Service: Jun 04, 2025 Billing Provider: CATA BONILLA MD Common Visit Codes: [id number] INP/OBS CARE(HIGH) CRISTÓBAL BRYAN RESIDENT Jun 04, 2025 15:38
--- NOTE | 2025-06-04 17:02 | DVH ---
EXAM: CT CT HEAD NECK WITH CONT CLINICAL HISTORY: Rt sided hemiparesis TECHNIQUE: CT angiogram of the head and neck was performed without and with intravenous contrast. 100 ml of omnipaque 350 was administered intravenously. 3D MIP reconstructed images were created and archived on the PACS system. This exam was performed according to our departmental dose optimization program. Up-to-date CT equipment and radiation dose reduction techniques are utilized as appropriate. COMPARISON: CT HEAD WITHOUT CONTRAST on DOS: 06/04/25 FINDINGS: CTA head: The distal internal carotid, vertebral, and basilar arteries are patent without focal narrowing or occlusion. The anterior, middle, and posterior cerebral arteries are patent without focal narrowing. No aneurysm or arteriovenous malformation is identified. CTA neck: The aortic arch vessel origins are widely patent. The common carotid and cervical portions of the internal carotid and vertebral arteries are patent without focal narrowing according to NASCET criteria. No aneurysm, AVM, or dissection is identified. The cervical soft tissues are unremarkable. The paranasal sinus and mastoid air cells are clear. The lung apices are clear. Minor multilevel cervical spondylosis. Multiple maxillary mandibular teeth have been removed. A few dental caries are visualized in the maxillary teeth. Diffuse subcutaneous edema in the neck. There is a tunneled right IJ central venous catheter visualized. There are large bilateral pleural effusions. Interlobular septal thickening in the lungs. IMPRESSION: 1. Widely patent arteries in the head and neck without large vessel occlusion, significant stenosis, aneurysm, dissection, or AVM. 2. Large bilateral pleural effusions, subcutaneous edema in the neck, and interstitial pulmonary edema. 3. A few dental caries in the visualized maxillary teeth.
--- NOTE | 2025-06-04 17:05 | DVH ---
CLINICAL HISTORY: Right upper extremity swelling, catheter placement R/O DVT TECHNIQUE: Color and duplex doppler imaging of the right upper extremity veins and right subclavian vein was performed. Vessel compression if possible was also performed. WID: COMPARISON: XY INSERTION OF VENOUS CATH on DOS: 06/03/25, US BILAT LOWER DVT on DOS: 06/01/25, RLDVT on DOS: 07/27/22 FINDINGS: The right axillary, basilic, cephalic, brachial, radial, and ulnar veins are patent and demonstrate normal compressibility and flow. The right subclavian is patent. The right internal jugular vein is not visualized due to right IJ central venous catheter patch IMPRESSION: 1. NO SONOGRAPHIC EVIDENCE FOR DEEP VENOUS THROMBOSIS IN THE RIGHT UPPER EXTREMITY VEINS.
--- NOTE | 2025-06-04 17:30 | DVH ---
CLINICAL INDICATION: lower back pain and numbness TECHNIQUE: 5 radiographic views of the lumbar spine were obtained. Comparison: None FINDINGS/IMPRESSION: Mild dextroscoliosis of the lumbar spine is noted. There are no prior studies for comparison. Findings may be positional. Straightening of the normal lumbar lordotic curve is seen. There are no compressed vertebra.
[2025-06-05] VITALS (8 sets, daily range): BP systolic 126–165; BP diastolic 69–84; PULSE 70–87; RESP 17–20; TEMP 98–98.3; O2SAT 93–95
[2025-06-05 05:59] LABS: Hemoglobin 8.1 g/dL (13.5-17.5)
[2025-06-05 06:01] LABS: Hematocrit 23.5 % (41.0-53.0); Mean Corpuscular Hemoglobin 30.6 pg (28.0-32.0); Mean Corpuscular Volume 89.2 fL (80.0-100.0); Nucleated Red Blood Cells % 0.0 %
[2025-06-05 06:15] LABS: Anion Gap 8 (5-15); Carbon Dioxide 29 mmol/L (20-31); Chloride 103 mmol/L (98-107); Potassium 4.0 mmol/L (3.5-5.1); Sodium 140 mmol/L (136-145)
[2025-06-05 06:21] LABS: BUN/Creatinine Ratio 5.3 (10.0-20.0); Blood Urea Nitrogen 23 mg/dL (9-23)
[2025-06-05 06:22] LABS: Calcium 7.9 mg/dL (8.7-10.4); Glucose 114 mg/dL (74-106)
--- NOTE | 2025-06-05 08:50 | DVHPN2 ---
Progress Note Date Seen: Jun 05, 2025 Resident Creating Document: CORRY SMITH RESDIENT Medical Necessity Reason Pt with a Central, PICC or Fol: Yes Subjective Review of Systems Patient seen and examined at the bedside. Patient is feeling better since admission. Other Systems: Patient seen and examined by myself today in follow-up with the medicine resident, I agree with the assessment and plan Objective vital signs Vital Sign Date Time Temp Pulse Resp B/P (MAP) Pulse Ox O2 Delivery O2 Flow Rate FiO2 06/05/25 05:00 98.3 83 20 126/79 (95) 94 98.3 06/04/25 20:00 Nasal Cannula* 2 28 Total Intake and Output 06/04/25 06/04/25 06/05/25 15:00 23:00 07:00 Intake Total 110 ml 900 ml 150 ml Output Total 0 ml 200 ml Balance 110 ml 900 ml -50 ml medications Current Medications Medications Dose Ordered Sig/Ronel Route Start Time Stop Time Status Last Admin Dose Admin Acetaminophen 325 mg Q4HP PRN PO 06/01/25 02:30 06/03/25 00:57 325 MG Ondansetron HCl 4 mg Q4HP PRN IV 06/01/25 02:30 06/01/25 05:17 4 MG Morphine Sulfate 2 mg Q4HPRN PRN IV 06/01/25 02:30 06/04/25 22:35 2 MG Nitroglycerin 250 ml @ 1.5 mls/hr Q24H IV 06/01/25 02:30 UNV Epoetin Rico-epbx 10,000 unit MWF@2100 [place] 06/02/25 21:00 06/04/25 21:30 10,000 UNIT Diagnostic Test (Pha) 1 strip Q6HR 06/01/25 12:00 06/05/25 05:36 1 STRIP Insulin Human Regular Q6HR [place] 06/01/25 12:00 06/04/25 23:42 2 UNITS Dextrose 50 ml UD PRN IV 06/01/25 08:30 06/01/25 19:14 50 ML Famotidine 20 mg EOD PO 06/02/25 10:00 06/04/25 12:59 20 MG Heparin Sodium (Porcine) 5,000 units Q12HR [place] 06/01/25 22:00 06/04/25 21:35 5,000 UNITS Nifedipine 90 mg DAILY PO 06/03/25 10:00 06/04/25 12:58 90 MG Carvedilol 12.5 mg Q12HR PO 06/02/25 22:00 06/04/25 21:31 12.5 MG Doxazosin Mesylate 2 mg HS PO 06/02/25 22:00 06/04/25 21:30 2 MG Calcitriol 0.25 mcg DAILY PO 06/03/25 10:00 06/04/25 12:59 0.25 MCG Calcium Acetate 667 mg TIDWMEALS PO 06/04/25 12:00 06/04/25 17:43 667 MG Ergocalciferol 50,000 unit Q7D PO 06/04/25 09:30 06/04/25 12:58 50,000 UNIT Albumin Human 100 ml @ 100 mls/hr Q12HR IV 06/04/25 10:30 06/05/25 22:59 06/04/25 21:31 100 MLS/HR Bumetanide 25 mg/ Miscellaneous 100 ml @ 4 mls/hr Q24H IV 06/04/25 10:30 06/04/25 14:25 4 MLS/HR Metolazone 10 mg DAILY PO 06/05/25 10:00 Examination General Appearance: Alert, Oriented X3, Cooperative, in moderate respiratory distress HEENT: Atraumatic, PERRLA, EOMI, Mucous membrane moist/pink Respiratory: Bilateral crackles Cardiovascular: Regular rate, Normal S1, Normal S2, No murmurs, no chest wall tenderness Abdominal: Normal bowel sounds, Soft, No tenderness, No hepatospenomegaly, No masses Extremities: Bilateral grade 3-4 pedal edema Skin: No rashes, No breakdown, No significant lesion Neuro: Normal gait, Normal speech, Strength at 5/5 X4 ext, Normal tone, Sensation intact, Cranial nerves 3-12 NL, Reflexes 2+ Psych/Mental Status: Mental status NL, Mood NL Examination: LUNGS:Normal, CVS:Normal, MSK:Abnormal Examination: LUNGS:Normal, CVS:Normal, MSK:Abnormal laboratory and microbiology Laboratory Tests 06/05/25 05:00 Test 06/05/25 05:00 Range/Units Serum Glucose 114 H 74-106 mg/dL Labs and/or images reviewed: Labs reviewed by me, Image(s) reviewed by me Problem List/Assessment/Plan Problem List/Assessment/Plan This is a 49-year-old gentleman with past medical history of diabetes type 2, hypertension, dyslipidemia, came to the hospital due to generalized swelling and shortness of breaths. ESRD, requires HD Hypertensive emergency Volume overload, due to above Diabetes type 2 Nephrotic range proteinuria, due to above Dyslipidemia Morbid obesity Severe anemia Hyperkalemia Status post IJ tunneled hemodialysis catheter Plan/recommendation: (Dr. Grossman) * Hemodialysis tomorrow * Epogen 10,000 SQ 3 x weekly * Sevelamer 800 mg t.i.d., nifedipine 90 mg daily, Cardilol 12.5mg BID * Albumin 25% and Bumex drip for diuresis * Renal diet * BP control * Social consult for outpatient HD chair time at [facility] * We Follow up with the patient Thank you for giving us the opportunity to take care of your patient. Please call back if you have any questions/concerns. Plan discussed with: Patient, Other (RN) CORRY SMITH Jun 05, 2025 08:50 MARV GROSSMAN MD Jun 05, 2025 13:59
--- NOTE | 2025-06-05 10:29 | DVHPNRES ---
Progress Note Date Seen: Jun 05, 2025 Resident Creating Document: CRISTÓBAL BRYAN RESIDENT Medical Necessity Reason Pt with a Central, PICC or Fol: Yes Subjective Review of Systems Elian Smith is a 49-year-old male patient past medical history of hypertension, hyperlipidemia, type 2 diabetes mellitus, diabetic foot status post debridement who presented to the ED with chief complaint of shortness of breath and lower leg swelling associated with decreased urine output for the past week before his admission. Patient has not been taking his hydrochlorothiazide for the past two weeks, rest of medication he is compliant with. Denies any other associated symptoms including fever, chills, nausea, vomiting, diarrhea, dysuria in any other associated symptoms. BP was 213/139 in the ER . BUN, creatinine was elevated, kidney ultrasound demonstrated normal bilateral kidney with small bilateral pleural effusion. Hyperkalemia protocol was initiated for hyperkalemia management. Nephrology was consulted and recommended IV Lasix drip, IV sodium bicarb for metabolic acidosis secondary to LORE and monitor BMP. Past medical history:hypertension, hyperlipidemia, type 2 diabetes mellitus Past surgical history: I&d on left foot Social history: denies smoking, alcohol and drugs Patient seen and examined at bedside. He is alert oriented x3 and currently on 2 L oxygen through nasal cannula, saturating 95%. The patient is currently on low-dose nicardipine drip, bridged with oral carvedilol 6.25 mg p.o. b.i.d., amlodipine 10 mg daily . Complaint of shortness of breath, back pain and no other active complaint. Constitutional: No: Fever, Chills, Sweats, Weakness, Malaise, Other Eyes: No: Pain, Vision change, Conjunctivae inflammation, Eyelid inflammation, Other, Redness ENT: No: Ear pain, Ear discharge, Nose pain, Nose discharge, Nose congestion, Mouth pain, Mouth swelling, Throat pain, Throat swelling, Other Respiratory: Shortness of breath, No: Cough, Dry,Wheezing, Hemoptysis, Pleuritic Pain, Sputum, Wheezing, Other Cardiovascular: Edema No: Chest Pain, Palpitations, Orthopnea, Paroxysmal Noc. Dyspnea, Lt Headedness, Other Gastrointestinal: No: Nausea, Vomiting, Abdominal Pain, Diarrhea, Constipation, Melena, Hematochezia, Other Musculoskeletal: No: other, neck pain, shoulder pain, arm pain, back pain, hand pain, leg pain, foot pain Neurological:; Weakness in lower extremities, back pain,no Numbness, Incoordination, Change in speech, Confusion, Seizures 06/02/25- The patient was seen at bedside today. Patient got hemodialysis today morning. His hemoglobin this morning was 6.7, 1 unit of PRBC was given. Nephrology continued with the lasix drip, added sevelamer 800mg tid po and added nifedipine 90 mg po daily. Dose of cervedilol was increased to 12.5 mg po bid. IR will place tunnel catheter tomorrow. 06/03/25- The patient was seen at bedside today. Hemoglobin today is 9.1 and creatinine is 6.27. Blood pressure is under control now. Patient got tunnel catheter placement by IR today. The patient will receive 1 dialysis today. manager of environmental services consult for arranging chair time for hemodialysis has already been placed we are pending approval on that. Possible discharge tomorrow once check time is secured. Calcitriol 0.25mcg daily po was started today. 06/04/25- The patient was seen at bedside today. Creatinine today is 5.29. Patient got hemodialysis yesterday and 3 L was removed. Lasix drip was discontinued and patient was started on Bumex drip 1mg/hr and metolazone 10 mg p.o. daily. Albumin 25% at 12 hr protocol was started. Cardiology was consulted, pending evaluation. Patient complained of weakness in his lower limbs and right arm, head CT was ordered which showed no acute abnormality. CT angiography head and neck was ordered, pending report. Lumbosacral spine x-ray was also ordered pending report. Patient and his sons were explained extensively and updated with all evaluations and management. 06/05/25- The patient was seen at bedside today. Creatinine today is 4.37. Patient got hemodialysis yesterday and 4L fluid was removed. Chest CT showed cardiomegaly with mild pulmonary edema and moderate bilateral pleural effusions. Patient complained of weakness and inability to move both lower extremities. MRI lumbosacral spine showed multilevel disc degeneration and spinal canal stenosis most pronounced at L4-L5 with L5 nerve root compression. Spinal surgery was consulted, pending evaluation. Objective vital signs Vital Sign Date Time Temp Pulse Resp B/P (MAP) Pulse Ox O2 Delivery O2 Flow Rate FiO2 06/05/25 09:22 83 121/65 06/05/25 09:19 19 06/05/25 09:00 98.1 94 98.1 06/04/25 20:00 Nasal Cannula* 2 28 Total Intake and Output 06/04/25 06/04/25 06/05/25 15:00 23:00 07:00 Intake Total 110 ml 900 ml 150 ml Output Total 0 ml 200 ml Balance 110 ml 900 ml -50 ml medications Current Medications Medications Dose Ordered Sig/Ronel Route Start Time Stop Time Status Last Admin Dose Admin Acetaminophen 325 mg Q4HP PRN PO 06/01/25 02:30 06/03/25 00:57 325 MG Ondansetron HCl 4 mg Q4HP PRN IV 06/01/25 02:30 06/01/25 05:17 4 MG Morphine Sulfate 2 mg Q4HPRN PRN IV 06/01/25 02:30 06/05/25 09:19 2 MG Nitroglycerin 250 ml @ 1.5 mls/hr Q24H IV 06/01/25 02:30 UNV Epoetin Rico-epbx 10,000 unit MWF@2100 WI 06/02/25 21:00 06/04/25 21:30 10,000 UNIT Diagnostic Test (Pha) 1 strip Q6HR 06/01/25 12:00 06/05/25 05:36 1 STRIP Insulin Human Regular Q6HR SC 06/01/25 12:00 06/04/25 23:42 2 UNITS Dextrose 50 ml UD PRN IV 06/01/25 08:30 06/01/25 19:14 50 ML Famotidine 20 mg EOD PO 06/02/25 10:00 06/04/25 12:59 20 MG Heparin Sodium (Porcine) 5,000 units Q12HR SC 06/01/25 22:00 06/05/25 09:22 5,000 UNITS Nifedipine 90 mg DAILY PO 06/03/25 10:00 06/05/25 09:21 90 MG Carvedilol 12.5 mg Q12HR PO 06/02/25 22:00 06/05/25 09:22 12.5 MG Doxazosin Mesylate 2 mg HS PO 06/02/25 22:00 06/04/25 21:30 2 MG Calcitriol 0.25 mcg DAILY PO 06/03/25 10:00 06/05/25 09:21 0.25 MCG Calcium Acetate 667 mg TIDWMEALS PO 06/04/25 12:00 06/05/25 09:22 667 MG Ergocalciferol 50,000 unit Q7D PO 06/04/25 09:30 06/04/25 12:58 50,000 UNIT Albumin Human 100 ml @ 100 mls/hr Q12HR IV 06/04/25 10:30 06/05/25 22:59 06/04/25 21:31 100 MLS/HR Bumetanide 25 mg/ Miscellaneous 100 ml @ 4 mls/hr Q24H IV 06/04/25 10:30 06/04/25 14:25 4 MLS/HR Metolazone 10 mg DAILY PO 06/05/25 10:00 06/05/25 09:21 10 MG Multivit/Ca Carb/ B Cmplx/FA/Prenat 1 tab DAILY PO 06/05/25 10:00 Examination General Appearance: Alert, Oriented X3, Cooperative, mild respiratory distress and on nasal cannula 2 L HEENT: Atraumatic, PERRLA, EOMI, Mucous membrane moist/pink Respiratory: Bilateral crackles Cardiovascular: Regular rate, Normal S1, Normal S2, No murmurs, no chest wall tenderness Abdominal: Normal bowel sounds, Soft, No tenderness, No hepatospenomegaly, No masses Extremities: Edema 3 bilateral,+ No clubbing, No cyanosis, Skin: No rashes, No breakdown, No significant lesion Neuro: Normal speech, Strength 2/5 in lower extremities, strength 4/5 in upper extremities, Normal tone, Sensation intact, Cranial nerves 3-12 NL Psych/Mental Status: Mental status NL, Mood NL Genitourinary: scrotal edema DEMARCUS: no external hemorrhoids visible, sphincter tone is normal, empty rectal vault, no active bleeding Nurse Shania was present as coordinate measuring equipment operator during the examination. laboratory and microbiology Laboratory Tests 06/05/25 05:00 Test 06/05/25 05:00 Range/Units Serum Glucose 114 H 74-106 mg/dL Labs and/or images reviewed: Labs reviewed by me, Image(s) reviewed by me Problem List/Assessment/Plan Problem List/Assessment/Plan Assessment / Plan # Spinal canal stenosis with lumbar radiculopathy - MRI of L/S spine without contrast showed Multilevel spinal canal stenosis, most pronounced and mild at L4-L5. Multilevel subarticular zone stenosis, most pronounced and severe at L4-L5 with right descending L5 nerve root compression. Multilevel foraminal stenosis - Consulted spinal surgery # Hypertensive emergency # Acute hypoxic respiratory failure likely due to volume overload in the setting of severe LORE requiring hemodialysis # Acute on chronic decompensated systolic heart failure # Acute pulmonary edema due to above # Ruled out pulmonary embolism - chest x-ray revealed bilateral pulmonary vascular congestion. Bibasilar atelectasis/consolidation - BNP is elevated - echo showed mild global hypokinesis with an LVEF of 45% and slightly dilated RV. There were normal cardiac valves and very mild posterior pericardial effusion. - Carvedilol 12.5 mg p.o. b.i.d. - Nifedipine 90mg daily - V/Q scan done 0n 06/02/25- low probability for PE - cardiology consulted # Rule out acute ischemic/hemorrhagic stroke -CT head- No acute intracranial abnormality -CT angiography , was grossly unremarkable # Acute kidney injury hemodynamically mediated in the setting of fluid overload hypertensive emergency # Chronic kidney disease, unspecified, baseline is unknown s/p IJ tunneled hemodialysis catheter # Possible diabetic nephropathy # Acute on Chronic normocytic normochromic anemia # Diabetes mellitus, status post debridement of diabetic foot #Secondary hyperparathyroidism -Ultrasound demonstrated normal-appearing kidneys bilaterally, with bilateral pleural effusion -Nephrology on board -renal diet -Epogen 1000 units 3 times a week -strict I&O -Monitor BMP -hemodialysis on 06/04/25- 3L removed, Next HD tomorrow -Sevelamer 800mg po tid started -Calcitriol 0.25 mcg daily po -metolazone 10mg po daily -continue bumex drip iv 1mg/hr # Mild transaminitis likely secondary to hepatic congestion from CHF # Moderate protein calorie malnutrition, albumin 2.5 # Morbid obesity, BMI 40.6 kg/m2 - counseled patient regarding healthy diet, weight loss, lifestyle modification and physical exercise PUD prophylaxis-Pepcid 20 mg p.o. daily DVT prophylaxis-Heparin 5000 units b.i.d. Goal of care discussed with the patient for more than 20 minutes full code Plan discussed with Dr Kearns Plan discussed with patient and sons critical care time 45 mins Plan discussed with: Patient My Orders My Orders Orders - SIBIA[facility] [employer] RESIDENT Procedure Category Date Status Time * Cardiology Consult CONS 06/04/25 Transmitted 11:02 Lumbar Spine 4+ View XY 06/04/25 Resulted 15:07 Metolazone (Zaroxolyn) PHA 06/05/25 In Process 10:00 * Neurology Consult CONS 06/05/25 Transmitted 08:06 Pt Request For Service PT 06/05/25 Logged 10:10 Date of Service: Jun 05, 2025 Billing Provider: CATA KEARNS MD Common Visit Codes: 28477-[id number] CARE 30-74 MIN CRISTÓBAL BRYAN RESIDENT Jun 05, 2025 10:29 STANLEY CACERES RESIDENT Jun 05, 2025 20:46 CATA KEARNS MD Jun 06, 2025 11:23
[2025-06-05] MEDS: B-COMPLEX W/ C & FOLIC ACID(NEPHROVITE TAB) PO SCH (11:23)
--- NOTE | 2025-06-05 13:22 | DVH ---
Procedure: CT CHEST WITHOUT CONTRAST Reason for study/Clinical History: pleural effusion Comparison Study: CT CT HEAD NECK WITH CONT on DOS: 06/04/25, CT HEAD WITHOUT CONTRAST on DOS: 06/04/25, XY CHEST PORTABLE on DOS: 06/01/25, XY CHEST PORTABLE on DOS: 05/31/25 TECHNIQUE: Multidetector CT of the chest was performed from the lung apices to the upper abdomen without the use of intravenous contract. Axial, coronal and sagittal multiplanar reformats were performed. Radiation Dose Information: CT Dose: CTDI volume is 18.49 mGy. Dose-length product is 681.97 mGy*cm The dose indicators for CT are the volume Computed Tomography (CT) Dose Index (CTDIvol) and the Dose Length Product (DLP), and are measured in units of mGy and mGy-cm, respectively. These indicators are not patient dose, but values generated from the CT scanner acquisition factors. The report includes radiation exposure data for exposures received during this examination. FINDINGS: Lower neck: Right central venous catheter in satisfactory position. Lungs: Bilateral lower lobe compressive atelectasis. Mild diffuse interlobular septal thickening. Heart/Vascular Structures: Cardiomegaly. Lymph Nodes: No adenopathy Pleura: Moderate bilateral pleural effusions. Musculoskeletal: No acute osseous abnormality. Soft tissues: Diffuse body wall edema. Upper abdomen: Gallbladder sludge is present. IMPRESSION: Moderate bilateral pleural effusions. Cardiomegaly with mild pulmonary edema. Gallbladder sludge. Radiation optimization: All CT scans at this facility use at least one of these dose optimization techniques: automated exposure control mA and/or kV adjustment per patient size (includes targeted exams where dose is matched to clinical indication) or iterative reconstruction.
--- NOTE | 2025-06-05 15:31 | DVH ---
EXAM: MRI LUMBAR SPINE WO CONTRAST CLINICAL HISTORY: Lower limb weakness COMPARISON: XY LUMBAR SPINE 4+ VIEW on DOS: 06/04/25 TECHNIQUE: MRI imaging of the lumbar was performed on a MRI imaging system without intravenous contrast. FINDINGS: Multilevel disc degeneration. Alignment: No spondylolisthesis identified. Vertebrae: Vertebral body height is well maintained without evidence of a recent compression fracture. Conus: Conus medullaris terminates at the L1 level. T12-L1: The disc configuration is normal. Mild left subarticular zone stenosis. No neural foraminal stenosis. Facet arthrosis. L1-2: The disc configuration is normal. No spinal canal or neural foraminal stenosis. Facet arthrosis. L2-3: The disc configuration is normal. No spinal canal or neural foraminal stenosis. Facet arthrosis. L3-4: Disc desiccation and 5.35 mm disc bulge. Mild spinal canal stenosis. Mild right and moderate left subarticular zone stenosis. Mild bilateral foraminal stenosis. Facet arthrosis. L4-5: Disc desiccation. Central disc extrusion measured 10.2 mm in radial dimension with 2.7 mm of cranial extension. Mild spinal canal stenosis. Mild left and severe right subarticular zone stenosis with right descending L5 nerve root compression. Mild bilateral foraminal stenosis. Facet arthrosis. L5-S1: Disc desiccation. Disc bulge with superimposed left extraforaminal disc protrusion measured 5.35 mm in radial dimension. Mild left subarticular zone stenosis. Mild left foraminal stenosis. Facet arthrosis. IMPRESSION: 1. Multilevel disc degeneration. Multilevel spinal canal stenosis, most pronounced and mild at L4-L5. Multilevel subarticular zone stenosis, most pronounced and severe at L4-L5 with right descending L5 nerve root compression. Multilevel foraminal stenosis, most pronounced and mild at L4-L5.
[2025-06-06] VITALS (8 sets, daily range): BP systolic 117–161; BP diastolic 59–89; PULSE 76–86; RESP 17–18; TEMP 97.4–98.2; O2SAT 92–97
[2025-06-06 06:29] LABS: Hematocrit 23.6 % (41.0-53.0); Hemoglobin 8.2 g/dL (13.5-17.5)
[2025-06-06 06:46] LABS: Alanine Aminotransferase 17 U/L (7-40); Alkaline Phosphatase 101 U/L (46-116); Anion Gap 9 (5-15); BUN/Creatinine Ratio 5.0 (10.0-20.0); Carbon Dioxide 28 mmol/L (20-31); Chloride 102 mmol/L (98-107); Potassium 4.3 mmol/L (3.5-5.1); Sodium 139 mmol/L (136-145)
[2025-06-06 06:59] LABS: Albumin 2.6 g/dL (3.2-4.8); Bilirubin, Total 0.2 mg/dL (0.2-1.0); Blood Urea Nitrogen 27 mg/dL (9-23); Calcium 7.7 mg/dL (8.7-10.4); Glucose 150 mg/dL (74-106); Total Protein 4.8 g/dL (5.7-8.2)
--- NOTE | 2025-06-06 09:29 | DVHCONRES ---
Date Seen: Jun 06, 2025 Resident Creating Document: KATHIE ROJAS RESIDENT Referring Physician Dr Ruth Reason for Consultation CHF History of Present Illness HPI: Elian Smith is a 49-year-old male with a PMH of HTN, DLD, type 2 DM, CKD presented to the ED with urinary difficulties and progression shortness of breath. Patient reported having issues with fluid retention for 4 months for which he received pills in the clinic but did not provide relief but over the past 3 weeks patient had observed decreased urination and started having occasional shortness of breath which has been worsening for last 1 week particularly when he is lying down Associated with orthopnea and PND. Patient reported he says not have any difficulties with daily living activities. Patien t denies chest pain, heaviness, fever, sick contacts, drug abuse and other associated features. Patient reported that he has been not taking his water pill for past 2 weeks. On arrival to ED he had blood pressure found to have 213/139, troponins were 34, BNP 894, BUN 57, creatinine 8.5, potassium 5.5, GFR [address] no [address] changes , then patient was started on IV nitroglycerin drip, consulted Nephrology , started on hemodialysis then placed on nicardipine drip and started IV Lasix drip then eventually switched to Bumex drip and metolazone. Echocardiogram showed LVEF 45% with a mild pericardial effusion. cardiology was consulted for evaluation of newly diagnosed CHF. PMH: As above PSH: Bilateral debridement of feet in 2023 Family history: Father had heart disease Social history: Lives in [place] with family. Denies current tobacco, alcohol and other drug abuse Allergies: Denies Home medication: Hydrochlorothiazide 25 mg p.o. daily, valsartan 80 mg p.o. daily, ezetimibe 10 mg p.o. daily, pioglitazone 30 mg p.o. daily, metformin a 1000 mg p.o. b.i.d., Lantus 20 units daily, regular insulin sliding scale. ROS: Patient seen and examined at the bedside. Patient is currently on 2 L oxygen NC and reported improvement in his shortness of breath since admission. Patient is complaining of bilateral lower extremity pain and weakness. Rest of ROS is negative. Family History: Cardiovascular disease G8 FATHER Diabetes mellitus G8 FATHER Hypertension G8 FATHER G8 MOTHER Allergies: Coded Allergies: NO KNOWN ALLERGIES (Unverified , 02/23/21) Home Meds Active Scripts Metformin HCl (Metformin Hydrochloride) 1,000 Mg Tab, 1000 MG PO BID, #60 TAB Prov:BERNICE SORIA MD 05/02/23 Losartan Potassium (Losartan Potassium) 25 Mg Tab, 12.5 MG PO DAILY for 30 Days, #15 TAB Prov:BERNICE SORIA MD 05/02/23 Doxycycline Monohydrate (Doxycycline Monohydrate) 100 Mg Cap, 1 CAP PO BID, #20 CAP Prov:BERNICE SORIA MD 05/01/23 Losartan Potassium (Losartan Potassium) 25 Mg Tab, 0.5 TAB PO DAILY, #15 TAB 5 Refills Prov:KERMIT MARTINEZ MD 01/18/23 Sitagliptin Phosphate (Januvia) 50 Mg Tab, 1 TAB PO DAILY, #30 TAB 5 Refills Prov:KERMIT MARTINEZ MD 01/18/23 Glipizide (Glipizide Er) 10 Mg Tab, 1 TAB PO DAILY, #30 TAB 5 Refills Prov:KERMIT MARTINEZ MD 01/18/23 Doxycycline Monohydrate (Doxycycline Monohydrate) 100 Mg Cap, 100 MG PO BID for 15 Days, #30 CAP Prov:KERMIT MARTINEZ MD 01/18/23 Sitagliptin Phosphate (Januvia) 50 Mg Tab, 50 MG PO DAILY for 30 Days, #30 TAB Prov:GLENN REED MD 08/01/22 Glipizide (Glipizide Er) 10 Mg Tab, 1 TAB PO DAILY for 30 Days, #30 TAB 1 Refill Prov:GUILLE HERNANDEZ MD 02/25/21 Metformin Hydrochloride (Metformin Hcl) 1,000 Mg Tab, 1 TAB PO BID for 30 Days, #60 TAB 1 Refill Prov:GUILLE HERNANDEZ MD 02/25/21 Reported Medications Ezetimibe (Zetia) 10 Mg Tab, 1 TAB PO DAILY, #30 TAB 5 Refills 06/06/25 Hctz (Hydrochlorothiazide) 25 Mg Tab, 25 MG PO, TAB 06/06/25 Valsartan (Diovan) 40 Mg Tab, 80 MG PO, TAB 06/06/25 Pioglitazone Hydrochloride (ACTOS TABLET) 30 Mg Tb, 1 TAB PO DAILY, #30 TAB 5 Refills 06/06/25 Acetaminophen (Acetaminophen) 325 Mg Tab, 500 MG PO DAILY PRN for MILD PAIN for 30 Days, MG 0 Refills 02/24/21 Current Medications Current Medications Medications (Trade) Dose Ordered Sig/Ronel Route PRN Reason Start Time Stop Time Status Last Admin Metolazone (Zaroxolyn) 10 mg DAILY PO 06/05/25 10:00 06/05/25 09:21 Multivit/Ca Carb/ B Cmplx/FA/Prenat (Nephro-Ronni Tablet) 1 tab DAILY PO 06/05/25 10:00 06/05/25 11:23 Nifedipine (Procardia Xl (Time-Release)) 90 mg DAILY PO 06/05/25 14:00 Vital Signs Vital Signs Date Time Temp Pulse Resp B/P (MAP) Pulse Ox O2 Delivery O2 Flow Rate FiO2 06/06/25 05:00 98.2 80 17 133/75 (94) 94 98.2 06/05/25 20:00 Nasal Cannula* 2 28 Physical Exam Pt is lying on bed General Appearance: Alert, Oriented X3, Cooperative, Not in acute distress HEENT: Atraumatic, Mucous membranes moist/pink Respiratory: Bilateral crackles Cardiovascular: Regular rate, Normal S1, Normal S2, Abdominal: Active bowel sounds, Soft, no distention, generalized tenderness Extremities: 3+ pitting B/L edema, Normal pulses, Skin: No Significant rash, except past surgical scars Neuro: Normal speech, sensorimotor deficits none Psych/Mental Status: Mental status NL, Mood NL Nurse was there as job spotter during examination Labs/Diagnostic Data Labs Test 06/06/25 05:57 06/06/25 05:45 06/05/25 05:00 06/03/25 06:03 Range/Units Hemoglobin 8.2 L 13.5-17.5 g/dL Hematocrit 23.6 L 41.0-53.0 % Sodium Level 139 136-145 mmol/L Potassium Level 4.3 3.5-5.1 mmol/L Chloride Level 102 98-107 mmol/L Carbon Dioxide Level 28 20-31 mmol/L Anion Gap 9 5-15 Blood Urea Nitrogen 27 H 9-23 mg/dL Creatinine 5.45 H 0.700-1.30 mg/dL Glomerular Filtration Rate Calc 12 >90 mL/min BUN/Creatinine Ratio 5.0 L 10.0-20.0 Serum Glucose 150 H 74-106 mg/dL Calcium Level 7.7 L 8.7-10.4 mg/dL Phosphorus Level 3.0 2.4-5.1 mg/dL Total Bilirubin 0.2 0.2-1.0 mg/dL Aspartate Amino Transferase (AST) 23 13-40 U/L Alanine Aminotransferase (ALT) 17 7-40 U/L Alkaline Phosphatase 101 46-116 U/L Total Protein 4.8 L 5.7-8.2 g/dL Albumin 2.6 L 3.2-4.8 g/dL POC Glucose 149 H 70-106 mg/dl White Blood Count 4.5 4.4-10.8 10^3/uL Red Blood Count 2.64 L 4.5-5.90 10^6/uL Mean Corpuscular Volume 89.2 80.0-100.0 fL Mean Corpuscular Hemoglobin 30.6 28.0-32.0 pg Mean Corpuscular Hemoglobin Concent 34.3 32.0-36.0 g/dL Red Cell Distribution Width 14.6 H 11.8-14.3 % Platelet Count 140 140-450 10^3/uL Mean Platelet Volume 8.3 6.9-10.8 fL Neutrophils (%) (Auto) 56.2 37.0-80.0 % Lymphocytes (%) (Auto) 30.1 10.0-50.0 % Monocytes (%) (Auto) 9.3 0.0-12.0 % Eosinophils (%) (Auto) 3.6 0.0-7.0 % Basophils (%) (Auto) 0.8 0.0-2.0 % Neutrophils # (Auto) 2.5 1.6-8.6 10 ^3/uL Lymphocytes # (Auto) 1.4 0.4-5.4 10 ^3/uL Monocytes # (Auto) 0.4 0-1.3 10 ^3/uL Eosinophils # (Auto) 0.2 0-0.8 10 ^3/uL Basophils # (Auto) 0 0-0.2 10 ^3/uL Nucleated Red Blood Cells 0.0 % Vitamin B12 Level 630 211-911 pg/mL Test 06/01/25 15:30 06/01/25 05:28 06/01/25 04:12 06/01/25 02:58 Range/Units Free Prostate Specific Antigen 0.24 N/A ng/mL Percent Free Prostate Specific Ag 40.0 . % Prostate Specific Antigen Total 0.6 0.0-4.0 ng/mL Hepatitis A IgM Antibody Negative Hepatitis B Surface Antigen Negative Negative Hepatitis B Core IgM Antibody Negative Negative Hepatitis C Antibody Negative Negative Urine Color Light-yellow Yellow Urine Clarity Clear Clear Urine pH 6.5 5.0-9.0 Urine Specific [place] 1.014 1.001-1.035 Urine Protein 2+ H Negative Urine Ketones Negative Negative Urine Blood 2+ H Negative /uL Urine Nitrite Negative Negative Urine Bilirubin Negative Negative Urine Urobilinogen Normal Negative mg/dL Urine Leukocyte Esterase Negative Negative /uL Urine RBC 30 0 - 3 /hpf Urine Microscopic WBC 3 0-3 /HPF Urine Squamous Epithelial Cells Few <5 /hpf Urine Bacteria Few H None Seen /hpf Urine Osmolality 314 mOsm/kg Urine Creatinine 49.98 30.0-125.0 mg/dL Urine Protein/Creatinine Ratio 18.24 Urine Sodium 82 40-220 mmol/L Urine Glucose 1+ H Normal mg/dL Urine Total Protein 911.5 H 1-14 mg/dL Urine Opiates Screen Neg NEGATIVE Urine Fentanyl Screen Neg NEGATIVE Urine Barbiturates Screen Neg NEGATIVE Urine Phencyclidine Screen Neg NEGATIVE Urine Amphetamines Screen Neg NEGATIVE Urine Benzodiazepines Screen Neg NEGATIVE Urine Cocaine Screen Neg NEGATIVE Urine Cannabinoids Screen Neg NEGATIVE Prothrombin Time 11.4 9.3-11.8 sec Prothrombin Time INR 1.08 0.9-1.15 Activated Partial Thromboplast Time 24.7 24.5-34.5 SEC Hemoglobin A1c < 3.8 <5.7 % A1C Lactic Acid Level 0.8 0.4-2.0 mmol/L Blood Gas Specimen Type Arterial Blood Gas Sample Site Right radial Blood Gas Patient Temperature 37.0 Arterial Blood Date Drawn [id number] Arterial Blood pH 7.373 7.350-7.450 Arterial Blood Partial Pressure CO2 31.5 L 35.0-48.0 mmHg Arterial Blood Partial Pressure O2 73.0 L 83.0-108.0 mmHg Arterial Blood HCO3 17.9 L 21.0-28.0 mmol/L Arterial Blood Oxygen Saturation 93.8 L 94.0-98.0 % Arterial Blood Base Excess -6.5 L -2.0-3.0 mmol/L Arterial Blood Oxyhemoglobin 93.0 L 94.0-98.0 % Arterial Blood Carboxyhemoglobin 0.3 L 0.5-1.5 % Arterial Blood Methemoglobin 0.5 0.0-1.5 % Morgan Test Yes Blood Gas Total Hemoglobin 9.20 L 13.5-17.5 g/dL Blood Gas Modality Room air FiO2 % 21.0 Specimen Drawn By Blood Gas Comments Test 06/01/25 01:48 06/01/25 00:53 Range/Units D-Dimer, Quantitative 2.93 H 0.0-0.49 mg/L FEU Magnesium Level 1.8 1.6-2.6 mg/dL Troponin I High Sensitivity 33 </=54 ng/L Triglycerides Level 113 < 150 mg/dL Cholesterol Level 168 < 200 mg/dL LDL Cholesterol 78 < 100 mg/dL HDL Cholesterol 71 H 40-59 mg/dL Vitamin D 25-Hydroxy 25.4 L 30.0-100 ng/mL Thyroid Stimulating Hormone (TSH) 2.24 0.55-4.78 uIU/mL Iron Level 53 L 65-175 ug/dL Total Iron Binding Capacity 173 L 250-425 ug/dL Percent Iron Saturation 30.6 20-55 % Ferritin 390.5 H 22-322 ng/mL B-Type Natriuretic Peptide 894.83 0-100 pg/mL Parathyroid Hormone (Intact) 337.8 H 18.4-80.1 pg/mL Assessment Acute HFmrEF, NYHA Class II Cardiorenal syndrome Acute hypoxic respiratory failure likely due to above Hypertensive emergency- resolving Diabetic/hypertensive Nephropathy ESRD requiring HD Hyperkalemia Severe anemia s/p 1 PRBC Dyslipidemia Type 2 DM Morbid obesity Plan/Recommendation We will continue with the following plan/recommendations (Dr. Greene): Echocardiogram LVEF 45% with mild LV hypokinesis, slightly dilated RV with a mild pericardial effusion Initiate Guideline directed medical therapy for CHF as renal function and BP permits and uptitrate as tolerated Diuretics BP control - Coreg Lipid-lowering agent-Lipitor Risk factor modification, counseled Dietary changes and Limiting sodium intake Strict INOs, Maintaining fluid restriction & daily weight Consider switching Procardia to Norvasc Outpatient follow up for the ischemic workup with a stress test Rest of the management as per primary and Nephrology team Thank you for allowing us to care for this patient. We are signing off as patient will need outpatient follow up. Please call with any questions or concerns. Plan discussed with: Patient Date of Service: Jun 06, 2025 Billing Provider: ANNABELLE IRBY MD Common Visit Codes: [id number] CARE 30-74 MIN KATHIE ROJAS RESIDENT Jun 06, 2025 09:29
--- NOTE | 2025-06-06 10:45 | DVHPN2 ---
Progress Note Date Seen: Jun 06, 2025 Medical Necessity Reason Pt with a Central, PICC or Fol: Yes Subjective Patient reports: No new complaints Other Systems: Patient seen and examined by myself today in follow-up Patient examined hemodialysis, blood pressure stable Objective vital signs Vital Sign Date Time Temp Pulse Resp B/P (MAP) Pulse Ox O2 Delivery O2 Flow Rate FiO2 06/06/25 09:06 79 17 133/73 06/06/25 09:01 97.8 94 97.8 06/05/25 20:00 Nasal Cannula* 2 28 Total Intake and Output 06/05/25 06/05/25 06/06/25 15:00 23:00 07:00 Intake Total 750 ml 200 ml Output Total 100 ml 150 ml Balance 650 ml 50 ml medications Current Medications Medications Dose Ordered Sig/Ronel Route Start Time Stop Time Status Last Admin Dose Admin Acetaminophen 325 mg Q4HP PRN PO 06/01/25 02:30 06/03/25 00:57 325 MG Ondansetron HCl 4 mg Q4HP PRN IV 06/01/25 02:30 06/01/25 05:17 4 MG Morphine Sulfate 2 mg Q4HPRN PRN IV 06/01/25 02:30 06/06/25 09:06 2 MG Nitroglycerin 250 ml @ 1.5 mls/hr Q24H IV 06/01/25 02:30 UNV Epoetin Rico-epbx 10,000 unit MWF@2100 AK 06/02/25 21:00 Hold 06/04/25 21:30 10,000 UNIT Diagnostic Test (Pha) 1 strip Q6HR 06/01/25 12:00 06/06/25 05:59 1 STRIP Insulin Human Regular Q6HR SC 06/01/25 12:00 06/06/25 05:59 2 UNITS Dextrose 50 ml UD PRN IV 06/01/25 08:30 06/01/25 19:14 50 ML Famotidine 20 mg EOD PO 06/02/25 10:00 06/06/25 08:49 20 MG Heparin Sodium (Porcine) 5,000 units Q12HR SC 06/01/25 22:00 06/05/25 21:37 5,000 UNITS Carvedilol 12.5 mg Q12HR PO 06/02/25 22:00 06/05/25 21:38 12.5 MG Doxazosin Mesylate 2 mg HS PO 06/02/25 22:00 06/05/25 21:38 2 MG Calcitriol 0.25 mcg DAILY PO 06/03/25 10:00 06/06/25 08:48 0.25 MCG Calcium Acetate 667 mg TIDWMEALS PO 06/04/25 12:00 06/06/25 08:15 667 MG Ergocalciferol 50,000 unit Q7D PO 06/04/25 09:30 06/04/25 12:58 50,000 UNIT Bumetanide 25 mg/ Miscellaneous 100 ml @ 4 mls/hr Q24H IV 06/04/25 10:30 06/05/25 13:05 4 MLS/HR Metolazone 10 mg DAILY PO 06/05/25 10:00 06/06/25 08:50 10 MG Multivit/Ca Carb/ B Cmplx/FA/Prenat 1 tab DAILY PO 06/05/25 10:00 06/06/25 08:48 1 TAB Nifedipine 90 mg DAILY PO 06/05/25 14:00 laboratory and microbiology Laboratory Tests 06/06/25 05:57 06/05/25 05:00 Test 06/06/25 05:57 Range/Units Serum Glucose 150 H 74-106 mg/dL Problem List/Assessment/Plan Problem List/Assessment/Plan This is a 49-year-old gentleman with past medical history of diabetes type 2, hypertension, dyslipidemia, came to the hospital due to generalized swelling and shortness of breaths. ESRD, requires HD Hypertensive emergency Volume overload, due to above Diabetes type 2 Nephrotic range proteinuria, due to above Dyslipidemia Morbid obesity Severe anemia Hyperkalemia Status post IJ tunneled hemodialysis catheter Recommendations * Continue with UF 3-4 L as tolerated * Epogen 10,000 SQ 3 x weekly * Sevelamer 800 mg t.i.d., nifedipine 90 mg daily, Cardilol 6.25 BID * Albumin 25% and Bumex drip for diuresis * Renal diet * BP control * [facility] * We Follow up with the patient Thank you for giving us the opportunity to take care of your patient. Please call back if you have any questions/concerns. Plan discussed with: Patient My Orders My Orders Orders - MARV GROSSMAN MD Procedure Category Date Status Time Nifedipine Er PHA 06/05/25 In Process (Procardia Xl 14:00 Hemodialysis Orders ORDERS 06/06/25 Transmitted 07:00 Dialysis Nursing [facility] 06/06/25 In Process Message 07:00 Document Fluid Input [facility]ART 06/06/25 In Process And Outpu 07:00 Epoetin Rico-Epbx PHA 06/06/25 In Process (Retacrit) 21:00 Dietary Evaluation Review Comments: Nutrition Recommendation: 1) Consider CCHO 75 + renal standard diet 2) Monitor PO intake, lab values, weight trend, and I/O Expected Outcomes/Goals: Intake to meet >75% estimated needs Lab values to improve FU 3-5 days MARV GROSSMAN MD Jun 06, 2025 10:45
--- NOTE | 2025-06-06 11:14 | DVH ---
CHEST RADIOGRAPH Indication: eval position of catheter Technique: Single frontal view of the chest was obtained Comparison: CT CHEST WITHOUT CONTRAST on DOS: 06/05/25, XY CHEST PORTABLE on DOS: 06/01/25, XY CHEST PORTABLE on DOS: 05/31/25 FINDINGS: Lines and Tubes: Tunneled right hemodialysis catheter tip in the cavoatrial junction Lungs: No focal consolidation. Pleura: No effusion. No pneumothorax. Cardiomediastinal contours: cardiomegaly Bones: No acute osseous abnormality. IMPRESSION: Cardiomegaly with CHF
[2025-06-06] MEDS ORDERED: MORPHINE SULFATE INJ 2 MG/ml SYRG IV PRN (15:15)
[2025-06-06] MEDS: BACLOFEN 10 MG TAB PO ONE (15:15)
[2025-06-06] MEDS ORDERED: PIO30T PO (15:16)
[2025-06-06] MEDS ORDERED: VALS40TA2 PO (15:16)
[2025-06-06] MEDS ORDERED: HYDR25TA5 PO (15:16)
[2025-06-06] MEDS ORDERED: EZET10TA22 PO (15:16)
--- NOTE | 2025-06-06 17:48 | DVH ---
EXAM DESCRIPTION: US CHEST ULTRASOUND CLINICAL HISTORY: FLUID CHECK FOR POSSIBLE THORACENTESIS COMPARISON: XY CHEST XRAY 1 VIEW on DOS: 06/06/25, CT CHEST WITHOUT CONTRAST on DOS: 06/05/25, XY CHEST PORTABLE on DOS: 06/01/25, XY CHEST PORTABLE on DOS: 05/31/25 TECHNIQUE: Targeted sonographic examination of the bilateral chest was obtained. FINDINGS: Small right pleural effusion. No left pleural effusion. IMPRESSION: Small right pleural effusion. No left pleural effusion.
--- NOTE | 2025-06-06 18:34 | DVHPNRES ---
Progress Note Date Seen: Jun 06, 2025 Resident Creating Document: CRISTÓBAL BRYAN RESIDENT Medical Necessity Reason Pt with a Central, PICC or Fol: Yes Subjective Review of Systems Elian Smith is a 49-year-old male patient past medical history of hypertension, hyperlipidemia, type 2 diabetes mellitus, diabetic foot status post debridement who presented to the ED with chief complaint of shortness of breath and lower leg swelling associated with decreased urine output for the past week before his admission. Patient has not been taking his hydrochlorothiazide for the past two weeks, rest of medication he is compliant with. Denies any other associated symptoms including fever, chills, nausea, vomiting, diarrhea, dysuria in any other associated symptoms. BP was 213/139 in the ER . BUN, creatinine was elevated, kidney ultrasound demonstrated normal bilateral kidney with small bilateral pleural effusion. Hyperkalemia protocol was initiated for hyperkalemia management. Nephrology was consulted and recommended IV Lasix drip, IV sodium bicarb for metabolic acidosis secondary to LORE and monitor BMP. Past medical history:hypertension, hyperlipidemia, type 2 diabetes mellitus Past surgical history: I&d on left foot Social history: denies smoking, alcohol and drugs Patient seen and examined at bedside. He is alert oriented x3 and currently on 2 L oxygen through nasal cannula, saturating 95%. The patient is currently on low-dose nicardipine drip, bridged with oral carvedilol 6.25 mg p.o. b.i.d., amlodipine 10 mg daily . Complaint of shortness of breath, back pain and no other active complaint. Constitutional: No: Fever, Chills, Sweats, Weakness, Malaise, Other Eyes: No: Pain, Vision change, Conjunctivae inflammation, Eyelid inflammation, Other, Redness ENT: No: Ear pain, Ear discharge, Nose pain, Nose discharge, Nose congestion, Mouth pain, Mouth swelling, Throat pain, Throat swelling, Other Respiratory: Shortness of breath, No: Cough, Dry,Wheezing, Hemoptysis, Pleuritic Pain, Sputum, Wheezing, Other Cardiovascular: Edema No: Chest Pain, Palpitations, Orthopnea, Paroxysmal Noc. Dyspnea, Lt Headedness, Other Gastrointestinal: No: Nausea, Vomiting, Abdominal Pain, Diarrhea, Constipation, Melena, Hematochezia, Other Musculoskeletal: No: other, neck pain, shoulder pain, arm pain, back pain, hand pain, leg pain, foot pain Neurological:; Weakness in lower extremities, back pain,no Numbness, Incoordination, Change in speech, Confusion, Seizures 06/02/25- The patient was seen at bedside today. Patient got hemodialysis today morning. His hemoglobin this morning was 6.7, 1 unit of PRBC was given. Nephrology continued with the lasix drip, added sevelamer 800mg tid po and added nifedipine 90 mg po daily. Dose of cervedilol was increased to 12.5 mg po bid. IR will place tunnel catheter tomorrow. 06/03/25- The patient was seen at bedside today. Hemoglobin today is 9.1 and creatinine is 6.27. Blood pressure is under control now. Patient got tunnel catheter placement by IR today. The patient will receive 1 dialysis today. director of perioperative services consult for arranging chair time for hemodialysis has already been placed we are pending approval on that. Possible discharge tomorrow once check time is secured. Calcitriol 0.25mcg daily po was started today. 06/04/25- The patient was seen at bedside today. Creatinine today is 5.29. Patient got hemodialysis yesterday and 3 L was removed. Lasix drip was discontinued and patient was started on Bumex drip 1mg/hr and metolazone 10 mg p.o. daily. Albumin 25% at 12 hr protocol was started. Cardiology was consulted, pending evaluation. Patient complained of weakness in his lower limbs and right arm, head CT was ordered which showed no acute abnormality. CT angiography head and neck was ordered, pending report. Lumbosacral spine x-ray was also ordered pending report. Patient and his sons were explained extensively and updated with all evaluations and management. 06/05/25- The patient was seen at bedside today. Creatinine today is 4.37. Patient got hemodialysis yesterday and 4L fluid was removed. Chest CT showed cardiomegaly with mild pulmonary edema and moderate bilateral pleural effusions. Patient complained of weakness and inability to move both lower extremities. MRI lumbosacral spine showed multilevel disc degeneration and spinal canal stenosis most pronounced at L4-L5 with L5 nerve root compression. Spinal surgery was consulted, pending evaluation. 06/06/25- The patient was seen at bedside today. Creatinine today is 5.45. Spine surgeon was consulted and they recommended physical therapy and pain management along with muscle relaxants. Cardiology recommended outpatient follow-up for possible ischemic workup with stress test. We placed an IR consult for possible thoracentesis. Objective vital signs Vital Sign Date Time Temp Pulse Resp B/P (MAP) Pulse Ox O2 Delivery O2 Flow Rate FiO2 06/06/25 18:05 126/81 06/06/25 16:41 97.4 81 17 95 97.4 06/06/25 08:00 Nasal Cannula* 2 28 Total Intake and Output 06/05/25 06/05/25 06/06/25 15:00 23:00 07:00 Intake Total 750 ml 200 ml Output Total 100 ml 150 ml Balance 650 ml 50 ml medications Current Medications Medications Dose Ordered Sig/Ronel Route Start Time Stop Time Status Last Admin Dose Admin Acetaminophen 325 mg Q4HP PRN PO 06/01/25 02:30 06/03/25 00:57 325 MG Ondansetron HCl 4 mg Q4HP PRN IV 06/01/25 02:30 06/01/25 05:17 4 MG Nitroglycerin 250 ml @ 1.5 mls/hr Q24H IV 06/01/25 02:30 UNV Epoetin Rico-epbx 10,000 unit MWF@2100 SC 06/02/25 21:00 Hold 06/04/25 21:30 10,000 UNIT Diagnostic Test (Pha) 1 strip Q6HR 06/01/25 12:00 06/06/25 17:20 1 STRIP Insulin Human Regular Q6HR SC 06/01/25 12:00 06/06/25 17:32 3 UNITS Dextrose 50 ml UD PRN IV 06/01/25 08:30 06/01/25 19:14 50 ML Famotidine 20 mg EOD PO 06/02/25 10:00 06/06/25 08:49 20 MG Heparin Sodium (Porcine) 5,000 units Q12HR SC 06/01/25 22:00 06/05/25 21:37 5,000 UNITS Carvedilol 12.5 mg Q12HR PO 06/02/25 22:00 06/05/25 21:38 12.5 MG Doxazosin Mesylate 2 mg HS PO 06/02/25 22:00 06/05/25 21:38 2 MG Calcitriol 0.25 mcg DAILY PO 06/03/25 10:00 06/06/25 08:48 0.25 MCG Calcium Acetate 667 mg TIDWMEALS PO 06/04/25 12:00 06/06/25 17:31 667 MG Ergocalciferol 50,000 unit Q7D PO 06/04/25 09:30 06/04/25 12:58 50,000 UNIT Bumetanide 25 mg/ Miscellaneous 100 ml @ 4 mls/hr Q24H IV 06/04/25 10:30 06/06/25 18:05 4 MLS/HR Metolazone 10 mg DAILY PO 06/05/25 10:00 06/06/25 08:50 10 MG Multivit/Ca Carb/ B Cmplx/FA/Prenat 1 tab DAILY PO 06/05/25 10:00 06/06/25 08:48 1 TAB Nifedipine 90 mg DAILY PO 06/05/25 14:00 Baclofen 5 mg Q8HR PO 06/06/25 22:00 Morphine Sulfate 2 mg Q4HPRN PRN IV 06/06/25 15:15 Examination General Appearance: Alert, Oriented X3, Cooperative, mild respiratory distress and on nasal cannula 2 L HEENT: Atraumatic, PERRLA, EOMI, Mucous membrane moist/pink Respiratory: Bilateral crackles Cardiovascular: Regular rate, Normal S1, Normal S2, No murmurs, no chest wall tenderness Abdominal: Normal bowel sounds, Soft, No tenderness, No hepatospenomegaly, No masses Extremities: Edema 3 bilateral,+ No clubbing, No cyanosis, Skin: No rashes, No breakdown, No significant lesion Neuro: Normal speech, Strength 2/5 in lower extremities, strength 4/5 in upper extremities, Normal tone, Sensation intact, Cranial nerves 3-12 NL Psych/Mental Status: Mental status NL, Mood NL Genitourinary: scrotal edema DEMARCUS: no external hemorrhoids visible, sphincter tone is normal, empty rectal vault, no active bleeding Nurse Shania was present as fruit coordinator during the examination. laboratory and microbiology Laboratory Tests 06/06/25 05:57 06/05/25 05:00 Test 06/06/25 05:57 Range/Units Serum Glucose 150 H 74-106 mg/dL Labs and/or images reviewed: Labs reviewed by me, Image(s) reviewed by me Problem List/Assessment/Plan Problem List/Assessment/Plan Assessment / Plan # Spinal canal stenosis with lumbar radiculopathy - MRI of L/S spine without contrast showed Multilevel spinal canal stenosis, most pronounced and mild at L4-L5. Multilevel subarticular zone stenosis, most pronounced and severe at L4-L5 with right descending L5 nerve root compression. Multilevel foraminal stenosis - Consulted spinal surgery-physical therapy and muscle relaxants- baclofen 5mg po q8hrs # Hypertensive emergency # Acute hypoxic respiratory failure likely due to volume overload in the setting of severe LORE requiring hemodialysis # Acute on chronic decompensated systolic heart failure # Acute pulmonary edema due to above # Ruled out pulmonary embolism - chest x-ray revealed bilateral pulmonary vascular congestion. Bibasilar atelectasis/consolidation - BNP is elevated - echo showed mild global hypokinesis with an LVEF of 45% and slightly dilated RV. There were normal cardiac valves and very mild posterior pericardial effusion. - Carvedilol 12.5 mg p.o. b.i.d. - Nifedipine 90mg daily - V/Q scan done 0n 06/02/25- low probability for PE - cardiology consulted-outpatient follow-up for ischemic workup with stress test # Rule out acute ischemic/hemorrhagic stroke -CT head- No acute intracranial abnormality -CT angiography , was grossly unremarkable # Acute kidney injury hemodynamically mediated in the setting of fluid overload hypertensive emergency # Chronic kidney disease, unspecified, baseline is unknown s/p IJ tunneled hemodialysis catheter # Possible diabetic nephropathy # Acute on Chronic normocytic normochromic anemia # Diabetes mellitus, status post debridement of diabetic foot #Secondary hyperparathyroidism -Ultrasound demonstrated normal-appearing kidneys bilaterally, with bilateral pleural effusion -Nephrology on board -renal diet -Epogen 1000 units 3 times a week -strict I&O -Monitor BMP -hemodialysis on 06/04/25- 3L removed -Sevelamer 800mg po tid started -Calcitriol 0.25 mcg daily po -metolazone 10mg po daily -continue bumex drip iv 1mg/hr # Mild transaminitis likely secondary to hepatic congestion from CHF # Moderate protein calorie malnutrition, albumin 2.5 # Morbid obesity, BMI 40.6 kg/m2 - counseled patient regarding healthy diet, weight loss, lifestyle modification and physical exercise PUD prophylaxis-Pepcid 20 mg p.o. daily DVT prophylaxis-Heparin 5000 units b.i.d. Goal of care discussed with the patient for more than 20 minutes full code Plan discussed with Dr Bonilla Plan discussed with patient Plan discussed with: Patient My Orders My Orders Orders - CRISTÓBAL BRYAN RESIDENT Procedure Category Date Status Time Baclofen Tablet PHA 06/06/25 In Process (Liorisal Tablet) 22:00 Dietary Evaluation Review Comments: Nutrition Recommendation: 1) Consider CCHO 75 + renal standard diet 2) Monitor PO intake, lab values, weight trend, and I/O Expected Outcomes/Goals: Intake to meet >75% estimated needs Lab values to improve FU 3-5 days Date of Service: Jun 06, 2025 Billing Provider: CATA BONILLA MD Common Visit Codes: 16256-[id number] INP/OBS CARE(HIGH) CRISTÓBAL BRYAN RESIDENT Jun 06, 2025 18:34
[2025-06-06] MEDS: BACLOFEN 10 MG TAB PO SCH (21:22)
[2025-06-06] MEDS: EPOETIN ALFA-EPBX 10,000 UNIT/1ML VIAL SC ONE (21:23)
--- NOTE | 2025-06-06 22:39 | DVHINCON2 ---
Date of service: Jun 06, 2025 Referring Physician Reason for Consultation Right-sided weakness History of Present Illness Mr. Smith is a 49 years old gentleman with a history of hypertension, diabetes, chronic low back pain, obesity, he was brought to the [facility] on 06/01/2025 with a chief company of shortness breath, he also found to have extremely high blood pressure in the emergency room. at this time, he is alert and fully oriented, he provided the following history He said he has had general weakness with a right-sided more affected for at least four days, he denies a history of stroke, he reports mild headache He snores, he sleeps non-refreshing, he has not had sleep medicine evaluation Has chronic low back pain, as a result, had problem with walking, he has no dif ficulty controlling bowel and bladder UDS, 06/01/2025: Negative Urinalysis, 06/01/2025: WBC: 1, urine leukocyte esterase: Negative ABG, 06/01/2025: Compensated metabolic acidosis, hypoxia WBC/HB/PLT/MCV, 06/05/2025: 4.5/8.1/140/89.2 BUN/CR, 06/06/2025: 27/5.45 GFR, 06/06/2025: 12 HGB A1c, 06/01/2025:< 3.8 Liver function tests, 06/06/2025: Unremarkable TG/HDL/LDL/HDL, 06/01/2025: 113/168/78/71 Vitamin B12, 06/03/2025: 630 TSH, 06/01/2025: 2.24 Echocardiogram, 06/01/2025: MILD LV GLOBAL HYPOKINESIS DYSKINESIS OF IVS LV EF IS IN RANGE OF 45% SLIGHTLY DILATED RV NORMAL VALVES MILD POSTERIOR PERICARDIAL EFFUSION CT head, 06/04/2025: No acute intracranial abnormality MR lumbar spine, 06/05/2025: Multilevel disc degeneration. Multilevel spinal canal stenosis, most pronounced and mild at L4-L5. Multilevel subarticular zone stenosis, most pronounced and severe at L4-L5 with right descending L5 nerve root compression. Multilevel foraminal stenosis, most pronounced and mild at L4- L5. Past Medical History Hypertension, diabetes Past Surgical History Foot surgery Family History: Cardiovascular disease G8 FATHER Diabetes mellitus G8 FATHER Hypertension G8 FATHER G8 MOTHER Family History Hypertension, diabetes, heart disease Social History He denies a history of tobacco smoking, alcohol or drug abuse Allergies: Coded Allergies: NO KNOWN ALLERGIES (Unverified , 02/23/21) Home Meds Active Scripts Metformin HCl (Metformin Hydrochloride) 1,000 Mg Tab, 1000 MG PO BID, #60 TAB Prov:BERNICE SORIA MD 05/02/23 Losartan Potassium (Losartan Potassium) 25 Mg Tab, 12.5 MG PO DAILY for 30 Days, #15 TAB Prov:BERNICE SORIA MD 05/02/23 Doxycycline Monohydrate (Doxycycline Monohydrate) 100 Mg Cap, 1 CAP PO BID, #20 CAP Prov:BERNICE SORIA MD 05/01/23 Losartan Potassium (Losartan Potassium) 25 Mg Tab, 0.5 TAB PO DAILY, #15 TAB 5 Refills Prov:KERMIT MARTINEZ MD 01/18/23 Sitagliptin Phosphate (Januvia) 50 Mg Tab, 1 TAB PO DAILY, #30 TAB 5 Refills Prov:KERMIT MARTINEZ MD 01/18/23 Glipizide (Glipizide Er) 10 Mg Tab, 1 TAB PO DAILY, #30 TAB 5 Refills Prov:KERMIT MARTINEZ MD 01/18/23 Doxycycline Monohydrate (Doxycycline Monohydrate) 100 Mg Cap, 100 MG PO BID for 15 Days, #30 CAP Prov:KERMIT MARTINEZ MD 01/18/23 Sitagliptin Phosphate (Januvia) 50 Mg Tab, 50 MG PO DAILY for 30 Days, #30 TAB Prov:GLENN REED MD 08/01/22 Glipizide (Glipizide Er) 10 Mg Tab, 1 TAB PO DAILY for 30 Days, #30 TAB 1 Refill Prov:GUILLE HERNANDEZ MD 02/25/21 Metformin Hydrochloride (Metformin Hcl) 1,000 Mg Tab, 1 TAB PO BID for 30 Days, #60 TAB 1 Refill Prov:GUILLE HERNANDEZ MD 02/25/21 Reported Medications Ezetimibe (Zetia) 10 Mg Tab, 1 TAB PO DAILY, #30 TAB 5 Refills 06/06/25 Hctz (Hydrochlorothiazide) 25 Mg Tab, 25 MG PO, TAB 06/06/25 Valsartan (Diovan) 40 Mg Tab, 80 MG PO, TAB 06/06/25 Pioglitazone Hydrochloride (ACTOS TABLET) 30 Mg Tb, 1 TAB PO DAILY, #30 TAB 5 Refills 06/06/25 Acetaminophen (Acetaminophen) 325 Mg Tab, 500 MG PO DAILY PRN for MILD PAIN for 30 Days, MG 0 Refills 02/24/21 Current Medications Current Medications Medications (Trade) Dose Ordered Sig/Ronel Route PRN Reason Start Time Stop Time Status Last Admin Baclofen (Liorisal Tablet) 5 mg Q8HR PO 06/06/25 22:00 06/06/25 21:22 Morphine Sulfate 2 mg Q4HPRN PRN IV SEVERE PAIN (7-10 PAIN SCALE) 06/06/25 15:15 Review of Systems As above, the other systems are negative Vital Signs Vital Signs Date Time Temp Pulse Resp B/P (MAP) Pulse Ox O2 Delivery O2 Flow Rate FiO2 06/06/25 21:23 84 161/82 06/06/25 20:00 93 Nasal Cannula* 2 28 06/06/25 16:41 97.4 17 97.4 Physical Exam GENERAL EXAM: General: the patient is well developed and nourished. No acute distress. HEENT: Normocephalic, neck is supple, no carotid bruits. No mass. RESPIRATORY: Normal respiratory effort with symmetrical lung expansion. Lungs clear to auscultation. CARDIOVASCULAR: Regular rate and rhythm with no murmurs. S1, S2. ABDOMEN: Soft, nontender, normal bowel sound NEUROLOGICAL: MENTAL STATUS: Awake and alert. Oriented to person, place, time and general circumstances. Able to give personal history. SPEECH, LANGUAGE, HIGHER CORTICAL FUNCTION: no aphasia or dysathria. CRANIAL NERVES: #2: Intact visual frye to confrontation. The optic discs were sharp. #3,4,6: Pupils are equal, round and reactive. EOMs full and conjugate. No nystagmus. #5: Facial sensation intact in all three divisions bilaterally. Mandibular strength intact. #7: Facial muscles symmetrical and strength intact. #8: Hearing grossly normal to voice. #9,10: Uvula and soft palate rise in the midline. Swallow and voice are normal. #11: Trapezius and sternomastoid strength intact bilaterally. #12: Tongue midline. No fasciculations or atrophy. SENSATION: Sensation to touch and pinprick is fine, no sensory level, no definite paroxysmal distal differences MOTOR: Normal tone in the upper and lower extremity. Normal muscle bulk. No fasciculations. No abnormal movements or posturing. Muscle strength of the major groups in the upper extremities is 4/5. Muscle strength of the major groups in the lower extremities is 3-4/5. REFLEXES: Deep tendon reflexes normal and symmetrical. No pathological reflexes. CEREBELLAR/COORDINATION: Finger to nose is normal bilaterally. GAIT/STATION: deferred. Labs/Diagnostic Data Labs Test 06/06/25 17:18 06/06/25 05:57 06/05/25 05:00 06/03/25 06:03 Range/Units POC Glucose 178 H 70-106 mg/dl Hemoglobin 8.2 L 13.5-17.5 g/dL Hematocrit 23.6 L 41.0-53.0 % Sodium Level 139 136-145 mmol/L Potassium Level 4.3 3.5-5.1 mmol/L Chloride Level 102 98-107 mmol/L Carbon Dioxide Level 28 20-31 mmol/L Anion Gap 9 5-15 Blood Urea Nitrogen 27 H 9-23 mg/dL Creatinine 5.45 H 0.700-1.30 mg/dL Glomerular Filtration Rate Calc 12 >90 mL/min BUN/Creatinine Ratio 5.0 L 10.0-20.0 Serum Glucose 150 H 74-106 mg/dL Calcium Level 7.7 L 8.7-10.4 mg/dL Phosphorus Level 3.0 2.4-5.1 mg/dL Total Bilirubin 0.2 0.2-1.0 mg/dL Aspartate Amino Transferase (AST) 23 13-40 U/L Alanine Aminotransferase (ALT) 17 7-40 U/L Alkaline Phosphatase 101 46-116 U/L Total Protein 4.8 L 5.7-8.2 g/dL Albumin 2.6 L 3.2-4.8 g/dL White Blood Count 4.5 4.4-10.8 10^3/uL Red Blood Count 2.64 L 4.5-5.90 10^6/uL Mean Corpuscular Volume 89.2 80.0-100.0 fL Mean Corpuscular Hemoglobin 30.6 28.0-32.0 pg Mean Corpuscular Hemoglobin Concent 34.3 32.0-36.0 g/dL Red Cell Distribution Width 14.6 H 11.8-14.3 % Platelet Count 140 140-450 10^3/uL Mean Platelet Volume 8.3 6.9-10.8 fL Neutrophils (%) (Auto) 56.2 37.0-80.0 % Lymphocytes (%) (Auto) 30.1 10.0-50.0 % Monocytes (%) (Auto) 9.3 0.0-12.0 % Eosinophils (%) (Auto) 3.6 0.0-7.0 % Basophils (%) (Auto) 0.8 0.0-2.0 % Neutrophils # (Auto) 2.5 1.6-8.6 10 ^3/uL Lymphocytes # (Auto) 1.4 0.4-5.4 10 ^3/uL Monocytes # (Auto) 0.4 0-1.3 10 ^3/uL Eosinophils # (Auto) 0.2 0-0.8 10 ^3/uL Basophils # (Auto) 0 0-0.2 10 ^3/uL Nucleated Red Blood Cells 0.0 % Vitamin B12 Level 630 211-911 pg/mL Test 06/01/25 15:30 06/01/25 05:28 06/01/25 04:12 06/01/25 02:58 Range/Units Free Prostate Specific Antigen 0.24 N/A ng/mL Percent Free Prostate Specific Ag 40.0 . % Prostate Specific Antigen Total 0.6 0.0-4.0 ng/mL Hepatitis A IgM Antibody Negative Hepatitis B Surface Antigen Negative Negative Hepatitis B Core IgM Antibody Negative Negative Hepatitis C Antibody Negative Negative Urine Color Light-yellow Yellow Urine Clarity Clear Clear Urine pH 6.5 5.0-9.0 Urine Specific [place] 1.014 1.001-1.035 Urine Protein 2+ H Negative Urine Ketones Negative Negative Urine Blood 2+ H Negative /uL Urine Nitrite Negative Negative Urine Bilirubin Negative Negative Urine Urobilinogen Normal Negative mg/dL Urine Leukocyte Esterase Negative Negative /uL Urine RBC 30 0 - 3 /hpf Urine Microscopic WBC 3 0-3 /HPF Urine Squamous Epithelial Cells Few <5 /hpf Urine Bacteria Few H None Seen /hpf Urine Osmolality 314 mOsm/kg Urine Creatinine 49.98 30.0-125.0 mg/dL Urine Protein/Creatinine Ratio 18.24 Urine Sodium 82 40-220 mmol/L Urine Glucose 1+ H Normal mg/dL Urine Total Protein 911.5 H 1-14 mg/dL Urine Opiates Screen Neg NEGATIVE Urine Fentanyl Screen Neg NEGATIVE Urine Barbiturates Screen Neg NEGATIVE Urine Phencyclidine Screen Neg NEGATIVE Urine Amphetamines Screen Neg NEGATIVE Urine Benzodiazepines Screen Neg NEGATIVE Urine Cocaine Screen Neg NEGATIVE Urine Cannabinoids Screen Neg NEGATIVE Prothrombin Time 11.4 9.3-11.8 sec Prothrombin Time INR 1.08 0.9-1.15 Activated Partial Thromboplast Time 24.7 24.5-34.5 SEC Hemoglobin A1c < 3.8 <5.7 % A1C Lactic Acid Level 0.8 0.4-2.0 mmol/L Blood Gas Specimen Type Arterial Blood Gas Sample Site Right radial Blood Gas Patient Temperature 37.0 Arterial Blood Date Drawn [id number] Arterial Blood pH 7.373 7.350-7.450 Arterial Blood Partial Pressure CO2 31.5 L 35.0-48.0 mmHg Arterial Blood Partial Pressure O2 73.0 L 83.0-108.0 mmHg Arterial Blood HCO3 17.9 L 21.0-28.0 mmol/L Arterial Blood Oxygen Saturation 93.8 L 94.0-98.0 % Arterial Blood Base Excess -6.5 L -2.0-3.0 mmol/L Arterial Blood Oxyhemoglobin 93.0 L 94.0-98.0 % Arterial Blood Carboxyhemoglobin 0.3 L 0.5-1.5 % Arterial Blood Methemoglobin 0.5 0.0-1.5 % Morgan Test Yes Blood Gas Total Hemoglobin 9.20 L 13.5-17.5 g/dL Blood Gas Modality Room air FiO2 % 21.0 Specimen Drawn By Blood Gas Comments Test 06/01/25 01:48 06/01/25 00:53 Range/Units D-Dimer, Quantitative 2.93 H 0.0-0.49 mg/L FEU Magnesium Level 1.8 1.6-2.6 mg/dL Troponin I High Sensitivity 33 </=54 ng/L Triglycerides Level 113 < 150 mg/dL Cholesterol Level 168 < 200 mg/dL LDL Cholesterol 78 < 100 mg/dL HDL Cholesterol 71 H 40-59 mg/dL Vitamin D 25-Hydroxy 25.4 L 30.0-100 ng/mL Thyroid Stimulating Hormone (TSH) 2.24 0.55-4.78 uIU/mL Iron Level 53 L 65-175 ug/dL Total Iron Binding Capacity 173 L 250-425 ug/dL Percent Iron Saturation 30.6 20-55 % Ferritin 390.5 H 22-322 ng/mL B-Type Natriuretic Peptide 894.83 0-100 pg/mL Parathyroid Hormone (Intact) 337.8 H 18.4-80.1 pg/mL Assessment General weakness, with right-sided more affected Rule out acute stroke Hypertension emergency Rule out posterior reversible encephalopathy Sleep-related breathing disorder Obesity Plan/Recommendation Monitoring Supportive treatment Telemetry MR head Carotid Doppler Current pain management Aspirin 81 mg daily, Lipitor 10 mg daily for now APAP in the hospital Weight control Hypersomnia precautions Further address his sleep-related breathing disorder as outpatient More recommendation per clinical course Prognosis:poor This medical document was created using an electronic medical record system with [employer] dictation system. Although this document has been carefully reviewed, there may still be some phonetic and typographical errors. These areas are purely typographical due to imperfections of the software programs, and do not reflect any compromise in the patient's medical care. Plan discussed with: Patient, Other SANDI HOLLINGSWORTH MD Jun 06, 2025 22:39
[2025-06-06] MEDS ORDERED: LORazepam 2MG/ML-1ML VIAL IV PRN (23:00)
[2025-06-07] VITALS (12 sets, daily range): BP systolic 119–169; BP diastolic 74–96; PULSE 72–84; RESP 17–20; TEMP 97.9–98.7; O2SAT 92–99
--- NOTE | 2025-06-07 00:29 | DVH ---
Carotid Duplex Clinical History: cva Comparison: None Technique: Duplex Doppler evaluation of the extracranial carotid and vertebral arteries including color Doppler and spectral/pulsed waveform analysis was performed. Findings: RIGHT SIDE: The peak systolic velocities are 66 cm/s in the CCA, 70 cm/s in the ICA. The ICA/CCA ratio is 1.2. The external carotid artery is patent with peak systolic velocity of 118 cm/s proximally. There is appropriate antegrade flow in the right vertebral artery. LEFT SIDE: The peak systolic velocities are 76 cm/s in the CCA, 68 cm/s in the ICA. The ICA/CCA ratio is 0.9. The external carotid artery is patent with peak systolic velocity of 115 cm/s proximally. There is appropriate antegrade flow in the left vertebral artery. IMPRESSION: No hemodynamically significant stenosis noted in the right carotid system. No hemodynamically significant stenosis noted in the left carotid system. Reference: Radiology 2003; [id number]. Reference: Radiology 2003; [id number] Normal ICA PSV is <125 cm/sec and no plaque or intimal thickening is visible sonographically additional criteria include ICA/CCA PSV ratio <2.0 and ICA EDV <40 cm/sec <50% ICA stenosis ICA PSV is <125 cm/sec and plaque or intimal thickening is visible sonographically additional criteria include ICA/CCA PSV ratio <2.0 and ICA EDV <40 cm/sec 50-69% ICA stenosis ICA PSV is 125-230 cm/sec and plaque is visible sonographically additional criteria include ICA/CCA PSV ratio of 2.0-4.0 and ICA EDV of 40-100 cm/sec 70% ICA stenosis but less than near occlusion ICA PSV is >230 cm/sec and visible plaque and luminal narrowing are seen at chris-scale and color Doppler ultrasound (the higher the Doppler parameters lie above the threshold of 230 cm/sec, the greater the likelihood of severe disease) additional criteria include ICA/CCA PSV ratio >4 and ICA EDV >100 cm/sec
[2025-06-07 07:44] LABS: Hematocrit 24.2 % (41.0-53.0); Hemoglobin 8.3 g/dL (13.5-17.5)
[2025-06-07 08:50] LABS: Anion Gap 9 (5-15); Carbon Dioxide 28 mmol/L (20-31)
[2025-06-07 08:56] LABS: BUN/Creatinine Ratio 5.2 (10.0-20.0); Blood Urea Nitrogen 27 mg/dL (9-23); Calcium 7.7 mg/dL (8.7-10.4); Chloride 104 mmol/L (98-107); Glucose 130 mg/dL (74-106); Potassium 4.1 mmol/L (3.5-5.1); Sodium 141 mmol/L (136-145)
--- NOTE | 2025-06-07 09:28 | DVH ---
CLINICAL INDICATION: CVA. COMPARISON: CT CT HEAD NECK WITH CONT on DOS: 06/04/25, CT HEAD WITHOUT CONTRAST on DOS: 06/04/25 TECHNIQUE: Multisequence multiplanar MRI images of the brain were obtained without contrast. FINDINGS: No acute infarct or hemorrhage. No mass or midline shift. Small 3 mm focus of T2/FLAIR hyperintense signal in the subcortical white matter of the left anterior frontal lobe. Ventricles and sulci are within normal limits. Basal cisterns are patent. Cerebellum, brainstem, and midline structures are within normal limits. Mild mucosal thickening of the paranasal sinuses. Orbits are grossly unremarkable. IMPRESSION: 1. No evidence of acute intracranial abnormality. No acute infarct. 2. Small 3 mm focus of T2/FLAIR hyperintense signal in the left anterior frontal lobe subcortical white matter is nonspecific, possible mild chronic small-vessel ischemic disease. Other etiologies such as migraine headaches or demyelinating disease could also have a similar appearance in the appropriate clinical setting.
--- NOTE | 2025-06-07 11:04 | DVHPN2 ---
Progress Note Date Seen: Jun 07, 2025 Medical Necessity Reason Pt with a Central, PICC or Fol: Yes Subjective Other Systems: Patient seen and examined by myself today in follow-up Objective vital signs Vital Sign Date Time Temp Pulse Resp B/P (MAP) Pulse Ox O2 Delivery O2 Flow Rate FiO2 06/07/25 09:32 153/90 06/07/25 09:20 81 06/07/25 09:00 98.6 18 97 98.6 06/06/25 23:45 2.0 06/06/25 20:00 Nasal Cannula* 28 Total Intake and Output 06/06/25 06/06/25 06/07/25 15:00 23:00 07:00 Intake Total 400 ml 500 ml Output Total 1000 ml 400 ml Balance -600 ml 100 ml medications Current Medications Medications Dose Ordered Sig/Ronel Route Start Time Stop Time Status Last Admin Dose Admin Acetaminophen 325 mg Q4HP PRN PO 06/01/25 02:30 06/03/25 00:57 325 MG Ondansetron HCl 4 mg Q4HP PRN IV 06/01/25 02:30 06/01/25 05:17 4 MG Nitroglycerin 250 ml @ 1.5 mls/hr Q24H IV 06/01/25 02:30 UNV Epoetin Rico-epbx 10,000 unit MWF@2100 [place] 06/02/25 21:00 06/04/25 21:30 10,000 UNIT Diagnostic Test (Pha) 1 strip Q6HR 06/01/25 12:00 06/07/25 05:58 1 STRIP Insulin Human Regular Q6HR SC 06/01/25 12:00 06/07/25 05:57 2 UNITS Dextrose 50 ml UD PRN IV 06/01/25 08:30 06/01/25 19:14 50 ML Famotidine 20 mg EOD PO 06/02/25 10:00 06/06/25 08:49 20 MG Heparin Sodium (Porcine) 5,000 units Q12HR SC 06/01/25 22:00 06/07/25 09:22 5,000 UNITS Carvedilol 12.5 mg Q12HR PO 06/02/25 22:00 06/07/25 09:20 12.5 MG Doxazosin Mesylate 2 mg HS PO 06/02/25 22:00 06/06/25 21:22 2 MG Calcitriol 0.25 mcg DAILY PO 06/03/25 10:00 06/07/25 09:20 0.25 MCG Calcium Acetate 667 mg TIDWMEALS PO 06/04/25 12:00 06/07/25 08:19 667 MG Ergocalciferol 50,000 unit Q7D PO 06/04/25 09:30 06/04/25 12:58 50,000 UNIT Bumetanide 25 mg/ Miscellaneous 100 ml @ 4 mls/hr Q24H IV 06/04/25 10:30 06/07/25 09:32 4 MLS/HR Metolazone 10 mg DAILY PO 06/05/25 10:00 06/07/25 09:21 10 MG Multivit/Ca Carb/ B Cmplx/FA/Prenat 1 tab DAILY PO 06/05/25 10:00 06/07/25 09:20 1 TAB Nifedipine 90 mg DAILY PO 06/05/25 14:00 06/07/25 09:21 90 MG Baclofen 5 mg Q8HR PO 06/06/25 22:00 06/07/25 05:58 5 MG Morphine Sulfate 2 mg Q4HPRN PRN IV 06/06/25 15:15 Lorazepam 1 mg ONCE PRN IV 06/06/25 23:00 Aspirin 81 mg DAILY PO 06/07/25 10:00 06/07/25 09:20 81 MG Atorvastatin Calcium 20 mg HS PO 06/07/25 22:00 Examination: LUNGS:Normal, CVS:Normal, MSK:Abnormal laboratory and microbiology Laboratory Tests 06/07/25 06:57 06/05/25 05:00 Test 06/07/25 06:57 Range/Units Serum Glucose 130 H 74-106 mg/dL Problem List/Assessment/Plan Problem List/Assessment/Plan This is a 49-year-old gentleman with past medical history of diabetes type 2, hypertension, dyslipidemia, came to the hospital due to generalized swelling and shortness of breaths. ESRD, requires HD Hypertensive emergency Volume overload, due to above Diabetes type 2 Nephrotic range proteinuria, due to above Dyslipidemia Morbid obesity Severe anemia Hyperkalemia Status post IJ tunneled hemodialysis catheter Recommendations * Next hemodialysis on 06/09 * Epogen 10,000 SQ 3 x weekly * Sevelamer 800 mg t.i.d., nifedipine 90 mg daily, Cardilol 6.25 BID * Albumin 25% and Bumex drip for diuresis * Renal diet * BP control * Social consult for outpatient HD chair time at [facility] * We Follow up with the patient Thank you for giving us the opportunity to take care of your patient. Please call back if you have any questions/concerns. Plan discussed with: Patient Dietary Evaluation Review Comments: Nutrition Recommendation: 1) Consider CCHO 75 + renal standard diet 2) Monitor PO intake, lab values, weight trend, and I/O Expected Outcomes/Goals: Intake to meet >75% estimated needs Lab values to improve FU 3-5 days MARV GROSSMAN MD Jun 07, 2025 11:04
[2025-06-07] MEDS: POLYETHYLENE GLYCOL 17 GM PWDR PO ONE (13:50)
[2025-06-07 15:27] LABS: Chloride 106 mmol/L (98-107); Potassium 4.2 mmol/L (3.5-5.1); Sodium 139 mmol/L (136-145)
[2025-06-07 15:28] LABS: Anion Gap 4 (5-15); Carbon Dioxide 29 mmol/L (20-31)
[2025-06-07 15:33] LABS: BUN/Creatinine Ratio 5.1 (10.0-20.0); Hematocrit 24.8 % (41.0-53.0); Hemoglobin 8.5 g/dL (13.5-17.5)
[2025-06-07 15:34] LABS: Magnesium 1.8 mg/dL (1.6-2.6)
[2025-06-07 15:36] LABS: Blood Urea Nitrogen 28 mg/dL (9-23); Calcium 7.9 mg/dL (8.7-10.4); Glucose 121 mg/dL (74-106)
--- NOTE | 2025-06-07 18:03 | DVHPNRES ---
Progress Note Date Seen: Jun 07, 2025 Resident Creating Document: CRISTÓBAL BRYAN RESIDENT Medical Necessity Reason Pt with a Central, PICC or Fol: Yes Subjective Review of Systems Elian Smith is a 49-year-old male patient past medical history of hypertension, hyperlipidemia, type 2 diabetes mellitus, diabetic foot status post debridement who presented to the ED with chief complaint of shortness of breath and lower leg swelling associated with decreased urine output for the past week before his admission. Patient has not been taking his hydrochlorothiazide for the past two weeks, rest of medication he is compliant with. Denies any other associated symptoms including fever, chills, nausea, vomiting, diarrhea, dysuria in any other associated symptoms. BP was 213/139 in the ER . BUN, creatinine was elevated, kidney ultrasound demonstrated normal bilateral kidney with small bilateral pleural effusion. Hyperkalemia protocol was initiated for hyperkalemia management. Nephrology was consulted and recommended IV Lasix drip, IV sodium bicarb for metabolic acidosis secondary to LORE and monitor BMP. Past medical history:hypertension, hyperlipidemia, type 2 diabetes mellitus Past surgical history: I&d on left foot Social history: denies smoking, alcohol and drugs Patient seen and examined at bedside. He is alert oriented x3 and currently on 2 L oxygen through nasal cannula, saturating 95%. The patient is currently on low-dose nicardipine drip, bridged with oral carvedilol 6.25 mg p.o. b.i.d., amlodipine 10 mg daily . Complaint of shortness of breath, back pain and no other active complaint. Constitutional: No: Fever, Chills, Sweats, Weakness, Malaise, Other Eyes: No: Pain, Vision change, Conjunctivae inflammation, Eyelid inflammation, Other, Redness ENT: No: Ear pain, Ear discharge, Nose pain, Nose discharge, Nose congestion, Mouth pain, Mouth swelling, Throat pain, Throat swelling, Other Respiratory: Shortness of breath, No: Cough, Dry,Wheezing, Hemoptysis, Pleuritic Pain, Sputum, Wheezing, Other Cardiovascular: Edema No: Chest Pain, Palpitations, Orthopnea, Paroxysmal Noc. Dyspnea, Lt Headedness, Other Gastrointestinal: No: Nausea, Vomiting, Abdominal Pain, Diarrhea, Constipation, Melena, Hematochezia, Other Musculoskeletal: No: other, neck pain, shoulder pain, arm pain, back pain, hand pain, leg pain, foot pain Neurological:; Weakness in lower extremities, back pain,no Numbness, Incoordination, Change in speech, Confusion, Seizures 06/02/25- The patient was seen at bedside today. Patient got hemodialysis today morning. His hemoglobin this morning was 6.7, 1 unit of PRBC was given. Nephrology continued with the lasix drip, added sevelamer 800mg tid po and added nifedipine 90 mg po daily. Dose of cervedilol was increased to 12.5 mg po bid. IR will place tunnel catheter tomorrow. 06/03/25- The patient was seen at bedside today. Hemoglobin today is 9.1 and creatinine is 6.27. Blood pressure is under control now. Patient got tunnel catheter placement by IR today. The patient will receive 1 dialysis today. director of housing and energy services consult for arranging chair time for hemodialysis has already been placed we are pending approval on that. Possible discharge tomorrow once check time is secured. Calcitriol 0.25mcg daily po was started today. 06/04/25- The patient was seen at bedside today. Creatinine today is 5.29. Patient got hemodialysis yesterday and 3 L was removed. Lasix drip was discontinued and patient was started on Bumex drip 1mg/hr and metolazone 10 mg p.o. daily. Albumin 25% at 12 hr protocol was started. Cardiology was consulted, pending evaluation. Patient complained of weakness in his lower limbs and right arm, head CT was ordered which showed no acute abnormality. CT angiography head and neck was ordered, pending report. Lumbosacral spine x-ray was also ordered pending report. Patient and his sons were explained extensively and updated with all evaluations and management. 06/05/25- The patient was seen at bedside today. Creatinine today is 4.37. Patient got hemodialysis yesterday and 4L fluid was removed. Chest CT showed cardiomegaly with mild pulmonary edema and moderate bilateral pleural effusions. Patient complained of weakness and inability to move both lower extremities. MRI lumbosacral spine showed multilevel disc degeneration and spinal canal stenosis most pronounced at L4-L5 with L5 nerve root compression. Spinal surgery was consulted, pending evaluation. 06/06/25- The patient was seen at bedside today. Creatinine today is 5.45. Spine surgeon was consulted and they recommended physical therapy and pain management along with muscle relaxants. Cardiology recommended outpatient follow-up for possible ischemic workup with stress test. We placed an IR consult for possible thoracentesis. 06/07/25- The patient was seen at bedside today. Creatinine today is 5.44. Patient continued to work with physical therapy but was not able to get out of bed. Carotid doppler was negative for any stenosis. Chest US showed small right pleural effusion. He will get his next hemodialysis on 06/09/25. Per nephrology, he can be discharged to the SNF for physical therapy as he has chair time at [facility] on Monday, Monday and Monday at 5.30 am. Discharge planning was started with hospice social worker to get a bed for the patient at [facility]. Objective vital signs Vital Sign Date Time Temp Pulse Resp B/P (MAP) Pulse Ox O2 Delivery O2 Flow Rate FiO2 06/07/25 16:52 98.7 78 18 135/80 (98) 95 98.7 06/07/25 13:26 Nasal Cannula 2.0 06/07/25 13:26 28 Total Intake and Output 06/06/25 06/06/25 06/07/25 15:00 23:00 07:00 Intake Total 400 ml 500 ml Output Total 1000 ml 400 ml Balance -600 ml 100 ml medications Current Medications Medications Dose Ordered Sig/Ronel Route Start Time Stop Time Status Last Admin Dose Admin Acetaminophen 325 mg Q4HP PRN PO 06/01/25 02:30 06/03/25 00:57 325 MG Ondansetron HCl 4 mg Q4HP PRN IV 06/01/25 02:30 06/01/25 05:17 4 MG Nitroglycerin 250 ml @ 1.5 mls/hr Q24H IV 06/01/25 02:30 UNV Epoetin Rico-epbx 10,000 unit MWF@2100 [place] 06/02/25 21:00 06/04/25 21:30 10,000 UNIT Diagnostic Test (Pha) 1 strip Q6HR 06/01/25 12:00 06/07/25 17:50 1 STRIP Insulin Human Regular Q6HR SC 06/01/25 12:00 06/07/25 17:47 2 UNITS Dextrose 50 ml UD PRN IV 06/01/25 08:30 06/01/25 19:14 50 ML Famotidine 20 mg EOD PO 06/02/25 10:00 06/06/25 08:49 20 MG Heparin Sodium (Porcine) 5,000 units Q12HR SC 06/01/25 22:00 06/07/25 09:22 5,000 UNITS Carvedilol 12.5 mg Q12HR PO 06/02/25 22:00 06/07/25 09:20 12.5 MG Doxazosin Mesylate 2 mg HS PO 06/02/25 22:00 06/06/25 21:22 2 MG Calcitriol 0.25 mcg DAILY PO 06/03/25 10:00 06/07/25 09:20 0.25 MCG Calcium Acetate 667 mg TIDWMEALS PO 06/04/25 12:00 06/07/25 17:45 667 MG Ergocalciferol 50,000 unit Q7D PO 06/04/25 09:30 06/04/25 12:58 50,000 UNIT Bumetanide 25 mg/ Miscellaneous 100 ml @ 4 mls/hr Q24H IV 06/04/25 10:30 06/07/25 09:32 4 MLS/HR Metolazone 10 mg DAILY PO 06/05/25 10:00 06/07/25 09:21 10 MG Multivit/Ca Carb/ B Cmplx/FA/Prenat 1 tab DAILY PO 06/05/25 10:00 06/07/25 09:20 1 TAB Nifedipine 90 mg DAILY PO 06/05/25 14:00 06/07/25 09:21 90 MG Baclofen 5 mg Q8HR PO 06/06/25 22:00 06/07/25 13:50 5 MG Morphine Sulfate 2 mg Q4HPRN PRN IV 06/06/25 15:15 Lorazepam 1 mg ONCE PRN IV 06/06/25 23:00 Aspirin 81 mg DAILY PO 06/07/25 10:00 06/07/25 09:20 81 MG Atorvastatin Calcium 20 mg HS PO 06/07/25 22:00 Examination General Appearance: Alert, Oriented X3, Cooperative, mild respiratory distress and on nasal cannula 2 L HEENT: Atraumatic, PERRLA, EOMI, Mucous membrane moist/pink Respiratory: Bilateral crackles Cardiovascular: Regular rate, Normal S1, Normal S2, No murmurs, no chest wall tenderness Abdominal: Normal bowel sounds, Soft, No tenderness, No hepatospenomegaly, No masses Extremities: Edema 3 bilateral+, No clubbing, No cyanosis, Skin: No rashes, No breakdown, No significant lesion Neuro: Normal speech, Strength 2/5 in lower extremities, strength 4/5 in upper extremities, Normal tone, Sensation intact, Cranial nerves 3-12 NL Psych/Mental Status: Mental status NL, Mood NL Genitourinary: scrotal edema DEMARCUS: no external hemorrhoids visible, sphincter tone is normal, empty rectal vault, no active bleeding Nurse Shania was present as lock stitch channeler during the examination. laboratory and microbiology Laboratory Tests 06/07/25 14:36 06/05/25 05:00 Test 06/07/25 14:36 Range/Units Serum Glucose 121 H 74-106 mg/dL Labs and/or images reviewed: Labs reviewed by me, Image(s) reviewed by me Problem List/Assessment/Plan Problem List/Assessment/Plan Assessment / Plan # Spinal canal stenosis with lumbar radiculopathy - MRI of L/S spine without contrast showed Multilevel spinal canal stenosis, most pronounced and mild at L4-L5. Multilevel subarticular zone stenosis, most pronounced and severe at L4-L5 with right descending L5 nerve root compression. Multilevel foraminal stenosis - Consulted spinal surgery-physical therapy and muscle relaxants- flexeril 5mg po bid # Hypertensive emergency # Acute hypoxic respiratory failure likely due to volume overload in the setting of severe LORE requiring hemodialysis # Acute on chronic decompensated systolic heart failure # Acute pulmonary edema due to above # Ruled out pulmonary embolism - chest x-ray revealed bilateral pulmonary vascular congestion. Bibasilar atelectasis/consolidation - BNP is elevated - echo showed mild global hypokinesis with an LVEF of 45% and slightly dilated RV. There were normal cardiac valves and very mild posterior pericardial effusion. - Carvedilol 12.5 mg p.o. b.i.d. - Nifedipine 90mg daily - V/Q scan done on 06/02/25- low probability for PE - cardiology consulted-outpatient follow-up for ischemic workup with stress test -Chest US- small right pleural effusion # Ruled out acute ischemic/hemorrhagic stroke -CT head- No acute intracranial abnormality -CT angiography , was grossly unremarkable -physical therapy on board -MRI brain- Small 3 mm focus of T2/FLAIR hyperintense signal in the left anterior frontal lobe subcortical white matter is nonspecific, possible mild chronic small-vessel ischemic disease -carotid doppler- No hemodynamically significant stenosis noted in the right carotid system # Acute kidney injury hemodynamically mediated in the setting of fluid overload hypertensive emergency # Chronic kidney disease, unspecified, baseline is unknown s/p IJ tunneled hemodialysis catheter # Possible diabetic nephropathy # Acute on Chronic normocytic normochromic anemia # Diabetes mellitus, status post debridement of diabetic foot #Secondary hyperparathyroidism -Ultrasound demonstrated normal-appearing kidneys bilaterally, with bilateral pleural effusion -Nephrology on board -renal diet -Epogen 1000 units 3 times a week -strict I&O -Monitor BMP -hemodialysis on 06/06/25- 4L removed, next hemodialysis on 06/09/25 -Sevelamer 800mg po tid started -Calcitriol 0.25 mcg daily po -metolazone 10mg po daily -continue bumex drip iv 1mg/hr -Chair time at [facility] dialysis on MWF at 5.30 am # Mild transaminitis likely secondary to hepatic congestion from CHF # Moderate protein calorie malnutrition, albumin 2.5 # Morbid obesity, BMI 40.6 kg/m2 - counseled patient regarding healthy diet, weight loss, lifestyle modification and physical exercise PUD prophylaxis-Pepcid 20 mg p.o. daily DVT prophylaxis-Heparin 5000 units b.i.d. Goal of care discussed with the patient for more than 20 minutes full code Plan discussed with Dr Bonilla Plan discussed with patient Plan discussed with: Patient My Orders My Orders Orders - CRISTÓBAL BRYAN Procedure Category Date Status Time * Machine Hamper Maker CONS 06/07/25 Transmitted Consult Dietary Evaluation Review Comments: Nutrition Recommendation: 1) Consider CCHO 75 + renal standard diet 2) Monitor PO intake, lab values, weight trend, and I/O Expected Outcomes/Goals: Intake to meet >75% estimated needs Lab values to improve FU 3-5 days Date of Service: Jun 07, 2025 Billing Provider: CATA BONILLA MD Common Visit Codes: 17603-[id number] INP/OBS CARE(HIGH) CRISTÓBAL BRYAN RESIDENT Jun 07, 2025 18:03
--- NOTE | 2025-06-07 21:34 | DVHPN2 ---
Progress Note - Dictate Date Seen: Jun 07, 2025 Medical Necessity Reason Pt with a Central, PICC or Fol: Yes Subjective Mr. Smith is a 49 years old gentleman with a history of hypertension, diabetes, chronic low back pain, obesity, he was brought to the [facility] on 06/01/2025 with a chief company of shortness breath, he also found to have extremely high blood pressure in the emergency room. I have seen examined the patient, discussed with his nurse, he, no new complaints The back pain is bad UDS, 06/01/2025: Negative Urinalysis, 06/01/2025: WBC: 1, urine leukocyte esterase: Negative ABG, 06/01/2025: Compensated metabolic acidosis, hypoxia WBC/HB/PLT/MCV, 06/05/2025: 4.5/8.1/140/89.2 BUN/CR, 06/06/2025: 27/5.45 GFR, 06/06/2025: 12 HGB A1c, 06/01/2025:< 3.8 Liver function tests, 06/06/2025: Unremarkable TG/HDL/LDL/HDL, 06/01/2025: 113/168/78/71 Vitamin B12, 06/03/2025: 630 TSH, 06/01/2025: 2.24 Echocardiogram, 06/01/2025: MILD LV GLOBAL HYPOKINESIS DYSKINESIS OF IVS LV EF IS IN RANGE OF 45% SLIGHTLY DILATED RV NORMAL VALVES MILD POSTERIOR PERICARDIAL EFFUSION Carotid Doppler 06/07/2025: No hemodynamically significant stenosis noted in the right carotid system. No hemodynamically significant stenosis noted in the left carotid system. CT head, 06/04/2025: No acute intracranial abnormality MRI lumbar spine, 06/05/2025: Multilevel disc degeneration. Multilevel spinal canal stenosis, most pronounced and mild at L4-L5. Multilevel subarticular zone stenosis, most pronounced and severe at L4-L5 with right descending L5 nerve root compression. Multilevel foraminal stenosis, most pronounced and mild at L4- L5 MRI head, 06/07/2025: 1. No evidence of acute intracranial abnormality. No acute infarct. 2. Small 3 mm focus of T2/FLAIR hyperintense signal in the left anterior frontal lobe subcortical white matter is nonspecific, possible mild chronic small-vessel ischemic disease. Other etiologies such as migraine headaches or demyelinating disease could also have a similar appearance in the appropriate clinical setting vital signs Vital Sign Date Time Temp Pulse Resp B/P (MAP) Pulse Ox O2 Delivery O2 Flow Rate FiO2 06/07/25 21:00 98.2 76 17 119/74 (89) 97 98.2 06/07/25 20:00 Nasal Cannula* 2 28 Total Intake and Output 06/06/25 06/06/25 06/07/25 15:00 23:00 07:00 Intake Total 400 ml 500 ml Output Total 1000 ml 400 ml Balance -600 ml 100 ml medications Current Medications Medications Dose Ordered Sig/Ronel Route Start Time Stop Time Status Last Admin Dose Admin Acetaminophen 325 mg Q4HP PRN PO 06/01/25 02:30 06/03/25 00:57 325 MG Ondansetron HCl 4 mg Q4HP PRN IV 06/01/25 02:30 06/01/25 05:17 4 MG Nitroglycerin 250 ml @ 1.5 mls/hr Q24H IV 06/01/25 02:30 UNV Epoetin Rico-epbx 10,000 unit MWF@2100 SC 06/02/25 21:00 06/04/25 21:30 10,000 UNIT Diagnostic Test (Pha) 1 strip Q6HR 06/01/25 12:00 06/07/25 17:50 1 STRIP Insulin Human Regular Q6HR SC 06/01/25 12:00 06/07/25 17:47 2 UNITS Dextrose 50 ml UD PRN IV 06/01/25 08:30 06/01/25 19:14 50 ML Famotidine 20 mg EOD PO 06/02/25 10:00 06/06/25 08:49 20 MG Heparin Sodium (Porcine) 5,000 units Q12HR SC 06/01/25 22:00 06/07/25 09:22 5,000 UNITS Carvedilol 12.5 mg Q12HR PO 06/02/25 22:00 06/07/25 09:20 12.5 MG Doxazosin Mesylate 2 mg HS PO 06/02/25 22:00 06/06/25 21:22 2 MG Calcitriol 0.25 mcg DAILY PO 06/03/25 10:00 06/07/25 09:20 0.25 MCG Calcium Acetate 667 mg TIDWMEALS PO 06/04/25 12:00 06/07/25 17:45 667 MG Ergocalciferol 50,000 unit Q7D PO 06/04/25 09:30 06/04/25 12:58 50,000 UNIT Bumetanide 25 mg/ Miscellaneous 100 ml @ 4 mls/hr Q24H IV 06/04/25 10:30 06/07/25 09:32 4 MLS/HR Metolazone 10 mg DAILY PO 06/05/25 10:00 06/07/25 09:21 10 MG Multivit/Ca Carb/ B Cmplx/FA/Prenat 1 tab DAILY PO 06/05/25 10:00 06/07/25 09:20 1 TAB Nifedipine 90 mg DAILY PO 06/05/25 14:00 06/07/25 09:21 90 MG Morphine Sulfate 2 mg Q4HPRN PRN IV 06/06/25 15:15 Lorazepam 1 mg ONCE PRN IV 06/06/25 23:00 Aspirin 81 mg DAILY PO 06/07/25 10:00 06/07/25 09:20 81 MG Atorvastatin Calcium 20 mg HS PO 06/07/25 22:00 Cyclobenzaprine HCl 5 mg BID PO 06/07/25 22:00 objective General: the patient is well developed and nourished. No acute distress. MENTAL STATUS: Awake and alert. Oriented to person, place, time and general circumstances. Able to give personal history. SPEECH, LANGUAGE, HIGHER CORTICAL FUNCTION: no aphasia or dysathria. CRANIAL NERVES: Pupils are equal, round and reactive. EOMs full and conjugate. No nystagmus. Facial sensation intact in all three divisions bilaterally. Mandibular strength intact. Facial muscles symmetrical and strength intact. Tongue midline. No fasciculations or atrophy. SENSATION: Sensation to touch and pinprick is fine, no sensory level, no definite paroxysmal distal differences MOTOR: Normal tone in the upper and lower extremity. Normal muscle bulk. No fasciculations. No abnormal movements or posturing. Muscle strength of the major groups in the upper extremities is 4/5. Muscle strength of the major groups in the lower extremities is 3-4/5. REFLEXES: Deep tendon reflexes normal and symmetrical. No pathological reflexes. CEREBELLAR/COORDINATION: Finger to nose is normal bilaterally. GAIT/STATION: deferred. laboratory and microbiology Laboratory Tests 06/07/25 14:36 06/05/25 05:00 Test 06/07/25 14:36 Range/Units Serum Glucose 121 H 74-106 mg/dL Problem List General weakness, with right-sided more affected Rule out acute stroke Hypertension emergency Rule out posterior reversible encephalopathy Sleep-related breathing disorder Obesity Assessment/Plan Monitoring Supportive treatment Telemetry Current pain management Aspirin 81 mg daily, Lipitor 10 mg daily for now APAP in the hospital Weight control Hypersomnia precautions Further address his sleep-related breathing disorder as outpatient More recommendation per clinical course This medical document was created using an electronic medical record system with [employer] dictation system. Although this document has been carefully reviewed, there may still be some phonetic and typographical errors. These areas are purely typographical due to imperfections of the software programs, and do not reflect any compromise in the patient's medical care. Prognosis poor Dietary Evaluation Review Comments: Nutrition Recommendation: 1) Consider CCHO 75 + renal standard diet 2) Monitor PO intake, lab values, weight trend, and I/O Expected Outcomes/Goals: Intake to meet >75% estimated needs Lab values to improve FU 3-5 days Plan discussed with: Patient, Other SANDI HOLLINGSWORTH MD Jun 07, 2025 21:34
[2025-06-07] MEDS: ATORVASTATIN 20 MG TAB PO SCH (21:47)
[2025-06-07] MEDS: CYCLOBENZAPRINE HCL 10 MG TAB PO SCH (21:48)
[2025-06-08] VITALS (12 sets, daily range): BP systolic 120–166; BP diastolic 62–90; PULSE 67–77; RESP 17–18; TEMP 97.4–98.5; O2SAT 95–100
[2025-06-08 05:43] LABS: Hematocrit 25.4 % (41.0-53.0); Hemoglobin 8.7 g/dL (13.5-17.5); Mean Corpuscular Hemoglobin 30.8 pg (28.0-32.0); Mean Corpuscular Volume 89.7 fL (80.0-100.0); Nucleated Red Blood Cells % 0.1 %
[2025-06-08 05:50] LABS: Chloride 104 mmol/L (98-107); Potassium 4.5 mmol/L (3.5-5.1); Sodium 139 mmol/L (136-145)
[2025-06-08 05:51] LABS: Anion Gap 6 (5-15); Carbon Dioxide 29 mmol/L (20-31)
[2025-06-08 05:56] LABS: BUN/Creatinine Ratio 5.6 (10.0-20.0)
[2025-06-08 06:21] LABS: Blood Urea Nitrogen 33 mg/dL (9-23); Calcium 7.9 mg/dL (8.7-10.4); Glucose 155 mg/dL (74-106)
[2025-06-08] MEDS ORDERED: BACLOFEN 10 MG TAB PO PRN (12:00)
--- NOTE | 2025-06-08 12:23 | DVHPN2 ---
Progress Note - Dictate Date Seen: Jun 07, 2025 Medical Necessity Reason Pt with a Central, PICC or Fol: Yes Subjective PT WITH ACUTE RENAL FAILURE FROM DIABETIC NEPHROPATHY PMH DIABETES VASCULOPATHY CHRONIC WITH ACUTE RENAL FAILURE NEUROPATHY UNCONTROLLED HYPERTENSION PT PRESENTED WITH ANASARCA, BAILEY , SOB, PMD. ORTHOPNEA ECHO EF 45% UREMIC PERICARDIAL EFFUSION vital signs Vital Sign Date Time Temp Pulse Resp B/P (MAP) Pulse Ox O2 Delivery O2 Flow Rate FiO2 06/08/25 10:00 99 Nasal Cannula* 2 28 06/08/25 09:00 98.2 68 18 147/76 (99) 98.2 Total Intake and Output 06/07/25 06/07/25 06/08/25 15:00 23:00 07:00 Intake Total 670 ml 850 ml 700 ml Output Total 300 ml 200 ml Balance 670 ml 550 ml 500 ml medications Current Medications Medications Dose Ordered Sig/Ronel Route Start Time Stop Time Status Last Admin Dose Admin Acetaminophen 325 mg Q4HP PRN PO 06/01/25 02:30 06/03/25 00:57 325 MG Ondansetron HCl 4 mg Q4HP PRN IV 06/01/25 02:30 06/01/25 05:17 4 MG Nitroglycerin 250 ml @ 1.5 mls/hr Q24H IV 06/01/25 02:30 UNV Epoetin Rico-epbx 10,000 unit MWF@2100 [place] 06/02/25 21:00 06/04/25 21:30 10,000 UNIT Diagnostic Test (Pha) 1 strip Q6HR 06/01/25 12:00 06/08/25 12:10 1 STRIP Insulin Human Regular Q6HR SC 06/01/25 12:00 06/08/25 12:09 2 UNITS Dextrose 50 ml UD PRN IV 06/01/25 08:30 06/01/25 19:14 50 ML Famotidine 20 mg EOD PO 06/02/25 10:00 06/08/25 08:52 20 MG Heparin Sodium (Porcine) 5,000 units Q12HR SC 06/01/25 22:00 06/08/25 08:53 5,000 UNITS Carvedilol 12.5 mg Q12HR PO 06/02/25 22:00 06/08/25 08:52 12.5 MG Doxazosin Mesylate 2 mg HS PO 06/02/25 22:00 06/07/25 21:47 2 MG Calcitriol 0.25 mcg DAILY PO 06/03/25 10:00 06/08/25 08:51 0.25 MCG Calcium Acetate 667 mg TIDWMEALS PO 06/04/25 12:00 06/08/25 12:09 667 MG Ergocalciferol 50,000 unit Q7D PO 06/04/25 09:30 06/04/25 12:58 50,000 UNIT Bumetanide 25 mg/ Miscellaneous 100 ml @ 4 mls/hr Q24H IV 06/04/25 10:30 06/07/25 09:32 4 MLS/HR Metolazone 10 mg DAILY PO 06/05/25 10:00 06/08/25 08:52 10 MG Multivit/Ca Carb/ B Cmplx/FA/Prenat 1 tab DAILY PO 06/05/25 10:00 06/08/25 08:50 1 TAB Nifedipine 90 mg DAILY PO 06/05/25 14:00 06/08/25 08:51 90 MG Morphine Sulfate 2 mg Q4HPRN PRN IV 06/06/25 15:15 Lorazepam 1 mg ONCE PRN IV 06/06/25 23:00 Aspirin 81 mg DAILY PO 06/07/25 10:00 06/08/25 08:51 81 MG Atorvastatin Calcium 20 mg HS PO 06/07/25 22:00 06/07/25 21:47 20 MG Cyclobenzaprine HCl 5 mg BID PO 06/07/25 22:00 06/08/25 08:52 5 MG Baclofen 10 mg Q8HP PRN PO 06/08/25 12:00 UNV laboratory and microbiology Laboratory Tests 06/08/25 05:22 Test 06/08/25 05:22 Range/Units Serum Glucose 155 H 74-106 mg/dL Problem List ACUTE RENAL FAILURE FROM DIABETIC NEPHROPATHY PMH DIABETES VASCULOPATHY CHRONIC WITH ACUTE RENAL FAILURE NEUROPATHY UNCONTROLLED HYPERTENSION PT PRESENTED WITH ANASARCA, BAILEY , SOB, PMD. ORTHOPNEA ECHO EF 45% UREMIC PERICARDIAL EFFUSION ANEMIA METABOLIC NON GAP ACIDOSIS UREMIA Assessment/Plan CORRECT ANEMIA DIALYSIS DANNA CARDIOLITE STRESS VS ANGIO OUTPT Dietary Evaluation Review Comments: Nutrition Recommendation: 1) Consider CCHO 75 + renal standard diet 2) Monitor PO intake, lab values, weight trend, and I/O Expected Outcomes/Goals: Intake to meet >75% estimated needs Lab values to improve FU 3-5 days Plan discussed with: Patient Critical Care Time(min): 35 ANNABELLE IRBY MD Jun 08, 2025 12:23
[2025-06-08] MEDS ORDERED: BUME2TAB5 PO (13:14)
[2025-06-08] MEDS ORDERED: CYCL-611 PO (13:14)
--- NOTE | 2025-06-08 16:32 | DVHPNRES ---
Progress Note Date Seen: Jun 08, 2025 Resident Creating Document: RAVEN ARBOLEDA RESIDENT Medical Necessity Reason Pt with a Central, PICC or Fol: Yes Subjective Review of Systems Elian Kate is a 49-year-old male, with past medical history of hypertension, hyperlipidemia, type 2 diabetes mellitus and diabetic foot status post debridement. The patient presented to the [facility] ED with the chief complaint of 1 week slowly progressive shortness of breath and bilateral lower extremity edema; Associated with decreased urine output for the past week before his admission. On further questioning, the patient reports he has not been taking his hydrochlorothiazide for the past two weeks. The shortness of breath incrased at rest and the low extremity worsen up his scrotum, presenting scrotal edema. this prompted his visit to the ED. The patient denies fever, chills, nausea, vomiting, diarrhea, dysuria in any other associated symptoms. In the ED BP was 213/139mmHg, BUN, creatinine was elevated, kidney ultrasound demonstrated normal bilateral kidney with small bilateral pleural effusion. Hyperkalemia protocol was initiated for hyperkalemia management. Nephrology was consulted and recommended IV Lasix drip, IV sodium bicarb for metabolic acidosis secondary to LORE and monitor BMP. The patient was admitted for further assessment and management. Past medical history:hypertension, hyperlipidemia, type 2 diabetes mellitus Past surgical history: I&d on left foot Social history: denies smoking, alcohol and drugs Hospital Course: Patient seen and examined at bedside. He is alert oriented x3 and currently on 2 L oxygen through nasal cannula, saturating 95%. The patient is currently on low-dose nicardipine drip, bridged with oral carvedilol 6.25 mg p.o. b.i.d., amlodipine 10 mg daily . Complaint of shortness of breath, back pain and no other active complaint. 06/02/25- The patient was seen at bedside today. Patient got hemodialysis today morning. His hemoglobin this morning was 6.7, 1 unit of PRBC was given. Nephrology continued with the lasix drip, added sevelamer 800mg tid po and added nifedipine 90 mg po daily. Dose of cervedilol was increased to 12.5 mg po bid. IR will place tunnel catheter tomorrow. 06/03/25- The patient was seen at bedside today. Hemoglobin today is 9.1 and creatinine is 6.27. Blood pressure is under control now. Patient got tunnel catheter placement by IR today. The patient will receive 1 dialysis today. non emergency services ambulance driver consult for arranging chair time for hemodialysis has already been placed we are pending approval on that. Possible discharge tomorrow once check time is secured. Calcitriol 0.25mcg daily po was started today. 06/04/25- The patient was seen at bedside today. Creatinine today is 5.29. Patient got hemodialysis yesterday and 3 L was removed. Lasix drip was discontinued and patient was started on Bumex drip 1mg/hr and metolazone 10 mg p.o. daily. Albumin 25% at 12 hr protocol was started. Cardiology was consulted, pending evaluation. Patient complained of weakness in his lower limbs and right arm, head CT was ordered which showed no acute abnormality. CT angiography head and neck was ordered, pending report. Lumbosacral spine x-ray was also ordered pending report. Patient and his sons were explained extensively and updated with all evaluations and management. 06/05/25- The patient was seen at bedside today. Creatinine today is 4.37. Patient got hemodialysis yesterday and 4L fluid was removed. Chest CT showed cardiomegaly with mild pulmonary edema and moderate bilateral pleural effusions. Patient complained of weakness and inability to move both lower extremities. MRI lumbosacral spine showed multilevel disc degeneration and spinal canal stenosis most pronounced at L4-L5 with L5 nerve root compression. Spinal surgery was consulted, pending evaluation. 06/06/25- The patient was seen at bedside today. Creatinine today is 5.45. Spine surgeon was consulted and they recommended physical therapy and pain management along with muscle relaxants. Cardiology recommended outpatient follow-up for possible ischemic workup with stress test. We placed an IR consult for possible thoracentesis. 06/07/25- The patient was seen at bedside today. Creatinine today is 5.44. Patient continued to work with physical therapy but was not able to get out of bed. Carotid doppler was negative for any stenosis. Chest US showed small right pleural effusion. He will get his next hemodialysis on 06/09/25. Per nephrology, he can be discharged to the SNF for physical therapy as he has chair [facility] at [facility] on Monday, Monday and Monday at 5.30 am. Discharge planning was started with renal social worker to get a bed for the patient at SNF. 06/08/25: The patient was evaluated and examined at bedside. VS, laboratories and chart were reviewed. BP within normal limits. Patient is using Bi-Pap at night to improved oxygenation. PT is onboard, they have evaluated the patient and recommend SNF or home-health; the patient and his family have denied SNF and agreed today to home-health services. A wheelchair was requested. The patient will continue PT and daily walk from bed to chair X3 daily has been requested to improved mobility. The patient reports feeling better, and reports constipation, lactulose 30ml po was started. I have spoken with the patient and his family and address all questions and concerns, they agree with current plan. Patient will continue with dialysis in [facility] on Monday06/09/25. ROS: Constitutional: genral weakness improving. No: Fever, Chills, Sweats, Malaise, Other Eyes: No: Pain, Vision change, Conjunctivae inflammation, Eyelid inflammation, Other, Redness ENT: No: Ear pain, Ear discharge, Nose pain, Nose discharge, Nose congestion, Mouth pain, Mouth swelling, Throat pain, Throat swelling, Other Respiratory: Shortness of breath, No: Cough, Dry,Wheezing, Hemoptysis, Pleuritic Pain, Sputum, Wheezing, Other Cardiovascular: Edema No: Chest Pain, Palpitations, Orthopnea, Paroxysmal Noc. Dyspnea, Lt Headedness, Other Gastrointestinal: Yes; Constipation, No: Nausea, Vomiting, Abdominal Pain, Diarrhea, Melena, Hematochezia, Other Musculoskeletal: Left side weakness improved. No: other, neck pain, shoulder pain, arm pain. Neurological:; Left side weakness improved, chronic back pain. no Numbness, Incoordination, Change in speech, Confusion, Seizures Objective vital signs Vital Sign Date Time Temp Pulse Resp B/P (MAP) Pulse Ox O2 Delivery O2 Flow Rate FiO2 06/08/25 13:00 97.9 77 18 146/71 (96) 97 97.9 06/08/25 10:00 Nasal Cannula* 2 28 Total Intake and Output 06/07/25 06/07/25 06/08/25 15:00 23:00 07:00 Intake Total 670 ml 850 ml 700 ml Output Total 300 ml 200 ml Balance 670 ml 550 ml 500 ml medications Current Medications Medications Dose Ordered Sig/Ronel Route Start Time Stop Time Status Last Admin Dose Admin Acetaminophen 325 mg Q4HP PRN PO 06/01/25 02:30 06/03/25 00:57 325 MG Ondansetron HCl 4 mg Q4HP PRN IV 06/01/25 02:30 06/01/25 05:17 4 MG Nitroglycerin 250 ml @ 1.5 mls/hr Q24H IV 06/01/25 02:30 UNV Epoetin Rico-epbx 10,000 unit MWF@2100 [place] 06/02/25 21:00 06/04/25 21:30 10,000 UNIT Diagnostic Test (Pha) 1 strip Q6HR 06/01/25 12:00 06/08/25 12:10 1 STRIP Insulin Human Regular Q6HR SC 06/01/25 12:00 06/08/25 12:09 2 UNITS Dextrose 50 ml UD PRN IV 06/01/25 08:30 06/01/25 19:14 50 ML Famotidine 20 mg EOD PO 06/02/25 10:00 06/08/25 08:52 20 MG Heparin Sodium (Porcine) 5,000 units Q12HR SC 06/01/25 22:00 06/08/25 08:53 5,000 UNITS Carvedilol 12.5 mg Q12HR PO 06/02/25 22:00 06/08/25 08:52 12.5 MG Doxazosin Mesylate 2 mg HS PO 06/02/25 22:00 06/07/25 21:47 2 MG Calcitriol 0.25 mcg DAILY PO 06/03/25 10:00 06/08/25 08:51 0.25 MCG Calcium Acetate 667 mg TIDWMEALS PO 06/04/25 12:00 06/08/25 12:09 667 MG Ergocalciferol 50,000 unit Q7D PO 06/04/25 09:30 06/04/25 12:58 50,000 UNIT Bumetanide 25 mg/ Miscellaneous 100 ml @ 4 mls/hr Q24H IV 06/04/25 10:30 06/07/25 09:32 4 MLS/HR Metolazone 10 mg DAILY PO 06/05/25 10:00 06/08/25 08:52 10 MG Multivit/Ca Carb/ B Cmplx/FA/Prenat 1 tab DAILY PO 06/05/25 10:00 06/08/25 08:50 1 TAB Nifedipine 90 mg DAILY PO 06/05/25 14:00 06/08/25 08:51 90 MG Morphine Sulfate 2 mg Q4HPRN PRN IV 06/06/25 15:15 Lorazepam 1 mg ONCE PRN IV 06/06/25 23:00 Aspirin 81 mg DAILY PO 06/07/25 10:00 06/08/25 08:51 81 MG Atorvastatin Calcium 20 mg HS PO 06/07/25 22:00 06/07/25 21:47 20 MG Cyclobenzaprine HCl 5 mg BID PO 06/07/25 22:00 06/08/25 08:52 5 MG Lactulose 30 ml DAILY PO 06/09/25 10:00 Examination General Appearance: Alert, Oriented X3, Cooperative, mild respiratory distress and on nasal canula 2 L HEENT: Atraumatic, PERRLA, EOMI, Mucous membrane moist/pink Respiratory: Bilateral crackles Cardiovascular: Regular rate, Normal S1, Normal S2, No murmurs, no chest wall tenderness Abdominal: Normal bowel sounds, Soft, No tenderness, No hepatospenomegaly, No masses. Extremities: Edema 3 bilateral+, No clubbing, No cyanosis, Skin: No rashes, No breakdown, No significant lesion Neuro: Normal speech, Strength 2/5 in lower extremities, strength 4/5 in upper extremities, Normal tone, Sensation intact, Cranial nerves 3-12 NL Psych/Mental Status: Mental status NL, Mood NL laboratory and microbiology Laboratory Tests 06/08/25 05:22 Test 06/08/25 05:22 Range/Units Serum Glucose 155 H 74-106 mg/dL Problem List/Assessment/Plan Problem List/Assessment/Plan # Acute hypoxic respiratory failure likely due to volume overload in the setting of: #Severe LORE on CKD Stage 5, requiring hemodialysis # Acute on chronic decompensated systolic heart failure # Acute pulmonary edema due to above # Acute hypertensive emergency # Acute pulmonary embolism, ruled out -V /Q scan done on 06/02/25- low probability for PE - chest x-ray revealed bilateral pulmonary vascular congestion. Bibasilar atelectasis/consolidation - BNP is elevated - echo showed mild global hypokinesis with an LVEF of 45% and slightly dilated RV. There were normal cardiac valves and very mild posterior pericardial effusion. - Carvedilol 12.5 mg p.o. b.i.d. - Nifedipine 90mg daily - cardiology consulted-outpatient follow-up for ischemic workup with stress test - Chest US- small right pleural effusion - O2 NC 2L # Acute kidney injury hemodynamically mediated in the setting of fluid overload hypertensive emergency # Chronic kidney disease, unspecified, baseline is unknown s/p IJ tunneled hemodialysis catheter # Possible chronic diabetic nephropathy # Acute on Chronic normocytic normochromic anemia # Chronic Diabetes mellitus, with hyperglycemia, status post debridement of diabetic foot #Chronic Secondary hyperparathyroidism, possible due to CKD -Ultrasound demonstrated normal-appearing kidneys bilaterally, with bilateral pleural effusion -Nephrology: on board, ongoing. -renal diet -Epogen 1000 units 3 times a week -strict I&O -Monitor BMP -hemodialysis on 06/06/25- 4L removed, next hemodialysis on 06/09/25 -Sevelamer 800mg po tid started -Calcitriol 0.25 mcg daily po -metolazone 10mg po daily -continue bumex drip iv 1mg/hr -Chair time at [facility] dialysis on MWF at 5.30 am #Spinal canal stenosis with lumbar radiculopathy - MRI of L/S spine without contrast showed Multilevel spinal canal stenosis, most pronounced and mild at L4-L5. Multilevel subarticular zone stenosis, most pronounced and severe at L4-L5 with right descending L5 nerve root compression. Multilevel foraminal stenosis - Consulted spinal surgery-physical therapy and muscle relaxants- flexeril 5mg po bid on dialysis day. #Acute ischemic/hemorrhagic stroke, ruled out. -CT head- No acute intracranial abnormality -CT angiography , was grossly unremarkable -Physical therapy: -MRI brain- Small 3 mm focus of T2/FLAIR hyperintense signal in the left anterior frontal lobe subcortical white matter is nonspecific, possible mild chronic small-vessel ischemic disease -carotid doppler- No hemodynamically significant stenosis noted in the right carotid system #Mild transaminitis likely secondary to hepatic congestion from CHF - Monitor liver enzymes #Moderate protein calorie malnutrition, albumin 2.5 #Morbid obesity - BMI 40.6 kg/m2 - counseled patient regarding healthy diet, weight loss, lifestyle modification and physical exercise PUD prophylaxis-Pepcid 20 mg p.o. daily DVT prophylaxis-Heparin 5000 units b.i.d. Diet: Cardiac diet, Renal diet Goals of care discussed with the patient for more than 35 minutes with patient and family. Code Status: Full code PCP: Dr. Dr. Desai Case discussed with Dr. Kearns Plan discussed with: Patient, Spouse, Daughter My Orders My Orders Orders - RAVEN ARBOLEDA RESIDENT Procedure Category Date Status Time Pt Request For Service PT 06/08/25 Logged 11:46 Communication Order ORDERS 06/08/25 Transmitted 11:46 * Software Lead CONS 06/08/25 Transmitted Consult * Software Lead CONS 06/08/25 Transmitted Consult Lactulose Oral PHA 06/09/25 In Process 10:00 Complete Blood Count LAB 06/09/25 Verified 04:00 Dietary Evaluation Review Comments: Nutrition Recommendation: 1) Consider CCHO 75 + renal standard diet 2) Monitor PO intake, lab values, weight trend, and I/O Expected Outcomes/Goals: Intake to meet >75% estimated needs Lab values to improve FU 3-5 days Date of Service: Jun 08, 2025 Billing Provider: CATA KEARNS MD Common Visit Codes: [id number] INP/OBS CARE(HIGH) RAVEN ARBOLEDA RESIDENT Jun 08, 2025 16:32
[2025-06-08] MEDS: EPOETIN ALFA-EPBX 10,000 UNIT/1ML VIAL SC ONE (21:31)
--- NOTE | 2025-06-08 22:29 | DVHPN2 ---
Progress Note - Dictate Date Seen: Jun 08, 2025 Medical Necessity Reason Pt with a Central, PICC or Fol: Yes Subjective Mr. Smith is a 49 years old gentleman with a history of hypertension, diabetes, chronic low back pain, obesity, he was brought to the [facility] on 06/01/2025 with a chief company of shortness breath, he also found to have extremely high blood pressure in the emergency room. I have seen examined the patient, discussed with his nurse, he, no new complaints Physical therapist worked with him today He did not sleep last night and this evening per my observation, but he sleeps with the bed head elevated On physical examination, I can not tell [id number] differences UDS, 06/01/2025: Negative Urinalysis, 06/01/2025: WBC: 1, urine leukocyte esterase: Negative ABG, 06/01/2025: Compensated metabolic acidosis, hypoxia WBC/HB/PLT/MCV, 06/05/2025: 4.5/8.1/140/89.2 BUN/CR, 06/06/2025: 27/5.45 GFR, 06/06/2025: 12 HGB A1c, 06/01/2025:< 3.8 Liver function tests, 06/06/2025: Unremarkable TG/HDL/LDL/HDL, 06/01/2025: 113/168/78/71 Vitamin B12, 06/03/2025: 630 TSH, 06/01/2025: 2.24 Echocardiogram, 06/01/2025: MILD LV GLOBAL HYPOKINESIS DYSKINESIS OF IVS LV EF IS IN RANGE OF 45% SLIGHTLY DILATED RV NORMAL VALVES MILD POSTERIOR PERICARDIAL EFFUSION Carotid Doppler 06/07/2025: No hemodynamically significant stenosis noted in the right carotid system. No hemodynamically significant stenosis noted in the left carotid system. CT head, 06/04/2025: No acute intracranial abnormality MRI head, 06/07/2025: 1. No evidence of acute intracranial abnormality. No acute infarct. 2. Small 3 mm focus of T2/FLAIR hyperintense signal in the left anterior frontal lobe subcortical white matter is nonspecific, possible mild chronic small-vessel ischemic disease. Other etiologies such as migraine headaches or demyelinating disease could also have a similar appearance in the appropriate clinical setting MRI lumbar spine, 06/05/2025: Multilevel disc degeneration. Multilevel spinal canal stenosis, most pronounced and mild at L4-L5. Multilevel subarticular zone stenosis, most pronounced and severe at L4-L5 with right descending L5 nerve root compression. Multilevel foraminal stenosis, most pronounced and mild at L4- L5 vital signs Vital Sign Date Time Temp Pulse Resp B/P (MAP) Pulse Ox O2 Delivery O2 Flow Rate FiO2 06/08/25 21:30 150/62 06/08/25 21:00 97.7 69 17 95 97.7 06/08/25 20:00 Room Air* 0 21 Total Intake and Output 06/07/25 06/07/25 06/08/25 15:00 23:00 07:00 Intake Total 670 ml 850 ml 700 ml Output Total 300 ml 200 ml Balance 670 ml 550 ml 500 ml medications Current Medications Medications Dose Ordered Sig/Ronel Route Start Time Stop Time Status Last Admin Dose Admin Acetaminophen 325 mg Q4HP PRN PO 06/01/25 02:30 06/03/25 00:57 325 MG Ondansetron HCl 4 mg Q4HP PRN IV 06/01/25 02:30 06/01/25 05:17 4 MG Nitroglycerin 250 ml @ 1.5 mls/hr Q24H IV 06/01/25 02:30 UNV Epoetin Rico-epbx 10,000 unit MWF@2100 SC 06/02/25 21:00 06/04/25 21:30 10,000 UNIT Diagnostic Test (Pha) 1 strip Q6HR 06/01/25 12:00 06/08/25 17:08 1 STRIP Insulin Human Regular Q6HR SC 06/01/25 12:00 06/08/25 17:08 3 UNITS Dextrose 50 ml UD PRN IV 06/01/25 08:30 06/01/25 19:14 50 ML Famotidine 20 mg EOD PO 06/02/25 10:00 06/08/25 08:52 20 MG Heparin Sodium (Porcine) 5,000 units Q12HR SC 06/01/25 22:00 06/08/25 21:36 5,000 UNITS Carvedilol 12.5 mg Q12HR PO 06/02/25 22:00 06/08/25 21:30 12.5 MG Doxazosin Mesylate 2 mg HS PO 06/02/25 22:00 06/08/25 21:30 2 MG Calcitriol 0.25 mcg DAILY PO 06/03/25 10:00 06/08/25 08:51 0.25 MCG Calcium Acetate 667 mg TIDWMEALS PO 06/04/25 12:00 06/08/25 17:08 667 MG Ergocalciferol 50,000 unit Q7D PO 06/04/25 09:30 06/04/25 12:58 50,000 UNIT Bumetanide 25 mg/ Miscellaneous 100 ml @ 4 mls/hr Q24H IV 06/04/25 10:30 06/07/25 09:32 4 MLS/HR Metolazone 10 mg DAILY PO 06/05/25 10:00 06/08/25 08:52 10 MG Multivit/Ca Carb/ B Cmplx/FA/Prenat 1 tab DAILY PO 06/05/25 10:00 06/08/25 08:50 1 TAB Nifedipine 90 mg DAILY PO 06/05/25 14:00 06/08/25 08:51 90 MG Morphine Sulfate 2 mg Q4HPRN PRN IV 06/06/25 15:15 Lorazepam 1 mg ONCE PRN IV 06/06/25 23:00 Aspirin 81 mg DAILY PO 06/07/25 10:00 06/08/25 08:51 81 MG Atorvastatin Calcium 20 mg HS PO 06/07/25 22:00 06/08/25 21:29 20 MG Cyclobenzaprine HCl 5 mg BID PO 06/07/25 22:00 06/08/25 21:30 5 MG Lactulose 30 ml DAILY PO 06/09/25 10:00 objective General: the patient is well developed and nourished. No acute distress. MENTAL STATUS: Awake and alert. Oriented to person, place, time and general circumstances. Able to give personal history. SPEECH, LANGUAGE, HIGHER CORTICAL FUNCTION: no aphasia or dysathria. CRANIAL NERVES: Pupils are equal, round and reactive. EOMs full and conjugate. No nystagmus. Facial sensation intact in all three divisions bilaterally. Mandibular strength intact. Facial muscles symmetrical and strength intact. Tongue midline. No fasciculations or atrophy. SENSATION: Sensation to touch and pinprick is fine, no sensory level, no definite paroxysmal distal differences MOTOR: Normal tone in the upper and lower extremity. Normal muscle bulk. No fasciculations. No abnormal movements or posturing. Muscle strength of the major groups in the upper extremities is 4/5. Muscle strength of the major groups in the lower extremities is 3-4/5. There was no [id number] differences REFLEXES: Deep tendon reflexes normal and symmetrical. No pathological reflexes. CEREBELLAR/COORDINATION: Finger to nose is normal bilaterally. GAIT/STATION: deferred. laboratory and microbiology Laboratory Tests 06/08/25 05:22 Test 06/08/25 05:22 Range/Units Serum Glucose 155 H 74-106 mg/dL Problem List General weakness, with right-sided more affected, resolved, unremarkable MRI head Hypertension emergency Rule out posterior reversible encephalopathy Sleep-related breathing disorder Obesity Assessment/Plan Monitoring Supportive treatment Telemetry Current pain management Aspirin 81 mg daily, Lipitor 10 mg daily for now APAP in the hospital He has been recommended has a trial of wedged pillow or elevated bed head for his sleep-related breathing disorder Weight control Hypersomnia precautions Further address his sleep-related breathing disorder as outpatient More recommendation per clinical course This medical document was created using an electronic medical record system with [employer] dictation system. Although this document has been carefully reviewed, there may still be some phonetic and typographical errors. These areas are purely typographical due to imperfections of the software programs, and do not reflect any compromise in the patient's medical care. Prognosis poor Dietary Evaluation Review Comments: Nutrition Recommendation: 1) Consider CCHO 75 + renal standard diet 2) Monitor PO intake, lab values, weight trend, and I/O Expected Outcomes/Goals: Intake to meet >75% estimated needs Lab values to improve FU 3-5 days Plan discussed with: Patient, Other SANDI HOLLINGSWORTH MD Jun 08, 2025 22:29
[2025-06-09] VITALS (12 sets, daily range): BP systolic 122–161; BP diastolic 75–99; PULSE 51–78; RESP 16–18; TEMP 97.5–97.8; O2SAT 90–100
[2025-06-09 07:02] LABS: Hematocrit 27.3 % (41.0-53.0); Hemoglobin 9.2 g/dL (13.5-17.5); Mean Corpuscular Hemoglobin 30.5 pg (28.0-32.0); Mean Corpuscular Volume 90.9 fL (80.0-100.0); Nucleated Red Blood Cells % 0.1 %
[2025-06-09] MEDS: SODIUM CHL 0.9% 1000 ML BAG XX ONE ×2 (08:08→08:09)
[2025-06-09] MEDS: LACTULOSE 20Gm/30ML SOLN PO SCH (09:47)
--- NOTE | 2025-06-09 13:28 | DVHPN2 ---
Progress Note - Dictate Date Seen: Jun 09, 2025 Medical Necessity Reason Pt with a Central, PICC or Fol: Yes Subjective PT WITH ACUTE RENAL FAILURE FROM DIABETIC NEPHROPATHY PMH DIABETES VASCULOPATHY CHRONIC WITH ACUTE RENAL FAILURE NEUROPATHY UNCONTROLLED HYPERTENSION PT PRESENTED WITH ANASARCA, BAILEY , SOB, PMD. ORTHOPNEA ECHO EF 45% UREMIC PERICARDIAL EFFUSION vital signs Vital Sign Date Time Temp Pulse Resp B/P (MAP) Pulse Ox O2 Delivery O2 Flow Rate FiO2 06/09/25 10:00 95 Room Air 0.0 06/09/25 10:00 21 06/09/25 09:46 161/99 06/09/25 09:45 77 06/09/25 09:00 97.8 18 97.8 Total Intake and Output 06/08/25 06/08/25 06/09/25 15:00 23:00 07:00 Intake Total 598 ml 400 ml 500 ml Output Total 550 ml 150 ml Balance 598 ml -150 ml 350 ml medications Current Medications Medications Dose Ordered Sig/Rnoel Route Start Time Stop Time Status Last Admin Dose Admin Acetaminophen 325 mg Q4HP PRN PO 06/01/25 02:30 06/03/25 00:57 325 MG Ondansetron HCl 4 mg Q4HP PRN IV 06/01/25 02:30 06/01/25 05:17 4 MG Nitroglycerin 250 ml @ 1.5 mls/hr Q24H IV 06/01/25 02:30 UNV Epoetin Rico-epbx 10,000 unit MWF@2100 [place] 06/02/25 21:00 06/04/25 21:30 10,000 UNIT Diagnostic Test (Pha) 1 strip Q6HR 06/01/25 12:00 06/09/25 05:29 1 STRIP Insulin Human Regular Q6HR SC 06/01/25 12:00 06/09/25 11:50 2 UNITS Dextrose 50 ml UD PRN IV 06/01/25 08:30 06/01/25 19:14 50 ML Famotidine 20 mg EOD PO 06/02/25 10:00 06/08/25 08:52 20 MG Heparin Sodium (Porcine) 5,000 units Q12HR SC 06/01/25 22:00 06/09/25 09:51 5,000 UNITS Carvedilol 12.5 mg Q12HR PO 06/02/25 22:00 06/09/25 09:45 12.5 MG Doxazosin Mesylate 2 mg HS PO 06/02/25 22:00 06/08/25 21:30 2 MG Calcitriol 0.25 mcg DAILY PO 06/03/25 10:00 06/09/25 09:45 0.25 MCG Calcium Acetate 667 mg TIDWMEALS PO 06/04/25 12:00 06/09/25 11:50 667 MG Ergocalciferol 50,000 unit Q7D PO 06/04/25 09:30 06/04/25 12:58 50,000 UNIT Bumetanide 25 mg/ Miscellaneous 100 ml @ 4 mls/hr Q24H IV 06/04/25 10:30 06/07/25 09:32 4 MLS/HR Metolazone 10 mg DAILY PO 06/05/25 10:00 06/09/25 09:46 10 MG Multivit/Ca Carb/ B Cmplx/FA/Prenat 1 tab DAILY PO 06/05/25 10:00 06/09/25 09:45 1 TAB Nifedipine 90 mg DAILY PO 06/05/25 14:00 06/09/25 09:46 90 MG Morphine Sulfate 2 mg Q4HPRN PRN IV 06/06/25 15:15 Lorazepam 1 mg ONCE PRN IV 06/06/25 23:00 Aspirin 81 mg DAILY PO 06/07/25 10:00 06/09/25 09:45 81 MG Atorvastatin Calcium 20 mg HS PO 06/07/25 22:00 06/08/25 21:29 20 MG Cyclobenzaprine HCl 5 mg BID PO 06/07/25 22:00 06/09/25 09:45 5 MG Lactulose 30 ml DAILY PO 06/09/25 10:00 06/09/25 09:47 30 ML laboratory and microbiology Laboratory Tests 06/09/25 05:24 06/08/25 05:22 Test 06/08/25 05:22 Range/Units Serum Glucose 155 H 74-106 mg/dL Problem List ACUTE RENAL FAILURE FROM DIABETIC NEPHROPATHY PMH DIABETES VASCULOPATHY CHRONIC WITH ACUTE RENAL FAILURE NEUROPATHY UNCONTROLLED HYPERTENSION PT PRESENTED WITH ANASARCA, BAILEY , SOB, PMD. ORTHOPNEA ECHO EF 45% UREMIC PERICARDIAL EFFUSION ANEMIA METABOLIC NON GAP ACIDOSIS UREMIA Assessment/Plan CORRECT ANEMIA DIALYSIS DANNA CARDIOLITE STRESS VS ANGIO OUTPT Dietary Evaluation Review Comments: Nutrition Recommendation: 1) Consider CCHO 75 + renal standard diet 2) Monitor PO intake, lab values, weight trend, and I/O Expected Outcomes/Goals: Intake to meet >75% estimated needs Lab values to improve FU 3-5 days Plan discussed with: Patient ANNABELLE IRBY MD Jun 09, 2025 13:28
--- NOTE | 2025-06-09 15:58 | DVHPNRES ---
Progress Note Date Seen: Jun 09, 2025 Resident Creating Document: CRISTÓBAL BRYAN RESIDENT Medical Necessity Reason Pt with a Central, PICC or Fol: Yes Subjective Review of Systems Elian Smith is a 49-year-old male patient past medical history of hypertension, hyperlipidemia, type 2 diabetes mellitus, diabetic foot status post debridement who presented to the ED with chief complaint of shortness of breath and lower leg swelling associated with decreased urine output for the past week before his admission. Patient has not been taking his hydrochlorothiazide for the past two weeks, rest of medication he is compliant with. Denies any other associated symptoms including fever, chills, nausea, vomiting, diarrhea, dysuria in any other associated symptoms. BP was 213/139 in the ER . BUN, creatinine was elevated, kidney ultrasound demonstrated normal bilateral kidney with small bilateral pleural effusion. Hyperkalemia protocol was initiated for hyperkalemia management. Nephrology was consulted and recommended IV Lasix drip, IV sodium bicarb for metabolic acidosis secondary to LORE and monitor BMP. Past medical history:hypertension, hyperlipidemia, type 2 diabetes mellitus Past surgical history: I&d on left foot Social history: denies smoking, alcohol and drugs Patient seen and examined at bedside. He is alert oriented x3 and currently on 2 L oxygen through nasal cannula, saturating 95%. The patient is currently on low-dose nicardipine drip, bridged with oral carvedilol 6.25 mg p.o. b.i.d., amlodipine 10 mg daily . Complaint of shortness of breath, back pain and no other active complaint. Constitutional: No: Fever, Chills, Sweats, Weakness, Malaise, Other Eyes: No: Pain, Vision change, Conjunctivae inflammation, Eyelid inflammation, Other, Redness ENT: No: Ear pain, Ear discharge, Nose pain, Nose discharge, Nose congestion, Mouth pain, Mouth swelling, Throat pain, Throat swelling, Other Respiratory: Shortness of breath, No: Cough, Dry,Wheezing, Hemoptysis, Pleuritic Pain, Sputum, Wheezing, Other Cardiovascular: Edema No: Chest Pain, Palpitations, Orthopnea, Paroxysmal Noc. Dyspnea, Lt Headedness, Other Gastrointestinal: No: Nausea, Vomiting, Abdominal Pain, Diarrhea, Constipation, Melena, Hematochezia, Other Musculoskeletal: No: other, neck pain, shoulder pain, arm pain, back pain, hand pain, leg pain, foot pain Neurological:; Weakness in lower extremities, back pain,no Numbness, Incoordination, Change in speech, Confusion, Seizures 06/02/25- The patient was seen at bedside today. Patient got hemodialysis today morning. His hemoglobin this morning was 6.7, 1 unit of PRBC was given. Nephrology continued with the lasix drip, added sevelamer 800mg tid po and added nifedipine 90 mg po daily. Dose of cervedilol was increased to 12.5 mg po bid. IR will place tunnel catheter tomorrow. 06/03/25- The patient was seen at bedside today. Hemoglobin today is 9.1 and creatinine is 6.27. Blood pressure is under control now. Patient got tunnel catheter placement by IR today. The patient will receive 1 dialysis today. rehabilitation services coordinator consult for arranging chair time for hemodialysis has already been placed we are pending approval on that. Possible discharge tomorrow once check time is secured. Calcitriol 0.25mcg daily po was started today. 06/04/25- The patient was seen at bedside today. Creatinine today is 5.29. Patient got hemodialysis yesterday and 3 L was removed. Lasix drip was discontinued and patient was started on Bumex drip 1mg/hr and metolazone 10 mg p.o. daily. Albumin 25% at 12 hr protocol was started. Cardiology was consulted, pending evaluation. Patient complained of weakness in his lower limbs and right arm, head CT was ordered which showed no acute abnormality. CT angiography head and neck was ordered, pending report. Lumbosacral spine x-ray was also ordered pending report. Patient and his sons were explained extensively and updated with all evaluations and management. 06/05/25- The patient was seen at bedside today. Creatinine today is 4.37. Patient got hemodialysis yesterday and 4L fluid was removed. Chest CT showed cardiomegaly with mild pulmonary edema and moderate bilateral pleural effusions. Patient complained of weakness and inability to move both lower extremities. MRI lumbosacral spine showed multilevel disc degeneration and spinal canal stenosis most pronounced at L4-L5 with L5 nerve root compression. Spinal surgery was consulted, pending evaluation. 06/06/25- The patient was seen at bedside today. Creatinine today is 5.45. Spine surgeon was consulted and they recommended physical therapy and pain management along with muscle relaxants. Cardiology recommended outpatient follow-up for possible ischemic workup with stress test. We placed an IR consult for possible thoracentesis. 06/07/25- The patient was seen at bedside today. Creatinine today is 5.44. Patient continued to work with physical therapy but was not able to get out of bed. Carotid doppler was negative for any stenosis. Chest US showed small right pleural effusion. He will get his next hemodialysis on 06/09/25. Per nephrology, he can be discharged to the SNF for physical therapy as he has chair time at [facility] on Monday, Monday and Monday at 5.30 am. Discharge planning was started with social worker aide to get a bed for the patient at [facility]. 06/08/25- 06/08/25: The patient was evaluated and examined at bedside. VS, laboratories and chart were reviewed. BP within normal limits. Patient is using Bi-Pap at night to improved oxygenation. PT is onboard, they have evaluated the patient and recommend SNF or home-health; the patient and his family have denied SNF and agreed today to home-health services. A wheelchair was requested. The patient will continue PT and daily walk from bed to chair X3 daily has been requested to improved mobility. The patient reports feeling better, and reports constipation, lactulose 30ml po was started. I have spoken with the patient and his family and address all questions and concerns, they agree with current plan. Patient will continue with dialysis in [facility] facility on Monday06/09/25. 06/09/25- The patient was seen at bedside today. Patient continued to work with physical therapy. He was able to get out of bed and take a few steps. Wheelchair was delivered at bedside. Patient mentions he is able to move his legs now and feels better. Patient got hemodialysis yesterday. Discharge planning was discussed with social worker aide and they are working on discharge to home with home health. We will continue monitoring and managing the patient. Objective vital signs Vital Sign Date Time Temp Pulse Resp B/P (MAP) Pulse Ox O2 Delivery O2 Flow Rate FiO2 06/09/25 13:00 97.7 78 18 147/76 (99) 92 97.7 06/09/25 10:00 Room Air 0.0 06/09/25 10:00 21 Total Intake and Output 06/08/25 06/08/25 06/09/25 15:00 23:00 07:00 Intake Total 598 ml 400 ml 500 ml Output Total 550 ml 150 ml Balance 598 ml -150 ml 350 ml medications Current Medications Medications Dose Ordered Sig/Ronel Route Start Time Stop Time Status Last Admin Dose Admin Acetaminophen 325 mg Q4HP PRN PO 06/01/25 02:30 06/03/25 00:57 325 MG Ondansetron HCl 4 mg Q4HP PRN IV 06/01/25 02:30 06/01/25 05:17 4 MG Nitroglycerin 250 ml @ 1.5 mls/hr Q24H IV 06/01/25 02:30 UNV Epoetin Rico-epbx 10,000 unit MWF@2100 [place] 06/02/25 21:00 06/04/25 21:30 10,000 UNIT Diagnostic Test (Pha) 1 strip Q6HR 06/01/25 12:00 06/09/25 05:29 1 STRIP Insulin Human Regular Q6HR SC 06/01/25 12:00 06/09/25 11:50 2 UNITS Dextrose 50 ml UD PRN IV 06/01/25 08:30 06/01/25 19:14 50 ML Famotidine 20 mg EOD PO 06/02/25 10:00 06/08/25 08:52 20 MG Heparin Sodium (Porcine) 5,000 units Q12HR SC 06/01/25 22:00 06/09/25 09:51 5,000 UNITS Carvedilol 12.5 mg Q12HR PO 06/02/25 22:00 06/09/25 09:45 12.5 MG Doxazosin Mesylate 2 mg HS PO 06/02/25 22:00 06/08/25 21:30 2 MG Calcitriol 0.25 mcg DAILY PO 06/03/25 10:00 06/09/25 09:45 0.25 MCG Calcium Acetate 667 mg TIDWMEALS PO 06/04/25 12:00 06/09/25 11:50 667 MG Ergocalciferol 50,000 unit Q7D PO 06/04/25 09:30 06/04/25 12:58 50,000 UNIT Bumetanide 25 mg/ Miscellaneous 100 ml @ 4 mls/hr Q24H IV 06/04/25 10:30 06/07/25 09:32 4 MLS/HR Metolazone 10 mg DAILY PO 06/05/25 10:00 06/09/25 09:46 10 MG Multivit/Ca Carb/ B Cmplx/FA/Prenat 1 tab DAILY PO 06/05/25 10:00 06/09/25 09:45 1 TAB Nifedipine 90 mg DAILY PO 06/05/25 14:00 06/09/25 09:46 90 MG Morphine Sulfate 2 mg Q4HPRN PRN IV 06/06/25 15:15 Lorazepam 1 mg ONCE PRN IV 06/06/25 23:00 Aspirin 81 mg DAILY PO 06/07/25 10:00 06/09/25 09:45 81 MG Atorvastatin Calcium 20 mg HS PO 06/07/25 22:00 06/08/25 21:29 20 MG Cyclobenzaprine HCl 5 mg BID PO 06/07/25 22:00 06/09/25 09:45 5 MG Lactulose 30 ml DAILY PO 06/09/25 10:00 06/09/25 09:47 30 ML Examination General Appearance: Alert, Oriented X3, Cooperative HEENT: Atraumatic, PERRLA, EOMI, Mucous membrane moist/pink Respiratory: mild Bilateral crackles Cardiovascular: Regular rate, Normal S1, Normal S2, No murmurs, no chest wall tenderness Abdominal: Normal bowel sounds, Soft, No tenderness, No hepatospenomegaly, No masses Extremities: Edema 3 bilateral+, No clubbing, No cyanosis, Skin: No rashes, No breakdown, No significant lesion Neuro: Normal speech, Strength 2/5 in lower extremities, strength 4/5 in upper extremities, Normal tone, Sensation intact, Cranial nerves 3-12 NL Psych/Mental Status: Mental status NL, Mood NL Genitourinary: scrotal edema DEMARCUS: no external hemorrhoids visible, sphincter tone is normal, empty rectal vault, no active bleeding Nurse Shania was present as cnc machinist during the examination laboratory and microbiology Laboratory Tests 06/09/25 05:24 06/08/25 05:22 Test 06/08/25 05:22 Range/Units Serum Glucose 155 H 74-106 mg/dL Labs and/or images reviewed: Labs reviewed by me, Image(s) reviewed by me Problem List/Assessment/Plan Problem List/Assessment/Plan Assessment / Plan # Acute hypoxic respiratory failure likely due to volume overload in the setting of severe LORE requiring hemodialysis # Acute on chronic decompensated systolic heart failure # Acute pulmonary edema due to above # Hypertensive emergency # Acute pulmonary embolism , ruled out - chest x-ray revealed bilateral pulmonary vascular congestion. Bibasilar atelectasis/consolidation - BNP is elevated - echo showed mild global hypokinesis with an LVEF of 45% and slightly dilated RV. There were normal cardiac valves and very mild posterior pericardial effusion. - Carvedilol 12.5 mg p.o. b.i.d. - Nifedipine 90mg daily - V/Q scan done on 06/02/25- low probability for PE - cardiology consulted-outpatient follow-up for ischemic workup with stress test -Chest US- small right pleural effusion -patient weaned off oxygen to room air # Acute ischemic/hemorrhagic stroke, rule out -CT head- No acute intracranial abnormality -CT angiography , was grossly unremarkable -physical therapy on board- patienct getting out of bed and taking a few steps -MRI brain- Small 3 mm focus of T2/FLAIR hyperintense signal in the left anterior frontal lobe subcortical white matter is nonspecific, possible mild chronic small-vessel ischemic disease -carotid doppler- No hemodynamically significant stenosis noted in the right carotid system # Acute kidney injury hemodynamically mediated in the setting of fluid overload hypertensive emergency # Chronic kidney disease, unspecified, baseline is unknown s/p IJ tunneled hemodialysis catheter # Possible diabetic nephropathy # Acute on Chronic normocytic normochromic anemia # Diabetes mellitus, status post debridement of diabetic foot #Secondary hyperparathyroidism -Ultrasound demonstrated normal-appearing kidneys bilaterally, with bilateral pleural effusion -Nephrology on board -renal diet -Epogen 1000 units 3 times a week -strict I&O -Monitor BMP -hemodialysis on 06/09/25 -Sevelamer 800mg po tid started -Calcitriol 0.25 mcg daily po -metolazone 10mg po daily -continue bumex drip iv 1mg/hr -Chair time at [facility] dialysis on F at 5.30 am # Spinal canal stenosis with lumbar radiculopathy - MRI of L/S spine without contrast showed Multilevel spinal canal stenosis, most pronounced and mild at L4-L5. Multilevel subarticular zone stenosis, most pronounced and severe at L4-L5 with right descending L5 nerve root compression. Multilevel foraminal stenosis - Consulted spinal surgery-physical therapy and muscle relaxants- flexeril 5mg po bid # Mild transaminitis likely secondary to hepatic congestion from CHF # Moderate protein calorie malnutrition, albumin 2.5 # Morbid obesity, BMI 40.6 kg/m2 - counseled patient regarding healthy diet, weight loss, lifestyle modification and physical exercise PUD prophylaxis-Pepcid 20 mg p.o. daily DVT prophylaxis-Heparin 5000 units b.i.d. Goal of care discussed with the patient for more than 20 minutes full code Plan discussed with Dr Bonilla Plan discussed with patient Plan discussed with: Patient My Orders My Orders Orders - CRISTÓBAL BRYAN RESIDENT Procedure Category Date Status Time * Shoe Sprayer CONS 06/09/25 Transmitted Consult Discontinue Tele STEWART 06/09/25 In Process 13:12 Transfer Orders XFER 06/09/25 Transmitted 13:12 Dietary Evaluation Review Comments: Nutrition Recommendation: 1) Consider CCHO 75 + renal standard diet 2) Monitor PO intake, lab values, weight trend, and I/O Expected Outcomes/Goals: Intake to meet >75% estimated needs Lab values to improve FU 3-5 days Date of Service: Jun 09, 2025 Billing Provider: CATA BONILLA MD Common Visit Codes: 78915-[id number] INP/OBS CARE(HIGH) CRISTÓBAL BRYAN RESIDENT Jun 09, 2025 15:58 CATA BONILLA MD Jun 09, 2025 17:56
--- NOTE | 2025-06-09 16:16 | DVHPN2 ---
Progress Note Date Seen: Jun 09, 2025 Medical Necessity Reason Pt with a Central, PICC or Fol: Yes Subjective Patient reports: No new complaints Review of Systems: Deferred Objective vital signs Vital Sign Date Time Temp Pulse Resp B/P (MAP) Pulse Ox O2 Delivery O2 Flow Rate FiO2 06/09/25 13:00 97.7 78 18 147/76 (99) 92 97.7 06/09/25 10:00 Room Air 0.0 06/09/25 10:00 21 Total Intake and Output 06/08/25 06/08/25 06/09/25 15:00 23:00 07:00 Intake Total 598 ml 400 ml 500 ml Output Total 550 ml 150 ml Balance 598 ml -150 ml 350 ml medications Current Medications Medications Dose Ordered Sig/Ronel Route Start Time Stop Time Status Last Admin Dose Admin Acetaminophen 325 mg Q4HP PRN PO 06/01/25 02:30 06/03/25 00:57 325 MG Ondansetron HCl 4 mg Q4HP PRN IV 06/01/25 02:30 06/01/25 05:17 4 MG Nitroglycerin 250 ml @ 1.5 mls/hr Q24H IV 06/01/25 02:30 UNV Epoetin Rico-epbx 10,000 unit MWF@2100 NC 06/02/25 21:00 06/04/25 21:30 10,000 UNIT Diagnostic Test (Pha) 1 strip Q6HR 06/01/25 12:00 06/09/25 05:29 1 STRIP Insulin Human Regular Q6HR SC 06/01/25 12:00 06/09/25 11:50 2 UNITS Dextrose 50 ml UD PRN IV 06/01/25 08:30 06/01/25 19:14 50 ML Famotidine 20 mg EOD PO 06/02/25 10:00 06/08/25 08:52 20 MG Heparin Sodium (Porcine) 5,000 units Q12HR SC 06/01/25 22:00 06/09/25 09:51 5,000 UNITS Carvedilol 12.5 mg Q12HR PO 06/02/25 22:00 06/09/25 09:45 12.5 MG Doxazosin Mesylate 2 mg HS PO 06/02/25 22:00 06/08/25 21:30 2 MG Calcitriol 0.25 mcg DAILY PO 06/03/25 10:00 06/09/25 09:45 0.25 MCG Calcium Acetate 667 mg TIDWMEALS PO 06/04/25 12:00 06/09/25 11:50 667 MG Ergocalciferol 50,000 unit Q7D PO 06/04/25 09:30 06/04/25 12:58 50,000 UNIT Bumetanide 25 mg/ Miscellaneous 100 ml @ 4 mls/hr Q24H IV 06/04/25 10:30 06/07/25 09:32 4 MLS/HR Metolazone 10 mg DAILY PO 06/05/25 10:00 06/09/25 09:46 10 MG Multivit/Ca Carb/ B Cmplx/FA/Prenat 1 tab DAILY PO 06/05/25 10:00 06/09/25 09:45 1 TAB Nifedipine 90 mg DAILY PO 06/05/25 14:00 06/09/25 09:46 90 MG Morphine Sulfate 2 mg Q4HPRN PRN IV 06/06/25 15:15 Lorazepam 1 mg ONCE PRN IV 06/06/25 23:00 Aspirin 81 mg DAILY PO 06/07/25 10:00 06/09/25 09:45 81 MG Atorvastatin Calcium 20 mg HS PO 06/07/25 22:00 06/08/25 21:29 20 MG Cyclobenzaprine HCl 5 mg BID PO 06/07/25 22:00 06/09/25 09:45 5 MG Lactulose 30 ml DAILY PO 06/09/25 10:00 06/09/25 09:47 30 ML laboratory and microbiology Laboratory Tests 06/09/25 05:24 06/08/25 05:22 Test 06/08/25 05:22 Range/Units Serum Glucose 155 H 74-106 mg/dL Problem List/Assessment/Plan Problem List/Assessment/Plan ESRD, requiring HD Hypertensive emergency Volume overload, due to above Diabetes type 2 Nephrotic range proteinuria, due to above Dyslipidemia Morbid obesity Severe anemia Hyperkalemia Status post IJ tunneled hemodialysis catheter Recommendations * Next hemodialysis on 06/10 * Epogen SQ 3 x weekly * Sevelamer 800 mg t.i.d., nifedipine 90 mg daily, Cardilol 6.25 BID * Renal diet * BP control * Social consult for outpatient HD chair time at [facility] * We Follow up with the patient Plan discussed with: Patient Dietary Evaluation Review Comments: Nutrition Recommendation: 1) Consider CCHO 75 + renal standard diet 2) Monitor PO intake, lab values, weight trend, and I/O Expected Outcomes/Goals: Intake to meet >75% estimated needs Lab values to improve FU 3-5 days GUILLE HERNANDEZ MD Jun 09, 2025 16:16
[2025-06-10] VITALS (11 sets, daily range): BP systolic 131–181; BP diastolic 70–91; PULSE 78–81; RESP 17–20; TEMP 97.6–99.9; O2SAT 93–98
[2025-06-10 06:11] LABS: Hemoglobin 8.1 g/dL (13.5-17.5)
[2025-06-10 06:13] LABS: Hematocrit 24.1 % (41.0-53.0); Mean Corpuscular Hemoglobin 30.9 pg (28.0-32.0); Mean Corpuscular Volume 91.5 fL (80.0-100.0); Nucleated Red Blood Cells % 0.2 %
[2025-06-10 06:28] LABS: Chloride 104 mmol/L (98-107); Potassium 4.3 mmol/L (3.5-5.1); Sodium 142 mmol/L (136-145)
[2025-06-10 06:29] LABS: Anion Gap 10 (5-15); Carbon Dioxide 28 mmol/L (20-31)
[2025-06-10 06:34] LABS: BUN/Creatinine Ratio 4.9 (10.0-20.0)
[2025-06-10 06:35] LABS: Blood Urea Nitrogen 27 mg/dL (9-23); Calcium 8.3 mg/dL (8.7-10.4); Glucose 148 mg/dL (74-106)
[2025-06-10] MEDS ORDERED: DOXA4TAB83 PO (10:38)
[2025-06-10] MEDS ORDERED: NIFE90TA75 PO (10:38)
[2025-06-10] MEDS ORDERED: CALC0.25 PO (10:38)
[2025-06-10] MEDS ORDERED: CARV6.2551 PO (10:38)
[2025-06-10] MEDS ORDERED: ASPI-498 PO (10:38)
[2025-06-10] MEDS ORDERED: ATOR40TA52 PO (10:38)
[2025-06-10] MEDS ORDERED: CALC10TA PO (10:38)
--- NOTE | 2025-06-10 14:06 | DVHPN2 ---
Progress Note Date Seen: Jun 10, 2025 Medical Necessity Reason Pt with a Central, PICC or Fol: Yes Subjective Patient reports: No new complaints Review of Systems: Deferred Objective vital signs Vital Sign Date Time Temp Pulse Resp B/P (MAP) Pulse Ox O2 Delivery O2 Flow Rate FiO2 06/10/25 12:41 98.9 78 20 181/91 (121) 95 98.9 06/10/25 06:57 21 06/09/25 20:00 Room Air* 0 Total Intake and Output 06/09/25 06/09/25 06/10/25 15:00 23:00 07:00 Intake Total 100 ml 580 ml Output Total 600 ml Balance 100 ml -20 ml medications Current Medications Medications Dose Ordered Sig/Ronel Route Start Time Stop Time Status Last Admin Dose Admin Acetaminophen 325 mg Q4HP PRN PO 06/01/25 02:30 06/03/25 00:57 325 MG Ondansetron HCl 4 mg Q4HP PRN IV 06/01/25 02:30 06/01/25 05:17 4 MG Nitroglycerin 250 ml @ 1.5 mls/hr Q24H IV 06/01/25 02:30 UNV Epoetin Rico-epbx 10,000 unit MWF@2100 SC 06/02/25 21:00 06/09/25 21:23 10,000 UNIT Diagnostic Test (Pha) 1 strip Q6HR 06/01/25 12:00 06/10/25 12:15 1 STRIP Insulin Human Regular Q6HR SC 06/01/25 12:00 06/10/25 06:40 3 UNITS Dextrose 50 ml UD PRN IV 06/01/25 08:30 06/01/25 19:14 50 ML Famotidine 20 mg EOD PO 06/02/25 10:00 06/08/25 08:52 20 MG Heparin Sodium (Porcine) 5,000 units Q12HR SC 06/01/25 22:00 06/09/25 21:25 5,000 UNITS Carvedilol 12.5 mg Q12HR PO 06/02/25 22:00 06/09/25 21:22 12.5 MG Doxazosin Mesylate 2 mg HS PO 06/02/25 22:00 06/09/25 21:23 2 MG Calcitriol 0.25 mcg DAILY PO 06/03/25 10:00 06/09/25 09:45 0.25 MCG Calcium Acetate 667 mg TIDWMEALS PO 06/04/25 12:00 06/10/25 08:48 667 MG Ergocalciferol 50,000 unit Q7D PO 06/04/25 09:30 06/04/25 12:58 50,000 UNIT Bumetanide 25 mg/ Miscellaneous 100 ml @ 4 mls/hr Q24H IV 06/04/25 10:30 06/07/25 09:32 4 MLS/HR Metolazone 10 mg DAILY PO 06/05/25 10:00 06/09/25 09:46 10 MG Multivit/Ca Carb/ B Cmplx/FA/Prenat 1 tab DAILY PO 06/05/25 10:00 06/09/25 09:45 1 TAB Nifedipine 90 mg DAILY PO 06/05/25 14:00 06/09/25 09:46 90 MG Morphine Sulfate 2 mg Q4HPRN PRN IV 06/06/25 15:15 Lorazepam 1 mg ONCE PRN IV 06/06/25 23:00 Aspirin 81 mg DAILY PO 06/07/25 10:00 06/09/25 09:45 81 MG Atorvastatin Calcium 20 mg HS PO 06/07/25 22:00 06/09/25 21:21 20 MG Cyclobenzaprine HCl 5 mg BID PO 06/07/25 22:00 06/09/25 21:22 5 MG Lactulose 30 ml DAILY PO 06/09/25 10:00 06/09/25 09:47 30 ML Examination: MSK:Abnormal laboratory and microbiology Laboratory Tests 06/10/25 05:10 Test 06/10/25 05:10 Range/Units Serum Glucose 148 H 74-106 mg/dL Problem List/Assessment/Plan Problem List/Assessment/Plan ESRD, requiring HD Hypertensive emergency Volume overload, due to above Diabetes type 2 Nephrotic range proteinuria, due to above Dyslipidemia Morbid obesity Severe anemia Hyperkalemia Status post IJ tunneled hemodialysis catheter Recommendations * Next hemodialysis on 06/10 * Epogen SQ 3 x weekly * Sevelamer 800 mg t.i.d., nifedipine 90 mg daily, Cardilol 6.25 BID * Renal diet * BP control * Social consult for outpatient HD chair time at [facility] * Positive pus near the catheter exit site---swab sent and blood cultures ordered * HD RN notified Plan discussed with: Patient My Orders My Orders Orders - GUILLE HERNANDEZ MD Procedure Category Date Status Time Hemodialysis Orders ORDERS 06/10/25 Transmitted 04:00 Blood Culture IMELDA 06/10/25 In Process 11:05 Wound Culture W/ Gs IMELDA 06/10/25 Logged 11:05 Dietary Evaluation Review Comments: Nutrition Recommendation: 1) Consider CCHO 75 + renal standard diet 2) Monitor PO intake, lab values, weight trend, and I/O Expected Outcomes/Goals: Intake to meet >75% estimated needs Lab values to improve FU 3-5 days GUILLE HERNANDEZ MD Jun 10, 2025 14:06
--- NOTE | 2025-06-10 15:31 | DVHPN2 ---
Progress Note - Dictate Date Seen: Jun 10, 2025 Medical Necessity Reason Pt with a Central, PICC or Fol: Yes Subjective PT WITH ACUTE RENAL FAILURE FROM DIABETIC NEPHROPATHY PMH DIABETES VASCULOPATHY CHRONIC WITH ACUTE RENAL FAILURE NEUROPATHY UNCONTROLLED HYPERTENSION PT PRESENTED WITH ANASARCA, BAILEY , SOB, PMD. ORTHOPNEA ECHO EF 45% UREMIC PERICARDIAL EFFUSION vital signs Vital Sign Date Time Temp Pulse Resp B/P (MAP) Pulse Ox O2 Delivery O2 Flow Rate FiO2 06/10/25 15:13 128/86 06/10/25 15:10 79 06/10/25 12:41 98.9 20 95 98.9 06/10/25 09:05 Room Air 06/10/25 09:05 0 21 Total Intake and Output 06/09/25 06/09/25 06/10/25 15:00 23:00 07:00 Intake Total 100 ml 580 ml Output Total 600 ml Balance 100 ml -20 ml medications Current Medications Medications Dose Ordered Sig/Ronel Route Start Time Stop Time Status Last Admin Dose Admin Acetaminophen 325 mg Q4HP PRN PO 06/01/25 02:30 06/03/25 00:57 325 MG Ondansetron HCl 4 mg Q4HP PRN IV 06/01/25 02:30 06/01/25 05:17 4 MG Nitroglycerin 250 ml @ 1.5 mls/hr Q24H IV 06/01/25 02:30 UNV Epoetin Rico-epbx 10,000 unit MWF@2100 ME 06/02/25 21:00 06/09/25 21:23 10,000 UNIT Diagnostic Test (Pha) 1 strip Q6HR 06/01/25 12:00 06/10/25 12:15 1 STRIP Insulin Human Regular Q6HR SC 06/01/25 12:00 06/10/25 06:40 3 UNITS Dextrose 50 ml UD PRN IV 06/01/25 08:30 06/01/25 19:14 50 ML Famotidine 20 mg EOD PO 06/02/25 10:00 06/10/25 15:13 20 MG Heparin Sodium (Porcine) 5,000 units Q12HR SC 06/01/25 22:00 06/09/25 21:25 5,000 UNITS Carvedilol 12.5 mg Q12HR PO 06/02/25 22:00 06/10/25 15:10 12.5 MG Doxazosin Mesylate 2 mg HS PO 06/02/25 22:00 06/09/25 21:23 2 MG Calcitriol 0.25 mcg DAILY PO 06/03/25 10:00 06/10/25 15:12 0.25 MCG Calcium Acetate 667 mg TIDWMEALS PO 06/04/25 12:00 06/10/25 08:48 667 MG Ergocalciferol 50,000 unit Q7D PO 06/04/25 09:30 06/04/25 12:58 50,000 UNIT Metolazone 10 mg DAILY PO 06/05/25 10:00 06/10/25 15:11 10 MG Multivit/Ca Carb/ B Cmplx/FA/Prenat 1 tab DAILY PO 06/05/25 10:00 06/10/25 15:12 1 TAB Nifedipine 90 mg DAILY PO 06/05/25 14:00 06/10/25 15:13 90 MG Morphine Sulfate 2 mg Q4HPRN PRN IV 06/06/25 15:15 Lorazepam 1 mg ONCE PRN IV 06/06/25 23:00 Aspirin 81 mg DAILY PO 06/07/25 10:00 06/10/25 15:13 81 MG Atorvastatin Calcium 20 mg HS PO 06/07/25 22:00 06/09/25 21:21 20 MG Cyclobenzaprine HCl 5 mg BID PO 06/07/25 22:00 06/10/25 15:13 5 MG Lactulose 30 ml DAILY PO 06/09/25 10:00 06/09/25 09:47 30 ML laboratory and microbiology Laboratory Tests 06/10/25 05:10 Test 06/10/25 05:10 Range/Units Serum Glucose 148 H 74-106 mg/dL Problem List ACUTE RENAL FAILURE FROM DIABETIC NEPHROPATHY PMH DIABETES VASCULOPATHY CHRONIC WITH ACUTE RENAL FAILURE NEUROPATHY UNCONTROLLED HYPERTENSION PT PRESENTED WITH ANASARCA, BAILEY , SOB, PMD. ORTHOPNEA ECHO EF 45% UREMIC PERICARDIAL EFFUSION ANEMIA METABOLIC NON GAP ACIDOSIS UREMIA Assessment/Plan CORRECT ANEMIA DIALYSIS DANNA CARDIOLITE STRESS VS ANGIO OUTPT Dietary Evaluation Review Comments: Nutrition Recommendation: 1) Consider CCHO 75 + renal standard diet 2) Monitor PO intake, lab values, weight trend, and I/O Expected Outcomes/Goals: Intake to meet >75% estimated needs Lab values to improve FU 3-5 days Plan discussed with: Patient ANNABELLE IRBY MD Jun 10, 2025 15:31
--- NOTE | 2025-06-10 16:40 | DVHPNRES ---
Progress Note Date Seen: Jun 10, 2025 Resident Creating Document: CRISTÓBAL BRYAN RESIDENT Medical Necessity Reason Pt with a Central, PICC or Fol: Yes Subjective Review of Systems Elian Smith is a 49-year-old male patient past medical history of hypertension, hyperlipidemia, type 2 diabetes mellitus, diabetic foot status post debridement who presented to the ED with chief complaint of shortness of breath and lower leg swelling associated with decreased urine output for the past week before his admission. Patient has not been taking his hydrochlorothiazide for the past two weeks, rest of medication he is compliant with. Denies any other associated symptoms including fever, chills, nausea, vomiting, diarrhea, dysuria in any other associated symptoms. BP was 213/139 in the ER . BUN, creatinine was elevated, kidney ultrasound demonstrated normal bilateral kidney with small bilateral pleural effusion. Hyperkalemia protocol was initiated for hyperkalemia management. Nephrology was consulted and recommended IV Lasix drip, IV sodium bicarb for metabolic acidosis secondary to LORE and monitor BMP. Past medical history:hypertension, hyperlipidemia, type 2 diabetes mellitus Past surgical history: I&d on left foot Social history: denies smoking, alcohol and drugs Patient seen and examined at bedside. He is alert oriented x3 and currently on 2 L oxygen through nasal cannula, saturating 95%. The patient is currently on low-dose nicardipine drip, bridged with oral carvedilol 6.25 mg p.o. b.i.d., amlodipine 10 mg daily . Complaint of shortness of breath, back pain and no other active complaint. Constitutional: No: Fever, Chills, Sweats, Weakness, Malaise, Other Eyes: No: Pain, Vision change, Conjunctivae inflammation, Eyelid inflammation, Other, Redness ENT: No: Ear pain, Ear discharge, Nose pain, Nose discharge, Nose congestion, Mouth pain, Mouth swelling, Throat pain, Throat swelling, Other Respiratory: Shortness of breath, No: Cough, Dry,Wheezing, Hemoptysis, Pleuritic Pain, Sputum, Wheezing, Other Cardiovascular: Edema No: Chest Pain, Palpitations, Orthopnea, Paroxysmal Noc. Dyspnea, Lt Headedness, Other Gastrointestinal: No: Nausea, Vomiting, Abdominal Pain, Diarrhea, Constipation, Melena, Hematochezia, Other Musculoskeletal: No: other, neck pain, shoulder pain, arm pain, back pain, hand pain, leg pain, foot pain Neurological:; Weakness in lower extremities, back pain,no Numbness, Incoordination, Change in speech, Confusion, Seizures 06/02/25- The patient was seen at bedside today. Patient got hemodialysis today morning. His hemoglobin this morning was 6.7, 1 unit of PRBC was given. Nephrology continued with the lasix drip, added sevelamer 800mg tid po and added nifedipine 90 mg po daily. Dose of cervedilol was increased to 12.5 mg po bid. IR will place tunnel catheter tomorrow. 06/03/25- The patient was seen at bedside today. Hemoglobin today is 9.1 and creatinine is 6.27. Blood pressure is under control now. Patient got tunnel catheter placement by IR today. The patient will receive 1 dialysis today. services manager consult for arranging chair time for hemodialysis has already been placed we are pending approval on that. Possible discharge tomorrow once check time is secured. Calcitriol 0.25mcg daily po was started today. 06/04/25- The patient was seen at bedside today. Creatinine today is 5.29. Patient got hemodialysis yesterday and 3 L was removed. Lasix drip was discontinued and patient was started on Bumex drip 1mg/hr and metolazone 10 mg p.o. daily. Albumin 25% at 12 hr protocol was started. Cardiology was consulted, pending evaluation. Patient complained of weakness in his lower limbs and right arm, head CT was ordered which showed no acute abnormality. CT angiography head and neck was ordered, pending report. Lumbosacral spine x-ray was also ordered pending report. Patient and his sons were explained extensively and updated with all evaluations and management. 06/05/25- The patient was seen at bedside today. Creatinine today is 4.37. Patient got hemodialysis yesterday and 4L fluid was removed. Chest CT showed cardiomegaly with mild pulmonary edema and moderate bilateral pleural effusions. Patient complained of weakness and inability to move both lower extremities. MRI lumbosacral spine showed multilevel disc degeneration and spinal canal stenosis most pronounced at L4-L5 with L5 nerve root compression. Spinal surgery was consulted, pending evaluation. 06/06/25- The patient was seen at bedside today. Creatinine today is 5.45. Spine surgeon was consulted and they recommended physical therapy and pain management along with muscle relaxants. Cardiology recommended outpatient follow-up for possible ischemic workup with stress test. We placed an IR consult for possible thoracentesis. 06/07/25- The patient was seen at bedside today. Creatinine today is 5.44. Patient continued to work with physical therapy but was not able to get out of bed. Carotid doppler was negative for any stenosis. Chest US showed small right pleural effusion. He will get his next hemodialysis on 06/09/25. Per nephrology, he can be discharged to the SNF for physical therapy as he has chair time at [facility] on Monday, Monday and Monday at 5.30 am. Discharge planning was started with addiction social worker to get a bed for the patient at [facility]. 06/08/25- 06/08/25: The patient was evaluated and examined at bedside. VS, laboratories and chart were reviewed. BP within normal limits. Patient is using Bi-Pap at night to improved oxygenation. PT is onboard, they have evaluated the patient and recommend SNF or home-health; the patient and his family have denied SNF and agreed today to home-health services. A wheelchair was requested. The patient will continue PT and daily walk from bed to chair X3 daily has been requested to improved mobility. The patient reports feeling better, and reports constipation, lactulose 30ml po was started. I have spoken with the patient and his family and address all questions and concerns, they agree with current plan. Patient will continue with dialysis in [facility] facility on Monday06/09/25. 06/09/25- The patient was seen at bedside today. Patient continued to work with physical therapy. He was able to get out of bed and take a few steps. Wheelchair was delivered at bedside. Patient mentions he is able to move his legs now and feels better. Patient got hemodialysis yesterday. Discharge planning was discussed with addiction social worker and they are working on discharge to home with home health. We will continue monitoring and managing the patient. 06/10/25- The patient was seen and evaluated at bedside today. Patient continued to work with physical therapy. services manager talked to [facility] for home health for PT, but were told his insurance will not cover PT at home. Discharge was noted around his catheter site, so wound culture and blood culture were sent. Patient is due for dialysis today. Patient will be discharged tomorrow if cultures are negative. Objective vital signs Vital Sign Date Time Temp Pulse Resp B/P (MAP) Pulse Ox O2 Delivery O2 Flow Rate FiO2 06/10/25 15:13 128/86 06/10/25 15:10 79 06/10/25 12:41 98.9 20 95 98.9 06/10/25 10:00 Nasal Cannula 1.0 06/10/25 10:00 24 Total Intake and Output 06/09/25 06/09/25 06/10/25 15:00 23:00 07:00 Intake Total 100 ml 580 ml Output Total 600 ml Balance 100 ml -20 ml medications Current Medications Medications Dose Ordered Sig/Ronel Route Start Time Stop Time Status Last Admin Dose Admin Acetaminophen 325 mg Q4HP PRN PO 06/01/25 02:30 06/03/25 00:57 325 MG Ondansetron HCl 4 mg Q4HP PRN IV 06/01/25 02:30 06/01/25 05:17 4 MG Nitroglycerin 250 ml @ 1.5 mls/hr Q24H IV 06/01/25 02:30 UNV Epoetin Rico-epbx 10,000 unit MWF@2100 [place] 06/02/25 21:00 06/09/25 21:23 10,000 UNIT Diagnostic Test (Pha) 1 strip Q6HR 06/01/25 12:00 06/10/25 12:15 1 STRIP Insulin Human Regular Q6HR SC 06/01/25 12:00 06/10/25 06:40 3 UNITS Dextrose 50 ml UD PRN IV 06/01/25 08:30 06/01/25 19:14 50 ML Famotidine 20 mg EOD PO 06/02/25 10:00 06/10/25 15:13 20 MG Heparin Sodium (Porcine) 5,000 units Q12HR SC 06/01/25 22:00 06/09/25 21:25 5,000 UNITS Carvedilol 12.5 mg Q12HR PO 06/02/25 22:00 06/10/25 15:10 12.5 MG Doxazosin Mesylate 2 mg HS PO 06/02/25 22:00 06/09/25 21:23 2 MG Calcitriol 0.25 mcg DAILY PO 06/03/25 10:00 06/10/25 15:12 0.25 MCG Calcium Acetate 667 mg TIDWMEALS PO 06/04/25 12:00 06/10/25 08:48 667 MG Ergocalciferol 50,000 unit Q7D PO 06/04/25 09:30 06/04/25 12:58 50,000 UNIT Metolazone 10 mg DAILY PO 06/05/25 10:00 06/10/25 15:11 10 MG Multivit/Ca Carb/ B Cmplx/FA/Prenat 1 tab DAILY PO 06/05/25 10:00 06/10/25 15:12 1 TAB Nifedipine 90 mg DAILY PO 06/05/25 14:00 06/10/25 15:13 90 MG Morphine Sulfate 2 mg Q4HPRN PRN IV 06/06/25 15:15 Lorazepam 1 mg ONCE PRN IV 06/06/25 23:00 Aspirin 81 mg DAILY PO 06/07/25 10:00 06/10/25 15:13 81 MG Atorvastatin Calcium 20 mg HS PO 06/07/25 22:00 06/09/25 21:21 20 MG Cyclobenzaprine HCl 5 mg BID PO 06/07/25 22:00 06/10/25 15:13 5 MG Lactulose 30 ml DAILY PO 06/09/25 10:00 06/09/25 09:47 30 ML Examination General Appearance: Alert, Oriented X3, Cooperative. Discharge noted around the catheter site with erythema. HEENT: Atraumatic, PERRLA, EOMI, Mucous membrane moist/pink Respiratory: mild bilateral crackles Cardiovascular: Regular rate, Normal S1, Normal S2, No murmurs, no chest wall tenderness Abdominal: Normal bowel sounds, Soft, No tenderness, No hepatospenomegaly, No masses Extremities: Edema 3 bilateral+, No clubbing, No cyanosis, Skin: No rashes, No breakdown, No significant lesion Neuro: Normal speech, Strength 3/5 in lower extremities, strength 4/5 in upper extremities, Normal tone, Sensation intact, Cranial nerves 3-12 NL Psych/Mental Status: Mental status NL, Mood NL Genitourinary: scrotal edema DEMARCUS: no external hemorrhoids visible, sphincter tone is normal, empty rectal vault, no active bleeding Nurse Shania was present as dyeing machine back tender during the examination laboratory and microbiology Laboratory Tests 06/10/25 05:10 Test 06/10/25 05:10 Range/Units Serum Glucose 148 H 74-106 mg/dL Labs and/or images reviewed: Labs reviewed by me, Image(s) reviewed by me Problem List/Assessment/Plan Problem List/Assessment/Plan Assessment / Plan # Acute hypoxic respiratory failure likely due to volume overload in the setting of severe LORE requiring hemodialysis # Acute on chronic decompensated systolic heart failure # Acute pulmonary edema due to above # Hypertensive emergency # Acute pulmonary embolism , ruled out - chest x-ray revealed bilateral pulmonary vascular congestion. Bibasilar atelectasis/consolidation - BNP is elevated 894.83 - echo showed mild global hypokinesis with an LVEF of 45% and slightly dilated RV and very mild posterior pericardial effusion. - Carvedilol 12.5 mg p.o. b.i.d. - Nifedipine 90mg daily - V/Q scan done on 06/02/25- low probability for PE - cardiology consulted-outpatient follow-up for ischemic workup with stress test - Chest US- small right pleural effusion, not enough fluid to drain per IR # Acute ischemic/hemorrhagic stroke, rule out -CT head- No acute intracranial abnormality -CT angiography , was grossly unremarkable -physical therapy on board- patienct getting out of bed and taking a few steps -MRI brain- Small 3 mm focus of T2/FLAIR hyperintense signal in the left anterior frontal lobe subcortical white matter is nonspecific, possible mild chronic small-vessel ischemic disease -carotid doppler- No hemodynamically significant stenosis noted in the right carotid system # Acute kidney injury hemodynamically mediated in the setting of fluid overload hypertensive emergency # Chronic kidney disease, unspecified, baseline is unknown s/p IJ tunneled hemodialysis catheter # Possible diabetic nephropathy # Acute on Chronic normocytic normochromic anemia # Diabetes mellitus, status post debridement of diabetic foot #Secondary hyperparathyroidism -Ultrasound demonstrated normal-appearing kidneys bilaterally, with bilateral pleural effusion -Nephrology on board -renal diet -Epogen 1000 units 3 times a week -strict I&O -Monitor BMP -hemodialysis on 06/09/25, next HD today -Calcitriol 0.25 mcg daily po -metolazone 10mg po daily -Chair time at [facility] dialysis on MWF at 5.30 am # Spinal canal stenosis with lumbar radiculopathy - MRI of L/S spine without contrast showed Multilevel spinal canal stenosis, most pronounced and mild at L4-L5. Multilevel subarticular zone stenosis, most pronounced and severe at L4-L5 with right descending L5 nerve root compression. Multilevel foraminal stenosis - Consulted spinal surgery-physical therapy and muscle relaxants- flexeril 5mg po bid # Mild transaminitis likely secondary to hepatic congestion from CHF # Moderate protein calorie malnutrition, albumin 2.5 # Morbid obesity, BMI 40.6 kg/m2 - counseled patient regarding healthy diet, weight loss, lifestyle modification and physical exercise PUD prophylaxis-Pepcid 20 mg p.o. daily DVT prophylaxis-Heparin 5000 units b.i.d. Goal of care discussed with the patient for more than 20 minutes full code Plan discussed with Dr Kearns Plan discussed with patient Plan discussed with: Patient My Orders My Orders Orders - CRISTÓBAL BRYAN RESIDENT Procedure Category Date Status Time Schedule For Dc STEWART 06/10/25 In Process Clinic F/U 07:38 Communication Order ORDERS 06/10/25 Transmitted 07:41 Dietary Evaluation Review Comments: Nutrition Recommendation: 1) Consider CCHO 75 + renal standard diet 2) Monitor PO intake, lab values, weight trend, and I/O Expected Outcomes/Goals: Intake to meet >75% estimated needs Lab values to improve FU 3-5 days Date of Service: Jun 10, 2025 Billing Provider: CATA KEARNS MD Common Visit Codes: 78934-[id number] INP/OBS CARE(HIGH) CRISTÓBAL BRYAN RESIDENT Jun 10, 2025 16:40 STANLEY CACERES RESIDENT Jun 10, 2025 16:46
--- NOTE | 2025-06-10 23:12 | DVHPN2 ---
Progress Note - Dictate Date Seen: Jun 10, 2025 Medical Necessity Reason Pt with a Central, PICC or Fol: Yes Subjective Mr. Smith is a 49 years old gentleman with a history of hypertension, diabetes, chronic low back pain, obesity, he was brought to the [facility] on 06/01/2025 with a chief company of shortness breath, he also found to have extremely high blood pressure in the emergency room. I have seen examined the patient, discussed with his nurse, he, no new complaints Abnormal discharge was found in his tunneled cath T-max, 99.9 UDS, 06/01/2025: Negative Urinalysis, 06/01/2025: WBC: 1, urine leukocyte esterase: Negative ABG, 06/01/2025: Compensated metabolic acidosis, hypoxia WBC/HB/PLT/MCV, 06/05/2025: 4.5/8.1/140/89.2 BUN/CR, 06/06/2025: 27/5.45 GFR, 06/06/2025: 12 HGB A1c, 06/01/2025:< 3.8 Liver function tests, 06/06/2025: Unremarkable TG/HDL/LDL/HDL, 06/01/2025: 113/168/78/71 Vitamin B12, 06/03/2025: 630 TSH, 06/01/2025: 2.24 Echocardiogram, 06/01/2025: MILD LV GLOBAL HYPOKINESIS DYSKINESIS OF IVS LV EF IS IN RANGE OF 45% SLIGHTLY DILATED RV NORMAL VALVES MILD POSTERIOR PERICARDIAL EFFUSION Carotid Doppler 06/07/2025: No hemodynamically significant stenosis noted in the right carotid system. No hemodynamically significant stenosis noted in the left carotid system. CT head, 06/04/2025: No acute intracranial abnormality MRI head, 06/07/2025: 1. No evidence of acute intracranial abnormality. No acute infarct. 2. Small 3 mm focus of T2/FLAIR hyperintense signal in the left anterior frontal lobe subcortical white matter is nonspecific, possible mild chronic small-vessel ischemic disease. Other etiologies such as migraine headaches or demyelinating disease could also have a similar appearance in the appropriate clinical setting MRI lumbar spine, 06/05/2025: Multilevel disc degeneration. Multilevel spinal canal stenosis, most pronounced and mild at L4-L5. Multilevel subarticular zone stenosis, most pronounced and severe at L4-L5 with right descending L5 nerve root compression. Multilevel foraminal stenosis, most pronounced and mild at L4- L5 vital signs Vital Sign Date Time Temp Pulse Resp B/P (MAP) Pulse Ox O2 Delivery O2 Flow Rate FiO2 06/10/25 21:54 81 139/71 06/10/25 21:00 98.2 19 95 98.2 06/10/25 10:00 Nasal Cannula 1.0 06/10/25 10:00 24 Total Intake and Output 06/09/25 06/09/25 06/10/25 15:00 23:00 07:00 Intake Total 100 ml 580 ml Output Total 600 ml Balance 100 ml -20 ml medications Current Medications Medications Dose Ordered Sig/Ronel Route Start Time Stop Time Status Last Admin Dose Admin Acetaminophen 325 mg Q4HP PRN PO 06/01/25 02:30 06/03/25 00:57 325 MG Ondansetron HCl 4 mg Q4HP PRN IV 06/01/25 02:30 06/01/25 05:17 4 MG Nitroglycerin 250 ml @ 1.5 mls/hr Q24H IV 06/01/25 02:30 UNV Epoetin Rico-epbx 10,000 unit MWF@2100 SC 06/02/25 21:00 06/09/25 21:23 10,000 UNIT Diagnostic Test (Pha) 1 strip Q6HR 06/01/25 12:00 06/10/25 17:40 1 STRIP Insulin Human Regular Q6HR SC 06/01/25 12:00 06/10/25 17:58 3 UNITS Dextrose 50 ml UD PRN IV 06/01/25 08:30 06/01/25 19:14 50 ML Famotidine 20 mg EOD PO 06/02/25 10:00 06/10/25 15:13 20 MG Heparin Sodium (Porcine) 5,000 units Q12HR SC 06/01/25 22:00 06/10/25 21:51 5,000 UNITS Carvedilol 12.5 mg Q12HR PO 06/02/25 22:00 06/10/25 21:54 12.5 MG Doxazosin Mesylate 2 mg HS PO 06/02/25 22:00 06/10/25 21:53 2 MG Calcitriol 0.25 mcg DAILY PO 06/03/25 10:00 06/10/25 15:12 0.25 MCG Calcium Acetate 667 mg TIDWMEALS PO 06/04/25 12:00 06/10/25 17:56 667 MG Ergocalciferol 50,000 unit Q7D PO 06/04/25 09:30 06/04/25 12:58 50,000 UNIT Metolazone 10 mg DAILY PO 06/05/25 10:00 06/10/25 15:11 10 MG Multivit/Ca Carb/ B Cmplx/FA/Prenat 1 tab DAILY PO 06/05/25 10:00 06/10/25 15:12 1 TAB Nifedipine 90 mg DAILY PO 06/05/25 14:00 06/10/25 15:13 90 MG Morphine Sulfate 2 mg Q4HPRN PRN IV 06/06/25 15:15 Lorazepam 1 mg ONCE PRN IV 06/06/25 23:00 Aspirin 81 mg DAILY PO 06/07/25 10:00 06/10/25 15:13 81 MG Atorvastatin Calcium 20 mg HS PO 06/07/25 22:00 06/10/25 21:52 20 MG Cyclobenzaprine HCl 5 mg BID PO 06/07/25 22:00 06/10/25 21:52 5 MG Lactulose 30 ml DAILY PO 06/09/25 10:00 06/09/25 09:47 30 ML objective General: the patient is well developed and nourished. No acute distress. MENTAL STATUS: Awake and alert. Oriented to person, place, time and general circumstances. Able to give personal history. SPEECH, LANGUAGE, HIGHER CORTICAL FUNCTION: no aphasia or dysathria. CRANIAL NERVES: Pupils are equal, round and reactive. EOMs full and conjugate. No nystagmus. Facial sensation intact in all three divisions bilaterally. Mandibular strength intact. Facial muscles symmetrical and strength intact. Tongue midline. No fasciculations or atrophy. SENSATION: Sensation to touch and pinprick is fine, no sensory level, no definite paroxysmal distal differences MOTOR: Normal tone in the upper and lower extremity. Normal muscle bulk. No fasciculations. No abnormal movements or posturing. Muscle strength of the major groups in the upper extremities is 4/5. Muscle strength of the major groups in the lower extremities is 3-4/5. There was no [id number] differences REFLEXES: Deep tendon reflexes normal and symmetrical. No pathological reflexes. CEREBELLAR/COORDINATION: Finger to nose is normal bilaterally. GAIT/STATION: deferred. laboratory and microbiology Laboratory Tests 06/10/25 05:10 Test 06/10/25 05:10 Range/Units Serum Glucose 148 H 74-106 mg/dL Problem List General weakness, with right-sided more affected, resolved, unremarkable MRI head Hypertension emergency Rule out posterior reversible encephalopathy Sleep-related breathing disorder Obesity Assessment/Plan Monitoring Supportive treatment Telemetry Current pain management Aspirin 81 mg daily, Lipitor 20 mg daily (home med) APAP in the hospital He has been recommended has a trial of wedged pillow or elevated bed head for his sleep-related breathing disorder Weight control Hypersomnia precautions Further address his sleep-related breathing disorder as outpatient More recommendation per clinical course This medical document was created using an electronic medical record system with [employer] dictation system. Although this document has been carefully reviewed, there may still be some phonetic and typographical errors. These areas are purely typographical due to imperfections of the software programs, and do not reflect any compromise in the patient's medical care. Prognosis poor Dietary Evaluation Review Comments: Nutrition Recommendation: 1) Consider CCHO 75 + renal standard diet 2) Monitor PO intake, lab values, weight trend, and I/O Expected Outcomes/Goals: Intake to meet >75% estimated needs Lab values to improve FU 3-5 days Plan discussed with: Other SANDI HOLLINGSWORTH MD Jun 10, 2025 23:12
[2025-06-11] VITALS (9 sets, daily range): BP systolic 96–135; BP diastolic 60–80; PULSE 68–79; RESP 16–19; TEMP 97.8–98.4; O2SAT 92–98
[2025-06-11 05:33] LABS: Hematocrit 25.3 % (41.0-53.0)
[2025-06-11 05:36] LABS: Hemoglobin 8.5 g/dL (13.5-17.5); Mean Corpuscular Hemoglobin 31.0 pg (28.0-32.0); Mean Corpuscular Volume 91.8 fL (80.0-100.0); Nucleated Red Blood Cells % 0.1 %
[2025-06-11 05:41] LABS: Anion Gap 8 (5-15); Carbon Dioxide 30 mmol/L (20-31); Chloride 105 mmol/L (98-107); Potassium 4.2 mmol/L (3.5-5.1); Sodium 143 mmol/L (136-145)
[2025-06-11 05:43] LABS: Calcium 7.9 mg/dL (8.7-10.4)
[2025-06-11 05:47] LABS: BUN/Creatinine Ratio 5.1 (10.0-20.0)
[2025-06-11 05:48] LABS: Blood Urea Nitrogen 25 mg/dL (9-23); Glucose 158 mg/dL (74-106)
--- NOTE | 2025-06-11 13:53 | DVHPN2 ---
Progress Note - Dictate Date Seen: Jun 11, 2025 Medical Necessity Reason Pt with a Central, PICC or Fol: Yes Subjective PT WITH ACUTE RENAL FAILURE FROM DIABETIC NEPHROPATHY PMH DIABETES VASCULOPATHY CHRONIC WITH ACUTE RENAL FAILURE NEUROPATHY UNCONTROLLED HYPERTENSION PT PRESENTED WITH ANASARCA, BAILEY , SOB, PMD. ORTHOPNEA ECHO EF 45% UREMIC PERICARDIAL EFFUSION vital signs Vital Sign Date Time Temp Pulse Resp B/P (MAP) Pulse Ox O2 Delivery O2 Flow Rate FiO2 06/11/25 12:53 98.0 74 16 116/73 (87) 92 98.0 06/11/25 10:00 Nasal Cannula* 1 24 Total Intake and Output 06/10/25 06/10/25 06/11/25 15:00 23:00 07:00 Intake Total 560 ml 180 ml Output Total 300 ml 200 ml Balance 260 ml -20 ml medications Current Medications Medications Dose Ordered Sig/Ronel Route Start Time Stop Time Status Last Admin Dose Admin Acetaminophen 325 mg Q4HP PRN PO 06/01/25 02:30 06/03/25 00:57 325 MG Ondansetron HCl 4 mg Q4HP PRN IV 06/01/25 02:30 06/01/25 05:17 4 MG Nitroglycerin 250 ml @ 1.5 mls/hr Q24H IV 06/01/25 02:30 UNV Epoetin Rico-epbx 10,000 unit MWF@2100 [place] 06/02/25 21:00 06/09/25 21:23 10,000 UNIT Diagnostic Test (Pha) 1 strip Q6HR 06/01/25 12:00 06/11/25 11:40 1 STRIP Insulin Human Regular Q6HR SC 06/01/25 12:00 06/11/25 11:52 3 UNITS Dextrose 50 ml UD PRN IV 06/01/25 08:30 06/01/25 19:14 50 ML Famotidine 20 mg EOD PO 06/02/25 10:00 06/10/25 15:13 20 MG Heparin Sodium (Porcine) 5,000 units Q12HR SC 06/01/25 22:00 06/11/25 10:41 5,000 UNITS Carvedilol 12.5 mg Q12HR PO 06/02/25 22:00 06/11/25 10:33 12.5 MG Doxazosin Mesylate 2 mg HS PO 06/02/25 22:00 06/10/25 21:53 2 MG Calcitriol 0.25 mcg DAILY PO 06/03/25 10:00 06/11/25 10:00 0.25 MCG Calcium Acetate 667 mg TIDWMEALS PO 06/04/25 12:00 06/11/25 11:49 667 MG Ergocalciferol 50,000 unit Q7D PO 06/04/25 09:30 06/11/25 10:35 50,000 UNIT Metolazone 10 mg DAILY PO 06/05/25 10:00 06/11/25 10:29 10 MG Multivit/Ca Carb/ B Cmplx/FA/Prenat 1 tab DAILY PO 06/05/25 10:00 06/11/25 10:29 1 TAB Nifedipine 90 mg DAILY PO 06/05/25 14:00 06/11/25 10:36 90 MG Morphine Sulfate 2 mg Q4HPRN PRN IV 06/06/25 15:15 Lorazepam 1 mg ONCE PRN IV 06/06/25 23:00 Aspirin 81 mg DAILY PO 06/07/25 10:00 06/11/25 10:36 81 MG Atorvastatin Calcium 20 mg HS PO 06/07/25 22:00 06/10/25 21:52 20 MG Cyclobenzaprine HCl 5 mg BID PO 06/07/25 22:00 06/11/25 10:33 5 MG Lactulose 30 ml DAILY PO 06/09/25 10:00 06/09/25 09:47 30 ML laboratory and microbiology Laboratory Tests 06/11/25 04:37 Test 06/11/25 04:37 Range/Units Serum Glucose 158 H 74-106 mg/dL Problem List ACUTE RENAL FAILURE FROM DIABETIC NEPHROPATHY PMH DIABETES VASCULOPATHY CHRONIC WITH ACUTE RENAL FAILURE NEUROPATHY UNCONTROLLED HYPERTENSION PT PRESENTED WITH ANASARCA, BAILEY , SOB, PMD. ORTHOPNEA ECHO EF 45% UREMIC PERICARDIAL EFFUSION ANEMIA METABOLIC NON GAP ACIDOSIS UREMIA ANEMIA SLEEP APNEA HYPOVENTILATION SYNDROME Assessment/Plan CORRECT ANEMIA DIALYSIS DANNA CARDIOLITE STRESS VS ANGIO OUTPT CARDIAC STATUS STABLE Dietary Evaluation Review Comments: Nutrition Recommendation: 1) Consider CCHO 75 + renal standard diet 2) Monitor PO intake, lab values, weight trend, and I/O Expected Outcomes/Goals: Intake to meet >75% estimated needs Lab values to improve FU 3-5 days Plan discussed with: Patient ANNABELLE IRBY MD Jun 11, 2025 13:53
--- NOTE | 2025-06-11 16:33 | DVHPN2 ---
Progress Note Date Seen: Jun 11, 2025 Medical Necessity Reason Pt with a Central, PICC or Fol: Yes Subjective Patient reports: No new complaints, Feels better Objective vital signs Vital Sign Date Time Temp Pulse Resp B/P (MAP) Pulse Ox O2 Delivery O2 Flow Rate FiO2 06/11/25 12:53 98.0 74 16 116/73 (87) 92 98.0 06/11/25 10:00 Nasal Cannula* 1 24 Total Intake and Output 06/10/25 06/10/25 06/11/25 15:00 23:00 07:00 Intake Total 560 ml 180 ml Output Total 300 ml 200 ml Balance 260 ml -20 ml medications Current Medications Medications Dose Ordered Sig/Ronel Route Start Time Stop Time Status Last Admin Dose Admin Acetaminophen 325 mg Q4HP PRN PO 06/01/25 02:30 06/03/25 00:57 325 MG Ondansetron HCl 4 mg Q4HP PRN IV 06/01/25 02:30 06/01/25 05:17 4 MG Nitroglycerin 250 ml @ 1.5 mls/hr Q24H IV 06/01/25 02:30 UNV Epoetin Rico-epbx 10,000 unit MWF@2100 SC 06/02/25 21:00 06/09/25 21:23 10,000 UNIT Diagnostic Test (Pha) 1 strip Q6HR 06/01/25 12:00 06/11/25 16:31 1 STRIP Insulin Human Regular Q6HR SC 06/01/25 12:00 06/11/25 11:52 3 UNITS Dextrose 50 ml UD PRN IV 06/01/25 08:30 06/01/25 19:14 50 ML Famotidine 20 mg EOD PO 06/02/25 10:00 06/10/25 15:13 20 MG Heparin Sodium (Porcine) 5,000 units Q12HR SC 06/01/25 22:00 06/11/25 10:41 5,000 UNITS Carvedilol 12.5 mg Q12HR PO 06/02/25 22:00 06/11/25 10:33 12.5 MG Doxazosin Mesylate 2 mg HS PO 06/02/25 22:00 06/10/25 21:53 2 MG Calcitriol 0.25 mcg DAILY PO 06/03/25 10:00 06/11/25 10:00 0.25 MCG Calcium Acetate 667 mg TIDWMEALS PO 06/04/25 12:00 06/11/25 11:49 667 MG Ergocalciferol 50,000 unit Q7D PO 06/04/25 09:30 06/11/25 10:35 50,000 UNIT Metolazone 10 mg DAILY PO 06/05/25 10:00 06/11/25 10:29 10 MG Multivit/Ca Carb/ B Cmplx/FA/Prenat 1 tab DAILY PO 06/05/25 10:00 06/11/25 10:29 1 TAB Nifedipine 90 mg DAILY PO 06/05/25 14:00 06/11/25 10:36 90 MG Morphine Sulfate 2 mg Q4HPRN PRN IV 06/06/25 15:15 Lorazepam 1 mg ONCE PRN IV 06/06/25 23:00 Aspirin 81 mg DAILY PO 06/07/25 10:00 06/11/25 10:36 81 MG Atorvastatin Calcium 20 mg HS PO 06/07/25 22:00 06/10/25 21:52 20 MG Cyclobenzaprine HCl 5 mg BID PO 06/07/25 22:00 06/11/25 10:33 5 MG Lactulose 30 ml DAILY PO 06/09/25 10:00 06/09/25 09:47 30 ML laboratory and microbiology Laboratory Tests 06/11/25 04:37 Test 06/11/25 04:37 Range/Units Serum Glucose 158 H 74-106 mg/dL Microbiology Date/Time Source Procedure Growth Status 06/10/25 15:20 Drainage Gram Stain - Final Resulted 06/10/25 15:20 Drainage Wound Culture - Preliminary No growth Resulted 06/10/25 11:36 Blood Blood Culture - Preliminary NO GROWTH AFTER 24 HOURS OF INCUBATION. Resulted Problem List/Assessment/Plan Problem List/Assessment/Plan ESRD, requiring HD Hypertensive emergency Volume overload, due to above Diabetes type 2 Nephrotic range proteinuria, due to above Dyslipidemia Morbid obesity Severe anemia Hyperkalemia Status post IJ tunneled hemodialysis catheter Recommendations * Next hemodialysis on 06/12 * Epogen SQ 3 x weekly * Sevelamer 800 mg t.i.d., nifedipine 90 mg daily, Cardilol 6.25 BID * Renal diet * BP control * Social consult for outpatient HD chair time at [facility] * Positive pus near the catheter exit site---swab sent and blood cultures ordered--neg for now Plan discussed with: Patient Dietary Evaluation Review Comments: Nutrition Recommendation: 1) Consider CCHO 75 + renal standard diet 2) Monitor PO intake, lab values, weight trend, and I/O Expected Outcomes/Goals: Intake to meet >75% estimated needs Lab values to improve FU 3-5 days GUILLE HERNANDEZ MD Jun 11, 2025 16:32
--- NOTE | 2025-06-11 18:06 | DVHDSRES ---
Discharge Summary Date of Admission Resident Creating Document: CRISTÓBAL BRYAN RESIDENT Jun 01, 2025 at 02:30 Date of Discharge: Jun 10, 2025 Admitting Diagnosis Hypertensive crisis Labs/Diagnostic Data: Laboratory Results Test 06/11/25 16:29 06/11/25 04:37 06/07/25 14:36 06/06/25 05:57 POC Glucose 173 mg/dl (70-106) White Blood Count 5.3 10^3/uL (4.4-10.8) Red Blood Count 2.75 10^6/uL (4.5-5.90) Hemoglobin 8.5 g/dL (13.5-17.5) Hematocrit 25.3 % (41.0-53.0) Mean Corpuscular Volume 91.8 fL (80.0-100.0) Mean Corpuscular Hemoglobin 31.0 pg (28.0-32.0) Mean Corpuscular Hemoglobin Concent 33.7 g/dL (32.0-36.0) Red Cell Distribution Width 16.2 % (11.8-14.3) Platelet Count 181 10^3/uL (140-450) Mean Platelet Volume 8.5 fL (6.9-10.8) Neutrophils (%) (Auto) 59.5 % (37.0-80.0) Lymphocytes (%) (Auto) 25.5 % (10.0-50.0) Monocytes (%) (Auto) 9.6 % (0.0-12.0) Eosinophils (%) (Auto) 4.3 % (0.0-7.0) Basophils (%) (Auto) 1.1 % (0.0-2.0) Neutrophils # (Auto) 3.1 10 ^3/uL (1.6-8.6) Lymphocytes # (Auto) 1.3 10 ^3/uL (0.4-5.4) Monocytes # (Auto) 0.5 10 ^3/uL (0-1.3) Eosinophils # (Auto) 0.2 10 ^3/uL (0-0.8) Basophils # (Auto) 0.1 10 ^3/uL (0-0.2) Nucleated Red Blood Cells 0.1 % Sodium Level 143 mmol/L (136-145) Potassium Level 4.2 mmol/L (3.5-5.1) Chloride Level 105 mmol/L (98-107) Carbon Dioxide Level 30 mmol/L (20-31) Anion Gap 8 (5-15) Blood Urea Nitrogen 25 mg/dL (9-23) Creatinine 4.93 mg/dL (0.700-1.30) Glomerular Filtration Rate Calc 14 mL/min (>90) BUN/Creatinine Ratio 5.1 (10.0-20.0) Serum Glucose 158 mg/dL (74-106) Calcium Level 7.9 mg/dL (8.7-10.4) Magnesium Level 1.8 mg/dL (1.6-2.6) Phosphorus Level 3.0 mg/dL (2.4-5.1) Total Bilirubin 0.2 mg/dL (0.2-1.0) Aspartate Amino Transferase (AST) 23 U/L (13-40) Alanine Aminotransferase (ALT) 17 U/L (7-40) Alkaline Phosphatase 101 U/L (46-116) Total Protein 4.8 g/dL (5.7-8.2) Albumin 2.6 g/dL (3.2-4.8) Test 06/03/25 06:03 06/01/25 15:30 06/01/25 05:28 06/01/25 04:12 Vitamin B12 Level 630 pg/mL (211-911) Free Prostate Specific Antigen 0.24 ng/mL (N/A) Percent Free Prostate Specific Ag 40.0 % (.) Prostate Specific Antigen Total 0.6 ng/mL (0.0-4.0) Hepatitis A IgM Antibody Negative Hepatitis B Surface Antigen Negative (Negative) Hepatitis B Core IgM Antibody Negative (Negative) Hepatitis C Antibody Negative (Negative) Urine Color Light-yellow (Yellow) Urine Clarity Clear (Clear) Urine pH 6.5 (5.0-9.0) Urine Specific Orient 1.014 (1.001-1.035) Urine Protein 2+ (Negative) Urine Ketones Negative (Negative) Urine Blood 2+ /uL (Negative) Urine Nitrite Negative (Negative) Urine Bilirubin Negative (Negative) Urine Urobilinogen Normal mg/dL (Negative) Urine Leukocyte Esterase Negative /uL (Negative) Urine RBC 30 /hpf (0 - 3) Urine Microscopic WBC 3 /HPF (0-3) Urine Squamous Epithelial Cells Few /hpf (<5) Urine Bacteria Few /hpf (None Seen) Urine Osmolality 314 mOsm/kg Urine Creatinine 49.98 mg/dL (30.0-125.0) Urine Protein/Creatinine Ratio 18.24 Urine Sodium 82 mmol/L (40-220) Urine Glucose 1+ mg/dL (Normal) Urine Total Protein 911.5 mg/dL (1-14) Urine Opiates Screen Neg (NEGATIVE) Urine Fentanyl Screen Neg (NEGATIVE) Urine Barbiturates Screen Neg (NEGATIVE) Urine Phencyclidine Screen Neg (NEGATIVE) Urine Amphetamines Screen Neg (NEGATIVE) Urine Benzodiazepines Screen Neg (NEGATIVE) Urine Cocaine Screen Neg (NEGATIVE) Urine Cannabinoids Screen Neg (NEGATIVE) Prothrombin Time 11.4 sec (9.3-11.8) Prothrombin Time INR 1.08 (0.9-1.15) Activated Partial Thromboplast Time 24.7 SEC (24.5-34.5) Hemoglobin A1c < 3.8 % A1C (<5.7) Lactic Acid Level 0.8 mmol/L (0.4-2.0) Test 06/01/25 02:58 06/01/25 01:48 06/01/25 00:53 Blood Gas Specimen Type Arterial Blood Gas Sample Site Right radial Blood Gas Patient Temperature 37.0 Arterial Blood Date Drawn [id number] Arterial Blood pH 7.373 (7.350-7.450) Arterial Blood Partial Pressure CO2 31.5 mmHg (35.0-48.0) Arterial Blood Partial Pressure O2 73.0 mmHg (83.0-108.0) Arterial Blood HCO3 17.9 mmol/L (21.0-28.0) Arterial Blood Oxygen Saturation 93.8 % (94.0-98.0) Arterial Blood Base Excess -6.5 mmol/L (-2.0-3.0) Arterial Blood Oxyhemoglobin 93.0 % (94.0-98.0) Arterial Blood Carboxyhemoglobin 0.3 % (0.5-1.5) Arterial Blood Methemoglobin 0.5 % (0.0-1.5) Morgan Test Yes Blood Gas Total Hemoglobin 9.20 g/dL (13.5-17.5) Blood Gas Modality Room air FiO2 % 21.0 Specimen Drawn By Blood Gas Comments D-Dimer, Quantitative 2.93 mg/L FEU (0.0-0.49) Troponin I High Sensitivity 33 ng/L (</=54) Triglycerides Level 113 mg/dL (< 150) Cholesterol Level 168 mg/dL (< 200) LDL Cholesterol 78 mg/dL (< 100) HDL Cholesterol 71 mg/dL (40-59) Vitamin D 25-Hydroxy 25.4 ng/mL (30.0-100) Thyroid Stimulating Hormone (TSH) 2.24 uIU/mL (0.55-4.78) Iron Level 53 ug/dL (65-175) Total Iron Binding Capacity 173 ug/dL (250-425) Percent Iron Saturation 30.6 % (20-55) Ferritin 390.5 ng/mL (22-322) B-Type Natriuretic Peptide 894.83 pg/mL (0-100) Parathyroid Hormone (Intact) 337.8 pg/mL (18.4-80.1) Other Laboratory Tests 06/11/25 04:37 Brief Hx & Hospital Course: Elian Smith is a 49-year-old male patient with past medical history of hypertension, hyperlipidemia, type 2 diabetes mellitus, diabetic foot status post debridement who presented to the ED with chief complaint of shortness of breath and lower leg swelling associated with decreased urine output for the past week before his admission. Patient had not been taking his hydrochlorothiazide for the past two weeks. Denied any other associated symptoms including fever, chills, nausea, vomiting, diarrhea, dysuria in any other associated symptoms. BP was 213/139 in the ER . BUN, creatinine was elevated, kidney ultrasound demonstrated normal bilateral kidney with small bilateral pleural effusion. Hyperkalemia protocol was initiated for hyperkalemia management. Nephrology was consulted and recommended IV Lasix drip, IV sodium bicarb for metabolic acidosis secondary to LORE. Patient got tunneled catheter placement by IR on 06/03/2025. Nephrology was following up with the patient and he got multiple sessions of hemodialysis in the hospital. Chair time was arranged for him with [facility] dialysis on Monday, Monday and Monday. Lasix drip was discontinued and he was started on Bumex drip and metolazone 10 mg p.o. daily on 06/04/2025. The patient complained of sudden weakness in his lower limbs and right arm on 06/04/2025. CT head, carotid Doppler and CT angiography head and neck were negative. MRI lumbosacral spine showed multilevel disc degeneration and spinal canal stenosis most pronounced at L4-L5 and L5 nerve root compression. Spinal surgeon recommended muscle relaxants and outpatient follow-up. Chest CT showed cardiomegaly with mild pulmonary edema and moderate bilateral pleural effusions. Cardiology recommended outpatient follow up for possible ischemic workup with stress test. The patient continued working with physical therapy and slowly started getting out of bed and walking. Patient was recommended SNF, but refused SNF placement. Wheelchair was delivered at bedside. Minimal discharge was noted from the tunneled catheter site, but prelim wound culture and blood culture came back negative. Patient was discharged home in a stable condition. All medications and recommendations were thoroughly explained to the patient and he demonstrated understanding of the same. He was recommended to follow-up in [facility] clinic within 1 week and with PCP within 1-2 weeks. The patient was explained about continuing dialysis outpatient and following up with Nephrology. Past medical history:hypertension, hyperlipidemia, type 2 diabetes mellitus Past surgical history: I&d on left foot Social history: denies smoking, alcohol and drugs General Appearance: Alert, Oriented X3, Cooperative. HEENT: Atraumatic, PERRLA, EOMI, Mucous membrane moist/pink Respiratory: mild bilateral crackles Cardiovascular: Regular rate, Normal S1, Normal S2, No murmurs, no chest wall tenderness Abdominal: Normal bowel sounds, Soft, No tenderness, No hepatospenomegaly, No masses Extremities: Edema 2+ bilateral, No clubbing, No cyanosis, Skin: No rashes, No breakdown, No significant lesion Neuro: Normal speech, Strength 3/5 in lower extremities, strength 4/5 in upper extremities, Normal tone, Sensation intact, Cranial nerves 3-12 NL Psych/Mental Status: Mental status NL, Mood NL Genitourinary: scrotal edema DEMARCUS: no external hemorrhoids visible, sphincter tone is normal, empty rectal vault, no active bleeding Nurse Shania was present as business continuity analyst during the examination Operations or Procedures 1.PROCEDURE(s): CXRP - CHEST PORTABLE REASON: SOB ORDER NUMBER(s): [id number], ACCESSION NUMBER(s): [id number] CHEST RADIOGRAPH Indication: SOB Technique: Single frontal view of the chest was obtained COMPARISON: None FINDINGS: Lines and Tubes: None Lungs: Mild pulmonary vascular congestion. Bibasilar atelectasis/consolidation. Pleura: No significant pleural effusion. No pneumothorax. Cardiomediastinal contours: Within normal limits. IMPRESSION: Mild pulmonary vascular congestion. Bibasilar atelectasis/consolidation. 2.PROCEDURE(s): BLDVT - BiLat Lower DVT REASON: Bilateral lower limb swelling ORDER NUMBER(s): [id number], ACCESSION NUMBER(s): [id number] Bilateral lower extremity venous duplex Clinical History: Bilateral lower limb swelling Comparison: RT LOWER DVT on DOS: 07/27/22, RLDVT on DOS: 07/27/22 Findings: Duplex Doppler evaluation of the deep venous systems of both lower extremities from the common femoral veins to the popliteal veins including color Doppler and spectral/pulsed waveform analysis was performed. RIGHT SIDE: The common femoral vein demonstrates appropriate compressibility and waveform variability. There is compressibility/patency of the great saphenous vein at the proximal thigh. The femoral vein demonstrates appropriate compressibility and waveform variability. The deep femoral vein demonstrates appropriate compressibility and waveform variability. The popliteal vein demonstrates appropriate compressibility and waveform variability. There is normal compressibility at the tibioperoneal trunk. There is interstitial soft tissue edema. LEFT SIDE: The common femoral vein demonstrates appropriate compressibility and waveform variability. There is compressibility/patency of the great saphenous vein at the proximal thigh. The femoral vein demonstrates appropriate compressibility and waveform variability. The deep femoral vein demonstrates appropriate compressibility and waveform variability. The popliteal vein demonstrates appropriate compressibility and waveform variability. There is normal compressibility at the tibioperoneal trunk. There is interstitial soft tissue edema. Impression: 1. No right or left femoropopliteal venous thrombosis. 2. Interstitial soft tissue edema in the lower extremities. 3.PROCEDURE(s): KIDUS - KIDNEY REASON: LORE on CKD ORDER NUMBER(s): [id number], ACCESSION NUMBER(s): [id number] INDICATION: LORE on CKD. TECHNIQUE: Multiple real-time sonographic images of the kidneys and bladder were obtained. COMPARISON: None. FINDINGS: The right kidney measures 10.2 cm in length, which is normal in size. There is normal echogenicity of the right kidney. No hydronephrosis. The left kidney measures 9.3 cm in length, which is normal in size. There is normal echogenicity of the left kidney. No hydronephrosis. There is a Wood catheter in the urinary bladder. Small bilateral pleural effusions. IMPRESSION: 1. Normal sonographic appearance of the kidneys. 2. No hydronephrosis. 3. Small bilateral pleural effusions. 4.PROCEDURE(s): CXRP - CHEST PORTABLE REASON: sob ORDER NUMBER(s): [id number], ACCESSION NUMBER(s): [id number] CHEST RADIOGRAPH Indication: sob Technique: Single frontal view of the chest was obtained Comparison: XY CHEST PORTABLE on DOS: 05/31/25 FINDINGS: Lines and Tubes: There is a central line in place from the right with the tip just below the medial portion of the right clavicle in the superior vena cava. Lungs: Bibasilar airspace disease prominent bronchovascular markings bilaterally. Findings may represent congestive failure. Pleura: Small right pleural effusion. No pneumothorax. Cardiomediastinal contours: Cardiomegaly Bones: No acute osseous abnormality. IMPRESSION: 1. Internal jugular catheter from the right in the superior vena cava just inferior to the right clavicle. 2. Findings of cardiomegaly with prominent pulmonary vascular congestion bilaterally. Findings may represent congestive failure however can not entirely exclude superimposed infection. Correlate with clinical setting. 5.PROCEDURE(s): VQ - NM VQ SCAN REASON: PULMONARY EMBOLISM ORDER NUMBER(s): [id number], ACCESSION NUMBER(s): [id number] NUCLEAR MEDICINE VENTILATION/PERFUSION LUNG SCAN. INDICATION: sob TECHNIQUE: Following intravenous demonstration of 7.2 millicuries of technetium 99m MAA, and inhalation of 5.5 Tc 99m DTPA X3 133 scintigrams were obtained in multiple projections of the lungs. FINDINGS: There is normal uptake of radionuclide on both the ventilation and perfusion portions of the examination. No mismatched perfusion defects are demonstrated. Uptake is normally homogeneous. IMPRESSION: Low probability for PE. 6.[facility] MEDICINE VENTILATION/PERFUSION LUNG SCAN. INDICATION: sob TECHNIQUE: Following intravenous demonstration of 7.2 millicuries of technetium 99m MAA, and inhalation of 5.5 Tc 99m DTPA X3 133 scintigrams were obtained in multiple projections of the lungs. FINDINGS: There is normal uptake of radionuclide on both the ventilation and perfusion portions of the examination. No mismatched perfusion defects are demonstrated. Uptake is normally homogeneous. IMPRESSION: Low probability for PE. 7.PROCEDURE(s): INVENCAT - Insertion of Venous Cath REASON: HD CATH PL ORDER NUMBER(s): [id number], ACCESSION NUMBER(s): [id number] Insertion of Venous Cath HISTORY: HD CATH PL for ESRD. PROCEDURE: Informed consent was obtained. The patient was placed supine on the interventional table. 1 gram of Ancef was given IV. A limited localization ultrasound of the right neck base was obtained. The right neck base and upper chest were prepped with chlorhexidine which was allowed to dry and draped in the usual sterile fashion. Time out was performed. IV sedation was administered. The skin and the soft tissues were infiltrated with 1% Lidocaine. With real-time ultrasound guidance, the internal jugular vein was accessed with a micropuncture kit, and an image documenting patency was recorded to PACS. A subcutaneous tunneled tract was created from the right upper chest to the venotomy site. A 14.5 [place] Path, 23 cm long hemodialysis catheter was advanced through the tunneled tract. Fluoroscopy was used to advance a guidewire through the internal jugular vein into the inferior vena cava. Following serial dilatation, a 15 Taiwanese peel-away sheath was introduced, though which was advanced the catheter into the right atrium. The catheter tip position was confirmed with fluoroscopy. There was satisfactory flow in both lumens. The catheter lumens were flushed with saline and heparin was left indwelling in the catheter. A post-procedure image of the chest was obtained. The neck incision site was closed with a Vicryl suture and dressed sterilely. The catheter was sutured at the skin surface and exit site also dressed sterilely. No immediate complication was identified. The old nontunneled hemodialysis catheter was removed. Air Kerma 8 mGy FLUOROSCOPY TIME: 1.2 minutes. SEDATION: Dr. Mirza Trinh was personally responsible for the administration of moderate sedation during the procedure performed, including the use of an independent trained observer who had no other duties during the procedure. The drugs utilized were IV fentanyl and versed (see nursing log for details). The total time of supervision by the attending physician was approximately 30 minutes. FINDINGS: Widely patent right IJV. Post procedure image demonstrates smooth course of the hemodialysis catheter with the tip in the right atrium. IMPRESSION: Successful placement of 14.5 romanian [place] Path, 23 cm long hemodialysis catheter through right internal jugular vein. Plan: Please contact IR for removal when no longer needed. 8.PROCEDURE(s): RUDVT - Rt Upper DVT REASON: R/O DVT ORDER NUMBER(s): [id number], ACCESSION NUMBER(s): [id number] CLINICAL HISTORY: Right upper extremity swelling, catheter placement R/O DVT TECHNIQUE: Color and duplex doppler imaging of the right upper extremity veins and right subclavian vein was performed. Vessel compression if possible was also performed. WID: COMPARISON: XY INSERTION OF VENOUS CATH on DOS: 06/03/25, US BILAT LOWER DVT on DOS: 06/01/25, RLDVT on DOS: 07/27/22 FINDINGS: The right axillary, basilic, cephalic, brachial, radial, and ulnar veins are patent and demonstrate normal compressibility and flow. The right subclavian is patent. The right internal jugular vein is not visualized due to right IJ central venous catheter patch IMPRESSION: 1. NO SONOGRAPHIC EVIDENCE FOR DEEP VENOUS THROMBOSIS IN THE RIGHT UPPER EXTREMITY VEINS. 9.PROCEDURE(s): HWOCT - HEAD WITHOUT CONTRAST REASON: R/O ACUTE STROKE ORDER NUMBER(s): [id number], ACCESSION NUMBER(s): [id number] EXAM: CT HEAD WITHOUT CONTRAST INDICATION: R/O ACUTE STROKE TECHNIQUE: CT of the head without intravenous contrast. Radiation Dose Information: CT Dose: CTDI volume is 53.44 mGy. Dose-length product is 965.3 mGy*cm The dose indicators for CT are the volume Computed Tomography (CT) Dose Index (CTDIvol) and the Dose Length Product (DLP), and are measured in units of mGy and mGy-cm, respectively. These indicators are not patient dose, but values generated from the CT scanner acquisition factors. The report includes radiation exposure data for exposures received during this examination. COMPARISON: CT CT R FOOT WO CONTRAST on DOS: 05/01/23, MRI MRI R FOOT WO W CONTRAST on DOS: 01/17/23, CT CT R FOOT WO CONTRAST on DOS: 01/16/23, RFOOT on DOS: 07/26/22, RFTCT on DOS: 05/23/22 FINDINGS: There is no evidence of acute intracranial hemorrhage, extra-axial collection, mass effect, midline shift, herniation or hydrocephalus. The ventricles, sulci and cisterns are age appropriate. The chris-white differentiation is intact. Patchy periventricular and subcortical white matter hypoattenuation is nonspecific but may be related to small vessel ischemic disease. The visualized paranasal sinuses and mastoid air cells are clear. The surrounding soft tissues and osseous structures are unremarkable. IMPRESSION: No acute intracranial abnormality. 10.PROCEDURE(s): CTHNC - CT HEAD NECK WITH CONT REASON: Rt sided hemiparesis ORDER NUMBER(s): [id number], ACCESSION NUMBER(s): [id number] EXAM: CT CT HEAD NECK WITH CONT CLINICAL HISTORY: Rt sided hemiparesis TECHNIQUE: CT angiogram of the head and neck was performed without and with intravenous contrast. 100 ml of omnipaque 350 was administered intravenously. 3D MIP reconstructed images were created and archived on the PACS system. This exam was performed according to our departmental dose optimization program. Up-to-date CT equipment and radiation dose reduction techniques are utilized as appropriate. COMPARISON: CT HEAD WITHOUT CONTRAST on DOS: 06/04/25 FINDINGS: CTA head: The distal internal carotid, vertebral, and basilar arteries are patent without focal narrowing or occlusion. The anterior, middle, and posterior cerebral arteries are patent without focal narrowing. No aneurysm or arteriovenous malformation is identified. CTA neck: The aortic arch vessel origins are widely patent. The common carotid and cervical portions of the internal carotid and vertebral arteries are patent without focal narrowing according to NASCET criteria. No aneurysm, AVM, or dissection is identified. The cervical soft tissues are unremarkable. The paranasal sinus and mastoid air cells are clear. The lung apices are clear. Minor multilevel cervical spondylosis. Multiple maxillary mandibular teeth have been removed. A few dental caries are visualized in the maxillary teeth. Diffuse subcutaneous edema in the neck. There is a tunneled right IJ central venous catheter visualized. There are large bilateral pleural effusions. Interlobular septal thickening in the lungs. IMPRESSION: 1. Widely patent arteries in the head and neck without large vessel occlusion, significant stenosis, aneurysm, dissection, or AVM. 2. Large bilateral pleural effusions, subcutaneous edema in the neck, and interstitial pulmonary edema. 3. A few dental caries in the visualized maxillary teeth. 11.PROCEDURE(s): LS - LUMBAR SPINE 4+ VIEW REASON: lower back pain and numbness ORDER NUMBER(s): [id number], ACCESSION NUMBER(s): [id number] CLINICAL INDICATION: lower back pain and numbness TECHNIQUE: 5 radiographic views of the lumbar spine were obtained. Comparison: None FINDINGS/IMPRESSION: Mild dextroscoliosis of the lumbar spine is noted. There are no prior studies for comparison. Findings may be positional. Straightening of the normal lumbar lordotic curve is seen. There are no compressed vertebra. 12.PROCEDURE(s): CX2CT - CHEST WITHOUT CONTRAST REASON: pleural effusion ORDER NUMBER(s): [id number], ACCESSION NUMBER(s): [id number] Procedure: CT CHEST WITHOUT CONTRAST Reason for study/Clinical History: pleural effusion Comparison Study: CT CT HEAD NECK WITH CONT on DOS: 06/04/25, CT HEAD WITHOUT CONTRAST on DOS: 06/04/25, XY CHEST PORTABLE on DOS: 06/01/25, XY CHEST PORTABLE on DOS: 05/31/25 TECHNIQUE: Multidetector CT of the chest was performed from the lung apices to the upper abdomen without the use of intravenous contract. Axial, coronal and sagittal multiplanar reformats were performed. Radiation Dose Information: CT Dose: CTDI volume is 18.49 mGy. Dose-length product is 681.97 mGy*cm The dose indicators for CT are the volume Computed Tomography (CT) Dose Index (CTDIvol) and the Dose Length Product (DLP), and are measured in units of mGy and mGy-cm, respectively. These indicators are not patient dose, but values generated from the CT scanner acquisition factors. The report includes radiation exposure data for exposures received during this examination. FINDINGS: Lower neck: Right central venous catheter in satisfactory position. Lungs: Bilateral lower lobe compressive atelectasis. Mild diffuse interlobular septal thickening. Heart/Vascular Structures: Cardiomegaly. Lymph Nodes: No adenopathy Pleura: Moderate bilateral pleural effusions. Musculoskeletal: No acute osseous abnormality. Soft tissues: Diffuse body wall edema. Upper abdomen: Gallbladder sludge is present. IMPRESSION: Moderate bilateral pleural effusions. Cardiomegaly with mild pulmonary edema. Gallbladder sludge. 13.PROCEDURE(s): MSL - LUMBAR SPINE WO CONTRAST REASON: Lower limb weakness ORDER NUMBER(s): [id number], ACCESSION NUMBER(s): [id number] EXAM: MRI LUMBAR SPINE WO CONTRAST CLINICAL HISTORY: Lower limb weakness COMPARISON: XY LUMBAR SPINE 4+ VIEW on DOS: 06/04/25 TECHNIQUE: MRI imaging of the lumbar was performed on a MRI imaging system without intravenous contrast. FINDINGS: Multilevel disc degeneration. Alignment: No spondylolisthesis identified. Vertebrae: Vertebral body height is well maintained without evidence of a recent compression fracture. Conus: Conus medullaris terminates at the L1 level. T12-L1: The disc configuration is normal. Mild left subarticular zone stenosis. No neural foraminal stenosis. Facet arthrosis. L1-2: The disc configuration is normal. No spinal canal or neural foraminal stenosis. Facet arthrosis. L2-3: The disc configuration is normal. No spinal canal or neural foraminal stenosis. Facet arthrosis. L3-4: Disc desiccation and 5.35 mm disc bulge. Mild spinal canal stenosis. Mild right and moderate left subarticular zone stenosis. Mild bilateral foraminal stenosis. Facet arthrosis. L4-5: Disc desiccation. Central disc extrusion measured 10.2 mm in radial dimension with 2.7 mm of cranial extension. Mild spinal canal stenosis. Mild left and severe right subarticular zone stenosis with right descending L5 nerve root compression. Mild bilateral foraminal stenosis. Facet arthrosis. L5-S1: Disc desiccation. Disc bulge with superimposed left extraforaminal disc protrusion measured 5.35 mm in radial dimension. Mild left subarticular zone stenosis. Mild left foraminal stenosis. Facet arthrosis. IMPRESSION: 1. Multilevel disc degeneration. Multilevel spinal canal stenosis, most pronounced and mild at L4-L5. Multilevel subarticular zone stenosis, most pronounced and severe at L4-L5 with right descending L5 nerve root compression. Multilevel foraminal stenosis, most pronounced and mild at L4-L5. 14.PROCEDURE(s): CXR1 - CHEST XRAY 1 VIEW REASON: eval position of catheter ORDER NUMBER(s): [id number], ACCESSION NUMBER(s): [id number] CHEST RADIOGRAPH Indication: eval position of catheter Technique: Single frontal view of the chest was obtained Comparison: CT CHEST WITHOUT CONTRAST on DOS: 06/05/25, XY CHEST PORTABLE on DOS: 06/01/25, XY CHEST PORTABLE on DOS: 05/31/25 FINDINGS: Lines and Tubes: Tunneled right hemodialysis catheter tip in the cavoatrial junction Lungs: No focal consolidation. Pleura: No effusion. No pneumothorax. Cardiomediastinal contours: cardiomegaly Bones: No acute osseous abnormality. IMPRESSION: Cardiomegaly with CHF 15.PROCEDURE(s): CHSTU - CHEST ULTRASOUND REASON: FLUID CHECK FOR POSSIBLE THORACENTESIS ORDER NUMBER(s): [id number], ACCESSION NUMBER(s): [id number] EXAM DESCRIPTION: US CHEST ULTRASOUND CLINICAL HISTORY: FLUID CHECK FOR POSSIBLE THORACENTESIS COMPARISON: XY CHEST XRAY 1 VIEW on DOS: 06/06/25, CT CHEST WITHOUT CONTRAST on DOS: 06/05/25, XY CHEST PORTABLE on DOS: 06/01/25, XY CHEST PORTABLE on DOS: 05/31/25 TECHNIQUE: Targeted sonographic examination of the bilateral chest was obtained. FINDINGS: Small right pleural effusion. No left pleural effusion. IMPRESSION: Small right pleural effusion. No left pleural effusion. 16.PROCEDURE(s): CARCL - CAROTID DUPLX W COLOR DOP REASON: cva ORDER NUMBER(s): [id number], ACCESSION NUMBER(s): [id number] Carotid Duplex Clinical History: cva Comparison: None Technique: Duplex Doppler evaluation of the extracranial carotid and vertebral arteries including color Doppler and spectral/pulsed waveform analysis was performed. Findings: RIGHT SIDE: The peak systolic velocities are 66 cm/s in the CCA, 70 cm/s in the ICA. The ICA/CCA ratio is 1.2. The external carotid artery is patent with peak systolic velocity of 118 cm/s proximally. There is appropriate antegrade flow in the right vertebral artery. LEFT SIDE: The peak systolic velocities are 76 cm/s in the CCA, 68 cm/s in the ICA. The ICA/CCA ratio is 0.9. The external carotid artery is patent with peak systolic velocity of 115 cm/s proximally. There is appropriate antegrade flow in the left vertebral artery. IMPRESSION: No hemodynamically significant stenosis noted in the right carotid system. No hemodynamically significant stenosis noted in the left carotid system. Reference: Radiology 2003; [id number]. Reference: Radiology 2003; [id number] Normal ICA PSV is <125 cm/sec and no plaque or intimal thickening is visible sonographically additional criteria include ICA/CCA PSV ratio <2.0 and ICA EDV <40 cm/sec <50% ICA stenosis ICA PSV is <125 cm/sec and plaque or intimal thickening is visible sonographically additional criteria include ICA/CCA PSV ratio <2.0 and ICA EDV <40 cm/sec 50-69% ICA stenosis ICA PSV is 125-230 cm/sec and plaque is visible sonographically additional criteria include ICA/CCA PSV ratio of 2.0-4.0 and ICA EDV of 40-100 cm/sec 70% ICA stenosis but less than near occlusion ICA PSV is >230 cm/sec and visible plaque and luminal narrowing are seen at chris-scale and color Doppler ultrasound (the higher the Doppler parameters lie above the threshold of 230 cm/sec, the greater the likelihood of severe disease) additional criteria include ICA/CCA PSV ratio >4 and ICA EDV >100 cm/sec 17.PROCEDURE(s): MBHL - BRAIN HEAD WO CONTRAST REASON: cva ORDER NUMBER(s): [id number], ACCESSION NUMBER(s): [id number] CLINICAL INDICATION: CVA. COMPARISON: CT CT HEAD NECK WITH CONT on DOS: 06/04/25, CT HEAD WITHOUT CONTRAST on DOS: 06/04/25 TECHNIQUE: Multisequence multiplanar MRI images of the brain were obtained without contrast. FINDINGS: No acute infarct or hemorrhage. No mass or midline shift. Small 3 mm focus of T2/FLAIR hyperintense signal in the subcortical white matter of the left anterior frontal lobe. Ventricles and sulci are within normal limits. Basal cisterns are patent. Cerebellum, brainstem, and midline structures are within normal limits. Mild mucosal thickening of the paranasal sinuses. Orbits are grossly unremarkable. IMPRESSION: 1. No evidence of acute intracranial abnormality. No acute infarct. 2. Small 3 mm focus of T2/FLAIR hyperintense signal in the left anterior frontal lobe subcortical white matter is nonspecific, possible mild chronic small-vessel ischemic disease. Other etiologies such as migraine headaches or demyelinating disease could also have a similar appearance in the appropriate clinical setting. Condition at Discharge: Fair Final Diagnosis/Problems List Acute hypoxic respiratory failure likely due to volume overload in the setting of severe LORE requiring hemodialysis Acute on chronic decompensated systolic heart failure Acute pulmonary edema due to above LORE hemodynamically mediated in the setting of fluid overload hypertensive emergency Hypertensive emergency Acute pulmonary embolism , ruled out Acute ischemic/hemorrhagic stroke, ruled out Chronic kidney disease, unspecified, baseline is unknown s/p IJ tunneled hemodialysis catheter Diabetic nephropathy, likely Acute on Chronic normocytic normochromic anemia Diabetes mellitus with hyperglycemia, status post debridement of diabetic foot Secondary hyperparathyroidism Spinal canal stenosis with lumbar radiculopathy Mild transaminitis likely secondary to hepatic congestion from CHF Moderate protein calorie malnutrition, albumin 2.5 Morbid obesity, BMI 40.6 kg/m2 Discharge Disposition: Home Discharge Instruct/Medications Diet: Consistent carbohydrate, Cardiac 2g Na,low cholest, Renal Activity: No Restrictions, As Tolerated Follow Up/Referral: follow up in dc clinic in 1 week follow up with PCP in 1-2 weeks Scheduled Aspirin (Aspirin 81), 81 MG PO DAILY Atorvastatin Calcium (Atorvastatin Calcium), 1 TAB PO HS Bumetanide (Bumetanide), 1 TAB PO BID Calcitriol (Calcitriol), 1 CAP PO DAILY Calcium Acetate (Calcium Acetate), 667 MG PO TID Carvedilol (Carvedilol), 1 TAB PO BID Cyclobenzaprine HCl (Cyclobenzaprine Hydrochlo), 10 MG PO DAILY Doxazosin Mesylate (Doxazosin Mesylate), 0.5 TAB PO HS Ezetimibe (Zetia), 1 TAB PO DAILY, (Reported) Metformin HCl (Metformin Hydrochloride), 1,000 MG PO BID Nifedipine (Nifedipine Er), 1 TAB PO DAILY Sitagliptin Phosphate (Januvia), 50 MG PO DAILY Discontinued Medications Acetaminophen (Acetaminophen), 500 MG PO DAILY PRN for MILD PAIN, (Reported) Doxycycline Monohydrate (Doxycycline Monohydrate), 100 MG PO BID Doxycycline Monohydrate (Doxycycline Monohydrate), 1 CAP PO BID Glipizide (Glipizide Er), 1 TAB PO DAILY Glipizide (Glipizide Er), 1 TAB PO DAILY Hctz (Hydrochlorothiazide), 25 MG PO, (Reported) Losartan Potassium (Losartan Potassium), 0.5 TAB PO DAILY Losartan Potassium (Losartan Potassium), 12.5 MG PO DAILY Metformin Hydrochloride (Metformin Hcl), 1 TAB PO BID Pioglitazone Hydrochloride (Actos Tablet), 1 TAB PO DAILY, (Reported) Sitagliptin Phosphate (Januvia), 1 TAB PO DAILY Valsartan (Diovan), 80 MG PO, (Reported) Discharge Statement: "Patient was advised to return to the ER or call 911 if any headaches, dizziness, shortness of breath, chest pain, abdominal pain, bleeding, fevers, or worsening of medical condition. Patient was counseled about treatment plan, medications, possible side effects, patientverbalized understanding. All questions were answered to the best of my ability. This discharge took greater then 30 minutes in planning, reviewing documentation, counseling the patient, and discussing with other team members." ASSESSMENT ASSESSMENT Assessment Acute hypoxic respiratory failure likely due to volume overload in the setting of severe LORE requiring hemodialysis Acute on chronic decompensated systolic heart failure Acute pulmonary edema due to above Hypertensive emergency Acute pulmonary embolism , ruled out Acute ischemic/hemorrhagic stroke, rule out Acute kidney injury hemodynamically mediated in the setting of fluid overload hypertensive emergency Chronic kidney disease, unspecified, baseline is unknown s/p IJ tunneled hemodialysis catheter Possible diabetic nephropathy Acute on Chronic normocytic normochromic anemia Diabetes mellitus, status post debridement of diabetic foot Secondary hyperparathyroidism Spinal canal stenosis with lumbar radiculopathy Mild transaminitis likely secondary to hepatic congestion from CHF Moderate protein calorie malnutrition, albumin 2.5 Morbid obesity, BMI 40.6 kg/m2 Date of Service: Jun 11, 2025 Billing Provider: CATA BONILLA MD Common Visit Codes: 23086-WIV/OBS DISCH DAY >30min CRISTÓBAL BRYAN RESIDENT Jun 11, 2025 18:06
[2025-06-11] MEDS: MORPHINE SULFATE 4 MG/ML SYR/VIAL IV PRN (21:37)
[2025-06-12 05:00] VITALS: BP 133/77; PULSE 71; RESP 18; TEMP 98.7; O2SAT 92
--- NOTE | 2025-06-12 07:43 | DVHPN2 ---
Progress Note - Dictate Date Seen: Jun 12, 2025 Medical Necessity Reason Pt with a Central, PICC or Fol: Yes Subjective PT WITH ACUTE RENAL FAILURE FROM DIABETIC NEPHROPATHY PMH DIABETES VASCULOPATHY CHRONIC WITH ACUTE RENAL FAILURE NEUROPATHY UNCONTROLLED HYPERTENSION PT PRESENTED WITH ANASARCA, BAILEY , SOB, PMD. ORTHOPNEA ECHO EF 45% UREMIC PERICARDIAL EFFUSION vital signs Vital Sign Date Time Temp Pulse Resp B/P (MAP) Pulse Ox O2 Delivery O2 Flow Rate FiO2 06/12/25 05:00 98.7 71 18 133/77 (95) 92 98.7 06/11/25 20:00 Room Air* 0 21 Total Intake and Output 06/11/25 06/11/25 06/12/25 15:00 23:00 07:00 Intake Total 310 ml 0 ml Output Total 100 ml Balance 210 ml 0 ml medications Current Medications Medications Dose Ordered Sig/Ronel Route Start Time Stop Time Status Last Admin Dose Admin Acetaminophen 325 mg Q4HP PRN PO 06/01/25 02:30 06/03/25 00:57 325 MG Ondansetron HCl 4 mg Q4HP PRN IV 06/01/25 02:30 06/01/25 05:17 4 MG Nitroglycerin 250 ml @ 1.5 mls/hr Q24H IV 06/01/25 02:30 UNV Epoetin Rico-epbx 10,000 unit MWF@2100 UT 06/02/25 21:00 06/11/25 21:14 10,000 UNIT Diagnostic Test (Pha) 1 strip Q6HR 06/01/25 12:00 06/12/25 06:01 1 STRIP Insulin Human Regular Q6HR SC 06/01/25 12:00 06/12/25 00:04 2 UNITS Dextrose 50 ml UD PRN IV 06/01/25 08:30 06/01/25 19:14 50 ML Famotidine 20 mg EOD PO 06/02/25 10:00 06/10/25 15:13 20 MG Heparin Sodium (Porcine) 5,000 units Q12HR SC 06/01/25 22:00 06/11/25 21:46 5,000 UNITS Carvedilol 12.5 mg Q12HR PO 06/02/25 22:00 06/11/25 21:37 12.5 MG Doxazosin Mesylate 2 mg HS PO 06/02/25 22:00 06/11/25 21:37 2 MG Calcitriol 0.25 mcg DAILY PO 06/03/25 10:00 06/11/25 10:00 0.25 MCG Calcium Acetate 667 mg TIDWMEALS PO 06/04/25 12:00 06/11/25 17:04 667 MG Ergocalciferol 50,000 unit Q7D PO 06/04/25 09:30 06/11/25 10:35 50,000 UNIT Metolazone 10 mg DAILY PO 06/05/25 10:00 06/11/25 10:29 10 MG Multivit/Ca Carb/ B Cmplx/FA/Prenat 1 tab DAILY PO 06/05/25 10:00 06/11/25 10:29 1 TAB Nifedipine 90 mg DAILY PO 06/05/25 14:00 06/11/25 10:36 90 MG Lorazepam 1 mg ONCE PRN IV 06/06/25 23:00 Aspirin 81 mg DAILY PO 06/07/25 10:00 06/11/25 10:36 81 MG Atorvastatin Calcium 20 mg HS PO 06/07/25 22:00 06/11/25 21:45 20 MG Cyclobenzaprine HCl 5 mg BID PO 06/07/25 22:00 06/11/25 21:37 5 MG Lactulose 30 ml DAILY PO 06/09/25 10:00 06/09/25 09:47 30 ML Morphine Sulfate 2 mg Q4HPRN PRN IV 06/11/25 21:30 06/11/25 21:37 2 MG laboratory and microbiology Laboratory Tests 06/11/25 04:37 Test 06/11/25 04:37 Range/Units Serum Glucose 158 H 74-106 mg/dL Problem List ACUTE RENAL FAILURE FROM DIABETIC NEPHROPATHY PMH DIABETES VASCULOPATHY CHRONIC WITH ACUTE RENAL FAILURE NEUROPATHY UNCONTROLLED HYPERTENSION PT PRESENTED WITH ANASARCA, BAILEY , SOB, PMD. ORTHOPNEA ECHO EF 45% UREMIC PERICARDIAL EFFUSION ANEMIA METABOLIC NON GAP ACIDOSIS UREMIA ANEMIA SLEEP APNEA HYPOVENTILATION SYNDROME Assessment/Plan CORRECT ANEMIA DIALYSIS DANNA NEGATIVE FOR PE CARDIOLITE STRESS VS ANGIO OUTPT CARDIAC STATUS STABLE SMALL VESSEL DISEASE OF THE BRAIN Dietary Evaluation Review Comments: Nutrition Recommendation: 1) Consider CCHO 75 + renal standard diet 2) Monitor PO intake, lab values, weight trend, and I/O Expected Outcomes/Goals: Intake to meet >75% estimated needs Lab values to improve FU 3-5 days Plan discussed with: Patient ANNABELLE IRBY MD Jun 12, 2025 07:43
[2025-06-12 08:00] VITALS: RESP 18; O2SAT 97
--- NOTE | 2025-06-12 08:18 | DVHINCON2 ---
Consultation - Spinal Surgery Date Seen: Jun 12, 2025 History of Present Illness History of Present Illness This unfortunate gentleman comes in with SOB and other medical issues also found to have chronic back pain and sciatica We are asked to offer consult and recommendations on the lumbar spine MRi Allergies and medications Allergies: Coded Allergies: NO KNOWN ALLERGIES (Unverified , 02/23/21) Home Meds Active Scripts Atorvastatin Calcium (ATORVASTATIN CALCIUM) 40 Mg Tab, 1 TAB PO HS for 30 Days, #30 TAB 2 [facility]25 Calcium Acetate (CALCIUM ACETATE) 667 Mg Tab, 667 MG PO TID for 30 Days, #90 TAB [facility] 06/10/25 Calcitriol (Calcitriol) 0.25 Mcg Cap, 1 CAP PO DAILY for 30 Days, #30 CAP 2 Refills [facility] 06/10/25 Aspirin (ASPIRIN 81) 81 Mg Tab, 81 MG PO DAILY for 30 Days, #30 TAB 1 [facility] 06/10/25 Doxazosin Mesylate (Doxazosin Mesylate) 4 Mg Tab, 0.5 TAB PO HS for 30 Days, #15 TAB 1 [facility] 06/10/25 Nifedipine (Nifedipine Er) 90 Mg Tab, 1 TAB PO DAILY for 30 Days, #30 TAB 1 Refill Prov[facility] 06/10/25 Carvedilol (Carvedilol) 6.25 Mg Tab, 1 TAB PO BID for 30 Days, #60 TAB 1 [facility] 06/10/25 Bumetanide (Bumetanide) 2 Mg Tab, 1 TAB PO BID for 30 Days, #60 TAB 5 Refills Prov:ELIZABETH PARSONS [facility] 06/08/25 Cyclobenzaprine HCl (Cyclobenzaprine Hydrochlo) 10 Mg Tab, 10 MG PO DAILY for 10 Days, #10 TAB Prov:ELIZABETH PARSONS [facility] 06/08/25 Metformin HCl (Metformin Hydrochloride) 1,000 Mg Tab, 1000 MG PO BID, #60 TAB Prov:BERNICE SORIA MD 05/02/23 Sitagliptin Phosphate (Januvia) 50 Mg Tab, 50 MG PO DAILY for 30 Days, #30 TAB Prov:GLENN REED MD 08/01/22 Reported Medications Ezetimibe (Zetia) 10 Mg Tab, 1 TAB PO DAILY, #30 TAB 5 Refills 06/06/25 Discontinued Reported Medications Hctz (Hydrochlorothiazide) 25 Mg Tab, 25 MG PO, TAB 06/06/25 Valsartan (Diovan) 40 Mg Tab, 80 MG PO, TAB 06/06/25 Pioglitazone Hydrochloride (ACTOS TABLET) 30 Mg Tb, 1 TAB PO DAILY, #30 TAB 5 Refills 06/06/25 Acetaminophen (Acetaminophen) 325 Mg Tab, 500 MG PO DAILY PRN for MILD PAIN for 30 Days, MG 0 Refills 02/24/21 Discontinued Scripts Losartan Potassium (Losartan Potassium) 25 Mg Tab, 12.5 MG PO DAILY for 30 Days, #15 TAB Prov:BERNICE SORIA MD 05/02/23 Doxycycline Monohydrate (Doxycycline Monohydrate) 100 Mg Cap, 1 CAP PO BID, #20 CAP Prov:BERNICE SORIA MD 05/01/23 Losartan Potassium (Losartan Potassium) 25 Mg Tab, 0.5 TAB PO DAILY, #15 TAB 5 Refills Prov:KERMIT MARTINEZ MD 01/18/23 Sitagliptin Phosphate (Januvia) 50 Mg Tab, 1 TAB PO DAILY, #30 TAB 5 Refills Prov:KERMIT MARTINEZ MD 01/18/23 Glipizide (Glipizide Er) 10 Mg Tab, 1 TAB PO DAILY, #30 TAB 5 Refills Prov:KERMIT MARTINEZ MD 01/18/23 Doxycycline Monohydrate (Doxycycline Monohydrate) 100 Mg Cap, 100 MG PO BID for 15 Days, #30 CAP Prov:KERMIT MARTINEZ MD 01/18/23 Glipizide (Glipizide Er) 10 Mg Tab, 1 TAB PO DAILY for 30 Days, #30 TAB 1 Refill Prov:GUILLE HERNANDEZ MD 02/25/21 Metformin Hydrochloride (Metformin Hcl) 1,000 Mg Tab, 1 TAB PO BID for 30 Days, #60 TAB 1 Refill Prov:GUILLE HERNANDEZ MD 02/25/21 Review of systems Review of Systems: HEENT:Normal, CVS:Normal, RESPIRATORY:Normal, GI:Normal, :Normal, MSK:Abnormal, NEURO:Abnormal Examination Vital signs Vital Signs Date Time Temp Pulse Resp B/P (MAP) Pulse Ox O2 Delivery O2 Flow Rate FiO2 06/12/25 05:00 98.7 71 18 133/77 (95) 92 98.7 06/11/25 20:00 Room Air* 0 21 Medications Current Medications Medications (Trade) Dose Ordered Sig/Ronel Route PRN Reason Start Time Stop Time Status Last Admin Morphine Sulfate 2 mg Q4HPRN PRN IV SEVERE PAIN (7-10 PAIN SCALE) 06/11/25 21:30 06/11/25 21:37 Laboratory [place] [address] Ph: [phone] DIAGNOSTIC IMAGING Diagnostic Imaging Report : [id number] Signed PATIENT: STANFORD HOLLOWAY ACCT: [id number] UNIT: [id number] : 1975 LOC: [facility] ROOM / BED: [facility] / A AGE / SEX: 49 / M ADM STATUS: ADM IN SERVICE 1108 ORDERING PHYSICIAN: STANLEY CACERES RESIDENT PROCEDURE(s): MSL - LUMBAR SPINE WO CONTRAST REASON: Lower limb weakness ORDER NUMBER(s): [id number], ACCESSION NUMBER(s): [id number] EXAM: MRI LUMBAR SPINE WO CONTRAST CLINICAL HISTORY: Lower limb weakness COMPARISON: XY LUMBAR SPINE 4+ VIEW on DOS: 06/04/25 TECHNIQUE: MRI imaging of the lumbar was performed on a MRI imaging system without intravenous contrast. FINDINGS: Multilevel disc degeneration. Alignment: No spondylolisthesis identified. Vertebrae: Vertebral body height is well maintained without evidence of a recent compression fracture. Conus: Conus medullaris terminates at the L1 level. T12-L1: The disc configuration is normal. Mild left subarticular zone stenosis. No neural foraminal stenosis. Facet arthrosis. L1-2: The disc configuration is normal. No spinal canal or neural foraminal stenosis. Facet arthrosis. L2-3: The disc configuration is normal. No spinal canal or neural foraminal stenosis. Facet arthrosis. L3-4: Disc desiccation and 5.35 mm disc bulge. Mild spinal canal stenosis. Mild right and moderate left subarticular zone stenosis. Mild bilateral foraminal stenosis. Facet arthrosis. L4-5: Disc desiccation. Central disc extrusion measured 10.2 mm in radial dimension with 2.7 mm of cranial extension. Mild spinal canal stenosis. Mild left and severe right subarticular zone stenosis with right descending L5 nerve root compression. Mild bilateral foraminal stenosis. Facet arthrosis. L5-S1: Disc desiccation. Disc bulge with superimposed left extraforaminal disc protrusion measured 5.35 mm in radial dimension. Mild left subarticular zone stenosis. Mild left foraminal stenosis. Facet arthrosis. IMPRESSION: 1. Multilevel disc degeneration. Multilevel spinal canal stenosis, most pronounced and mild at L4-L5. Multilevel subarticular zone stenosis, most pronounced and severe at L4-L5 with right descending L5 nerve root compression. Multilevel foraminal stenosis, most pronounced and mild at L4-L5. ATED BY: DIMITRI CHAMPAGNE MD DICTATED DATE/TIME: 06/05/25 1529 SIGNED BY: DIMITRI CHAMPAGNE MD SIGNED DATE/TIME: 06/05/25 1529 CC: Labs Test 06/12/25 06:00 06/11/25 04:37 06/07/25 14:36 06/06/25 05:57 Range/Units POC Glucose 117 H 70-106 mg/dl White Blood Count 5.3 4.4-10.8 10^3/uL Red Blood Count 2.75 L 4.5-5.90 10^6/uL Hemoglobin 8.5 L 13.5-17.5 g/dL Hematocrit 25.3 L 41.0-53.0 % Mean Corpuscular Volume 91.8 80.0-100.0 fL Mean Corpuscular Hemoglobin 31.0 28.0-32.0 pg Mean Corpuscular Hemoglobin Concent 33.7 32.0-36.0 g/dL Red Cell Distribution Width 16.2 H 11.8-14.3 % Platelet Count 181 140-450 10^3/uL Mean Platelet Volume 8.5 6.9-10.8 fL Neutrophils (%) (Auto) 59.5 37.0-80.0 % Lymphocytes (%) (Auto) 25.5 10.0-50.0 % Monocytes (%) (Auto) 9.6 0.0-12.0 % Eosinophils (%) (Auto) 4.3 0.0-7.0 % Basophils (%) (Auto) 1.1 0.0-2.0 % Neutrophils # (Auto) 3.1 1.6-8.6 10 ^3/uL Lymphocytes # (Auto) 1.3 0.4-5.4 10 ^3/uL Monocytes # (Auto) 0.5 0-1.3 10 ^3/uL Eosinophils # (Auto) 0.2 0-0.8 10 ^3/uL Basophils # (Auto) 0.1 0-0.2 10 ^3/uL Nucleated Red Blood Cells 0.1 % Sodium Level 143 136-145 mmol/L Potassium Level 4.2 3.5-5.1 mmol/L Chloride Level 105 98-107 mmol/L Carbon Dioxide Level 30 20-31 mmol/L Anion Gap 8 5-15 Blood Urea Nitrogen 25 H 9-23 mg/dL Creatinine 4.93 H 0.700-1.30 mg/dL Glomerular Filtration Rate Calc 14 >90 mL/min BUN/Creatinine Ratio 5.1 L 10.0-20.0 Serum Glucose 158 H 74-106 mg/dL Calcium Level 7.9 L 8.7-10.4 mg/dL Magnesium Level 1.8 1.6-2.6 mg/dL Phosphorus Level 3.0 2.4-5.1 mg/dL Total Bilirubin 0.2 0.2-1.0 mg/dL Aspartate Amino Transferase (AST) 23 13-40 U/L Alanine Aminotransferase (ALT) 17 7-40 U/L Alkaline Phosphatase 101 46-116 U/L Total Protein 4.8 L 5.7-8.2 g/dL Albumin 2.6 L 3.2-4.8 g/dL Test 06/03/25 06:03 06/01/25 15:30 06/01/25 05:28 06/01/25 04:12 Range/Units Vitamin B12 Level 630 211-911 pg/mL Free Prostate Specific Antigen 0.24 N/A ng/mL Percent Free Prostate Specific Ag 40.0 . % Prostate Specific Antigen Total 0.6 0.0-4.0 ng/mL Hepatitis A IgM Antibody Negative Hepatitis B Surface Antigen Negative Negative Hepatitis B Core IgM Antibody Negative Negative Hepatitis C Antibody Negative Negative Urine Color Light-yellow Yellow Urine Clarity Clear Clear Urine pH 6.5 5.0-9.0 Urine Specific [place] 1.014 1.001-1.035 Urine Protein 2+ H Negative Urine Ketones Negative Negative Urine Blood 2+ H Negative /uL Urine Nitrite Negative Negative Urine Bilirubin Negative Negative Urine Urobilinogen Normal Negative mg/dL Urine Leukocyte Esterase Negative Negative /uL Urine RBC 30 0 - 3 /hpf Urine Microscopic WBC 3 0-3 /HPF Urine Squamous Epithelial Cells Few <5 /hpf Urine Bacteria Few H None Seen /hpf Urine Osmolality 314 mOsm/kg Urine Creatinine 49.98 30.0-125.0 mg/dL Urine Protein/Creatinine Ratio 18.24 Urine Sodium 82 40-220 mmol/L Urine Glucose 1+ H Normal mg/dL Urine Total Protein 911.5 H 1-14 mg/dL Urine Opiates Screen Neg NEGATIVE Urine Fentanyl Screen Neg NEGATIVE Urine Barbiturates Screen Neg NEGATIVE Urine Phencyclidine Screen Neg NEGATIVE Urine Amphetamines Screen Neg NEGATIVE Urine Benzodiazepines Screen Neg NEGATIVE Urine Cocaine Screen Neg NEGATIVE Urine Cannabinoids Screen Neg NEGATIVE Prothrombin Time 11.4 9.3-11.8 sec Prothrombin Time INR 1.08 0.9-1.15 Activated Partial Thromboplast Time 24.7 24.5-34.5 SEC Hemoglobin A1c < 3.8 <5.7 % A1C Lactic Acid Level 0.8 0.4-2.0 mmol/L Test 06/01/25 02:58 06/01/25 01:48 06/01/25 00:53 Range/Units Blood Gas Specimen Type Arterial Blood Gas Sample Site Right radial Blood Gas Patient Temperature 37.0 Arterial Blood Date Drawn [id number] Arterial Blood pH 7.373 7.350-7.450 Arterial Blood Partial Pressure CO2 31.5 L 35.0-48.0 mmHg Arterial Blood Partial Pressure O2 73.0 L 83.0-108.0 mmHg Arterial Blood HCO3 17.9 L 21.0-28.0 mmol/L Arterial Blood Oxygen Saturation 93.8 L 94.0-98.0 % Arterial Blood Base Excess -6.5 L -2.0-3.0 mmol/L Arterial Blood Oxyhemoglobin 93.0 L 94.0-98.0 % Arterial Blood Carboxyhemoglobin 0.3 L 0.5-1.5 % Arterial Blood Methemoglobin 0.5 0.0-1.5 % Morgan Test Yes Blood Gas Total Hemoglobin 9.20 L 13.5-17.5 g/dL Blood Gas Modality Room air FiO2 % 21.0 Specimen Drawn By Blood Gas Comments D-Dimer, Quantitative 2.93 H 0.0-0.49 mg/L FEU Troponin I High Sensitivity 33 </=54 ng/L Triglycerides Level 113 < 150 mg/dL Cholesterol Level 168 < 200 mg/dL LDL Cholesterol 78 < 100 mg/dL HDL Cholesterol 71 H 40-59 mg/dL Vitamin D 25-Hydroxy 25.4 L 30.0-100 ng/mL Thyroid Stimulating Hormone (TSH) 2.24 0.55-4.78 uIU/mL Iron Level 53 L 65-175 ug/dL Total Iron Binding Capacity 173 L 250-425 ug/dL Percent Iron Saturation 30.6 20-55 % Ferritin 390.5 H 22-322 ng/mL B-Type Natriuretic Peptide 894.83 0-100 pg/mL Parathyroid Hormone (Intact) 337.8 H 18.4-80.1 pg/mL Microbiology Date/Time Source Procedure Growth Status 06/10/25 15:20 Drainage Gram Stain - Final Resulted 06/10/25 15:20 Drainage Wound Culture - Preliminary No growth Resulted 06/10/25 11:36 Blood Blood Culture - Preliminary NO GROWTH AFTER 24 HOURS OF INCUBATION. Resulted Problem List/Assessment/Plan Problems: (1) Lumbar spinal stenosis Assessment and Plan Diagnosis: Chronic lumbar spinal stenosis with radiculopathy This treatment algorithm for this diagnosis is to optimize conservative treatment with p.t. and injections prior to offering surgery In this case, with an open diabetic ulcer, no surgery would be mandated until the ulcer is close. Otherwise the risk of infection would be too high. There is no current risk of catastrophic neuro compromise and the patient can get physical therapy without restrictions DEONNA SAM MD Jun 12, 2025 08:18
[2025-06-12 08:32] VITALS: BP 106/65; PULSE 75; RESP 18; TEMP 98; O2SAT 94
[2025-06-12 10:00] VITALS: O2SAT 94
--- NOTE | 2025-06-12 10:35 | DVHPN2 ---
Progress Note - Dictate Date Seen: Jun 12, 2025 Medical Necessity Reason Pt with a Central, PICC or Fol: Yes Subjective Mr. Smith is a 49 years old gentleman with a history of hypertension, diabetes, chronic low back pain, obesity, he was brought to the [facility] on 06/01/2025 with a chief company of shortness breath, he also found to have extremely high blood pressure in the emergency room. I have seen examined the patient, discussed with his nurse, no new complaints He walked with physical therapist Hemodialysis today UDS, 06/01/2025: Negative Urinalysis, 06/01/2025: WBC: 1, urine leukocyte esterase: Negative ABG, 06/01/2025: Compensated metabolic acidosis, hypoxia WBC/HB/PLT/MCV, 06/05/2025: 4.5/8.1/140/89.2 BUN/CR, 06/06/2025: 27/5.45 GFR, 06/06/2025: 12 HGB A1c, 06/01/2025:< 3.8 Liver function tests, 06/06/2025: Unremarkable TG/HDL/LDL/HDL, 06/01/2025: 113/168/78/71 Vitamin B12, 06/03/2025: 630 TSH, 06/01/2025: 2.24 Echocardiogram, 06/01/2025: MILD LV GLOBAL HYPOKINESIS DYSKINESIS OF IVS LV EF IS IN RANGE OF 45% SLIGHTLY DILATED RV NORMAL VALVES MILD POSTERIOR PERICARDIAL EFFUSION Carotid Doppler 06/07/2025: No hemodynamically significant stenosis noted in the right carotid system. No hemodynamically significant stenosis noted in the left carotid system. CT head, 06/04/2025: No acute intracranial abnormality MRI head, 06/07/2025: 1. No evidence of acute intracranial abnormality. No acute infarct. 2. Small 3 mm focus of T2/FLAIR hyperintense signal in the left anterior frontal lobe subcortical white matter is nonspecific, possible mild chronic small-vessel ischemic disease. Other etiologies such as migraine headaches or demyelinating disease could also have a similar appearance in the appropriate clinical setting MRI lumbar spine, 06/05/2025: Multilevel disc degeneration. Multilevel spinal canal stenosis, most pronounced and mild at L4-L5. Multilevel subarticular zone stenosis, most pronounced and severe at L4-L5 with right descending L5 nerve root compression. Multilevel foraminal stenosis, most pronounced and mild at L4- L5 vital signs Vital Sign Date Time Temp Pulse Resp B/P (MAP) Pulse Ox O2 Delivery O2 Flow Rate FiO2 06/12/25 10:05 108/60 06/12/25 08:32 98.0 75 18 94 98.0 06/11/25 20:00 Room Air* 0 21 Total Intake and Output 06/11/25 06/11/25 06/12/25 15:00 23:00 07:00 Intake Total 310 ml 0 ml Output Total 100 ml Balance 210 ml 0 ml medications Current Medications Medications Dose Ordered Sig/Ronel Route Start Time Stop Time Status Last Admin Dose Admin Acetaminophen 325 mg Q4HP PRN PO 06/01/25 02:30 06/03/25 00:57 325 MG Ondansetron HCl 4 mg Q4HP PRN IV 06/01/25 02:30 06/01/25 05:17 4 MG Nitroglycerin 250 ml @ 1.5 mls/hr Q24H IV 06/01/25 02:30 UNV Epoetin Rico-epbx 10,000 unit MWF@2100 [place] 06/02/25 21:00 06/11/25 21:14 10,000 UNIT Diagnostic Test (Pha) 1 strip Q6HR 06/01/25 12:00 06/12/25 06:01 1 STRIP Insulin Human Regular Q6HR SC 06/01/25 12:00 06/12/25 00:04 2 UNITS Dextrose 50 ml UD PRN IV 06/01/25 08:30 06/01/25 19:14 50 ML Famotidine 20 mg EOD PO 06/02/25 10:00 06/12/25 10:02 20 MG Heparin Sodium (Porcine) 5,000 units Q12HR SC 06/01/25 22:00 06/11/25 21:46 5,000 UNITS Carvedilol 12.5 mg Q12HR PO 06/02/25 22:00 06/11/25 21:37 12.5 MG Doxazosin Mesylate 2 mg HS PO 06/02/25 22:00 06/11/25 21:37 2 MG Calcitriol 0.25 mcg DAILY PO 06/03/25 10:00 06/12/25 10:01 0.25 MCG Calcium Acetate 667 mg TIDWMEALS PO 06/04/25 12:00 06/12/25 08:25 667 MG Ergocalciferol 50,000 unit Q7D PO 06/04/25 09:30 06/11/25 10:35 50,000 UNIT Metolazone 10 mg DAILY PO 06/05/25 10:00 06/12/25 10:05 10 MG Multivit/Ca Carb/ B Cmplx/FA/Prenat 1 tab DAILY PO 06/05/25 10:00 06/12/25 10:02 1 TAB Nifedipine 90 mg DAILY PO 06/05/25 14:00 06/11/25 10:36 90 MG Lorazepam 1 mg ONCE PRN IV 06/06/25 23:00 Aspirin 81 mg DAILY PO 06/07/25 10:00 06/12/25 10:02 81 MG Atorvastatin Calcium 20 mg HS PO 06/07/25 22:00 06/11/25 21:45 20 MG Cyclobenzaprine HCl 5 mg BID PO 06/07/25 22:00 06/12/25 10:03 5 MG Lactulose 30 ml DAILY PO 06/09/25 10:00 06/09/25 09:47 30 ML Morphine Sulfate 2 mg Q4HPRN PRN IV 06/11/25 21:30 06/11/25 21:37 2 MG objective General: the patient is well developed and nourished. No acute distress. MENTAL STATUS: Awake and alert. Oriented to person, place, time and general circumstances. Able to give personal history. SPEECH, LANGUAGE, HIGHER CORTICAL FUNCTION: no aphasia or dysathria. CRANIAL NERVES: Pupils are equal, round and reactive. EOMs full and conjugate. No nystagmus. Facial sensation intact in all three divisions bilaterally. Mandibular strength intact. Facial muscles symmetrical and strength intact. Tongue midline. No fasciculations or atrophy. SENSATION: Sensation to touch and pinprick is fine, no sensory level, no definite paroxysmal distal differences MOTOR: Normal tone in the upper and lower extremity. Normal muscle bulk. No fasciculations. No abnormal movements or posturing. Muscle strength of the major groups in the upper extremities is 4/5. Muscle strength of the major groups in the lower extremities is 3-4/5. There was no [id number] differences REFLEXES: Deep tendon reflexes normal and symmetrical. No pathological reflexes. CEREBELLAR/COORDINATION: Finger to nose is normal bilaterally. GAIT/STATION: deferred. laboratory and microbiology Laboratory Tests 06/11/25 04:37 Test 06/11/25 04:37 Range/Units Serum Glucose 158 H 74-106 mg/dL Problem List General weakness, with right-sided more affected, resolved, unremarkable MRI head Hypertension emergency Rule out posterior reversible encephalopathy Sleep-related breathing disorder Obesity Assessment/Plan Monitoring Supportive treatment Telemetry Current pain management Aspirin 81 mg daily, Lipitor 20 mg daily (home med) APAP in the hospital He has been recommended has a trial of wedged pillow or elevated bed head for his sleep-related breathing disorder Weight control Hypersomnia precautions Further address his sleep-related breathing disorder as outpatient Physical therapist on case More recommendation per clinical course This medical document was created using an electronic medical record system with [employer] dictation system. Although this document has been carefully reviewed, there may still be some phonetic and typographical errors. These areas are purely typographical due to imperfections of the software programs, and do not reflect any compromise in the patient's medical care. Prognosis poor Dietary Evaluation Review Comments: Nutrition Recommendation: 1) Consider CCHO 75 + renal standard diet 2) Monitor PO intake, lab values, weight trend, and I/O Expected Outcomes/Goals: Intake to meet >75% estimated needs Lab values to improve FU 3-5 days Plan discussed with: Patient, Other SANDI HOLLINGSWORTH MD Jun 12, 2025 10:35
--- NOTE | 2025-06-12 18:11 | DVHPNRES ---
Progress Note Date Seen: Jun 12, 2025 Resident Creating Document: CRISTÓBAL BRYAN RESIDENT Medical Necessity Reason Pt with a Central, PICC or Fol: No Subjective Review of Systems Elian Smith is a 49-year-old male patient past medical history of hypertension, hyperlipidemia, type 2 diabetes mellitus, diabetic foot status post debridement who presented to the ED with chief complaint of shortness of breath and lower leg swelling associated with decreased urine output for the past week before his admission. Patient has not been taking his hydrochlorothiazide for the past two weeks, rest of medication he is compliant with. Denies any other associated symptoms including fever, chills, nausea, vomiting, diarrhea, dysuria in any other associated symptoms. BP was 213/139 in the ER . BUN, creatinine was elevated, kidney ultrasound demonstrated normal bilateral kidney with small bilateral pleural effusion. Hyperkalemia protocol was initiated for hyperkalemia management. Nephrology was consulted and recommended IV Lasix drip, IV sodium bicarb for metabolic acidosis secondary to LORE and monitor BMP. Past medical history:hypertension, hyperlipidemia, type 2 diabetes mellitus Past surgical history: I&d on left foot Social history: denies smoking, alcohol and drugs Patient seen and examined at bedside. He is alert oriented x3 and currently on 2 L oxygen through nasal cannula, saturating 95%. The patient is currently on low-dose nicardipine drip, bridged with oral carvedilol 6.25 mg p.o. b.i.d., amlodipine 10 mg daily . Complaint of shortness of breath, back pain and no other active complaint. Constitutional: No: Fever, Chills, Sweats, Weakness, Malaise, Other Eyes: No: Pain, Vision change, Conjunctivae inflammation, Eyelid inflammation, Other, Redness ENT: No: Ear pain, Ear discharge, Nose pain, Nose discharge, Nose congestion, Mouth pain, Mouth swelling, Throat pain, Throat swelling, Other Respiratory: Shortness of breath, No: Cough, Dry,Wheezing, Hemoptysis, Pleuritic Pain, Sputum, Wheezing, Other Cardiovascular: Edema No: Chest Pain, Palpitations, Orthopnea, Paroxysmal Noc. Dyspnea, Lt Headedness, Other Gastrointestinal: No: Nausea, Vomiting, Abdominal Pain, Diarrhea, Constipation, Melena, Hematochezia, Other Musculoskeletal: No: other, neck pain, shoulder pain, arm pain, back pain, hand pain, leg pain, foot pain Neurological:; Weakness in lower extremities, back pain,no Numbness, Incoordination, Change in speech, Confusion, Seizures 06/02/25- The patient was seen at bedside today. Patient got hemodialysis today morning. His hemoglobin this morning was 6.7, 1 unit of PRBC was given. Nephrology continued with the lasix drip, added sevelamer 800mg tid po and added nifedipine 90 mg po daily. Dose of cervedilol was increased to 12.5 mg po bid. IR will place tunnel catheter tomorrow. 06/03/25- The patient was seen at bedside today. Hemoglobin today is 9.1 and creatinine is 6.27. Blood pressure is under control now. Patient got tunnel catheter placement by IR today. The patient will receive 1 dialysis today. business services manager consult for arranging chair time for hemodialysis has already been placed we are pending approval on that. Possible discharge tomorrow once check time is secured. Calcitriol 0.25mcg daily po was started today. 06/04/25- The patient was seen at bedside today. Creatinine today is 5.29. Patient got hemodialysis yesterday and 3 L was removed. Lasix drip was discontinued and patient was started on Bumex drip 1mg/hr and metolazone 10 mg p.o. daily. Albumin 25% at 12 hr protocol was started. Cardiology was consulted, pending evaluation. Patient complained of weakness in his lower limbs and right arm, head CT was ordered which showed no acute abnormality. CT angiography head and neck was ordered, pending report. Lumbosacral spine x-ray was also ordered pending report. Patient and his sons were explained extensively and updated with all evaluations and management. 06/05/25- The patient was seen at bedside today. Creatinine today is 4.37. Patient got hemodialysis yesterday and 4L fluid was removed. Chest CT showed cardiomegaly with mild pulmonary edema and moderate bilateral pleural effusions. Patient complained of weakness and inability to move both lower extremities. MRI lumbosacral spine showed multilevel disc degeneration and spinal canal stenosis most pronounced at L4-L5 with L5 nerve root compression. Spinal surgery was consulted, pending evaluation. 06/06/25- The patient was seen at bedside today. Creatinine today is 5.45. Spine surgeon was consulted and they recommended physical therapy and pain management along with muscle relaxants. Cardiology recommended outpatient follow-up for possible ischemic workup with stress test. We placed an IR consult for possible thoracentesis. 06/07/25- The patient was seen at bedside today. Creatinine today is 5.44. Patient continued to work with physical therapy but was not able to get out of bed. Carotid doppler was negative for any stenosis. Chest US showed small right pleural effusion. He will get his next hemodialysis on 06/09/25. Per nephrology, he can be discharged to the SNF for physical therapy as he has chair time at [facility] on Monday, Monday and Monday at 5.30 am. Discharge planning was started with social security benefits interviewer to get a bed for the patient at [facility]. 06/08/25- 06/08/25: The patient was evaluated and examined at bedside. VS, laboratories and chart were reviewed. BP within normal limits. Patient is using Bi-Pap at night to improved oxygenation. PT is onboard, they have evaluated the patient and recommend SNF or home-health; the patient and his family have denied SNF and agreed today to home-health services. A wheelchair was requested. The patient will continue PT and daily walk from bed to chair X3 daily has been requested to improved mobility. The patient reports feeling better, and reports constipation, lactulose 30ml po was started. I have spoken with the patient and his family and address all questions and concerns, they agree with current plan. Patient will continue with dialysis in [facility] facility on Monday06/09/25. 06/09/25- The patient was seen at bedside today. Patient continued to work with physical therapy. He was able to get out of bed and take a few steps. Wheelchair was delivered at bedside. Patient mentions he is able to move his legs now and feels better. Patient got hemodialysis yesterday. Discharge planning was discussed with social security benefits interviewer and they are working on discharge to home with home health. We will continue monitoring and managing the patient. 06/10/25- The patient was seen and evaluated at bedside today. Patient continued to work with physical therapy. business services manager talked to [facility] for home health for PT, but were told his insurance will not cover PT at home. Discharge was noted around his catheter site, so wound culture and blood culture were sent. Patient is due for dialysis today. Patient will be discharged tomorrow if cultures are negative. 06/11/25- the patient was seen at bedside today. He continued to show improvement with physical therapy. Prelim wound culture and blood culture came back negative. The patient could not be discharged home as social security benefits interviewer was trying to set up home health which was pending. 06/12/25-the patient was seen and evaluated at bedside. He mentioned no new complaints. He was discharged home in a stable condition and recommended to follow up with PCP in 1-2 weeks, DC clinic in 1 week, dialysis as per chair time arranged and outpatient physical therapy. Objective vital signs Vital Sign Date Time Temp Pulse Resp B/P (MAP) Pulse Ox O2 Delivery O2 Flow Rate FiO2 06/12/25 10:05 108/60 06/12/25 10:00 75 06/12/25 10:00 94 Room Air* 0 21 06/12/25 08:32 98.0 18 98.0 Total Intake and Output 06/11/25 06/11/25 06/12/25 15:00 23:00 07:00 Intake Total 310 ml 0 ml Output Total 100 ml Balance 210 ml 0 ml medications Current Medications Medications Dose Ordered Sig/Ronel Route Start Time Stop Time Status Last Admin Dose Admin Nitroglycerin 250 ml @ 1.5 mls/hr Q24H IV 06/01/25 02:30 UNV Examination General Appearance: Alert, Oriented X3, Cooperative. Discharge noted around the catheter site with erythema. HEENT: Atraumatic, PERRLA, EOMI, Mucous membrane moist/pink Respiratory: mild bilateral crackles Cardiovascular: Regular rate, Normal S1, Normal S2, No murmurs, no chest wall tenderness Abdominal: Normal bowel sounds, Soft, No tenderness, No hepatospenomegaly, No masses Extremities: Edema 3 bilateral+, No clubbing, No cyanosis, Skin: No rashes, No breakdown, No significant lesion Neuro: Normal speech, Strength 3/5 in lower extremities, strength 4/5 in upper extremities, Normal tone, Sensation intact, Cranial nerves 3-12 NL Psych/Mental Status: Mental status NL, Mood NL Genitourinary: scrotal edema DEMARCUS: no external hemorrhoids visible, sphincter tone is normal, empty rectal vault, no active bleeding Nurse Shania was present as home organizer during the examination laboratory and microbiology Laboratory Tests 06/11/25 04:37 Test 06/11/25 04:37 Range/Units Serum Glucose 158 H 74-106 mg/dL Microbiology Date/Time Source Procedure Growth Status 06/10/25 15:20 Drainage Gram Stain - Final Resulted 06/10/25 15:20 Drainage Wound Culture - Preliminary No growth Resulted 06/10/25 11:36 Blood Blood Culture - Preliminary NO GROWTH AFTER 48 HOURS OF INCUBATION. Resulted Labs and/or images reviewed: Labs reviewed by me, Image(s) reviewed by me Problem List/Assessment/Plan Problem List/Assessment/Plan # Acute hypoxic respiratory failure likely due to volume overload in the setting of severe LORE requiring hemodialysis # Acute on chronic decompensated systolic heart failure # Acute pulmonary edema due to above # Hypertensive emergency # Acute pulmonary embolism , ruled out - chest x-ray revealed bilateral pulmonary vascular congestion. Bibasilar atelectasis/consolidation - BNP is elevated 894.83 - echo showed mild global hypokinesis with an LVEF of 45% and slightly dilated RV and very mild posterior pericardial effusion. - Carvedilol 12.5 mg p.o. b.i.d. - Nifedipine 90mg daily - V/Q scan done on 06/02/25- low probability for PE - cardiology consulted-outpatient follow-up for ischemic workup with stress test - Chest US- small right pleural effusion, not enough fluid to drain per IR # Acute ischemic/hemorrhagic stroke, rule out -CT head- No acute intracranial abnormality -CT angiography , was grossly unremarkable -physical therapy on board- patienct getting out of bed and taking a few steps -MRI brain- Small 3 mm focus of T2/FLAIR hyperintense signal in the left anterior frontal lobe subcortical white matter is nonspecific, possible mild chronic small-vessel ischemic disease -carotid doppler- No hemodynamically significant stenosis noted in the right carotid system # Acute kidney injury hemodynamically mediated in the setting of fluid overload hypertensive emergency # Chronic kidney disease, unspecified, baseline is unknown s/p IJ tunneled hemodialysis catheter # Possible diabetic nephropathy # Acute on Chronic normocytic normochromic anemia # Diabetes mellitus, status post debridement of diabetic foot #Secondary hyperparathyroidism -Ultrasound demonstrated normal-appearing kidneys bilaterally, with bilateral pleural effusion -Nephrology on board -renal diet -Epogen 1000 units 3 times a week -strict I&O -Monitor BMP -hemodialysis on 06/09/25, next HD today -Calcitriol 0.25 mcg daily po -metolazone 10mg po daily -Chair time at [facility] dialysis on MWF at 5.30 am # Spinal canal stenosis with lumbar radiculopathy - MRI of L/S spine without contrast showed Multilevel spinal canal stenosis, most pronounced and mild at L4-L5. Multilevel subarticular zone stenosis, most pronounced and severe at L4-L5 with right descending L5 nerve root compression. Multilevel foraminal stenosis - Consulted spinal surgery-physical therapy and muscle relaxants- flexeril 5mg po bid # Mild transaminitis likely secondary to hepatic congestion from CHF # Moderate protein calorie malnutrition, albumin 2.5 # Morbid obesity, BMI 40.6 kg/m2 - counseled patient regarding healthy diet, weight loss, lifestyle modification and physical exercise PUD prophylaxis-Pepcid 20 mg p.o. daily DVT prophylaxis-Heparin 5000 units b.i.d. Goal of care discussed with the patient for more than 20 minutes full code Plan discussed with Dr Bonilla Plan discussed with patient and his son Plan discussed with: Patient Dietary Evaluation Review Comments: Nutrition Recommendation: 1) Consider CCHO 75 + renal standard diet 2) Monitor PO intake, lab values, weight trend, and I/O Expected Outcomes/Goals: Intake to meet >75% estimated needs Lab values to improve FU 3-5 days Date of Service: Jun 12, 2025 Billing Provider: CATA BONILLA MD Common Visit Codes: 79455-[id number] INP/OBS CARE(HIGH) CRISTÓBAL BRYAN RESIDENT Jun 12, 2025 18:11
== END 2025-06-12 11:18 | disposition home or self-care (01) | DRG 194 ==
LOC: ER 00:16 → OVERFLOW 02:30 → TELE-CENTR 06-02 21:35 → CENTRAL 06-09 13:14
PROVIDERS: ADMIT Internal Medicine; ATTEND Internal Medicine
PROC: 5A1D70Z Performance of Urinary Filtration, Intermittent, Less than 6 Hours Per Day (ICD-10-PCS; principal; 2025-06-01)
PROC: 02HV33Z Insertion of Infusion Device into Superior Vena Cava, Percutaneous Approach (ICD-10-PCS; 2025-06-01)
PROC: 30233N1 Transfusion of Nonautologous Red Blood Cells into Peripheral Vein, Percutaneous Approach (ICD-10-PCS; 2025-06-02)
PROC: 5A1D70Z Performance of Urinary Filtration, Intermittent, Less than 6 Hours Per Day (ICD-10-PCS; 2025-06-02)
PROC: 5A1D70Z Performance of Urinary Filtration, Intermittent, Less than 6 Hours Per Day (ICD-10-PCS; 2025-06-03)
PROC: 0JH63XZ Insertion of Tunneled Vascular Access Device into Chest Subcutaneous Tissue and Fascia, Percutaneous Approach (ICD-10-PCS; 2025-06-03)
PROC: 02H633Z Insertion of Infusion Device into Right Atrium, Percutaneous Approach (ICD-10-PCS; 2025-06-03)
PROC: B5181ZA Fluoroscopy of Superior Vena Cava using Low Osmolar Contrast, Guidance (ICD-10-PCS; 2025-06-03)
PROC: B548ZZA Ultrasonography of Superior Vena Cava, Guidance (ICD-10-PCS; 2025-06-03)
PROC: 5A1D70Z Performance of Urinary Filtration, Intermittent, Less than 6 Hours Per Day (ICD-10-PCS; 2025-06-04)
PROC: 05HF33Z Insertion of Infusion Device into Left Cephalic Vein, Percutaneous Approach (ICD-10-PCS; 2025-06-05)
PROC: B54NZZA Ultrasonography of Left Upper Extremity Veins, Guidance (ICD-10-PCS; 2025-06-05)
PROC: 5A1D70Z Performance of Urinary Filtration, Intermittent, Less than 6 Hours Per Day (ICD-10-PCS; 2025-06-06)
PROC: 5A09357 Assistance with Respiratory Ventilation, Less than 24 Consecutive Hours, Continuous Positive Airway Pressure (ICD-10-PCS; 2025-06-07)
PROC: 5A1D70Z Performance of Urinary Filtration, Intermittent, Less than 6 Hours Per Day (ICD-10-PCS; 2025-06-08)
PROC: 5A09357 Assistance with Respiratory Ventilation, Less than 24 Consecutive Hours, Continuous Positive Airway Pressure (ICD-10-PCS; 2025-06-08)
PROC: 5A1D70Z Performance of Urinary Filtration, Intermittent, Less than 6 Hours Per Day (ICD-10-PCS; 2025-06-10)
DX: I13.2 Hypertensive heart and chronic kidney disease with heart failure and with stage 5 chronic kidney disease, or end stage renal disease (principal); N17.0 Acute kidney failure with tubular necrosis; E44.0 Moderate protein-calorie malnutrition; I31.39 Other pericardial effusion (noninflammatory); J96.01 Acute respiratory failure with hypoxia; E87.20 Acidosis, unspecified; K76.1 Chronic passive congestion of liver; D63.1 Anemia in chronic kidney disease; E88.09 Other disorders of plasma-protein metabolism, not elsewhere classified; N18.6 End stage renal disease; I50.43 Acute on chronic combined systolic (congestive) and diastolic (congestive) heart failure; I16.1 Hypertensive emergency; E66.01 Morbid (severe) obesity due to excess calories; E11.22 Type 2 diabetes mellitus with diabetic chronic kidney disease; E03.9 Hypothyroidism, unspecified; E87.5 Hyperkalemia; E78.5 Hyperlipidemia, unspecified; N25.81 Secondary hyperparathyroidism of renal origin; E11.51 Type 2 diabetes mellitus with diabetic peripheral angiopathy without gangrene; E11.65 Type 2 diabetes mellitus with hyperglycemia; J98.11 Atelectasis; D50.9 Iron deficiency anemia, unspecified; R74.01 Elevation of levels of liver transaminase levels; G89.29 Other chronic pain; M48.061 Spinal stenosis, lumbar region without neurogenic claudication; M54.16 Radiculopathy, lumbar region; Z83.3 Family history of diabetes mellitus; Z82.49 Family history of ischemic heart disease and other diseases of the circulatory system; Z68.41 Body mass index [BMI] 40.0-44.9, adult; Z79.82 Long term (current) use of aspirin; Z79.4 Long term (current) use of insulin; Z79.899 Other long term (current) drug therapy
CPT/HCPCS: 36415; 36556; 36558; 36600; 70450; 70460; 70491; 70551; 71045; 71250; 72110; 72148; 76604; 76775; 77001; 78582; 80048; 80053; 80061; 80074; 80307; 81001; 82306; 82570; 82607; 82728; 82805; 82962; 83036; 83540; 83550; 83605; 83735; 83880; 83935; 83970; 84100; 84132; 84154; 84156; 84300; 84443; 84484; 85014; 85018; 85025; 85379; 85610; 85730; 86850; 86900; 86901; 86920; 87040; 87081; 87205; 87340; 90935; 93306; 93886; 93970; 93971; 94640; 94660; 97110; 97116; 97163; 97530; 99152; 99291; C1894; G0378; J1642; J1815; J2250; J2405; P9047